=== PATIENT | female | born 1985 | race Caucasian/White ===

== ENCOUNTER 2023-11-21 22:01 | Emergency (ER) | payer MEDICAID, SELFPAY ==
[2023-11-21 22:13] VITALS: BP 125/89; PULSE 75; TEMP 36.7; O2SAT 97; BMI 32.9
--- NOTE | 2023-11-21 22:26 | ED_ITS ---
HPI HPI - General Adult General Chief complaint: Abdominal Pain Stated complaint: LRQ Pain, Hip Pain Time Seen by Provider: 11/21/23 22:07 History of Present Illness HPI narrative: This 38-year-old female who is status postcholecystectomy with Dr. Espinal presents for evaluation of ongoing right lower quadrant abdominal pain. She has a specific area in her right lower quadrant that is causing her pain with specific movements. She states she was seen in follow-up after her gallbladder surgery by the Dr. Espinal and appeared to be doing well. Approximately 3 weeks after her gallbladder surgery she spiked a high fever. She was worked up extensively and even had a spinal tap done. No specific cause for her fever was elucidated. She states that she was referred to a permastone installer at [facility] because she had an elevated CRP and sed rate. During a scan for a workup for fibromyalgia and lupus it was found that she has a surgical clip in her right lower quadrant. She is concerned that the surgical clip is what is causing her pain. She has had a complete hysterectomy and prior to that had a tubal ligation. She is not having any urinary symptoms. She denies any ongoing fever. She has no nausea or vomiting. She did have ovarian cyst prior to her complete hysterectomy. Related Data Home Medications ?Medication ?Instructions ?Recorded ?Confirmed hydroxyzine HCl 25 mg tablet 25 mg PO Q6H PRN itching 11/21/23 11/21/23 Allergies Allergy/AdvReac Type Severity Reaction Status Date / Time acetaminophen [From Percocet] Allergy Mild Hives Verified 11/21/23 22:26 nickel Allergy Mild Hives Verified 11/21/23 22:26 oxycodone [From Percocet] Allergy Mild Hives Verified 11/21/23 22:26 Sulfa (Sulfonamide Allergy Mild Hives Verified 11/21/23 22:26 Antibiotics) silk tape Allergy Mild Hives Uncoded 11/21/23 22:26 Opioid HPI Opioid Management Most Recent Opioid Data: No Data to Display Review of Systems ROS Status of ROS 10 or more systems reviewed and unremark able except as noted in history and below Exam Narrative Exam Narrative: Vital signs and Nursing Notes reviewed: Patient is afebrile with a normal pulse, normal blood pressure, she is not hypoxic with pulse ox of 97% on room air General: Awake, alert, oriented, no acute distress, lying comfortably on the stretcher, she moves easily about the stretcher HEENT: Normocephalic atraumatic, mucous membranes are moist and pink, eyes are clear, normal conjunctiva, vision is grossly intact Neck: Supple, no meningeal signs, no anterior or posterior cervical lymphadenopathy Chest: Lungs are clear to auscultation with good air entry, there is no wheezing rhonchi or rales appreciated no accessory muscle use, patient is speaking in complete sentences-no chest wall tenderness to palpation CVS: Regular rate and rhythm S1-S2, no murmurs rubs or gallops, pulses are brisk and equal bilaterally ABD: Soft, nondistended, mild tenderness in the right lower quadrant, I do not appreciate any foreign bodies, there is no local erythema or bruising noted no rebound guarding or rigidity, bowel sounds are normal, no pulsatile masses appreciated, femoral pulses are brisk and equal bilaterally Extremities: Moving all extremities, no lower extremity tenderness or swelling noted, negative Homans' sign, pulses are brisk and equal bilaterally Skin: Normal in appearance without rash,pallor, petechiae or purpura Neuro: No focal deficits Constitutional Vital Signs, click to edit/add: Last Vital Signs Temp 98.0 F 11/21/23 22:13 Pulse 75 11/21/23 22:13 Resp 16 11/21/23 22:13 BP 125/89 11/21/23 22:13 Pulse Ox 97 11/21/23 22:13 O2 Del Method Room Air 11/21/23 22:13 Course Vital Signs Vital signs: Vital Signs Temperature 98.0 F 11/21/23 22:13 Pulse Rate 75 11/21/23 22:13 Respiratory Rate 16 11/21/23 22:13 Blood Pressure 125/89 11/21/23 22:13 Pulse Oximetry 97 11/21/23 22:13 Oxygen Delivery Method Room Air 11/21/23 22:13 Temperature 98.0 F 11/21/23 22:13 Pulse Rate 75 11/21/23 22:13 Respiratory Rate 16 11/21/23 22:13 Blood Pressure 125/89 11/21/23 22:13 Pulse Oximetry 97 11/21/23 22:13 Oxygen Delivery Method Room Air 11/21/23 22:13 Medical Decision Making MDM Narrative Medical decision making narrative: This patient presents with RLQ abd pain that has been ongoing for several weeks- months after having gallbladder surgery. She was told by another provider that that a CAT scan showed a surgical clip in her right lower quadrant. She is conc erned that this is what is causing her pain. She has had blood work urinalysis and CT scans done in the recent past. I offered her an x-ray to see if I could see where the surgical clip was located. She has had a tubal ligation and also had a total hysterectomy 13 years ago in [facility]. She was concerned that the surgical clip may have been from the gallbladder surgery but I explained to her that it would be highly unlikely for a surgical clip from the right upper quadrant to migrate into the right lower quadrant as the pelvis is contained in a different compartment anatomically. She was offered a dose of ibuprofen as she is driving, blood work urinalysis and x-ray but declines this at this time stating that she will go home and call her tombstone carver who did her hysterectomy in the near future for a follow-up appointment. Her vital signs and physical exam are benign. Discharge Plan Discharge Stand Alone Forms: Portal Instructions Chief Complaint: Abdominal Pain Clinical Impression: Abdominal pain Patient Disposition: Home, Self-Care Time of Disposition Decision: 23:23 Condition: Good Prescriptions / Home Meds: No Action hydroxyzine HCl 25 mg tablet 25 mg PO Q6H PRN (Reason: itching) Print Language: Telugu Instructions: Abdominal Pain (ED) Referrals: VERONIKA NIELSEN [Primary Care Provider] - 1 week
== END 2023-11-21 23:29 | disposition home or self-care (01) ==
PROVIDERS: Emergency Provider Emergency Medicine; PCP Nurse Practitioner Family
DX: R10.9 Unspecified abdominal pain (principal); Z90.49 Acquired absence of other specified parts of digestive tract; Z90.710 Acquired absence of both cervix and uterus
CPT/HCPCS: 99282

== ENCOUNTER 2024-06-12 17:46 | Emergency (ER) | payer MEDICAID, SELFPAY ==
[2024-06-12 17:51] VITALS: BP 135/93; PULSE 90; TEMP 37.1; O2SAT 98; BMI 25.6
--- NOTE | 2024-06-12 18:18 | ED_ITS ---
HPI - GI Bleed General Chief complaint: GI Bleed Stated complaint: RECTAL BLEEDING Time Seen by Provider: 06/12/24 18:04 Source: patient Mode of arrival: walk-in Limitations: no limitations History of Present Illness HPI Narrative: Patient is 38-year-old female have a history of hysterectomy as well as external hemorrhoid coming to the ER with a rectal bleed that she noticed today twice, she mentioned that she noted the blood in the tissue paper and also in the toilet, she was worried because 2 weeks ago she had some heartburn that resolved right now and she was taking a lot of Pepto-Bismol and antiacid medication The patient at the moment denying any abdominal pain nausea vomiting or any other concerns she mentioned that she already have a history of hemorrhoid she denies any rectal pain as well Related Data Home Medications ?Medication ?Instructions ?Recorded ?Confirmed hydroxyzine HCl 25 mg tablet 25 mg PO Q6H PRN itching 11/21/23 06/12/24 acetazolamide 250 mg tablet mg 06/12/24 albuterol sulfate 90 mcg/actuation inhalation 06/12/24 aerosol inhaler cefdinir 300 mg capsule mg 06/12/24 cetirizine 10 mg tablet mg 06/12/24 conjugated estrogens 0.45 mg mg 06/12/24 tablet (Premarin) dextroamphetamine-amphetamine 10 06/12/24 mg tablet dextroamphetamine-amphetamine 20 06/12/24 mg tablet doxycycline monohydrate 100 mg mg 06/12/24 capsule hydroxyzine HCl 50 mg tablet mg 06/12/24 montelukast 10 mg tablet mg 06/12/24 Allergies Allergy/AdvReac Type Severity Reaction Status Date / Time acetaminophen (From Percocet) Allergy Mild Hives Verified 06/12/24 18:01 nickel Allergy Mild Hives Verified 06/12/24 18:01 oxycodone (From Percocet) Allergy Mild Hives Verified 06/12/24 18:01 Sulfa (Sulfonamide Allergy Mild Hives Verified 06/12/24 18:01 Antibiotics) levofloxacin Allergy Swelling Verified 06/12/24 18:01 of Lip/Tongue/Throat silk tape Allergy Mild Hives Uncoded 06/12/24 18:01 Review of Systems ROS Status of ROS 10 or more systems reviewed and unremark able except as noted in history and below PFSH PFSH Social History Little interest or pleasure in doing things: not at all Feeling down, depressed, or hopeless: not at all Exam Narrative Exam Narrative: Nurses notes and vital signs reviewed and patient is not hypoxic. General: Well-appearing and in no apparent distress. Skin: Warm, dry, no pallor noted. No rash. Head: Normocephalic, atraumatic. Neck: Supple, non-tender. Eye: Pupils are equal, round and EOMI. No scleral icterus. Ears, Nose, Mouth, and Throat: TM are clear, no nasal mucosal hypertrophy. Oral mucosa is moist, no posterior oropharynx erythema, uvula is mid-line Cardiovascular: Regular Rate and Rhythm without murmur, gallop or rub. Respiratory: No accessory muscle use or respiratory distress. Lungs are clear to auscultation, no wheezing, rales or rhonchi Chest Wall: no tenderness Back: No midline thoracic or lumbar vertebral tenderness. No CVA tenderness Musculoskeletal: normal ROM, no calf or popliteal tenderness, no lower extremity edema/swelling GI: Abdomen is soft, non-distended. Normal bowel sounds. No masses appreciated. No tenderness to palpation. No rebound, guarding, or rigidity noted. Neurological: A&O x4. No cranial nerve dysfunction observed. No truncal ataxia. Moves all extremities. Sensation intact. Psychiatric: Cooperative and interactive. Normal mood and affect. Rectal exam: The patient have a external hemorrhoid at 6:00 that is almost 3 mm nontender and not bleeding And there was no rectal bleeding on exam Constitutional Vital Signs, click to edit/add: Last Vital Signs Temp 98.8 F 06/12/24 17:51 Pulse 90 06/12/24 17:51 Resp 16 06/12/24 17:51 BP 135/93 H 06/12/24 17:51 Pulse Ox 98 06/12/24 17:51 Course Vital Signs Vital signs: Vital Signs Temperature 98.8 F 06/12/24 17:51 Pulse Rate 90 06/12/24 17:51 Respiratory Rate 16 06/12/24 17:51 Blood Pressure 135/93 H 06/12/24 17:51 Pulse Oximetry 98 06/12/24 17:51 Temperature 98.8 F 06/12/24 17:51 Pulse Rate 90 06/12/24 17:51 Respiratory Rate 16 06/12/24 17:51 Blood Pressure 135/93 H 06/12/24 17:51 Pulse Oximetry 98 06/12/24 17:51 Discharge Plan Discharge Chief Complaint: GI Bleed Clinical Impression: Rectal bleed, Hemorrhoids Patient Disposition: Home, Self-Care Time of Disposition Decision: 18:18 Condition: Good Prescriptions / Home Meds: No Action hydroxyzine HCl 25 mg tablet 25 mg PO Q6H PRN (Reason: itching) cetirizine 10 mg tablet dextroamphetamine-amphetamine 10 mg tablet acetazolamide 250 mg tablet hydroxyzine HCl 50 mg tablet doxycycline monohydrate 100 mg capsule dextroamphetamine-amphetamine 20 mg tablet montelukast 10 mg tablet albuterol sulfate 90 mcg/actuation HFA aerosol inhaler INHALATION cefdinir 300 mg capsule Premarin 0.45 mg tablet Print Language: Mauritian Instructions: Rectal Bleeding (ED) Referrals: VERONIKA NIELSEN [Primary Care Provider] - 1 week
[2024-06-12 18:36] LABS: Basophils Percent Auto 0.4 % (0.2-2.0); Eosinophils Absolute Auto 0.1 10^3/uL (0.0-0.7); Eosinophils Percent Auto 1.9 % (0.9-7.0); Hematocrit 36.2 % (36.0-48.0); Hemoglobin 12.9 g/dL (12.0-16.0); Immature Granulocytes Abs Auto 0.01 10^3/uL (0.00-0.03); Immature Granulocytes Pct Auto 0.1 % (0.0-0.5); Lymphocytes Absolute Auto 3.2 10^3/uL (1.2-3.8); Mean Corpuscular HGB Conc 35.6 g/dL (29.9-35.2); Mean Corpuscular Hemoglobin 31.7 pg (26.7-34.0); Mean Corpuscular Volume 88.9 fL (81.0-99.0); Mean Platelet Volume 9.4 fL (9.5-13.5); Monocytes Absolute Auto 0.4 10^3/uL (0.3-0.8); Monocytes Percent Auto 5.9 % (1.7-12.0); Neutrophils Absolute Auto 3.5 10^3/uL (1.4-6.5); Neutrophils Percent Auto 47.7 % (43.0-75.0); Platelet Count 335 10^3/uL (150-450); Red Blood Count 4.07 10^6/uL (4.20-5.40); Red Cell Distribution Width 11.8 % (11.0-15.0); White Blood Count 7.3 10^3/uL (4.0-11.0)
--- OUTSIDE RECORDS SUMMARY | 2024-06-12 18:36 | XMS_ITS | CCD ---
Author Organization [facility] Care Team Providers [facility] [employer] Attendant Name Role Phone Vibha Alonzo Unavailable Unavailable SOFIA BETANCUR Unavailable Unavailable SOFIA BETANCUR Unavailable Unavailable Kelly John E Unavailable Unavailable KISHOR ALONZO Unavailable Unavailable KISHOR ALONZO Unavailable Unavailable Hilario Pena V Unavailable Unavailable Kelly John E Unavailable Unavailable Glenn Jackson Unavailable Unavaila Glenn Mitchell Unavailable Unavaila maty Mendoza John E Unavailable Unavailable [employer] Unavailable Unavailable Kelly, John E Unavailable Unavailable Kelly, John E Unavailable Unavailable LEV BARRAGAN Unavailable Unavailable LUIS A ALMARAZ Unavailable Unavailable Sruthi Farrell Unavailable Odalis Carrero Unavailable Vadim Sandra Unavailable Moises Simmons Unavailable CHILO Farrell Primary Care Provider CHILO Farrell Attending Provider [phone] MD Emeka Gastelum Attending Provider DO Angela Peace Attending Provider DO Ken Castorena Emergency Provider [phone] CHILO Farrell Primary Care Provider DO Angela Peace Attending Provider [phone] DO Ken Castorena Emergency Provider CHILO Farrell Attending Provider MD Vadim Sandra Other Provider CHILO Farrell Primary Care Provider CHILO Farrell Attending Provider [phone] RODRIGO SRUTHI Primary Care Unavailable DIAB ., TORI Admitting Unavailable DIAB ., TORI Attending Unavailable DIAB ., TORI Consulting Unavailable KARASIK, VAN Admitting Unavailable KARASIK, VAN Attending Unavailable KAPTAVARES SRUTHI Primary Care Unavailable KARASIK, VAN Consulting Unavailable TATUM, DR MOHSEN Tapia Consulting Unavailable KARASIK, VAN Admitting Unavailable KARASIK, VAN Attending Unavailable NADEREDR JUAN Tapia Primary Care Unavailable KARASIK, VAN Consulting Unavailable MD Torrey Louis Emergency Provider [phone] MD Sunyn Ignacio Referring Provider Unavailable Primary Care Provider Unavailnatalie Ignacio II, Dr. Sunny Rogers Attending Unavailable [facility] Attending Provider [phone] Marlo Salazar Unavailable [facility] Primary Care Provider TARA Hicks Emergency Provider [phone] DO Ken Castorena Emergency Provider PROVIDER, UNKNOWN Admitting Unavailable PROVIDER, UNKNOWN Attending Unavailable DERREK HOLGUIN Attending Unavailable PROVIDER, UNKNOWN Admitting Unavailable [facility] Primary Care Provider TARA Hicks Emergency Provider [phone] DO Ken Castorena Emergency Provider DO Miguel Ángel Montano Attending Provider Bud [facility] Primary Care Provider DO Dilshad Burdick Emergency Provider [phone] [place], [employer]IGITAL PRODUCTION MANAGER-ABHINAV Garnett E Emergency Provider Unavailable Primary Care Provider Unavailnatalie Farrell [facility] Primary Care Provider TARA Hicks Emergency Provider MIGUEL ÁNGEL MONTANO Attending Unavailable JUAN ESTRADA Referring Unavailable MIGUEL ÁNGEL MONTANO Attending Unavailable MIGUEL ÁNGEL MONTANO Attending Unavailable JUAN ESTRADA Referring Unavailable MIGUEL ÁNGEL MONTANO Attending Unavailable MIGUEL ÁNGEL MONTANO Attending Unavailable CHILO Farrell [facility] Primary Care Provider MD Colleen Mckeon Emergency Provider [phone] HCILO Farrell [facility] Primary Care Provider [place], [facility] Mariola E Emergency Provider NO FAMILY, PHYSICIAN Primary Care Provider Unava ilable [place], Mariola E Admitting Unavailable [place], Mariola E Attending Unavailable NO FAMILY, PHYSICIAN Primary Care Unavailable [facility] Primary Care Unavailable Colleen Mckeon Admitting Unavailable Colleen Mckeon Attending Unavailable Majoe, Mary Guzmán Attending Unavailable [facility] Care Unavailable Mary Hicks N Admitting Unavailable TuKen gallegos Admitting Unavailable TupaVijayaKen M Attending Unavailable [facility] Care Unavailable Dilshad Burdick M Attending Unavailable [facility] Care Unavailable Dilshad Burdick M Admitting Unavailable [place], Mariola E Admitting Unavailable [place], Mariola E Attending Unavailable [facility] Unavailable Saffle, Mary N Attending Unavailable [facility] Care Unavailable Safthomase, Mary N Admitting Unavailable [facility] Care Unavailable Miguel Ángel Montano Admitting Unavailable Miguel Ángel Montano Attending [facility] Miguel Ángel Montano Admitting Unavailable Miguel Ángel Montano Attending Unavailable [place] [facility], Mariola E Emergency Provider NO FAMILY, PHYSICIAN Primary Care Provider Unava ilable Unavailable Primary Care Provider UnavailJUAN MANUEL Davis Attending Unavailable MARIA EUGENIA, ZOE Referring Unavailable BHAKTI CORONEL Attending Unavailable MICHAEL HAMILTON Referring Unavailable RIYA KIRK Attending Unavailable HAMILTON RODRIGUEZ Referring Unavailable MARIA EUGENIA, ZOE Attending Unavailable MARIA EUGENIA, ZOE Referring Unavailable HAMILTON RODRIGUEZ Attending Unavailable DEVONTE THRASHER Attending Unavailable MARIA EUGENIA, ZOE Referring Unavailable MARIA EUGENIA, ZOE Referring Unavailable ZOE SRINIVASAN Attending Unavailable BHAKTI CORONEL Referring Unavailable BHAKTI CORONEL Attending Unavailable BHAKTI CORONEL Referring Unavailable Allergies Allergy Classification Reported Allergen(s) Allergy Type Date of Onset Reaction(s) Facility Latex (2 sources) Latex Substance Allergy 10-22-19 [facility] nickel (2 sources) nickel Drug Allergy 10-22-19 17 Rash [facility] Opioid Agonists (2 sources) oxyCODONE Drug Allergy 12-07-19 Rash [facility] silk allergenic extract (2 sources) silk allergenic extract Drug Allergy 10-22-19 Other: See Comments [facility] Sulfonamides (antibiotic) (2 sources) sulfADIAZINE Drug Allergy 11-20-19 Rash [facility] (1 source) YES - ALLERGIES EXIST; Translations: [YES - ALLERGIES EXIST] Propensity to adverse reactions (disorder) [facility] Repository (20 sources) Acetaminophen / oxyCODONE Drug Allergy 05-02-20 12 Unknown, Rash [facility] Other (11 sources) Sulfamethoxazole / Trimethoprim Drug Allergy 02-15-20 24 Unknown, Swelling [facility] Other (18 sources) sulfaSALAzine Drug Allergy Unknown [email or web address] Other (20 sources) seamus Propensity to adverse reactions Unknown [facility] Other (20 sources) silk tape and latex Propensity to adverse reactions Unknown [email or web address] Other (20 sources) Latex; Translations: [latex] Allergy to substance 10-22-19 [facility] (20 sources) nickel; Translations: [Nickel] Drug Allergy 10-22-19 17 Rash, [facility] (20 sources) oxyCODONE; Translations: [OXYCODONE] Drug Allergy 12-07-19 [facility] (20 sources) Silk adhesive tape Allergy to substance 07-02-19 [facility] (20 sources) Sulfonamides (Antibiotic) Allergy to substance 12-07-19 [facility] (6 sources) Sulfonamide Drug allergy Unknown [facility] Other (20 sources) Substance with sulfonamide structure and antibacterial mechanism of action (substance) Drug allergy 08-30-19 Unknown [facility] Other (3 sources) Acetaminophen / oxyCODONE; Translations: [PERCOCET] Drug Allergy 10-22-19 17 [facility] Repository (2 sources) Silk; Translations: [SILK] Drug allergy (disorder) 10-22-19 17 [facility] Repository (1 source) Sulfonamides (Antibiotic) Drug allergy (disorder) 10-22-19 17 [facility] Repository (13 sources) silk allergenic extract Drug Allergy 10-22-19 Other: See Comments [facility] (10 sources) Adhesive Tape Drug allergy rash [facility] Other (1 source) Sulfonamides (Antibiotic); Translations: [SULFA ANTIBIOTICS] Propensity to adverse reactions to drug (disorder) 08-30-19 [facility] Repository (8 sources) Acetaminophen; Translations: [ACETAMINOPHEN] Drug Allergy 09-19-19 Hives, Itching [facility] (2 sources) Adhesive Tape Allergy to substance 09-19-19 [facility] (12 sources) sulfADIAZINE; Translations: [SULFADIAZINE] Drug Allergy 11-20-19 [facility] (8 sources) Adhesive agent; Translations: [ADHESIVE] Drug Allergy 05-02-20 12 [facility] (8 sources) Adhesive Tape; Translations: [ADHESIVE TAPE (ROSINS)] Allergy to substance 07-02-19 Hives, Itching [facility] (1 source) levoFLOXacin Drug Allergy 05-27-20 24 [facility] Work Phone: (1 source) Acetaminophen / oxyCODONE; Translations: [OXYCODONE-ACETAMIN OPHEN] Drug Allergy 05-02-20 12 [facility] Repository (1 source) Sulfamethoxazole / Trimethoprim; Translations: [SULFAMETHOXAZOLE-T RIMETHOPRIM] Drug Allergy 02-15-20 24 [facility] Repository Medications Current Medications Medication Drug Class(es) Dates Sig (Normalized) Sig (Original) 0.5 ML semaglutide 0.5 MG/ML Auto-Injector [Wegovy] (2 sources) Start: 11-03-2021 inject 0.5 mL by subcutaneous injection every week Wegovy 0.25 MG/0.5ML 0.5 ml Subcutaneous Weekly for 30 days October, Active acetaZOLAMIDE 250 mg oral tablet (20 sources) Carbonic Anhydrase Inhibitor Start: 05-27-2024 acetaZOLAMIDE (DIAMOX) 250 mg tablet Indications: IIH (idiopathic intracranial hypertension) 500 mg AM; 250 mg PM 90 tablet 5 05/27/2024 Active Start: 11-30-2023 End: 05-27-2024 take 1 tablet by mouth twice daily acetaZOLAMIDE (DIAMOX) 250 mg tablet Indications: IIH (idiopathic intracranial hypertension) Take 1 tablet by mouth two times a day. 180 tablet 3 11/30/2023 05/27/2024 Discontinued Start: 04-05-2022 End: 09-10-2023 take 1 tablet by mouth once daily Acetazolamide 250 mg Tablet Discontinued 250 MG PO Daily April 04, 2022 11:00pm September 10, 2023 7:47am take 1 tablet by tiffany th twice daily acetaZOLAMIDE 250 MG 1 tab Orally twice daily Active [id number] 200 actuat albuterol 0.09 mg/actuat metered dose inhaler (20 sources) beta2-Adrenergic Agonist Start: 11-20-2023 End: 01-14-2024 take 2 puff(s) by mouth every four hours as needed Albuterol Sulfate (Ventolin Hfa) 90 mcg/actuation HFA aerosol inhaler Active 0 .ROUTE .COMPLEX 54 January 14, 2024 12:57pm INHALE 2 PUFFS BY MOUTH EVERY 4 HOURS NEEDED Start: 11-19-2023 End: 11-20-2023 take 2 puff(s) by inhalation every four hours as needed for cough Albuterol Sulfate (Ventolin Hfa) 90 mcg/actuation HFA aerosol inhaler Discontinued INHALATION November 18, 2023 11:00pm November 20, 2023 6:38am [employer] puffs as needed Inhalation every 4 hrs PRN shortness of breath, wheezing, or cough; Note: Source Status: Taking; Refills: 1; Provider: Bud Kuhn Start: 06-05-2022 take 2 puff(s) by in halation every four hours as needed for cough Ventolin HFA 108 (90 Base) MCG/ACT 2 puffs as needed Inhalation every 4 hrs PRN shortness of breath, wheezing, or cough for 90 days Jun, Active Start: 05-15-2021 End: 04-05-2022 take 2.5 mg by inhalation every six hours as needed Albuterol Sulfate 2.5 mg /3 mL (0.083 %) solution for nebulization Discontinued 2.5 MG INHALATION Q6H as needed for bronchospasm May 15, 2021 12:00am April 05, 2022 9:52pm Start: 07-02-2019 End: 04-05-2022 take 1 mL by inhalation every six hours as needed Albuterol Sulfate 2.5 mg /3 mL (0.083 %) solution for nebulization Discontinued 3 ML INHALATION Q6H as needed for Shortness Of Breath July 02, 2019 12:00am April 05, 2022 9:52pm Start: 07-02-2019 End: 07-02-2019 Albuterol Sulfate 90 mcg/act uation HFA aerosol inhaler Discontinued July 02, 2019 12:00am July 02, 2019 10:10am Start: 01-11-2019 End: 04-05-2022 take 1 puff(s) by inhalation every four to six hours as needed Albuterol Sulfate 90 mcg/actuation Hfa Aerosol Inhaler Discontinued 2 PUFF INHALATION EVERY 4-6 HOURS as needed for Bronchospasm January 10, 2019 11:00pm April 05, 2022 9:52pm Start: 09-16-2018 take 1-2 puff(s) by inhalation every four to six hours as needed for cough Ventolin HFA 108 (90 Base) MCG/ACT 1 - 2 puffs as needed Inhalation every 4 - 6 hrs prn cough or wheezing for 10 days Aug, Not-Taking Start: 11-26-2017 End: 02-08-2018 Albuterol Sulfate 90 mcg/act uation HFA aerosol inhaler Discontinued 2 INH INHALATION every 6 to 8 hours as needed for shortness of breath or wheezing November 25, 2017 11:00pm February 08, 2018 9:05pm administer with spacer take 2 puff(s) by in halation every six hours as needed Proventil HFA 108 (90 Base) MCG/ACT 2 puffs as needed Inhalation every 6 hrs Active Amoxicillin / Clavulanate (3 sources) Penicillin-class Antibacterial Start: 04-06-2022 take 1 tablet by mouth every twelve hours Augmentin 875-125 MG 1 tablet Orally every 12 hrs for 10 days Apr, Active azithromycin 250 mg oral tablet (20 sources) Macrolide Antimicrobial Start: 07-05-2023 take 2 tablets by mouth once daily, then take 1 tablet by mouth once daily, then take 2 tablets by mouth once daily Azithromycin 250 MG 2 tablets on day 1, then 1 tablet on day 2 through 5 Orally Once a day for 5 Jul, Active Start: 05-15-2021 End: 04-05-2022 Azithromycin 250 mg tablet Discontinued 250 MG PO Daily May 15, 2021 12:00am April 05, 2022 9:52pm Take two tabs (500mg) on day 1 then take one tab daily for 4 days Start: 07-02-2019 End: 05-15-2021 take 2-5 tablets by mouth once daily Azithromycin (Zithromax Z-Sebastian) 250 mg tablet Discontinued 0 PO .COMPLEX July 02, 2019 12:00am May 15, 2021 11:37am take 500 mg today (day 1), then 250 mg for 4 days (days 2-5) benoxinate hydrochloride 4 mg/ml / fluorescein sodium 3 mg/ml ophthalmic solution (1 source) Diagnostic Dye Start: 02-15-2024 End: 02-15-2024 fluorescein-benoxinate 0.3-0.4 % 1 Drop (FLURESS) benzonatate 200 mg oral capsule (20 sources) Non-narcotic Antitussive Start: 07-05-2023 take 1 capsule by mouth every eight hours Benzonatate 200 MG 1 capsule Orally Three times a day for 10 Jul, Active Start: 05-15-2021 End: 04-05-2022 take 1 capsule by mouth three times daily as needed for cough Benzonatate 200 mg capsule Discontinued 200 MG PO Three times daily as needed for Cough May 15, 2021 12:00am April 05, 2022 9:52pm Start: 11-26-2017 End: 02-08-2018 take 2 capsules by mouth every six hours as needed for cough Benzonatate (Christen Law) 100 mg capsule Discontinued 200 MG PO Q6H as needed for cough November 25, 2017 11:00pm February 08, 2018 9:05pm cetirizine hydrochloride 10 mg oral tablet (20 sources) Histamine-1 Receptor Antagonist Start: 04-05-2022 End: 01-07-2024 take 1 tablet by mouth once daily in the morning Cetirizine 10 mg tablet Active 10 MG PO Every morning 90 90 January 07, 2024 9:02am Cetirizine 10 mg cap Active Cetirizine HCl A ctive cyclobenzaprine hydrochloride 10 mg oral tablet (8 sources) Muscle Relaxant Start: 03-31-2024 take 1 tablet by mouth three times daily as needed for muscle spasms Cyclobenzaprine 10 mg tablet Active 10 MG PO Three times daily as needed for muscle spasm March 30, 2024 11:00pm Start: 10-16-2023 End: 11-25-2023 take 1 tablet by mouth three times daily as needed for muscle spasms Cyclobenzaprine 10 mg tablet Discontinued 10 MG PO Three times daily as needed for muscle spasm October 15, 2023 11:00pm November 25, 2023 2:49pm 12 hr dextromethorphan hydrobromide 30 mg / guaiFENesin 600 mg extended release oral tablet (2 sources) Uncompetitive U-wlcfav-Q-aspartate Receptor Antagonist, Sigma-1 Agonist Start: 01-10-2022 take 1 tablet by mouth every twelve hours Mucinex DM 30-600 MG 1 tablet as needed Orally every 12 hrs for 14 days Dec, Active estrogens, conjugated (correction) 0.45 mg oral tablet (20 sources) Estrogen Start: 08-03-2022 PREMARIN 0.45 mg tablet 08/03/2022 Active Start: 04-05-2022 End: 09-10-2023 take 1 tablet by mouth once daily Conjugated Estrogens (Premarin) 0.625 mg tablet Discontinued 0.625 MG PO Daily April 04, 2022 11:00pm September 10, 2023 7:47am Premarin Active ibuprofen 600 mg oral tablet (20 sources) Nonsteroidal Anti-inflammatory Drug Start: 02-13-2024 take 1 tablet by mouth every six hours as needed for pain Ibuprofen 600 mg tablet Active 600 MG PO Q6H as needed for pain 18 11February 12, 2024 11:00pm Start: 08-17-2022 End: 10-16-2023 take 1 tablet by mouth three times daily Ibuprofen 800 mg tablet Discontinued 800 MG PO Three times daily October 15, 2023 11:00pm October 16, 2023 12:48pm ketorolac tromethamine 10 mg oral tablet (8 sources) Nonsteroidal Anti-inflammatory Drug, Cyclooxygenase Inhibitor Start: 03-31-2024 take 1 tablet by mouth every six hours as needed for pain Ketorolac 10 mg tablet Active 10 MG PO Q6H as needed for pain March 30, 2024 11:00pm Start: 10-16-2023 End: 11-25-2023 take 1 tablet by mouth every six hours as needed for pain Ketorolac 10 mg tablet Discontinued 10 MG PO Q6H as needed for pain October 15, 2023 11:00pm November 25, 2023 2:48pm melatonin/thean/lemon/hanane/l av (SLEEP CALM ORAL) (5 sources) End: 11-30-2023 melatonin/thean/lemon/hanane/l av (SLEEP CALM ORAL) Take by mouth. THC oral gummies. 0 11/30/2023 Discontinued melatonin/thean/ lemon/hanane/lav (SLEEP CALM ORAL) Take by mouth. THC oral gummies. 0 Active montelukast 10 mg oral tablet (20 sources) Leukotriene Receptor Antagonist Start: 11-05-2023 End: 04-29-2024 take 1 tablet by mouth once daily Montelukast 10 mg tablet Active 0 .ROUTE .COMPLEX 90 April 29, 2024 8:51am TAKE 1 TABLET BY MOUTH DAILY Start: 05-15-2021 montelukast (S INGULAIR) 10 mg tablet Montelukast Active 10 MG PO Daily May 15, 2021 12:00am 05/15/2021 Active Start: 05-15-2021 End: 11-05-2023 take 1 tablet by mouth at bedtime Montelukast 10 mg tablet Discontinued 10 MG PO Bedtime May 15, 2021 12:00am November 05, 2023 10:02am Comment on above: Montelukast Active 1 0 MG PO Daily May 15, 2021 12:00am Multivitamin Adult - (20 sources) Multivitamin Neto lt - Orally Active Multivitamin preparation (19 sources) Start: 08-23-2018 take 1 tablet by mouth once daily Multivitamin Active 1 TAB PO Daily August 23, 2018 12:00am Start: 08-23-2018 take 1 tablet by tiffany th once daily Multivitamin Active 1 TAB PO Daily August 23, 2018 1:00am Multivitamin Tablet (1 source) Start: 08-23-2018 take 1 tablet by mouth once daily Multivitamin Tablet Active 1 TAB PO Daily August 23, 2018 12:00am mv,calcium,min/iron/foli c/vitK (MULTI FOR HER ORAL) (15 sources) mv,calcium,min/i natacha/fol ic/vitK (MULTI FOR HER ORAL) Active mv,calcium,min/i natacha/folic/vitK (MULTI FOR HER ORAL) Nasonex 50 MCG/ACT (3 sources) Start: 07-05-2023 take 2 spray(s) nasal route once daily Nasonex 50 MCG/ACT 2 sprays in each nostril Nasally Once a day for 30 day(s) Jul, Active Ozempic (2 MG/DOSE) 8 MG/3ML (3 sources) Start: 01-04-2022 inject 2 mg by subcutaneous injection every week Ozempic (2 MG/DOSE) 8 MG/3ML 2 mg Subcutaneous weekly for 30 days Dec, Active perflutren lipid microspheres 1.3 mL in NaCl (PF) 0.9% 10 mL injection (DEFINITY) (8 sources) Start: 09-08-2022 End: 12-08-2023 perflutren lipid microspheres 1.3 mL in NaCl (PF) 0.9% 10 mL injection (DEFINITY) phenylephrine hydrochloride 25 mg/ml ophthalmic solution (1 source) alpha-1 Adrenergic Agonist Start: 02-15-2024 End: 02-15-2024 PHENYLephrine 2.5 % 1 Drop (AK-DILATE, JIAN-SYNEPHRINE) pregabalin 50 mg oral capsule (6 sources) Start: 05-10-2024 take 1 mg by mouth once daily Pregabalin 50 mg capsule Active MG PO Daily May 10, 2024 12:00am Start: 04-29-2024 End: 05-29-2024 take 1 capsule by mouth twice daily pregabalin (LYRICA) 50 mg capsule Indications: Polyarthralgia Take 1 capsule by mouth two times a day for 30 days. 60 capsule 04/29/2024 05/27/2024 Discontinued (Course of therapy completed) Start: 04-16-2024 End: 05-16-2024 take 1 capsule by mouth twice daily pregabalin (LYRICA) 25 mg capsule Indications: Polyarthralgia Take 1 capsule by mouth two times a day for 30 days. 60 capsule 04/16/2024 04/28/2024 Discontinued ProAir HFA 108 (90 Base) MCG/ACT (2 sources) Start: 05-30-2022 take 2 puff(s) by inhalation every four hours as needed for cough ProAir HFA 108 (90 Base) MCG/ACT 2 puffs as needed Inhalation every 4 hrs prn cough/wheezing/shortness of breath for 30 days May, Active proparacaine hydrochloride 5 mg/ml ophthalmic solution (1 source) Local Anesthetic Start: 02-15-2024 End: 02-15-2024 proparacaine 0.5 % 1 Drop (ALCAINE) Semaglutide Base (1 source) Start: 03-21-2024 inject 1 mL by subcutaneous injection every week Semaglutide Base Active 0.25 ML SUBCUT every week March 21, 2024 12:00am [facility] Pre-filled Syringes using Semaglutide Base. Dispense 1 mL = (Four 0.25 mL pre-filled syringes) Semaglutide Base 0.3 mg/0.25 mL (1 source) Start: 03-21-2024 inject 1 mL by subcutaneous injection every week Semaglutide Base 0.3 mg/0.25 mL Active 0.25 ML SUBCUT every week March 20, 2024 11:00pm [facility] Pre-filled Syringes using Semaglutide Base. Dispense 1 mL = (Four 0.25 mL pre-filled syringes) 125 ml sodium chloride 9 mg/ml prefilled syringe (8 sources) Start: 09-08-2022 End: 12-08-2023 sodium chloride 0.9 % (flush) 10 mL (BD POSIFLUSH) thc sleep gummy (5 sources) Start: 11-25-2023 thc sleep gummy Active 0 .ROUTE .COMPLEX November 24, 2023 11:00pm 1 gummy QHS; Start: 11-25-2023 thc sleep kelly y Active 0 .ROUTE .COMPLEX November 25, 2023 12:00am 1 gummy QHS; Start: 11-25-2023 thc sleep kelly y Active November 25, 2023 12:00am tropicamide 10 mg/ml ophthalmic solution (1 source) Anticholinergic Start: 02-15-2024 End: 02-15-2024 tropicamide 1 % 1 Drop (MYDRIACYL) zinc acetate 50 mg oral capsule (6 sources) Start: 02-22-2024 Zinc Acetate, Oral, 50 mg (zinc) cap Take 50 capsules by mouth once daily. 02/22/2024 Active zinc gluconate 50 mg oral tablet (3 sources) Start: 03-21-2024 take 1 tablet by mouth once daily Zinc Gluconate 50 mg tablet Active 50 MG PO Daily March 20, 2024 11:00pm Completed/Discontinued Medications Medication Drug Class(es) Dates Sig (Normalized) Sig (Original) 3 ML semaglutide 2.68 MG/ML Pen Injector [Ozempic] (9 sources) Start: 01-04-2022 inject 2 mg by subcutaneous injection every week Ozempic (2 MG/DOSE) 8 MG/3ML 2 mg Subcutaneous weekly for 30 days Dec, Not-Taking Start: 01-04-2022 inject 2 mg by subcu taneous injection every week Ozempic (2 MG/DOSE) 8 MG/3ML 2 mg Subcutaneous weekly for 30 days Dec, Active acetaminophen 325 mg / HYDROcodone bitartrate 5 mg oral tablet (9 sources) Opioid Agonist Start: 09-19-2023 End: 10-16-2023 take 2 tablets by mouth every six hours as needed for pain Hydrocodone-Acetaminophen 5-325 mg tablet Discontinued 2 TAB PO Q6H as needed for pain 40 7 September 19, 2023 October 16, 2023 11:05am acyclovir 400 mg oral tablet (6 sources) Herpesvirus Nucleoside Analog DNA Polymerase Inhibitor, Herpes Simplex Virus Nucleoside Analog DNA Polymerase Inhibitor, Herpes Zoster Virus Nucleoside Analog DNA Polymerase Inhibitor Start: 10-16-2023 End: 11-25-2023 take 1 tablet by mouth three times daily Acyclovir 400 mg tablet Discontinued 400 MG PO Three times daily October 15, 2023 11:00pm November 25, 2023 2:48pm brompheniramine maleate 0.4 mg/ml / dextromethorphan hydrobromide 2 mg/ml / pseudoephedrine hydrochloride 6 mg/ml oral solution (20 sources) alpha-Adrenergic Agonist, Uncompetitive I-bhtzrn-G-aspar murray Receptor Antagonist, Sigma-1 Agonist Start: 07-02-2019 End: 05-15-2021 take 1 mL by mouth four times daily as needed for cough Bajzonbyadkfvjs-Eewedngqp-K m 2-30-10 mg/5 mL syrup Discontinued 10 ML PO Four times daily as needed for Cough July 02, 2019 12:00am May 15, 2021 11:38am 12 hr buPROPion hydrochloride 150 mg extended release oral tablet (20 sources) Aminoketone Start: 05-15-2021 End: 04-05-2022 take 1 tablet by mouth twice daily Bupropion Hcl 150 mg tablet sustained-release 12 hr Discontinued 150 MG PO Twice daily May 15, 2021 12:00am April 05, 2022 9:52pm cephalexin 500 mg oral tablet (20 sources) Cephalosporin Antibacterial Start: 08-29-2022 take 1 tablet by mouth every eight hours Cephalexin 500 MG 1 tablet Orally every 8 hrs for 7 days Aug, Not-Taking Start: 05-13-2018 End: 08-23-2018 take 1 capsule by mouth every twelve hours Cephalexin (Keflex) 500 mg capsule Discontinued 500 MG PO Q12H May 13, 2018 12:00am August 23, 2018 1:05pm DELETED Baclofen 2%, Cyclobenzaprine HCl 2%, Diclofenac Na 3%, Gabapentin 6%, Lidocaine HCl 2% (4 sources) Start: 01-21-2018 DELETED Baclofen 2%, Cyclobenzaprine HCl 2%, Diclofenac Na 3%, Gabapentin 6%, Lidocaine HCl 2% as directed Topical rub 1-2 grams for 2-3 min every 6-8 hours as needed for 30 day(s) Dec, Not-Taking dexamethasone 6 mg oral tablet (20 sources) Corticosteroid Start: 05-15-2021 End: 04-05-2022 take 1 tablet by mouth once daily Dexamethasone 6 mg tablet Discontinued 6 MG PO Daily May 15, 2021 12:00am April 05, 2022 9:52pm dextromethorphan hydrobromide 1.5 mg/ml / pyrilamine maleate 1.5 mg/ml oral solution (4 sources) Uncompetitive J-wwhjhg-D-aspartate Receptor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 [facility] Comment on above: Performed By: #### B MP, LACTIC, LIPASE, HEPATIC, CUBLD, PTT, CBC, PT #### [address] Automated eosinophil %Ordere d By: Mary Hicks on 11-25-2023 Eosinophils/100 WBC (Bld) 3.0 % Normal . [facility] Comment on above: Performed By: #### B MP, LACTIC, LIPASE, HEPATIC, CUBLD, PTT, CBC, PT #### [address] Automated eosinophil countOr dered By: Mary Hicks on 11-25-2023 Eosinophils (Bld) [#/Vol] 0.2 10*3/uL Normal 0.0-0.45 [facility] Comment on above: Performed By: #### B MP, LACTIC, LIPASE, HEPATIC, CUBLD, PTT, CBC, PT #### [address] Automated monocyte %Ordered By: Mary Hicks on 11-25-2023 Monocytes/100 WBC (Bld) 5.3 % Normal . [facility] Comment on above: Performed By: #### B MP, LACTIC, LIPASE, HEPATIC, CUBLD, PTT, CBC, PT #### [facility] [address] Automated neutrophil %Ordere d By: Mary Hicks on 11-25-2023 Neutrophils/100 WBC (Bld) 42.3 % Normal . [facility] Comment on above: Performed By: #### B MP, LACTIC, LIPASE, HEPATIC, CUBLD, PTT, CBC, PT #### [facility] [address] Bilirubin Test strip Ql (U)O rdered By: Mary Hicks on 11-25-2023 Bilirubin Ql (U) Negative Negative [facility] Bilirubin.total [Mass/volume ] in Serum or PlasmaOrdered By: Mary Hicks on 11-25-2023 Bilirubin [Mass/Vol] 0.4 mg/dL Normal 0.3-1.0 [facility] Comment on above: Performed By: #### B MP, LACTIC, LIPASE, HEPATIC, CUBLD, PTT, CBC, PT #### [facility] [address] [place] [address] CT abdomen pelvis w conon CT abdomen pelvis w con [facility] [place] [address] CT Scan Report Signed Patient: Miriam Edwards MR#: [id number] : 1985 Acct:[id number] Age/Sex: 38 / F ADM Date: 11/25/23 Loc: ER Room: Type: [facility] ER Attending Dr: Copies to: Mary Hicks APRN Ordering Provider: Mary Hicks APRN Date of Service: 11/25/23 CT/CT abdomen pelvis w con: righ tlower abd pain CT ABDOMEN AND PELVIS WITH CONTRAST COMPARISON: 10/14/2023 CLINICAL DATA: Right lower abdominal pain for the past 2 months. Spiral images were obtained through the abdomen and pelvis following 90 mL Isovue-300. This CT exam was performed using one or more following dose reduction techniques: Automated exposure control, adjustment of the mA and/or kV according to patient size, or use of iterative reconstruction technique. Limited cuts through the lung bases show no contributory findings. The gallbladder is surgically absent. The liver, spleen, pancreas, adrenal glands and kidneys show no acute findings. The abdominal aorta is normal caliber. There are no enlarged lymph nodes or ascites. There is no dilated small bowel. There is a small amount of right-sided colonic stool. The left colon is decompressed. There is levoscoliotic curvature and minor degenerative change, greatest at the right lower facets. Images through the pelvis show no dilated small bowel. There is no appendiceal inflammation. There is a small amount of distal colonic stool. No diverticular disease is visualized. The uterus is surgically absent. The urinary bladder is within normal limits. There is no ascites. CT/CT abdomen pelvis w con IMPRESSION: NO BOWEL OR URINARY TRACT OBSTRUCTION. NO ACUTE FINDINGS. Impression dictated by: Stella Briscoe M.D.11/25/2023 3:45 PM Dictation Location: [place] [address] Transcribed By: [facility] 11/25/23 1545 Dictated By: Stella Briscoe MD 11/25/23 1542 Signed By: 11/25/23 1545 Normal [facility] Calcium [Mass/volume] in Ser um or PlasmaOrdered By: Mary Hicks on 11-25-2023 Calcium [Mass/Vol] 9.3 mg/dL Normal 8.6-10.3 [facility] Comment on above: Performed By: #### B MP, LACTIC, LIPASE, HEPATIC, CUBLD, PTT, CBC, PT #### [facility] [address] [place] [address] [place] Carbon dioxide, total [Moles /volume] in Serum or PlasmaOrdered By: Mary Hicks on 11-25-2023 CO2 [Moles/Vol] 23.1 mmol/L Normal 21.0-31.0 [facility] Comment on above: Performed By: #### B MP, LACTIC, LIPASE, HEPATIC, CUBLD, PTT, CBC, PT #### [facility] [address] [place] [id number] [place] Chloride [Moles/volume] in S amelia or PlasmaOrdered By: Mary Hicks on 11-25-2023 Chloride [Moles/Vol] 109 mmol/L High 98-107 [facility] Comment on above: Performed By: #### B MP, LACTIC, LIPASE, HEPATIC, CUBLD, PTT, CBC, PT #### [address] Color of Urine by AutoOrdere d By: Mary Hicks on 11-25-2023 Color (U) Yellow Normal Yellow [facility] Comment on above: Order Comment: Name Collection Type:: Clean-Voided Midstream Performed By: #### B MP, LACTIC, LIPASE, HEPATIC, CUBLD, PTT, CBC, PT #### [address] Complete Blood Count Auto Di ffon 11-25-2023 Mean Corpuscular HGB Conc 35.1 g/dL High 32.0-35.0 [facility] Comment on above: Performed By: #### B MP, LACTIC, LIPASE, HEPATIC, CUBLD, PTT, CBC, PT #### [address] Monocytes/100 WBC (Bld) 19.81 % Normal 0.00-20.00 [facility] Comment on above: Performed By: #### B MP, LACTIC, LIPASE, HEPATIC, CUBLD, PTT, CBC, PT #### [address] NRBC% 0.2 /100{WBC} Normal 0-0.5 [facility] Comment on above: Performed By: #### B MP, LACTIC, LIPASE, HEPATIC, CUBLD, PTT, CBC, PT #### [address] Comprehensive Metabolic Pane steve 11-25-2023 Albumin [Mass/Vol] 4.2 g/dL Normal 3.5-5.7 [facility] Comment on above: Performed By: #### B MP, LACTIC, LIPASE, HEPATIC, CUBLD, PTT, CBC, PT #### [facility] [address] Creatinine Clr Calc Pharmacy 83.18 Normal [facility] Comment on above: Performed By: #### B MP, LACTIC, LIPASE, HEPATIC, CUBLD, PTT, CBC, PT #### [address] GFR/1.73 sq M.predicted MDRD (S/P/Bld) [Vol rate/Area] mL/min/{1.73_m2} Normal [facility] Comment on above: Performed By: #### B MP, LACTIC, LIPASE, HEPATIC, CUBLD, PTT, CBC, PT #### [address] Creatinine [Mass/volume] in Serum or PlasmaOrdered By: Mary Hicks on 11-25-2023 Creatinine [Mass/Vol] 0.93 mg/dL Normal 0.60-1.20 [facility] Comment on above: Performed By: #### B MP, LACTIC, LIPASE, HEPATIC, CUBLD, PTT, CBC, PT #### [address] Erythrocyte distribution wid th [Ratio] by Automated countOrdered By: Mary Hicks on 11-25-2023 Erythrocyte distribution width (RBC) [Ratio] 13.1 % Normal 11.9-15.3 [facility] Comment on above: Performed By: #### B MP, LACTIC, LIPASE, HEPATIC, CUBLD, PTT, CBC, PT #### [address] Erythrocytes [#/volume] in B lood by Automated countOrdered By: Mary Hicks on 11-25-2023 RBC (Bld) [#/Vol] 4.17 10*6/uL Normal 3.60-5.00 [facility] Comment on above: Performed By: #### B MP, LACTIC, LIPASE, HEPATIC, CUBLD, PTT, CBC, PT #### [address] Glucose [Mass/volume] in Ser um or PlasmaOrdered By: Mary Hicks on 11-25-2023 Glucose [Mass/Vol] 89 mg/dL Normal 70-100 [facility] Comment on above: ADA recommended refe rence rangeRandom Glucose Reference Range is dependent on time and content of last meal. Glucose of more than 200 mg/dL in a nonstressed, ambulatory subject supports the diagnosis of Diabetes Mellitus. Result Comment: [place] Glucose Reference Range is dependent on time and content of last meal. Glucose of more than 200 mg/dL in a nonstressed, ambulatory subject supports the diagnosis of Diabetes Mellitus. ADA recommended reference range Performed By: #### B MP, LACTIC, LIPASE, HEPATIC, CUBLD, PTT, CBC, PT #### [facility] [address] Hematocrit [Volume Fraction] of Blood by Automated countOrdered By: Mary Hicks on 11-25-2023 Hematocrit (Bld) [Volume fraction] 37.8 % Normal 34.0-46.4 [facility] Comment on above: Performed By: #### B MP, LACTIC, LIPASE, HEPATIC, CUBLD, PTT, CBC, PT #### [facility] [address] [place] [address] [place] Hemoglobin [Mass/volume] in BloodOrdered By: Mary Hicks on 11-25-2023 Hemoglobin (Bld) [Mass/Vol] 13.3 g/dL Normal 11.8-15.4 [facility] Comment on above: Performed By: #### B MP, LACTIC, LIPASE, HEPATIC, CUBLD, PTT, CBC, PT #### [facility] [address] Ketones Auto test strip (U) [Mass/Vol]Ordered By: Mary Hicks on 11-25-2023 Ketones (U) [Mass/Vol] Negative Negative [facility] Leukocytes [#/volume] correc artem for nucleated erythrocytes in Blood by Automated counOrdered By: Mary Hicks on 11-25-2023 WBC corrected for nucl RBC Auto (Bld) [#/Vol] 7.7 10*3/uL 3.8-11.6 [facility] Leukocytes [#/volume] in Blo od by Automated countOrdered By: Mary Hicks on 11-25-2023 WBC (Bld) [#/Vol] 7.7 10*3/uL Normal 3.8-11.6 [facility] Comment on above: Performed By: #### B MP, LACTIC, LIPASE, HEPATIC, CUBLD, PTT, CBC, PT #### [address] Lipase [Enzymatic activity/v olume] in Serum or PlasmaOrdered By: Mary Hicks on 11-25-2023 Lipase [Catalytic activity/Vol] 49.0 U/L Normal 11.0-82.0 [facility] Comment on above: Result Comment: PERF ORMED BY: [place] [id number] PATHOLOGIST SOFTWARE DESIGNER GILBERT MARSH M.D. Performed By: #### B MP, LACTIC, LIPASE, HEPATIC, CUBLD, PTT, CBC, PT #### [address] Lymphocytes [#/volume] in Bl ood by Automated countOrdered By: Mary Hicks on 11-25-2023 Lymphocytes (Bld) [#/Vol] 3.9 10*3/uL Normal 1.00-4.8 [facility] Comment on above: Performed By: #### B MP, LACTIC, LIPASE, HEPATIC, CUBLD, PTT, CBC, PT #### [address] Lymphocytes/100 leukocytes i n Blood by Automated countOrdered By: Mary Hicks on 11-25-2023 Lymphocytes/100 WBC (Bld) 48.5 % Normal . [facility] Comment on above: Performed By: #### B MP, LACTIC, LIPASE, HEPATIC, CUBLD, PTT, CBC, PT #### [place] [address] [place] MCH [Entitic mass] by Automa artem countOrdered By: Mary Hicks on 11-25-2023 MCH (RBC) [Entitic mass] 31.8 pg Normal 24.7-34.3 [facility] Comment on above: Performed By: #### B MP, LACTIC, LIPASE, HEPATIC, CUBLD, PTT, CBC, PT #### [facility] [address] MCHC Auto (RBC) [Mass/Vol]Or dered By: Mary Hicks on 11-25-2023 MCHC (RBC) [Mass/Vol] 35.1 g/dL High 32.0-35.0 [facility] MCV [Entitic volume] by Auto mated countOrdered By: Mary Hicks on 11-25-2023 MCV (RBC) [Entitic vol] 90.6 fL Normal 80-100 [facility] Comment on above: Performed By: #### B MP, LACTIC, LIPASE, HEPATIC, CUBLD, PTT, CBC, PT #### [facility] [address] [place] [address] Monocyte distribution width [Entitic volume] in Blood by AutomatedOrdered By: Mary Hicks on 11-25-2023 Monocyte distribution width Auto (Bld) [Entitic vol] 19.81 % 0.00-20.00 [facility] Neutrophils [#/volume] in Bl ood by Automated countOrdered By: Mary Hicks on 11-25-2023 Neutrophils (Bld) [#/Vol] 3.4 10*3/uL Normal 1.8-7.7 [facility] Comment on above: Performed By: #### B MP, LACTIC, LIPASE, HEPATIC, CUBLD, PTT, CBC, PT #### [facility] [address] [place] [address] Nitrite Test strip Ql (U)Ord ered By: Mary Hicks on 11-25-2023 Nitrite Ql (U) Negative Negative [facility] No Panel InformationOrdered By: Mary Hicks on 11-25-2023 Estimated GFR (CKD-EPI) > 60.0 mL/Min [facility] Creatinine Clearance (Chem 83.18 [facility] Nucleated erythrocytes [Pres ence] in Blood by Automated countOrdered By: Mary Hicks on 11-25-2023 Nucleated RBC Auto Ql (Bld) 0.2 /100{WBC} 0-0.5 [facility] Platelet mean volume [Entiti c volume] in Blood by Automated countOrdered By: Mary Hicks on 11-25-2023 Platelet mean volume (Bld) [Entitic vol] 8.6 fL Normal 6.3-10.7 [facility] Comment on above: Performed By: #### B MP, LACTIC, LIPASE, HEPATIC, CUBLD, PTT, CBC, PT #### [facility] [address] Platelets [#/volume] in Bloo d by Automated countOrdered By: Mary Hicks on 11-25-2023 Platelets (Bld) [#/Vol] 288 10*3/uL Normal 150-450 [facility] Comment on above: Performed By: #### B MP, LACTIC, LIPASE, HEPATIC, CUBLD, PTT, CBC, PT #### [address] Potassium [Moles/volume] in Serum or PlasmaOrdered By: Mary Hicks on 11-25-2023 Potassium [Moles/Vol] 3.8 mmol/L Normal 3.5-5.1 [facility] Comment on above: Performed By: #### B MP, LACTIC, LIPASE, HEPATIC, CUBLD, PTT, CBC, PT #### [address] Protein Auto test strip (U) [Mass/Vol]Ordered By: Mary Hicks on 11-25-2023 Protein (U) [Mass/Vol] Negative Negative [facility] Protein [Mass/volume] in Ser um or PlasmaOrdered By: Mary Hicks on 11-25-2023 Protein [Mass/Vol] 6.8 g/dL Normal 6.4-8.9 [facility] Comment on above: Performed By: #### B MP, LACTIC, LIPASE, HEPATIC, CUBLD, PTT, CBC, PT #### [facility] [address] Serum globulin measurement b y calculation (mass/volume)Ordered By: Mary Hicks on 11-25-2023 Globulin (S) [Mass/Vol] 2.6 g/dL Normal [facility] Comment on above: Performed By: #### B MP, LACTIC, LIPASE, HEPATIC, CUBLD, PTT, CBC, PT #### [facility] [address] [place] [address] Serum or plasma albumin/glob ulin mass ratioOrdered By: Mary Hicks on 11-25-2023 Albumin/Globulin [Mass ratio] 1.6 {ratio} [facility] Comment on above: Performed By: #### B MP, LACTIC, LIPASE, HEPATIC, CUBLD, PTT, CBC, PT #### [address] Serum or plasma anion gap de terminationOrdered By: Mary Hicks on 11-25-2023 Anion gap [Moles/Vol] 10.7 mmol/L Normal 6.0-15.0 [facility] Comment on above: Performed By: #### B MP, LACTIC, LIPASE, HEPATIC, CUBLD, PTT, CBC, PT #### [address] Sodium [Moles/volume] in Ser um or PlasmaOrdered By: Mary Hicks on 11-25-2023 Sodium [Moles/Vol] 139 mmol/L Normal 136-145 [facility] Comment on above: Performed By: #### B MP, LACTIC, LIPASE, HEPATIC, CUBLD, PTT, CBC, PT #### [facility] [address] [place] [address] Specific gravity Auto test s trip (U) [Rel density]Ordered By: Mary Hicks on 11-25-2023 Specific gravity (U) [Rel density] 1.010 1.001-1.030 [facility] Urea nitrogen [Mass/volume] in Serum or PlasmaOrdered By: Mary Hicks on 11-25-2023 Urea nitrogen [Mass/Vol] 10 mg/dL Normal 7-25 [facility] Comment on above: Performed By: #### B MP, LACTIC, LIPASE, HEPATIC, CUBLD, PTT, CBC, PT #### [address] Urinalysison 11-25-2023 Appearance (U) Clear Normal Clear [facility] Comment on above: Order Comment: Name Collection Type:: Clean-Voided Midstream Performed By: #### B MP, LACTIC, LIPASE, HEPATIC, CUBLD, PTT, CBC, PT #### [facility] [address] Bilirubin,Urine Negative Normal Negative [facility] Comment on above: Order Comment: Name Collection Type:: Clean-Voided Midstream Performed By: #### B MP, LACTIC, LIPASE, HEPATIC, CUBLD, PTT, CBC, PT #### [facility] [address] [place] [address] [place] Glucose Ql (U) Normal Normal Normal [facility] Comment on above: Order Comment: Name Collection Type:: Clean-Voided Midstream Performed By: #### B MP, LACTIC, LIPASE, HEPATIC, CUBLD, PTT, CBC, PT #### [facility] [address] Ketones Ql (U) Negative Normal Negative [facility] Comment on above: Order Comment: Name Collection Type:: Clean-Voided Midstream Performed By: #### B MP, LACTIC, LIPASE, HEPATIC, CUBLD, PTT, CBC, PT #### [facility] [address] [place] [id number] [place] Leukocyte esterase Test strip Ql (U) Negative Normal Negative [facility] Comment on above: Order Comment: Name Collection Type:: Clean-Voided Midstream Performed By: #### B MP, LACTIC, LIPASE, HEPATIC, CUBLD, PTT, CBC, PT #### [facility] [address] [place] [id number] [place] Nitrite,Urine Negative Normal Negative [facility] Comment on above: Order Comment: Name Collection Type:: Clean-Voided Midstream Performed By: #### B MP, LACTIC, LIPASE, HEPATIC, CUBLD, PTT, CBC, PT #### [facility] [address] [place] [id number] [place] Occult Blood,Urine Negative Normal Negative [facility] Comment on above: Order Comment: Name Collection Type:: Clean-Voided Midstream Result Comment: PERF ORMED BY: [place] [id number] PATHOLOGIST SOFTWARE DESIGNER GILBERT MARSH M.D. Performed By: #### B MP, LACTIC, LIPASE, HEPATIC, CUBLD, PTT, CBC, PT #### [address] Protein,Urine Negative Normal Negative [facility] Comment on above: Order Comment: Name Collection Type:: Clean-Voided Midstream Performed By: #### B MP, LACTIC, LIPASE, HEPATIC, CUBLD, PTT, CBC, PT #### [address] Specificy [place],Urine 1.010 Normal 1.001-1.030 [facility] Comment on above: Order Comment: Name Collection Type:: Clean-Voided Midstream Performed By: #### B MP, LACTIC, LIPASE, HEPATIC, CUBLD, PTT, CBC, PT #### [address] Urobilinogen,Urine Normal Normal Normal [facility] Comment on above: Order Comment: Name Collection Type:: Clean-Voided Midstream Performed By: #### B MP, LACTIC, LIPASE, HEPATIC, CUBLD, PTT, CBC, PT #### [address] Urine clarity by refractomet ry automatedOrdered By: Mary Hicks on 11-25-2023 Clarity Refractometry automated (U) Clear Clear [facility] Urine glucose measurement by automated test strip (mass/volume)Ordered By: Mary Hicks on 11-25-2023 Glucose Auto test strip (U) [Mass/Vol] Normal mg/dL Normal [facility] Urine hemoglobin detection b y automated test stripOrdered By: Mary Hicks on 11-25-2023 Hemoglobin Auto test strip Ql (U) Negative Negative [facility] Urine leukocyte esterase det ection by automated test stripOrdered By: Mary Hicks on 11-25-2023 Leukocyte esterase Auto test strip Ql (U) Negative Negative [facility] Urine pH measurement by auto mated test stripOrdered By: Mary Hicks on 11-25-2023 pH (U) 7.0 [pH] Normal 5.0-9.0 [facility] Comment on above: Order Comment: Name Collection Type:: Clean-Voided Midstream Performed By: #### B MP, LACTIC, LIPASE, HEPATIC, CUBLD, PTT, CBC, PT #### [address] Urobilinogen Auto test strip (U) [Mass/Vol]Ordered By: Mary Hicks on 11-25-2023 Urobilinogen (U) [Mass/Vol] Normal mg/dL Normal [facility] XR hip RT min 2V(w/wo pelvis )*on 11-25-2023 XR hip RT min 2V(w/wo pelvis)* [facility] [address] [place] [address] [place] [address] XRay Report Signed Patient: Miriam Edwards MR#: [id number] : 1985 Acct:[id number] Age/Sex: 38 / F ADM Date: 11/25/23 Loc: ER Room: Type: [facility] ER Attending Dr: Copies to: Mary Hicks APRN Ordering Provider: Mary Hicks APRN Date of Service: 11/25/23 XR/XR hip RT min 2V(w/wo pelvis)*: Abdominal Pain RIGHT HIP WITH AP PELVIS - 3 views COMPARISON: 08/05/[address] 11/25/2023 CLINICAL DATA: Low pain radiating to the right hip for the past 6 weeks. AP view of the pelvis as well as AP and frog-lateral views of the right hip were obtained. No fracture or dislocation is identified. The hip joint spaces are maintained. There is no significant arthritic disease. There is levoscoliotic curvature and degenerative change at the lower imaged lumbar spine. No soft tissue abnormalities are present. Contrast is present within the urinary bladder from CT performed today. XR/XR hip RT min 2V(w/wo pelvis)* IMPRESSION: NO ACUTE BONY FINDINGS. Impression dictated by: Stella Briscoe M.D.11/25/2023 5:12 PM Dictation Location: [place] [address] Transcribed By: [facility] 11/25/231711 Dictated By: Stella Briscoe MD 11/25/231706 Signed By: 11/25/231711 Normal [facility] MARCIAL BY IFA SCREENon 11-20-19 Nuclear Ab pattern (S) [Interp] Nuclear fine speckled Normal [facility] Comment on above: Order Comment: Speci men Type: BLOOD SPECIMENOrdering Facility: [facility] Address: [address] [place] [address] Performed By: #### A NAIFS ####[facility] [id number] [place] [address] [place] Nuclear Ab Ql (S) Positive Abnormal Negative [facility] Comment on above: Order Comment: Speci syed Type: BLOOD SPECIMENOrdering Facility: [facility] Address: [address] [place] [address] Result Comment: Anti -nuclear antibody test is used as an aid in diagnosis of systemic autoimmune diseases. Where positive and clinically warranted, follow-up using disease-specific testing is recommended. Low positive titers are not uncommon with advanced age, certain chronic infections, and malignancies among others. Test methodology: Indirect fluorescence immunoassay (IFA) using HEp-2 cells. 1:80 Performed By: #### A NAIFS ####[facility] [id number] [place] [address] [place] BETA 2 GLYCOPROTEIN, IGGon 0 11-20-2023 Beta 2 glycoprotein 1 IgG IA Qn <9 Normal <20 [facility] Comment on above: Order Comment: Speci syed Type: BLOOD SPECIMENOrdering Facility: [facility] Address: [address] [place] [address] Result Comment: <20 SGU Negative 20-80 SGU Low Positive >80 SGU High Positive These results were obtained with the Guroo QUANTA Lite B2 GPI IgG GEETA. B2 GPI IgG values obtained with different manufacturers' assay methods may not be used interchangeably. The magnitude of the reported IgG levels cannot be correlated to an endpoint titer. Performed By: #### B ETA2M, 5076-5, BETA2G, 55201-2, RUPALI ####[facility] [id number] [place] [address] [place] BETA 2 GLYCOPROTEIN, IGMon 0 11-20-2023 Beta 2 glycoprotein 1 IgM IA Qn <9 Normal <20 [facility] Comment on above: Order Comment: Speci men Type: BLOOD SPECIMENOrdering Facility: [facility] Address: [address] [place] [address] Result Comment: <20 SMU Negative 20-80 SMU Low Positive >80 SMU High positive These results were obtained with the VocalyticsA Lite B2 GPI IgM GEETA. B2 GPI IgM values obtained with different manufacturers' assay methods may not be used interchangeably. The magnitude of the reported IgM levels cannot be correlated to an endpoint titer. Performed By: #### B ETA2M, 5076-5, BETA2G, 97812-1, RUPALI ####[facility] [id number] [place] [address] [place] C-REACTIVE PROTEINon 024 CRP [Mass/Vol] mg/dL NINF - 0.9 mg/dL [facility] C3 COMPLEMENTon 11-20-2023 Complement C3 [Mass/Vol] 137 mg/dL 86 - 166 mg/dL [facility] C3 SerPl-mCncon 11-20-2023 Complement C3 [Mass/Vol] 137 mg/dL Normal 86-166 [facility] Comment on above: Order Comment: Speci men Type: BLOOD SPECIMENOrdering Facility: [facility] Address: [address] [place] [address] Performed By: #### 1 988-5, 2885-2, 4485-9 ####[facility] [id number] [place] [address] [place] C4 COMPLEMENTon 11-20-2023 Complement C4 [Mass/Vol] 23 mg/dL 13 - 46 mg/dL [facility] C4 SerPl-mCncon 11-20-2023 Complement C4 [Mass/Vol] 23 mg/dL Normal 13-46 [facility] Comment on above: Order Comment: Speci men Type: BLOOD SPECIMENOrdering Facility: [facility] Address: [address] [place] [address] Performed By: #### 4 498-2, 67307-6, 77787-6, 2157-6 ####[facility] [id number] [address] CARDIOLIPIN IGG ABSon 2023 Cardiolipin IgG IA Qn (S) <9.0 Normal <15.0 [facility] Comment on above: Order Comment: Specbel lynch Type: BLOOD SPECIMENOrdering Facility: [facility] Address: [address] [place] [address] Result Comment: <15 GPL Negative 15-20 GPL Indeterminate >20 GPL Positive The following results were obtained with the Inova QUANTA Lite JOYCE IgG III GEETA. Cardiolipin IgG values obtained with the different manufacturers' assay methods may not be used interchangeably. The magnitude of the reported IgG levels cannot be correlated to an endpoint titer. Performed By: #### B ETA2M, 5076-5, BETA2G, 08475-6, CARDIEmiliana ####[facility] [id number] [address] [place] CARDIOLIPIN IGM ABSon 2023 Cardiolipin IgM IA Qn (S) <9.0 Normal <12.5 [facility] Comment on above: Order Comment: Speci syed Type: BLOOD SPECIMENOrdering Facility: [facility] Address: [address] [place] [address] Result Comment: <12. 5 MPL Negative 12.5-20 MPL Indeterminate >20 MPL Positive The following results were obtained with the Inova QUANTA Lite JOYCE IgM III GEETA. Cardiolipin IgM values obtained with the different manufacturers' assay methods may not be used interchangeably. The magnitude of the reported IgM levels cannot be correlated to an endpoint titer. ??? Performed By: #### C ARGUSTAVO ####[facility] [id number] [place] [address] [place] CBC W Auto Differential pane l (Bld)on 11-20-2023 Basophils (Bld) [#/Vol] 0.03 10*3/uL [facility] Basophils/100 WBC (Bld) 0.4 % [facility] Differential cell count method Nom (Bld) Auto [facility] Eosinophils (Bld) [#/Vol] 0.18 10*3/uL [facility] Eosinophils/100 WBC (Bld) 2.4 % [facility] Erythrocyte distribution width (RBC) [Ratio] 12.5 % 11.5 - 15.0 % [facility] Hematocrit (Bld) [Volume fraction] 38.4 % 36.0 - 46.0 % [facility] Hemoglobin (Bld) [Mass/Vol] 13.4 g/dL 11.5 - 15.5 g/dL [facility] Immature granulocytes (Bld) [#/Vol] [facility] Immature granulocytes/100 WBC (Bld) 0.1 % [facility] Lymphocytes (Bld) [#/Vol] 3.08 10*3/uL [facility] Lymphocytes/100 WBC (Bld) 41.5 % [facility] MCH (RBC) [Entitic mass] 31.2 pg 26.0 - 34.0 pg [facility] MCHC (RBC) [Mass/Vol] 34.9 g/dL 30.5 - 36.0 g/dL [facility] MCV (RBC) [Entitic vol] 89.5 fL 80.0 - 100.0 fL [facility] Monocytes (Bld) [#/Vol] 0.39 10*3/uL [facility] Monocytes/100 WBC (Bld) 5.2 % [facility] Neutrophils (Bld) [#/Vol] 3.74 10*3/uL [facility] Neutrophils/100 WBC (Bld) 50.4 % [facility] Nucleated RBC (Bld) [#/Vol] [facility] Nucleated RBC/100 WBC (Bld) [Ratio] 0.0 % /100 WBC [facility] Platelet mean volume (Bld) [Entitic vol] 9.9 fL 9.0 - 12.7 fL [facility] Platelets (Bld) [#/Vol] 316 10*3/uL [facility] RBC (Bld) [#/Vol] 4.29 10*6/uL 3.90 - 5.2 0 m/uL [facility] WBC (Bld) [#/Vol] 7.43 10*3/uL [facility] Basophils (Bld) [#/Vol] 0.03 10*3/uL Normal <0.11 [facility] Comment on above: Order Comment: Speci men Type: BLOOD SPECIMENOrdering Facility: [facility] Address: [address] [place] [address] Performed By: #### 5 7021-8, 453-7 ####[facility] [id number] [place] [address] [place] Basophils/100 WBC (Bld) 0.4 % Normal [facility] Comment on above: Order Comment: Speci men Type: BLOOD SPECIMENOrdering Facility: [facility] Address: [address] [place] [address] Performed By: #### 5 7021-8, 4537-7 ####[facility] [id number] [place] [address] [place] Differential cell count method Nom (Bld) Auto Normal [facility] Comment on above: Order Comment: Speci men Type: BLOOD SPECIMENOrdering Facility: [facility] Address: [address] [place] [address] Performed By: #### 5 7021-8, 4536-7 ####[facility] [id number] [place] [address] [place] Eosinophils (Bld) [#/Vol] 0.18 10*3/uL Normal <0.46 [facility] Comment on above: Order Comment: Speci men Type: BLOOD SPECIMENOrdering Facility: [facility] Address: [address] [place] [address] Performed By: #### 5 7021-8, 4537-7 ####[facility] [id number] [address] [address] [place] Eosinophils/100 WBC (Bld) 2.4 % Normal [facility] Comment on above: Order Comment: Speci men Type: BLOOD SPECIMENOrdering Facility: [facility] Address: [address] [place] [address] Performed By: #### 5 7021-8, 4537-7 ####[facility] [id number] [place] [address] [place] Erythrocyte distribution width (RBC) [Ratio] 12.5 % Normal 11.5-15.0 [facility] Comment on above: Order Comment: Speci men Type: BLOOD SPECIMENOrdering Facility: [facility] Address: [address] [place] [address] Performed By: #### 5 7021-8, 4537-7 ####[facility] [id number] [place] [address] [place] Hematocrit (Bld) [Volume fraction] 38.4 % Normal 36.0-46.0 [facility] Comment on above: Order Comment: Speci men Type: BLOOD SPECIMENOrdering Facility: [facility] Address: [address] [place] [address] Performed By: #### 5 7021-8, 4537-7 ####[facility] [id number] [place] [address] [place] Hemoglobin (Bld) [Mass/Vol] 13.4 g/dL Normal 11.5-15.5 [facility] Comment on above: Order Comment: Speci men Type: BLOOD SPECIMENOrdering Facility: [facility] Address: [address] [place] [address] Performed By: #### 5 7021-8, 4537-7 ####[facility] [id number] [place] [address] [place] Immature granulocytes (Bld) [#/Vol] 10*3/uL Normal <0.10 [facility] Comment on above: Order Comment: Speci men Type: BLOOD SPECIMENOrdering Facility: [facility] Address: [address] [place] [address] Performed By: #### 5 7021-8, 4536-7 ####[facility] [id number] [place] [address] [place] Immature granulocytes/100 WBC (Bld) 0.1 % Normal [facility] Comment on above: Order Comment: Speci men Type: BLOOD SPECIMENOrdering Facility: [facility] Address: [address] [place] [address] Performed By: #### 5 7021-8, 4536-7 ####[facility] [id number] [place] [address] [place] Lymphocytes (Bld) [#/Vol] 3.08 10*3/uL Normal 1.00-4.00 [facility] Comment on above: Order Comment: Speci men Type: BLOOD SPECIMENOrdering Facility: [facility] Address: [address] [place] [address] Performed By: #### 5 7021-8, 4536-7 ####[facility] [id number] [place] [address] [place] Lymphocytes/100 WBC (Bld) 41.5 % Normal [facility] Comment on above: Order Comment: Speci men Type: BLOOD SPECIMENOrdering Facility: [facility] Address: [address] [place] [address] Performed By: #### 5 7021-8, 4536-7 ####[facility] [id number] [place] [address] [place] MCH (RBC) [Entitic mass] 31.2 pg Normal 26.0-34.0 [facility] Comment on above: Order Comment: Speci men Type: BLOOD SPECIMENOrdering Facility: [facility] Address: [address] [place] [address] Performed By: #### 5 7021-8, 4537-7 ####[facility] [id number] [place] [address] [place] MCHC (RBC) [Mass/Vol] 34.9 g/dL Normal 30.5-36.0 [facility] Comment on above: Order Comment: Speci men Type: BLOOD SPECIMENOrdering Facility: [facility] Address: [address] [place] [address] Performed By: #### 5 7021-8, 4537-7 ####[facility] [id number] [place] [address] [place] MCV (RBC) [Entitic vol] 89.5 fL Normal 80.0-100.0 [facility] Comment on above: Order Comment: Speci men Type: BLOOD SPECIMENOrdering Facility: [facility] Address: [address] [place] [address] Performed By: #### 5 7021-8, 4537-7 ####[facility] [id number] [place] [address] [place] Monocytes (Bld) [#/Vol] 0.39 10*3/uL Normal <0.87 [facility] Comment on above: Order Comment: Speci men Type: BLOOD SPECIMENOrdering Facility: [facility] Address: [address] [place] [address] Performed By: #### 5 7021-8, 4537-7 ####[facility] [id number] [place] [address] [place] Monocytes/100 WBC (Bld) 5.2 % Normal [facility] Comment on above: Order Comment: Speci men Type: BLOOD SPECIMENOrdering Facility: [facility] Address: [address] [place] [address] Performed By: #### 5 7021-8, 7-7 ####[facility] [id number] [place] [address] [place] Neutrophils (Bld) [#/Vol] 3.74 10*3/uL Normal 1.45-7.50 [facility] Comment on above: Order Comment: Speci men Type: BLOOD SPECIMENOrdering Facility: [facility] Address: [address] [place] [address] Performed By: #### 5 7021-8, 4536-7 ####[facility] [id number] [place] [address] [place] Neutrophils/100 WBC (Bld) 50.4 % Normal [facility] Comment on above: Order Comment: Speci men Type: BLOOD SPECIMENOrdering Facility: [facility] Address: [address] [place] [address] Performed By: #### 5 7021-8, 4536-7 ####[facility] [id number] [place] [address] [place] Nucleated RBC (Bld) [#/Vol] 10*3/uL Normal <0.01 [facility] Comment on above: Order Comment: Speci men Type: BLOOD SPECIMENOrdering Facility: [facility] Address: [address] [place] [address] Performed By: #### 5 7021-8, 4536-7 ####[facility] [id number] [place] [address] [place] Nucleated RBC/100 WBC (Bld) [Ratio] 0.0 /100 WBC Normal [facility] Comment on above: Order Comment: Speci men Type: BLOOD SPECIMENOrdering Facility: [facility] Address: [address] [place] [address] Performed By: #### 5 7021-8, 7-7 ####[facility] [id number] [place] [address] [place] Platelet mean volume (Bld) [Entitic vol] 9.9 fL Normal 9.0-12.7 [facility] Comment on above: Order Comment: Speci men Type: BLOOD SPECIMENOrdering Facility: [facility] Address: [address] [place] [address] Performed By: #### 5 7021-8, 4537-7 ####[facility] [id number] [place] [address] [place] Platelets (Bld) [#/Vol] 316 10*3/uL Normal 150-400 [facility] Comment on above: Order Comment: Speci men Type: BLOOD SPECIMENOrdering Facility: [facility] Address: [address] [place] [address] Performed By: #### 5 7021-8, 4537-7 ####[facility] [id number] [place] [address] [place] RBC (Bld) [#/Vol] 4.29 10*6/uL Normal 3.90-5.20 [facility] Comment on above: Order Comment: Speci men Type: BLOOD SPECIMENOrdering Facility: [facility] Address: [address] [place] [address] Performed By: #### 5 7021-8, 4537-7 ####[facility] [id number] [place] [address] [place] WBC (Bld) [#/Vol] 7.43 10*3/uL Normal 3.70-11.00 [facility] Comment on above: Order Comment: Speci men Type: BLOOD SPECIMENOrdering Facility: [facility] Address: [address] [place] [address] Performed By: #### 5 7021-8, 4537-7 ####[facility] [id number] [place] [address] [place] CK SerPl-cCncon 11-20-2023 CK [Catalytic activity/Vol] 116 U/L Normal 42-196 [facility] Comment on above: Order Comment: Speci men Type: BLOOD SPECIMENOrdering Facility: [facility] Address: [address] [place] [address] Performed By: #### 4 498-2, 21435-9, 73395-5, 2157-6 ####[facility] [id number] [place] [address] [place] CNOVon 11-20-2023 CNOV Office Visit (JOSE ALBERTO ) ----- MIRIAM EDWARDS ([id number]) 1985 F Date Time Provider Department 11/20/23 11:00 AM ZOE SRINIVASAN During your visit today, we recorded the following information about you: Pulse Blood pressure Weight 82/minute 121/77 80.9 kg Zoe Srinivasan MD 11/20/2023 9:52 PM Signed [facility] Date of Service: 11/20/2023 Patient: Miriam Edwards Medical Record: [id number] Primary Care Physician: No primary care provider on file. Referring Provider: SELF Last Rheumatology visit: None at [facility] Chief complaint: New Patient (Joint swelling, couple years. 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 Throat swelling and blisters in her mouth. Body weakness. Pt said since jun she was sick 4 times. Had covid, strep, some stomach bug. Prednisone is the only thing that ever works for her. Pt was at ER for neck stifffness. Pt has hand swelling sometimes. Had hard time grabbing things. Pt had blood work done, CRP and Sed rate was high. Pt's mom has RA and fibromyalgia. Grandma had autoimmune. Liver was enlarged. Patient does not know) Self Consultation requested for an opinion regarding joint pain, swelling, fever. 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 Throat swelling and blisters in her mouth. Body weakness. Pt said since jun she was sick 4 times. Had covid, strep, some stomach bug. Prednisone is the only thing that ever works for her. Pt was at ER for neck stifffness. Pt has hand swelling sometimes. Had hard time grabbing things. Pt had blood work done, CRP and Sed rate was high. Pt's mom has RA and fibromyalgia. Grandma had autoimmune. Liver was enlarged. Patient does not know). Miriam is RF negative - 9 (11/20/2023). HISTORY OF PRESENT ILLNESS Patient reports multiple joint pain including bilateral hips, knees, hands, neck, low back for many years, did PT, told to have degenerative arthritis and chronic pain. Physical therapy does not help with the pain She also reports that her skin is tender to touch, even massage hurts Pain is worse in am and worse with activities She reports mild swelling in her whole hands which is constant with intermittent worsening of swelling along with whole body swelling and whole body pain on and off, almost once every 6 months. 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 She reports that optic neuritis was ruled out, denies any history of uveitis or iritis She had MRI, LP, ruled out MS, Diamox has been recommended for intracranial hypertension She reports being sick 4 times since jun 2023- had coivd, strep, stomach flu Mid October 2023-she had whole body pain associated with fever, had Blisters in the mouth, she went to ER, had infectious workup done including blood culture which was negative, she was discharged home Later she also started having neck stiffness, she went back to ER, had lumbar puncture and meningitis was ruled out. She was given prednisone for 5 days that helped with her whole body swelling but not with the pain. 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 Previous workups reviewed in patient's phone 10/2023 Sed rate 30 CRP 7.6 CSF cell count 2, protein 44 CT C spine- mild degenerative changes CXR- unremarkable XR bilateral hands 12/2022- unremarkable CT facial bone 08/2023- 1. No acute facial fracture. 2. Mild paranasal sinus disease with small left mastoid effusion. Patient-Entered Data PAIN EVALUATION 11/18/20232046 Pain Level: 6 Pain Location: Other: See Comment Description: Aching;Spasm;Stiffness;Ti ngling Duration Amount of Time: 7 Duration Units: Days Frequency: Continuous Intervention/Comfort measure: Reposition;Positioning Comments: I normally have chronic pain it hurts to be rubbed or massaged. When i have flate ups of whatever is hoing on with me my whole body hurts PROMIS Assessments 11/18/2023 PROMIS Assessments Physical Health Percentile 10 Mental Health Percentile 34 Pain Score 3 Pain Interference Percentile 21 Fatigue Percenti (more content not included)... Normal [facility] CREATINE KINASE/CKon 024 CK [Catalytic activity/Vol] 116 U/L 42 - 196 U/L [facility] CRP SerPl-mCncon 11-20-2023 CRP [Mass/Vol] mg/L Normal <0.9 [facility] Comment on above: Order Comment: Speci men Type: BLOOD SPECIMENOrdering Facility: [facility] Address: [address] [place] [address] Performed By: #### 1 988-5, 3685-2, 45659 ####[facility] [id number] [place] [address] [place] Cardiolipin IgA Ser IA-aCnco n 11-20-2023 Cardiolipin IgA IA Qn (S) <9.0 Normal <12.0 [facility] Comment on above: Order Comment: Eveline lynch Type: BLOOD SPECIMENOrdering Facility: [facility] Address: [address] [place] [address] Result Comment: <12 APL Negative 12-20 APL Indeterminate >20 APL Positive The following results were obtained with the G[employer] QUANTA Lite JOYCE IgA III GEETA. Cardiolipin IgA values obtained with the different manufacturers' assay methods may not be used interchangeably. The magnitude of the reported IgA levels cannot be correlated to an endpoint titer. Performed By: #### B ETA2M, 5076-5, BETA2G, 07065-0, CARDIG ####[facility] [id number] [place] [address] [place] Centromere Ab IF Ql (S)on Centromere Ab Qn (S) <0.2 Normal <1.0 [facility] Comment on above: Order Comment: Eveline lynch Type: BLOOD SPECIMENOrdering Facility: [facility] Address: [address] [place] [address] Result Comment: Anti -centromere antibody is used as in aid in diagnosis of systemic sclerosis. Clinical correlation is required. Test Methodology: Multiplex flow immunoassay. Performed By: #### 2 9374-6, 71652-0, 58585-5, 32121-4, 48534-5, 77128-0, 84383-3, 60997-7 ####[facility] [id number] [place] [id number] [place] CENTROMERE AB QUAL Negative Normal Negative [facility] Comment on above: Order Comment: Eveline lynch Type: BLOOD SPECIMENOrdering Facility: [facility] Address: [address] [place] [address] Performed By: #### 2 9374-6, 46601-1, 21857-6, 04031-7, 71510-0, 08198-9, 55978-0, 68144-6 ####[facility] [id number] [place] [id number] [address] [place] Chromatin Ab Qnon 11-20-2023 CHROMATIN AB QUAL Negative Normal Negative [facility] Comment on above: Order Comment: Speci men Type: BLOOD SPECIMENOrdering Facility: [facility] Address: [address] [place] [address] Performed By: #### 2 9374-6, 42202-6, 09690-5, 84561-7, 63853-7, 39552-0, 12101-4, 74568-1 ####[facility] [id number] [address] [place] [facility] Chromatin Ab SerPl-aCncon Chromatin Ab Qn <0.2 Normal <1.0 [facility] Comment on above: Order Comment: Speci men Type: BLOOD SPECIMENOrdering Facility: [facility] Address: [address] [place] [address] Result Comment: Test Methodology: Multiplex flow immunoassay. Performed By: #### 2 9374-6, 17807-1, 84718-0, 97285-5, 36093-3, 71378-8, 21149-2, 25825-9 ####[facility] [id number] [address] [place] Comprehensive metabolic 2000 panelon 11-20-2023 Albumin [Mass/Vol] 4.4 g/dL 3.9 - 4.9 g/dL [facility] ALP [Catalytic activity/Vol] 65 U/L 34 - 123 U/L [facility] ALT [Catalytic activity/Vol] 22 U/L 7 - 38 U/L [facility] Anion gap [Moles/Vol] 12 mmol/L 9 - 18 mmol/L [facility] AST [Catalytic activity/Vol] 31 U/L 13 - 35 U/L [facility] Bilirubin [Mass/Vol] 0.4 mg/dL 0.2 - 1 .3 mg/dL [facility] Calcium [Mass/Vol] 9.6 mg/dL 8.5 - 10. 2 mg/dL [facility] Chloride [Moles/Vol] 104 mmol/L 97 - 10 5 mmol/L [facility] CO2 [Moles/Vol] 24 mmol/L 22 - 30 mmol/L [facility] Creatinine [Mass/Vol] 0.91 mg/dL 0.58 - 0.96 mg/dL [facility] GFR/1.73 sq M.predicted among non-blacks MDRD (S/P/Bld) [Vol rate/Area] 83 mL/min/{1.73_m2} - PINF [facility] Comment on above: Estimated Glomerular Filtration Rate (eGFR) is calculated using the 2020 CKD-EPI creatinine equation. This equation utilizes serum creatinine, sex, and age as parameters. The creatinine assay has traceable calibration to isotope dilution-mass spectrometry. Refer to KDIGO guidelines for clinical interpretation. In patients with unstable renal function, e.g. those with acute kidney injury, the eGFR may not accurately reflect actual GFR. Glucose [Mass/Vol] 94 mg/dL 74 - 99 mg/dL [facility] Comment on above: The [place] Diabete s Association (ADA) provides guidance for cutoff values for fasting glucose and random glucose. The ADA defines fasting as no caloric intake for at least 8 hours. Fasting plasma glucose results between 100 to 125 mg/dL indicate increased risk for diabetes (prediabetes). Fasting plasma glucose results greater than or equal to 126 mg/dL meet the criteria for diagnosis of diabetes. In the absence of unequivocal hyperglycemia, results should be confirmed by repeat testing. In a patient with classic symptoms of hyperglycemia or hyperglycemic crisis, random plasma glucose results greater than or equal to 200 mg/dL meet the criteria for diagnosis of diabetes. Reference: Standards of Medical Care in Diabetes 2016, [place] Diabetes Association. Diabetes Care. 2016.39(Suppl 1). Potassium [Moles/Vol] 4.0 mmol/L 3.7 - 5.1 mmol/L [facility] Protein [Mass/Vol] 6.5 g/dL 6.3 - 8.0 g/dL [facility] Sodium [Moles/Vol] 140 mmol/L 136 - 144 mmol/L [facility] Urea nitrogen [Mass/Vol] 12 mg/dL 7 - 21 mg/dL [facility] Albumin [Mass/Vol] 4.4 g/dL Normal 3.9-4.9 [facility] Comment on above: Order Comment: Speci men Type: BLOOD SPECIMENOrdering Facility: [facility] Address: [address] [place] [address] Performed By: #### 4 498-2, 01506-2, 65730-4, 2156-6 ####[facility] [id number] [place] [address] [place] ALP [Catalytic activity/Vol] 65 U/L Normal 34-123 [facility] Comment on above: Order Comment: Speci men Type: BLOOD SPECIMENOrdering Facility: [facility] Address: [address] [place] [address] Performed By: #### 4 498-2, 32713-1, 54057-8, 2156-6 ####[facility] [id number] [place] [address] [place] ALT [Catalytic activity/Vol] 22 U/L Normal 7-38 [facility] Comment on above: Order Comment: Speci men Type: BLOOD SPECIMENOrdering Facility: [facility] Address: [address] [place] [address] Performed By: #### 4 498-2, 67926-9, 29141-9, 6 ####[facility] [id number] [place] [address] [place] Anion gap [Moles/Vol] 12 mmol/L Normal 9-18 [facility] Comment on above: Order Comment: Speci men Type: BLOOD SPECIMENOrdering Facility: [facility] Address: [address] [place] [address] Performed By: #### 4 498-2, 14649-7, 99297-6, 2156-6 ####[facility] [id number] [place] [address] [place] AST [Catalytic activity/Vol] 31 U/L Normal 13-35 [facility] Comment on above: Order Comment: Speci men Type: BLOOD SPECIMENOrdering Facility: [facility] Address: [address] [place] [address] Performed By: #### 4 498-2, 19879-9, 19089-4, 2157-6 ####[facility] [id number] [place] [id number] [place] Bilirubin [Mass/Vol] 0.4 mg/dL Normal 0.2-1.3 [facility] Comment on above: Order Comment: Speci men Type: BLOOD SPECIMENOrdering Facility: [facility] Address: [address] [place] [address] Performed By: #### 4 498-2, 98463-8, 60204-6, 2156-6 ####[facility] [id number] [place] [address] [place] Calcium [Mass/Vol] 9.6 mg/dL Normal 8.5-10.2 [facility] Comment on above: Order Comment: Speci men Type: BLOOD SPECIMENOrdering Facility: [facility] Address: [address] [place] [address] Performed By: #### 4 498-2, 37042-3, 46947-0, 2156-6 ####[facility] [id number] [place] [address] [place] Chloride [Moles/Vol] 104 mmol/L Normal 97-105 [facility] Comment on above: Order Comment: Speci men Type: BLOOD SPECIMENOrdering Facility: [facility] Address: [address] [place] [address] Performed By: #### 4 498-2, 34530-2, 28284-8, 7-6 ####[facility] [id number] [place] [address] [place] CO2 [Moles/Vol] 24 mmol/L Normal 22-30 [facility] Comment on above: Order Comment: Speci men Type: BLOOD SPECIMENOrdering Facility: [facility] Address: [address] [place] [address] Performed By: #### 4 498-2, 72608-5, 69183-3, 2157-6 ####[facility] [id number] [place] [id number] [place] Creatinine [Mass/Vol] 0.91 mg/dL Normal 0.58-0.96 [facility] Comment on above: Order Comment: Speci men Type: BLOOD SPECIMENOrdering Facility: [facility] Address: [address] [place] [address] Performed By: #### 4 498-2, 49902-3, 44890-4, 2156-6 ####[facility] [id number] [address] [place] [facility] Creatinine and Glomerular filtration rate.predicted panel (S/P/Bld) 83 mL/min/1.73m??? Normal >=60 [facility] Comment on above: Order Comment: Aracelisi men Type: BLOOD SPECIMENOrdering Facility: [facility] Address: [address] [place] [address] Result Comment: Yeni mated Glomerular Filtration Rate (eGFR) is calculated using the 2020 CKD-EPI creatinine equation. This equation utilizes serum creatinine, sex, and age as parameters. The creatinine assay has traceable calibration to isotope dilution-mass spectrometry. Refer to KDIGO guidelines for clinical interpretation. In patients with unstable renal function, e.g. those with acute kidney injury, the eGFR may not accurately reflect actual GFR. Performed By: #### 4 498-2, 66464-6, 63861-1, 2156-6 ####[facility] [id number] [place] [id number] [place] Glucose [Mass/Vol] 94 mg/dL Normal 74-99 [facility] Comment on above: Order Comment: Aracelisi men Type: BLOOD SPECIMENOrdering Facility: [facility] Address: [address] [place] [address] Result Comment: The [place] Diabetes Association (ADA) provides guidance for cutoff values for fasting glucose and random glucose. The ADA defines fasting as no caloric intake for at least 8 hours. Fasting plasma glucose results between 100 to 125 mg/dL indicate increased risk for diabetes (prediabetes). Fasting plasma glucose results greater than or equal to 126 mg/dL meet the criteria for diagnosis of diabetes. In the absence of unequivocal hyperglycemia, results should be confirmed by repeat testing. In a patient with classic symptoms of hyperglycemia or hyperglycemic crisis, random plasma glucose results greater than or equal to 200 mg/dL meet the criteria for diagnosis of diabetes. Reference: Standards of Medical Care in Diabetes 2016, [place] Diabetes Association. Diabetes Care. 2016.39(Suppl 1). Performed By: #### 4 498-2, 15674-3, 77145-1, 2157-6 ####[facility] [id number] [place] [address] [place] Potassium [Moles/Vol] 4.0 mmol/L Normal 3.7-5.1 [facility] Comment on above: Order Comment: Speci men Type: BLOOD SPECIMENOrdering Facility: [facility] Address: [address] [place] [address] Performed By: #### 4 498-2, 60663-5, 55881-1, 6 ####[facility] [id number] [place] [address] [place] Sodium [Moles/Vol] 140 mmol/L Normal 136-144 [facility] Comment on above: Order Comment: Aracelisi men Type: BLOOD SPECIMENOrdering Facility: [facility] Address: [address] [place] [address] Performed By: #### 4 498-2, 83873-2, 76806-7, 2157-6 ####[facility] [id number] [place] [address] [place] Urea nitrogen [Mass/Vol] 12 mg/dL Normal 7-21 [facility] Comment on above: Order Comment: Speci men Type: BLOOD SPECIMENOrdering Facility: [facility] Address: [address] [place] [address] Performed By: #### 4 498-2, 24636-4, 34021-7, 2157-6 ####[facility] [id number] [place] [address] [place] Cyclic citrullinated peptide IgG Qnon 11-20-2023 CCP ANTIBODY IGG QUALITATIVE Negative Normal Negative [facility] Comment on above: Order Comment: Speci men Type: BLOOD SPECIMENOrdering Facility: [facility] Address: [address] [place] [address] Performed By: #### B ETA2M, 5076-5, BETA2G, 79522-1, CARDIG ####[facility] [id number] [place] [address] [place] DNA double strand Ab IA Qn ( S)on 11-20-2023 DNA ANTIBODY 29 IU/mL Normal <=200 [facility] Comment on above: Order Comment: Speci men Type: BLOOD SPECIMENOrdering Facility: [facility] Address: [address] [place] [address] Result Comment: Nega tive: <200 IU/mL Equivocal: 201-300 IU/mL Moderate Positive: 301-800 IU/mL Strong Positive: >801 IU/mL Performed By: #### 3 2677-7 ####[facility] [id number] [place] [address] [place] DNA ANTIBODY QUALITATIVE INTERPRETATION Negative Normal Negative [facility] Comment on above: Order Comment: Speci men Type: BLOOD SPECIMENOrdering Facility: [facility] Address: [address] [place] [address] Performed By: #### 3 2677-7 ####[facility] [id number] [place] [address] [place] FARA Jo1 Ab Ser-aCncon 2023 Cammie-1 extractable nuclear Ab Qn (S) <0.2 Normal <1.0 [facility] Comment on above: Order Comment: Speci men Type: BLOOD SPECIMENOrdering Facility: [facility] Address: [address] [place] [address] Performed By: #### 2 9374-6, 41942-1, 07244-7, 22059-0, 74598-3, 36676-6, 44380-3, 10285-1 ####[facility] [id number] [place] [address] [place] FARA MOWER OPERATOR Ab Ser-aCncon 2023 Ribonucleoprotein extractable nuclear Ab Qn (S) <0.2 Normal <1.0 [facility] Comment on above: Order Comment: Speci men Type: BLOOD SPECIMENOrdering Facility: [facility] Address: [address] [place] [address] Performed By: #### 2 9374-6, 96533-4, 08110-1, 97890-3, 41565-1, 71899-7, 19758-0, 53199-1 ####[facility] [id number] [place] [address] [place] FARA SM IgG Ser-aCncon 2023 Louis extractable nuclear IgG Qn (S) <0.2 Normal <1.0 [facility] Comment on above: Order Comment: Speci men Type: BLOOD SPECIMENOrdering Facility: [facility] Address: [address] [place] [address] Performed By: #### 2 9374-6, 45689-4, 76196-9, 18101-4, 42368-5, 19086-6, 82661-9, 29139-2 ####[facility] [id number] [place] [address] [place] FARA SS-A Ab Ser-aCncon 11-19 Sjogrens syndrome-A extractable nuclear Ab Qn (S) <0.2 Normal <1.0 [facility] Comment on above: Order Comment: Speci men Type: BLOOD SPECIMENOrdering Facility: [facility] Address: [address] [place] [address] Result Comment: Test Methodology: Multiplex flow immunoassay. Performed By: #### 2 9374-6, 27768-0, 90638-8, 53060-6, 81394-6, 55917-1, 09637-4, 28910-0 ####[facility] [id number] [place] [address] [place] FARA SS-B Ab Ser-aCncon 11-19 Sjogrens syndrome-B extractable nuclear Ab Qn (S) <0.2 Normal <1.0 [facility] Comment on above: Order Comment: Speci men Type: BLOOD SPECIMENOrdering Facility: [facility] Address: [address] [place] [address] Result Comment: Anti -SSB (anti-La) antibody is used as an aid in diagnosis of a variety of systemic autoimmune diseases, especially for Sjogren's syndrome and systemic lupus erythematosus. Clinical correlation is required. Test Methodology: Multiplex flow immunoassay. Performed By: #### 2 9374-6, 33558-3, 97181-3, 79081-1, 47999-6, 96070-9, 56777-8, 53578-8 ####[facility] [id number] [place] [address] [place] ESR Westergren method (Bld) [Velocity]on 11-20-2023 ESR (Bld) [Velocity] 9 mm/h [facility] Interpretation and review of laboratory results Normal [facility] ESR (Bld) [Velocity] 9 mm/h Normal 0-20 [facility] Comment on above: Order Comment: Speci men Type: BLOOD SPECIMENOrdering Facility: [facility] Address: [address] [place] [address] Performed By: #### 5 7021-8, 4537-7 ####[facility] [id number] [place] [address] [place] Cammie-1 extractable nuclear Ab Qn (S)on 11-20-2023 CAMMIE 1 ANTIBODY QUAL Negative Normal Negative [facility] Comment on above: Order Comment: Eveline lynch Type: BLOOD SPECIMENOrdering Facility: [facility] Address: [address] [place] [address] Result Comment: Anti -CAMMIE-1 antibody is used as an aid in diagnosis of polymyositis and dermatomyositis especially with pulmonary involvement. A negative result cannot rule out polymyositis or dermatomyositis. Clinical correlation is required. Test Methodology: Multiplex flow immunoassay. Performed By: #### 2 9374-6, 05076-6, 57482-0, 03028-2, 27764-5, 49492-7, 71162-7, 16149-8 ####[facility] [id number] [place] [address] [place] LUPUS PANELon 11-20-2023 aPTT Coag (Bld) [Time] 36.1 s Normal 30.2-43.0 [facility] Comment on above: Order Comment: Eveline lynch Type: BLOOD SPECIMENOrdering Facility: [facility] Address: [address] [place] [address] Performed By: #### L UPPL ####[facility] [id number] [place] [address] [place] aPTT Coag (Bld) [Time] 34.2 s Normal 31.5-38.3 [facility] Comment on above: Order Comment: Aracelisi men Type: BLOOD SPECIMENOrdering Facility: [facility] Address: [address] [place] [address] Performed By: #### L UPPL ####[facility] [id number] [place] [address] [place] aPTT Coag (Bld) [Time] 28.7 s Normal 24.0-35.1 [facility] Comment on above: Order Comment: Aracelisi syed Type: BLOOD SPECIMENOrdering Facility: [facility] Address: [address] [place] [address] Performed By: #### L UPPL ####[facility] [id number] [place] [address] [place] aPTT W excess hexagonal phase phospholipid Coag (PPP) [Time] 52.0 seconds High 34.0-51.8 [facility] Comment on above: Order Comment: Speci men Type: BLOOD SPECIMENOrdering Facility: [facility] Address: [address] [place] [address] Performed By: #### L UPPL ####[facility] [id number] [place] [address] [place] Coagulation factor X activated act Coag Qn (PPP) <0.10 Normal <0.10 [facility] Comment on above: Order Comment: Speci men Type: BLOOD SPECIMENOrdering Facility: [facility] Address: [address] [place] [address] Result Comment: This test was developed and its performance characteristics determined by [facility]'s [facility] [place] ([facility]). It has not been cleared or approved by the FDA. [facility] is regulated under CLIA as qualified to perform high-complexity testing. This test is used for clinical purposes. It should not be regarded as investigational or for research. Performed By: #### L UPPL ####[facility] [id number] [place] [address] [place] Delta dRVVT Coag (PPP) [Time diff] 5.8 delta seconds Normal <7.1 [facility] Comment on above: Order Comment: Speci men Type: BLOOD SPECIMENOrdering Facility: [facility] Address: [address] [place] [address] Performed By: #### L UPPL ####[facility] [id number] [place] [address] [place] dRVVT Coag (PPP) [Time] 35.9 s Normal 32.0-45.7 [facility] Comment on above: Order Comment: Speci men Type: BLOOD SPECIMENOrdering Facility: [facility] Address: [address] [place] [address] Performed By: #### L UPPL ####[facility] [id number] [place] [address] [place] dRVVT factor substitution immediately after 1:2 addition of normal plasma Coag (PPP) [Time] 37.2 seconds Normal 32.0-45.7 [facility] Comment on above: Order Comment: Speci men Type: BLOOD SPECIMENOrdering Facility: [facility] Address: [address] [place] [address] Performed By: #### L UPPL ####[facility] [id number] [place] [address] [place] dRVVT W excess hexagonal phase phospholipid actual/normal Coag (PPP) [Relative time] 46.2 seconds Normal 34.2-47.9 [facility] Comment on above: Order Comment: Speci men Type: BLOOD SPECIMENOrdering Facility: [facility] Address: [address] [place] [address] Performed By: #### L UPPL ####[facility] [id number] [place] [address] [place] dRVVT/dRVVT.excess phospholipid Coag (PPP) [Ratio] 1.10 Normal <1.32 [facility] Comment on above: Order Comment: Speci men Type: BLOOD SPECIMENOrdering Facility: [facility] Address: [address] [place] [address] Performed By: #### L UPPL ####[facility] [id number] [place] [address] [place] PLATELET NEUT 0.0 Seconds Normal <1.9 [facility] Comment on above: Order Comment: Speci men Type: BLOOD SPECIMENOrdering Facility: [facility] Address: [address] [place], [place] [address] Performed By: #### L UPPL ####[facility] [id number] [place] [id number] [place] Thrombin time Coag (PPP) [Time] 17.8 seconds Normal <18.6 [facility] Comment on above: Order Comment: Speci men Type: BLOOD SPECIMENOrdering Facility: [facility] Address: [address] [place] [address] Performed By: #### L UPPL ####[facility] [id number] [place] [id number] [place] No Panel Informationon 11-19 Interpretation and review of laboratory results Normal [facility] Interpretation and review of laboratory results Normal [facility] PROTEIN / CREATININE RATIOon 11-20-2023 Protein/Creatinine (U) [Mass ratio] 0.18 mg/mg High NINF - 0.15 mg/mg [facility] Comment on above: Adult Proteinuria Ca tegories: <0.15 mg/mg is considered normal to mildly increased 0.15 - 0.50 mg/mg is considered moderately increased >0.50 mg/mg is considered severely increased KDIGO. (2013). KDIGO 2012 Clinical Practice Guideline for the Evaluation and Management of Chronic Kidney Disease. Official Journal of the International Society of Nephrology, 3(1), 1-150. PROTEIN ELECTROPHORESIS SERU M (P)on 11-20-2023 Albumin [Mass/Vol] 4.09 g/dL Normal 3.43-5.41 [facility] Comment on above: Order Comment: Speci men Type: BLOOD SPECIMENOrdering Facility: [facility] Address: [address] [place] [id number] Performed By: #### L [id number] ####[facility] [id number] [place] [id number] [place] Alpha 1 globulin Elph [Mass/Vol] 0.27 g/dL Normal 0.18-0.43 [facility] Comment on above: Order Comment: Speci men Type: BLOOD SPECIMENOrdering Facility: [facility] Address: [address] [place] [address] Performed By: #### L [id number] ####[facility] [id number] [place] [address] [place] Alpha 2 globulin Elph [Mass/Vol] 0.63 g/dL Normal 0.42-0.98 [facility] Comment on above: Order Comment: Speci men Type: BLOOD SPECIMENOrdering Facility: [facility] Address: [address] [place] [address] Performed By: #### L [id number] ####[facility] [id number] [place] [address] [place] Beta globulin Elph [Mass/Vol] 0.75 g/dL Normal 0.61-1.17 [facility] Comment on above: Order Comment: Speci men Type: BLOOD SPECIMENOrdering Facility: [facility] Address: [address] [place] [address] Performed By: #### L [id number] ####[facility] [id number] [place] [address] [place] Gamma globulin Elph [Mass/Vol] 0.76 g/dL Normal 0.53-1.51 [facility] Comment on above: Order Comment: Speci men Type: BLOOD SPECIMENOrdering Facility: [facility] Address: [address] [place] [address] Performed By: #### L [id number] ####[facility] [id number] [place] [address] [place] M-PROTEIN LOCATION Normal [facility] Comment on above: Order Comment: Speci men Type: BLOOD SPECIMENOrdering Facility: [facility] Address: [address] [place] [address] Result Comment: Not Applicable. Performed By: #### L [id number] ####[facility] [id number] [address] [place] [facility] Protein Fractions [Interp] No definitive M protein is identified on protein electrophoresis. Normal No definitive M protein is identified on protein electrophor esis. [facility] Comment on above: Order Comment: Speci men Type: BLOOD SPECIMENOrdering Facility: [facility] Address: [address] [place] [address] Performed By: #### L [id number] ####[facility] [id number] [address] Protein.monoclonal Elph [Mass/Vol] 0.00 g/dL Normal <=0.00 [facility] Comment on above: Order Comment: Aracelisi syed Type: BLOOD SPECIMENOrdering Facility: [facility] Address: [address] [place] [address] Performed By: #### L [id number] ####[facility] [id number] [address] OF [facility] SPE STAFF REVIEW Reviewed by Luisa Dyer M.D. Normal [facility] Comment on above: Order Comment: Speci men Type: BLOOD SPECIMENOrdering Facility: [facility] Address: [address] [place] [address] Performed By: #### L [id number] ####[facility] [id number] [address] [place] PT panel Coag (PPP)on 2023 INR Coag (PPP) [Relative time] 1.0 {INR} Normal 0.9-1.3 [facility] Comment on above: Order Comment: Speci men Type: BLOOD SPECIMENOrdering Facility: [facility] Address: [address] [place] [address] Result Comment: Sophie min K Antagonist (VKA) Therapeutic Range: INR 2 to 3 (Target INR of 2.5) Note: For patients treated with VKA drugs, such as warfarin, the [place] [employer] 2012 Guideline recommends a therapeutic INR range of 2 to 3 (target INR of 2.5). This recommendation includes high-risk patients with antiphospholipid syndrome with previous arterial or venous thromboembolism, current-generation mechanical or bioprosthetic aortic heart valve replacement. Note: Patients with mechanical aortic valve replacement and additional risk factors for thromboembolic events (atrial fibrillation, previous thromboembolism, LV dysfunction, hypercoagulable conditions) or an older generation mechanical AVR (i.e., ball in-Cage) or any mechanical MVR should have a INR therapeutic range of 2.5 to 3.5 (target INR of 3). Tommie GH, et al. Chest 2012, 141:7S-47S Yanet RA, et al. [facility] 2017, 70: 252-289 Performed By: #### 3 4528-0, 97333-5 ####[facility] [id number] [place] [address] [place] PT Coag (PPP) [Time] 11.1 s Normal 9.7-13.0 [facility] Comment on above: Order Comment: Speci men Type: BLOOD SPECIMENOrdering Facility: [facility] Address: [address] [place] [address] Performed By: #### 3 4528-0, 90187-8 ####[facility] [id number] [place] [address] [place] [place] Prot SerPl-mCncon 11-20-2023 Protein [Mass/Vol] 6.5 g/dL Normal 6.3-8.0 [facility] Comment on above: Order Comment: Speci men Type: BLOOD SPECIMENOrdering Facility: [facility] Address: [address] [place] [address] Performed By: #### 1 988-5, 2885-2, 4485-9 ####[facility] [id number] [place] [address] [place] Performed By: #### 4 498-2, 91547-7, 90545-8, 2157-6 ####[facility] [id number] [place] [address] [place] Prot/Creat Uron 11-20-2023 Protein/Creatinine (U) [Mass ratio] 0.18 mg/mg High <0.15 [facility] Comment on above: Order Comment: Speci men Type: URINE SPECIMENOrdering Facility: [facility] Address: [address] [place] [address] Result Comment: Adul t Proteinuria Categories: <0.15 mg/mg is considered normal to mildly increased 0.15 - 0.50 mg/mg is considered moderately increased >0.50 mg/mg is considered severely increased KDIGO. (2013). KDIGO 2012 Clinical Practice Guideline for the Evaluation and Management of Chronic Kidney Disease. Official Journal of the International Society of Nephrology, 3(1), 1-150. Performed By: #### 2 890-2 ####[facility] [id number] [place] [address] [place] Protein/Creatinine (U) [Mass ratio]on 11-20-2023 Creatinine (U) [Mass/Vol] 38.3 mg/dL 20.0 - 300.0 mg/dL [facility] Interpretation and review of laboratory results Abnormal [facility] Protein (U) [Mass/Vol] 7 mg/dL 0 - 20 mg/dL [facility] Creatinine (U) [Mass/Vol] 38.3 mg/dL Normal 20.0-300.0 [facility] Comment on above: Order Comment: Speci men Type: URINE SPECIMENOrdering Facility: [facility] Address: [address] [place] [address] Performed By: #### 2 890-2 ####[facility] [id number] [place] [address] [place] Protein (U) [Mass/Vol] 7 mg/dL Normal 0-20 [facility] Comment on above: Order Comment: Speci men Type: URINE SPECIMENOrdering Facility: [facility] Address: [address] [place] [address] Performed By: #### 2 890-2 ####[facility] [id number] [place] [id number] [place] RHEUMATOID FACTORon 11-20-19 24 Rheumatoid factor Qn NINF [facility] Rheumatoid fact SerPl-aCncon 11-20-2023 Rheumatoid factor Qn [IU]/mL Normal <16 [facility] Comment on above: Order Comment: Speci men Type: BLOOD SPECIMENOrdering Facility: [facility] Address: [address] [place] [address] Performed By: #### 4 498-2, 98806-9, 43972-8, 2157-6 ####[facility] [id number] [place] [address] [place] Ribonucleoprotein extractabl e nuclear Ab Qn (S)on 11-20-2023 ANTI-MOWER OPERATOR QUAL Negative Normal Negative [facility] Comment on above: Order Comment: Speci men Type: BLOOD SPECIMENOrdering Facility: [facility] Address: [address] [place] [address] Performed By: #### 2 9374-6, 93608-4, 91560-8, 31840-1, 75598-7, 31793-3, 76087-0, 72815-4 ####[facility] [id number] [place] [address] [place] RIBOSOMAL MOWER OPERATOR QUAL Negative Normal Negative [facility] Comment on above: Order Comment: Speci men Type: BLOOD SPECIMENOrdering Facility: [facility] Address: [address] [place] [address] Result Comment: Anti -Ribosomal RNA (Ribosomal P) antibody is used as an aid in diagnosis of systemic autoimmune diseases especially systemic lupus erythematosus and mixed connective tissue disease. Cross-reactivity with Anti-louis antibody is not uncommon. Clinical correlation is required. Test Methodology: Multiplex flow immunoassay. Performed By: #### 2 9374-6, 89425-5, 17188-8, 43002-0, 08082-5, 08413-0, 43449-0, 88009-9 ####[facility] [id number] [place] [id number] [place] SCL-70 extractable nuclear I gG IA Qn (S)on 11-20-2023 SCLERODERMA AB QUAL Negative Normal Negative [facility] Comment on above: Order Comment: Speci men Type: BLOOD SPECIMENOrdering Facility: [facility] Address: [address] [place] [address] Performed By: #### 2 9374-6, 50127-8, 92323-4, 24685-9, 85093-2, 62751-0, 34027-8, 05707-4 ####[facility] [id number] [place] [address] [place] SCLERODERMA IGG AB <0.2 Normal <1.0 [facility] Comment on above: Order Comment: Speci men Type: BLOOD SPECIMENOrdering Facility: [facility] Address: [address] [place] [address] Result Comment: Scl- 70/Scleroderma antibody test is used as an aid in diagnosis of systemic sclerosis especially the diffuse cutaneous form. A negative result cannot rule out systemic sclerosis. The final interpretation should consider clinical picture and other test results such as anti-centromere antibody. Test Methodology: Multiplex flow immunoassay. Performed By: #### 2 9374-6, 28228-4, 95069-3, 10322-1, 83256-9, 96073-1, 63631-6, 26595-0 ####[facility] [id number] [place] [id number] [place] Sjogrens syndrome-A extracta ble nuclear Ab Qn (S)on 11-20-2023 SSA ANTIBODY QUAL Negative Normal Negative [facility] Comment on above: Order Comment: Speci men Type: BLOOD SPECIMENOrdering Facility: [facility] Address: [address] [place] [address] Performed By: #### 2 9374-6, 51516-3, 43820-5, 42898-7, 63500-9, 02199-7, 44177-0, 43041-9 ####[facility] [id number] [place] [address] [place] Sjogrens syndrome-B extracta ble nuclear Ab Qn (S)on 11-20-2023 SSB ANTIBODY QUAL Negative Normal Negative [facility] Comment on above: Order Comment: Speci men Type: BLOOD SPECIMENOrdering Facility: [facility] Address: [address] [place] [address] Performed By: #### 2 9374-6, 80867-1, 25481-0, 49625-1, 47975-4, 85013-9, 86832-5, 49944-9 ####[facility] [id number] [place] [address] [place] Louis extractable nuclear Ig G Qn (S)on 11-20-2023 SM ANTIBODY QUAL Negative Normal Negative [facility] Comment on above: Order Comment: Speci men Type: BLOOD SPECIMENOrdering Facility: [facility] Address: [address] [place] [address] Result Comment: Anti -Sm (Louis) antibody is used as an aid in diagnosis of systemic lupus erythematosus and its presence is associated with renal disease. A negative result cannot rule out systemic lupus erythematosus. Clinical correlation is required. Test Methodology: Multiplex flow immunoassay. Performed By: #### 2 9374-6, 25875-7, 76813-9, 32173-5, 33533-0, 64123-2, 86064-0, 97322-9 ####[facility] [id number] [place] [address] [place] Urinalysis complete panel (U )on 11-20-2023 Bacteria LM.HPF (Urine sed) [#/Area] Negative Negative /HPF [facility] Bilirubin Ql (U) Negative Negative [facility] Clarity (Unsp spec) Clear Clear [facility] Color (U) Yellow Yellow [facility] Epithelial cells LM.HPF (Urine sed) [#/Area] None Seen /HPF [facility] Glucose Test strip (U) [Mass/Vol] Negative Negative [facility] Hemoglobin Ql (U) Negative Negative [facility] Hyaline casts (Urine sed) [#/Area] 0 /[LPF] 0 /LPF [facility] Ketones Ql (U) Negative Negative [facility] Leukocyte esterase Test strip Ql (U) Negative Negative [facility] Nitrite Ql (U) Negative Negative [facility] pH (U) 6.0 [pH] NINF - 8.5 [facility] Protein (U) [Mass/Vol] Negative Negative [facility] RBC LM.HPF (Urine sed) [#/Area] 0-2 /HPF 0-2 /HPF [facility] Specific gravity (U) [Rel density] 1.007 1.005 - 1.030 [facility] Urobilinogen Ql (U) 0.2 EU/dL 0.2-1.0 EU/dL [facility] WBC LM.HPF (Urine sed) [#/Area] 0-5 /HPF 0-5 /HPF [facility] This test was reyna schuster and its performance characteristics determined by [facility]'s [facility]ology [facility] [place] ([facility]). It has not been cleared or approved by the FDA. -[facility] is regulated under CLIA as qualified to perform high-complexity testing. This test is used for clinical purposes. It should not be regarded as investigational or for research. [facility] Bacteria LM.HPF (Urine sed) [#/Area] Negative Normal Negative [facility] Comment on above: Order Comment: Speci men Type: URINE SPECIMENOrdering Facility: [facility] Address: [address] [place] [address] Performed By: #### 2 4356-8 ####[facility] [id number] [place] [address] [place] Bilirubin Ql (U) Negative Normal Negative [facility] Comment on above: Order Comment: Speci men Type: URINE SPECIMENOrdering Facility: [facility] Address: [address] [place] [address] Performed By: #### 2 4356-8 ####[facility] [id number] [place] [address] [place] Clarity (Unsp spec) Clear Normal Clear [facility] Comment on above: Order Comment: Speci men Type: URINE SPECIMENOrdering Facility: [facility] Address: [address] [place] [address] Performed By: #### 2 4356-8 ####[facility] [id number] [place] [address] [place] Color (U) Yellow Normal Yellow [facility] Comment on above: Order Comment: Speci men Type: URINE SPECIMENOrdering Facility: [facility] Address: [address] [place] [address] Performed By: #### 2 4356-8 ####[facility] [id number] [place] [address] [place] Epithelial cells LM.HPF (Urine sed) [#/Area] None Seen Normal [facility] Comment on above: Order Comment: Speci men Type: URINE SPECIMENOrdering Facility: [facility] Address: [address] [place] [address] Performed By: #### 2 4356-8 ####[facility] [id number] [place] [address] [place] Glucose Test strip (U) [Mass/Vol] Negative Normal Negative [facility] Comment on above: Order Comment: Speci men Type: URINE SPECIMENOrdering Facility: [facility] Address: [address] [place] [address] Performed By: #### 2 4356-8 ####[facility] [id number] [place] [address] [place] Hemoglobin Ql (U) Negative Normal Negative [facility] Comment on above: Order Comment: Speci men Type: URINE SPECIMENOrdering Facility: [facility] Address: [address] [place] [address] Performed By: #### 2 4356-8 ####[facility] [id number] [place] [address] [place] Hyaline casts (Urine sed) [#/Area] 0 /[LPF] Normal 0 /LPF [facility] Comment on above: Order Comment: Speci men Type: URINE SPECIMENOrdering Facility: [facility] Address: [address] [place] [address] Performed By: #### 2 4356-8 ####[facility] [id number] [place] [address] [place] Ketones Ql (U) Negative Normal Negative [facility] Comment on above: Order Comment: Speci men Type: URINE SPECIMENOrdering Facility: [facility] Address: [address] [place] [address] Performed By: #### 2 4356-8 ####[facility] [id number] [place] [address] [place] Leukocyte esterase Test strip Ql (U) Negative Normal Negative [facility] Comment on above: Order Comment: Speci men Type: URINE SPECIMENOrdering Facility: [facility] Address: [address] [place] [address] Performed By: #### 2 4356-8 ####[facility] [id number] [place] [address] [place] Nitrite Ql (U) Negative Normal Negative [facility] Comment on above: Order Comment: Speci men Type: URINE SPECIMENOrdering Facility: [facility] Address: [address] [place] [address] Performed By: #### 2 4356-8 ####[facility] [id number] [place] [address] [place] pH (U) 6.0 [pH] Normal <8.5 [facility] Comment on above: Order Comment: Speci men Type: URINE SPECIMENOrdering Facility: [facility] Address: [address] [place] [address] Performed By: #### 2 4356-8 ####[facility] [id number] [place] [address] [place] Protein (U) [Mass/Vol] Negative Normal Negative [facility] Comment on above: Order Comment: Speci men Type: URINE SPECIMENOrdering Facility: [facility] Address: [address] [place] [address] Performed By: #### 2 4356-8 ####[facility] [id number] [place] [address] [place] RBC LM.HPF (Urine sed) [#/Area] 0-2 /HPF Normal 0-2 /HPF [facility] Comment on above: Order Comment: Speci men Type: URINE SPECIMENOrdering Facility: [facility] Address: [address] [place] [address] Performed By: #### 2 4356-8 ####[facility] [id number] [place] [address] [place] Specific gravity (U) [Rel density] 1.007 Normal 1.005-1.030 [facility] Comment on above: Order Comment: Speci men Type: URINE SPECIMENOrdering Facility: [facility] Address: [address] [place] [address] Performed By: #### 2 4356-8 ####[facility] [id number] [place] [address] [place] Urobilinogen Ql (U) 0.2 EU/dL Normal 0.2-1.0 EU/dL [facility] Comment on above: Order Comment: Speci men Type: URINE SPECIMENOrdering Facility: [facility] Address: [address] [place] [address] Performed By: #### 2 4356-8 ####[facility] [id number] [place] [address] [place] WBC LM.HPF (Urine sed) [#/Area] 0-5 /HPF Normal 0-5 /HPF [facility] Comment on above: Order Comment: Speci men Type: URINE SPECIMENOrdering Facility: [facility] Address: [address] [place] [address] Performed By: #### 2 4356-8 ####[facility] [id number] [place] [address] [place] XR SI JTS 2V AP PELV/FERGUSO Non 11-20-2023 XR SI JTS 2V AP PELV/OROZCO * * *Final Report* * * DATE OF EXAM: Nov 20 2023 12:17PM LNX 5245 - XR SI JTS 2V AP PELV/OROZCO / PROCEDURE REASON: Polyarthralgia * * * * Physician Interpretation * * * * EXAM: XR SI JTS 2V AP PELV/OROZCO HISTORY: Polyarthralgia . pain / burning/ arthritis TECHNIQUE: XR SI JTS 2V AP PELV/OROZCO Number of different views (projections): 2 COMPARISON: None. RESULT: Bones: Normal bone density. No acute fracture. Joint spaces: Sacroiliac joint space widths maintained. No erosions. Lower lumbar degenerative disc disease at L5-S1 with facet arthrosis on the right. Soft tissues: No soft tissue abnormality. Surgical clip overlying the right ilium. IMPRESSION: 1. No acute osseous abnormality. 2. No erosions or evidence for inflammatory arthropathy. 3. L5-S1 spondylosis. Manager [employer]: OLIVER Transcribe Date/Time: Nov 20 2023 4:06P Dictated by : MIGUEL ÁNGEL MERCEDES MD This examination was interpreted and the report reviewed and electronically signed by: MIGUEL ÁNGEL MERCEDES MD on Nov 20 2023 4:08PM EST [id number] Normal [facility] XR Sacroiliac Joint Viewson 11-20-2023 IMPRESSION: 1. No acute osseous abnormality. 2. No erosions or evidence for inflammatory arthropathy. 3. L5-S1 spondylosis. Manager [employer]: PSCB Transcribe Date/Time: Nov 20 2023 4:06P Dictated by : MIGUEL ÁNGEL MERCEDES MD This examination was interpreted and the report reviewed and electronically signed by: MIGUEL ÁNGEL MERCEDES MD on Nov 20 2023 4:08PM [facility] DIVISION OF RADIOLOGY * * *Final Report* * * DATE OF EXAM: Nov 20 2023 12:17PM LNX 5245 - XR SI JTS 2V AP PELV/OROZCO / PROCEDURE REASON: Polyarthralgia * * * * Physician Interpretation * * * * EXAM: XR SI JTS 2V AP PELV/OROZCO HISTORY: Polyarthralgia . pain / burning/ arthritis TECHNIQUE: XR SI JTS 2V AP PELV/OROZCO Number of different views (projections): 2 COMPARISON: None. RESULT: Bones: Normal bone density. No acute fracture. Joint spaces: Sacroiliac joint space widths maintained. No erosions. Lower lumbar degenerative disc disease at L5-S1 with facet arthrosis on the right. Soft tissues: No soft tissue abnormality. Surgical clip overlying the right ilium. DIVISION OF RADIOLOGY Provider, [facility] - 11/20/2023 * * *Final Report* * * DATE OF EXAM: Nov 20 2023 12:17PM LNX 5245 - XR SI JTS 2V AP PELV/OROZCO / PROCEDURE REASON: Polyarthralgia * * * * Physician Interpretation * * * * EXAM: XR SI JTS 2V AP PELV/OROZCO HISTORY: Polyarthralgia . pain / burning/ arthritis TECHNIQUE: XR SI JTS 2V AP PELV/OROZCO Number of different views (projections): 2 COMPARISON: None. RESULT: Bones: Normal bone density. No acute fracture. Joint spaces: Sacroiliac joint space widths maintained. No erosions. Lower lumbar degenerative disc disease at L5-S1 with facet arthrosis on the right. Soft tissues: No soft tissue abnormality. Surgical clip overlying the right ilium. IMPRESSION IMPRESSION: 1. No acute osseous abnormality. 2. No erosions or evidence for inflammatory arthropathy. 3. L5-S1 spondylosis. Manager [employer]: P[employer] Transcribe Date/Time: Nov 20 2023 4:06P Dictated by : MIGUEL ÁNGEL MERCEDES MD This examination was interpreted and the report reviewed and electronically signed by: MIGUEL ÁNGEL MERCEDES MD on Nov 20 2023 4:08PM EST [facility] Radiology Study observation (narrative) [facility] XR Sacroiliac Joint ViewsOrd ered By: [facility] Provider on 11-20-2023 [facility] aPTT PPPon 11-20-2023 aPTT Coag (PPP) [Time] 28.2 s Normal 23.0-32.4 [facility] Comment on above: Order Comment: Speci men Type: BLOOD SPECIMENOrdering Facility: [facility] Address: [address] [place] [address] Performed By: #### 3 4528-0, 20892-4 ####[facility] [id number] [place] [address] [place] cCP IgG SerPl-aCncon 024 Cyclic citrullinated peptide IgG Qn <15 Normal <20 [facility] Comment on above: Order Comment: Speci men Type: BLOOD SPECIMENOrdering Facility: [facility] Address: [address] [place] [address] Performed By: #### B ETA2M, 5076-5, BETA2G, 22849-8, CARDIG ####[facility] [id number] [place] [address] [place] Activated partial thrombopla stin time (aPTT) in platelet poor plasma by coagulation aOrdered By: Dilshad Burdick on 10-16-2023 aPTT Coag (PPP) [Time] 30.7 s 25.1-36.5 [facility] Comment on above: A hematocrit value g reater than 55% may lead to inaccurate results in coagulation testing. Patients having hematocrit values >55% require a special collection tube for coagulation studies. Please contact the laboratory at [phone] for redraw instructions. Aerobic Cultureon 10-16-2023 Aerobic Culture Comment Tube 2 No Growth 2 Days Comment Tube 2 No Anaerobes Isolated 3 Days Comment Tube 2 Gram Stain Result No Bacteria Seen No White Blood Cells Seen PERFORMED BY: [facility] [address] [place] [address] PATHOLOGIST SOFTWARE DESIGNER GILBERT MARSH M.D. Normal [facility] Comment on above: Performed By: #### B MP, LACTIC, LIPASE, HEPATIC, CUBLD, PTT, CBC, PT #### [facility] [address] Alanine aminotransferase [En zymatic activity/volume] in Serum or PlasmaOrdered By: Mariola Bullimore on 10-16-2023 ALT [Catalytic activity/Vol] 37 U/L Normal 7-52 [facility] Comment on above: Performed By: #### B MP, LACTIC, LIPASE, HEPATIC, CUBLD, PTT, CBC, PT #### [facility] [address] [place] [address] [place] Albumin [Mass/volume] in Ser um or Plasma by Bromocresol green (BCG) dye binding methoOrdered By: Mariola Bullimore on 10-16-2023 Albumin BCG dye [Mass/Vol] 4.2 g/dL 3.5-5.7 [facility] Alkaline phosphatase [Enzyma tic activity/volume] in Serum or PlasmaOrdered By: Mariola Bullimore on 10-16-2023 ALP [Catalytic activity/Vol] 79 U/L Normal 34-104 [facility] Comment on above: Performed By: #### B MP, LACTIC, LIPASE, HEPATIC, CUBLD, PTT, CBC, PT #### [facility] [address] Aspartate aminotransferase [ Enzymatic activity/volume] in Serum or PlasmaOrdered By: Mariola Bullimore on 10-16-2023 AST [Catalytic activity/Vol] 32 U/L Normal 13-39 [facility] Comment on above: Performed By: #### B MP, LACTIC, LIPASE, HEPATIC, CUBLD, PTT, CBC, PT #### [facility] [address] [place] [address] [place] Automated basophil %Ordered By: Mariola Bullimore on 10-16-2023 Basophils/100 WBC (Bld) 0.5 % Normal . [facility] Comment on above: Performed By: #### B MP, LACTIC, LIPASE, HEPATIC, CUBLD, PTT, CBC, PT #### [address] Automated basophil countOrde red By: Mariola Bullimore on 10-16-2023 Basophils (Bld) [#/Vol] 0.0 10*3/uL Normal 0.0-0.2 [facility] Comment on above: Result Comment: PERF ORMED BY: [place] [address] PATHOLOGIST SOFTWARE DESIGNER GILBERT MARSH M.D. Performed By: #### B MP, LACTIC, LIPASE, HEPATIC, CUBLD, PTT, CBC, PT #### [address] Automated blood monocyte cou ntOrdered By: Mariola Bullimore on 10-16-2023 Monocytes (Bld) [#/Vol] 0.4 10*3/uL Normal 0.0-0.8 [facility] Comment on above: Performed By: #### B MP, LACTIC, LIPASE, HEPATIC, CUBLD, PTT, CBC, PT #### [address] Automated eosinophil %Ordere d By: Mariola Bullimore on 10-16-2023 Eosinophils/100 WBC (Bld) 7.0 % Normal . [facility] Comment on above: Performed By: #### B MP, LACTIC, LIPASE, HEPATIC, CUBLD, PTT, CBC, PT #### [address] Automated eosinophil countOr dered By: Mariola Bullimore on 10-16-2023 Eosinophils (Bld) [#/Vol] 0.5 10*3/uL High 0.0-0.45 [facility] Comment on above: Performed By: #### B MP, LACTIC, LIPASE, HEPATIC, CUBLD, PTT, CBC, PT #### [address] Automated monocyte %Ordered By: Mariola Bullimore on 10-16-2023 Monocytes/100 WBC (Bld) 6.0 % Normal . [facility] Comment on above: Performed By: #### B MP, LACTIC, LIPASE, HEPATIC, CUBLD, PTT, CBC, PT #### [facility] [address] Automated neutrophil %Ordere d By: aMriola Shortemy on 10-16-2023 Neutrophils/100 WBC (Bld) 44.1 % Normal . [facility] Comment on above: Performed By: #### B MP, LACTIC, LIPASE, HEPATIC, CUBLD, PTT, CBC, PT #### [facility] [address] Automated urine color determ inationOrdered By: Mariola Chito on 10-16-2023 Color (U) Yellow Normal Yellow [facility] Comment on above: Order Comment: Name Collection Type:: Voided Performed By: #### B MP, LACTIC, LIPASE, HEPATIC, CUBLD, PTT, CBC, PT #### [address] Bilirubin Test strip Ql (U)O rdered By: Mariola Dale on 10-16-2023 Bilirubin Ql (U) Negative Negative [facility] Bilirubin.total [Mass/volume ] in Serum or PlasmaOrdered By: Mariola Chito on 10-16-2023 Bilirubin [Mass/Vol] 0.4 mg/dL Normal 0.3-1.0 [facility] Comment on above: Performed By: #### B MP, LACTIC, LIPASE, HEPATIC, CUBLD, PTT, CBC, PT #### [address] C reactive protein [Mass/vol ume] in Serum or PlasmaOrdered By: Mariola Chito on 10-16-2023 CRP [Mass/Vol] 7.6 mg/dL 0.0-0.5 [facility] C-Reactive Proteinon 024 C-Reactive Protein 7.6 mg/dL High 0.0-0.5 [facility] Comment on above: Result Comment: PERF ORMED BY: [address] [place] [address] PATHOLOGIST SOFTWARE DESIGNER JIANLAN SUN M.D. Performed By: #### B MP, LACTIC, LIPASE, HEPATIC, CUBLD, PTT, CBC, PT #### [facility] [address] CSF PCR Panelon 10-16-2023 CSF PCR Panel Comment Tube 2 Cytomegalovirus Not detected Cryptococcus neoformans or gattii 9002 Not detected Escherichia coli K1 Not detected Enterovirus Not detected Haemophilus influenzae (reported as H flu) Not detected Human herpesvirus 6 Not detected Herpes simplex virus 1 Not detected Herpes simplex virus 2 DNA [Presence] in Cerebral spinal fluid by DE with non-probe detection Not detected Listeria monocytogenes (reported as listeriosis) Not detected Neisseria meningitidis - reported as meningococcal disease Not detected Human parechovirus Not detected Streptococcus pneumoniae - reported at IS Not detected Group B Strep (Streptococcus agalactiae) Not detected Varicella zoster virus Not detected PERFORMED BY: [place] [id number] PATHOLOGIST SOFTWARE DESIGNER GILBERT MARSH M.D. Normal [facility] Comment on above: Performed By: #### B MP, LACTIC, LIPASE, HEPATIC, CUBLD, PTT, CBC, PT #### [facility] [address] cervical spine wo conon 0 10-16-2023 CT cervical spine wo [facility] [place] [address] CT Scan Report Signed Patient: Miriam Edwards MR#: [id number] : 1985 Acct:[id number] Age/Sex: 38 / F ADM Date: 10/16/23 Loc: ER Room: Type: [facility] ER Attending Dr: Copies to: JASWINDER Rowe Ordering Provider: JASWINDER Rowe Date of Service: 10/16/23 CT/CT cervical spine wo con: storey neck pain ([id number]) CT/CT head/brain wo con: storey neck pain CT BRAIN WITHOUT CONTRAST: CLINICAL HISTORY: Headache with neck stiffness COMPARISON: MRI brain 03/03/2022 TECHNIQUE: Contiguous axial unenhanced images were obtained through the brain. This CT exam was performed using one or more following dose reduction techniques: Automated exposure control, adjustment of the mA and/or kV according to patient size, or use of iterative reconstruction technique. FINDINGS: There is no evidence of midline shift, intra or extra-axial fluid collection, hemorrhage or CT evidence of stroke. Posterior fossa appears unremarkable. Visualized intraorbital contents appear unremarkable. Ethmoid and partially visualized right maxillary sinus disease. The surrounding soft tissues are normal. CT/CT head/brain wo con IMPRESSION: NO ACUTE INTRACRANIAL ABNORMALITY. CT CERVICAL SPINE WITHOUT CONTRAST WITH 3D RECONSTRUCTIONS: CLINICAL HISTORY: Headache with neck stiffness COMPARISON: None. TECHNIQUE: Spiral axial unenhanced images were obtained through the cervical spine. Sagittal, coronal and 3D volume-rendered reconstructions were also reviewed. This CT exam was performed using one or more following dose reduction techniques: Automated exposure control, adjustment of the mA and/or kV according to patient size, or use of iterative reconstruction technique. FINDINGS: No fracture. Mild endplate degenerative changes without significant disc height loss. Facet joints demonstrate minimal degenerative change. No prevertebral soft tissue swelling. Visualized lung apices demonstrate no acute process. IMPRESSION: NO CERVICAL SPINE FRACTURE Impression dictated by: Derrek Lara Jr., Poonam10/16/2023 2:26 PM Dictation Location: [place] [address] Transcribed By: [facility] 10/16/23 1426 Dictated By: Derrek Lara Jr, DO 10/16/23 1423 Signed By: 10/16/23 1426 Normal [facility] Calcium [Mass/volume] in Ser um or PlasmaOrdered By: Mariola Dale on 10-16-2023 Calcium [Mass/Vol] 9.5 mg/dL Normal 8.6-10.3 [facility] Comment on above: Performed By: #### B MP, LACTIC, LIPASE, HEPATIC, CUBLD, PTT, CBC, PT #### [facility] [address] [place] [address] Carbon dioxide, total [Moles /volume] in Serum or PlasmaOrdered By: Mariola Dale on 10-16-2023 CO2 [Moles/Vol] 25.6 mmol/L Normal 21.0-31.0 [facility] Comment on above: Performed By: #### B MP, LACTIC, LIPASE, HEPATIC, CUBLD, PTT, CBC, PT #### [address] Cell Count Differential,CSFo n 10-16-2023 Appearance, CSF Clear Normal Clear [facility] Comment on above: Order Comment: Comme nt Tube 1 Performed By: #### B MP, LACTIC, LIPASE, HEPATIC, CUBLD, PTT, CBC, PT #### [address] Order Comment: Comme nt Tube 3 Color, CSF Colorless Normal Colorless [facility] Comment on above: Order Comment: Comme nt Tube 1 Performed By: #### B MP, LACTIC, LIPASE, HEPATIC, CUBLD, PTT, CBC, PT #### [address] Order Comment: Comme nt Tube 3 CSF Supernatant Color Colorless Normal Colorless [facility] Comment on above: Order Comment: Comme nt Tube 1 Performed By: #### B MP, LACTIC, LIPASE, HEPATIC, CUBLD, PTT, CBC, PT #### [address] Order Comment: Comme nt Tube 3 CSF Volume, Total 25.5 mL Normal [facility] Comment on above: Order Comment: Comme nt Tube 1 Performed By: #### B MP, LACTIC, LIPASE, HEPATIC, CUBLD, PTT, CBC, PT #### [address] Order Comment: Comme nt Tube 3 RBC, CSF 94 /uL Normal [facility] Comment on above: Order Comment: Comme nt Tube 1 Result Comment: The reference interval and other method performance specifications have not been established for this body fluid. The test result must be integrated into the clinical context for interpretation. Performed By: #### B MP, LACTIC, LIPASE, HEPATIC, CUBLD, PTT, CBC, PT #### [address] TNC, CSF 2 /uL Normal 0-5 [facility] Comment on above: Order Comment: Comme nt Tube 1 Performed By: #### B MP, LACTIC, LIPASE, HEPATIC, CUBLD, PTT, CBC, PT #### [facility] [address] Order Comment: Comme nt Tube 3 Tube Number Tested, CSF Tube Number: 1 Normal [facility] Comment on above: Order Comment: Comme nt Tube 1 Result Comment: PERF ORMED BY: [place] [id number] PATHOLOGIST SOFTWARE DESIGNER GILBERT MARSH M.D. Performed By: #### B MP, LACTIC, LIPASE, HEPATIC, CUBLD, PTT, CBC, PT #### [facility] [address] Cell Count Differential,CSF #2on 10-16-2023 Eosinophil, CSF 0 Normal [facility] Comment on above: Order Comment: Comme nt Tube 3 Result Comment: The reference interval and other method performance specifications have not been established for this body fluid. The test result must be integrated into the clinical context for interpretation. Performed By: #### B MP, LACTIC, LIPASE, HEPATIC, CUBLD, PTT, CBC, PT #### [facility] [address] Lymphocytes, CSF 19 Normal [facility] Comment on above: Order Comment: Comme nt Tube 3 Result Comment: The reference interval and other method performance specifications have not been established for this body fluid. The test result must be integrated into the clinical context for interpretation. Performed By: #### B MP, LACTIC, LIPASE, HEPATIC, CUBLD, PTT, CBC, PT #### [facility] [address] Monocytes, CSF 6 Normal [facility] Comment on above: Order Comment: Comme nt Tube 3 Result Comment: The reference interval and other method performance specifications have not been established for this body fluid. The test result must be integrated into the clinical context for interpretation. Performed By: #### B MP, LACTIC, LIPASE, HEPATIC, CUBLD, PTT, CBC, PT #### [facility] [address] [place] [id number] [facility] Neutrophils, CSF 0 Normal [facility] Comment on above: Order Comment: Comme nt Tube 3 Result Comment: The reference interval and other method performance specifications have not been established for this body fluid. The test result must be integrated into the clinical context for interpretation. Performed By: #### B MP, LACTIC, LIPASE, HEPATIC, CUBLD, PTT, CBC, PT #### [facility] [address] RBC, CSF 2 /uL Normal [facility] Comment on above: Order Comment: Comme nt Tube 3 Result Comment: The reference interval and other method performance specifications have not been established for this body fluid. The test result must be integrated into the clinical context for interpretation. Performed By: #### B MP, LACTIC, LIPASE, HEPATIC, CUBLD, PTT, CBC, PT #### [address] Tube Number Tested, CSF Tube Number: 3 Normal [facility] Comment on above: Order Comment: Comme nt Tube 3 Result Comment: PERF ORMED BY: [place] [id number] PATHOLOGIST SOFTWARE DESIGNER GILBERT MARSH M.D. Performed By: #### B MP, LACTIC, LIPASE, HEPATIC, CUBLD, PTT, CBC, PT #### [facility] [address] Cerebrospinal fluid appearan ce descriptionOrdered By: Dilshad Burdick on 10-16-2023 Appearance (CSF) Clear Clear [facility] Cerebrospinal fluid post-antonio trifugation appearance determinationOrdered By: Dilshad Burdick on 10-16-2023 Appearance (Spun CSF) Colorless Colorless [facility] Cerebrospinal fluid sample t ube volume measurementOrdered By: Dilshad Burdick on 10-16-2023 Specimen volume (CSF) 25.5 mL [facility] Chloride [Moles/volume] in S amelia or PlasmaOrdered By: Mariola Dale on 10-16-2023 Chloride [Moles/Vol] 107 mmol/L Normal 98-107 [facility] Comment on above: Performed By: #### B MP, LACTIC, LIPASE, HEPATIC, CUBLD, PTT, CBC, PT #### [facility] [address] Color CSFOrdered By: Dilshad altamirano on 10-16-2023 Color (CSF) Colorless Colorless [facility] Complete Blood Count Auto Di ffon 10-16-2023 Mean Corpuscular HGB Conc 34.0 g/dL Normal 32.0-35.0 [facility] Comment on above: Performed By: #### B MP, LACTIC, LIPASE, HEPATIC, CUBLD, PTT, CBC, PT #### [facility] [address] Monocytes/100 WBC (Bld) 22.85 % High 0.00-20.00 [facility] Comment on above: Result Comment: For adults in ED, MDW > 20.0 may be associated with a higher risk of sepsis during the first 12 hrs of hospital admission Performed By: #### B MP, LACTIC, LIPASE, HEPATIC, CUBLD, PTT, CBC, PT #### [facility] [address] NRBC% 0.1 /100{WBC} Normal 0-0.5 [facility] Comment on above: Performed By: #### B MP, LACTIC, LIPASE, HEPATIC, CUBLD, PTT, CBC, PT #### [facility] [address] Comprehensive Metabolic Pane steve 10-16-2023 Albumin [Mass/Vol] 4.2 g/dL Normal 3.5-5.7 [facility] Comment on above: Performed By: #### B MP, LACTIC, LIPASE, HEPATIC, CUBLD, PTT, CBC, PT #### [facility] [address] Creatinine Clr Calc Pharmacy 97.78 Normal [facility] Comment on above: Result Comment: PERF ORMED BY: [place] [id number] PATHOLOGIST SOFTWARE DESIGNER GILBERT MARSH M.D. Performed By: #### B MP, LACTIC, LIPASE, HEPATIC, CUBLD, PTT, CBC, PT #### [facility] [address] GFR/1.73 sq M.predicted MDRD (S/P/Bld) [Vol rate/Area] mL/min/{1.73_m2} Normal [facility] Comment on above: Performed By: #### B MP, LACTIC, LIPASE, HEPATIC, CUBLD, PTT, CBC, PT #### [address] Creatinine [Mass/volume] in Serum or PlasmaOrdered By: Mariola Bullimore on 10-16-2023 Creatinine [Mass/Vol] 0.78 mg/dL Normal 0.60-1.20 [facility] Comment on above: Performed By: #### B MP, LACTIC, LIPASE, HEPATIC, CUBLD, PTT, CBC, PT #### [facility] [address] [place] [address] Erythrocyte Sedimentation Ra mika 10-16-2023 ESR (Bld) [Velocity] 30 mm/h High 0-19 [facility] Comment on above: Result Comment: PERF ORMED BY: [place] [id number] PATHOLOGIST SOFTWARE DESIGNER GILBERT MARSH M.D. Performed By: #### B MP, LACTIC, LIPASE, HEPATIC, CUBLD, PTT, CBC, PT #### [address] Erythrocyte distribution wid th [Ratio] by Automated countOrdered By: Mariola Dale on 10-16-2023 Erythrocyte distribution width (RBC) [Ratio] 12.5 % Normal 11.9-15.3 [facility] Comment on above: Performed By: #### B MP, LACTIC, LIPASE, HEPATIC, CUBLD, PTT, CBC, PT #### [facility] [address] [place] [address] Erythrocyte sedimentation ra te by Photometric methodOrdered By: Mariola Chito on 10-16-2023 ESR Photometric method (Bld) [Velocity] 30 mm/hr 0-19 [facility] Erythrocytes [#/volume] in B lood by Automated countOrdered By: Mariola Bullimore on 10-16-2023 RBC (Bld) [#/Vol] 4.20 10*6/uL Normal 3.60-5.00 [facility] Comment on above: Performed By: #### B MP, LACTIC, LIPASE, HEPATIC, CUBLD, PTT, CBC, PT #### [facility] [address] [place] [id number] [facility] FL guided lumbar puncture LP on 10-16-2023 FL guided lumbar puncture LP [facility] [address] [place] [address] [place] [id number] Fluoroscopy Report Signed Patient: Miriam Edwards MR#: [id number] : 1985 Acct:[id number] Age/Sex: 38 / F ADM Date: 10/16/23 Loc: ER Room: Type: [facility] ER Attending Dr: Copies to: JASWINDER Rowe DO Ordering Provider: Dilshad Burdick DO Date of Service: 10/16/23 FL/FL guided lumbar puncture LP: FEVERS, STOREY FL guided lumbar puncture LP 10/16/2023 3:25 PM SIGNS AND SYMPTOMS: 3.06 [id number] FEVERS, STOREY INFORMED CONSENT: Reason for procedure was discussed with the patient. The procedure expectations risks benefits options and alternatives were discussed. All the questions were answered. The patient understood the results cannot be guaranteed. The procedure is indicated and risks were acceptable. Consent was obtained. PROCEDURE: A fluoroscopically guided lumbar puncture was performed at the L4-5 level on the left via a left sublaminar approach. The patient was prepped and draped in a sterile manner. 5 mL of lidocaine 1% without epinephrine were used for local anesthesia. A 20-gauge spinal needle was introduced into the subarachnoid space on the left atL4-5 via a left sublaminar approach. The opening pressure was measured with the patient in the left lateral decubitus position. The opening pressure measures 30 cm CSF. After removal of approximately 28 mL of clear fluid into 4 tubes, the closing pressure measures 11 cm CSF. The needle was removed and hemostasis was obtained using manual pressure. Cumulative Air Kerma in mGy: 3.06 mGy The patient tolerated the procedure well. No immediate complications were detected. FL/FL guided lumbar puncture LP IMPRESSION: Successful fluoroscopically guided lumbar puncture with opening pressure of 30 cm CSF a closing pressure of 11 cm CSF. Impression dictated by: Enoch Kwan M.D.10/16/2023 4:39 PM Dictation Location: [place] [address] Transcribed By: [facility] 10/16/23 163 Dictated By: Enoch Kwan II, MD 10/16/231636 Signed By: 10/16/23 1639 Normal [facility] Glucose [Mass/volume] in Cer ebral spinal fluidOrdered By: Dilshad Burdick on 10-16-2023 Glucose (CSF) [Mass/Vol] 45 mg/dL 40-70 [facility] Glucose [Mass/volume] in Ser um or PlasmaOrdered By: Mariola Dale on 10-16-2023 Glucose [Mass/Vol] 80 mg/dL Normal 70-100 [facility] Comment on above: ADA recommended refe rence rangeRandom Glucose Reference Range is dependent on time and content of last meal. Glucose of more than 200 mg/dL in a nonstressed, ambulatory subject supports the diagnosis of Diabetes Mellitus. Result Comment: [place] Glucose Reference Range is dependent on time and content of last meal. Glucose of more than 200 mg/dL in a nonstressed, ambulatory subject supports the diagnosis of Diabetes Mellitus. ADA recommended reference range Performed By: #### B MP, LACTIC, LIPASE, HEPATIC, CUBLD, PTT, CBC, PT #### [facility] [address] [place] [id number] [place] Glucose, CSF #2on 10-16-2023 Glucose, CSF #2 45 mg/dL Normal 40-70 [facility] Comment on above: Order Comment: Comme nt Tube 3 Performed By: #### B MP, LACTIC, LIPASE, HEPATIC, CUBLD, PTT, CBC, PT #### [facility] [address] [place] [address] [place] Glucose, Spinal Fluidon 09-30 Glucose, Spinal Fluid 48 mg/dL Normal 40-70 [facility] Comment on above: Order Comment: Comme nt Tube 1 Performed By: #### B MP, LACTIC, LIPASE, HEPATIC, CUBLD, PTT, CBC, PT #### [facility] [address] [place] [address] [place] Gram Stainon 10-16-2023 Microscopic observation Gram stain Nom (Unsp spec) Comment Tube 2 Gram Stain Result No Bacteria Seen No White Blood Cells Seen PERFORMED BY: [place] [id number] PATHOLOGIST SOFTWARE DESIGNER GILBERT MARSH M.D. Normal [facility] Comment on above: Performed By: #### B MP, LACTIC, LIPASE, HEPATIC, CUBLD, PTT, CBC, PT #### [address] Gram stain for investigation of transfusion reactionOrdered By: Dilshad Burdick on 10-16-2023 Microscopic observation Gram stain Nom (Unsp spec) [facility] Microscopic observation Gram stain Nom (Unsp spec) No Anaerobes Isolated 3 Days [facility] Hematocrit [Volume Fraction] of Blood by Automated countOrdered By: Mariola Dale on 10-16-2023 Hematocrit (Bld) [Volume fraction] 37.6 % Normal 34.0-46.4 [facility] Comment on above: Performed By: #### B MP, LACTIC, LIPASE, HEPATIC, CUBLD, PTT, CBC, PT #### [address] Hemoglobin [Mass/volume] in BloodOrdered By: Mariola Dale on 10-16-2023 Hemoglobin (Bld) [Mass/Vol] 12.8 g/dL Normal 11.8-15.4 [facility] Comment on above: Performed By: #### B MP, LACTIC, LIPASE, HEPATIC, CUBLD, PTT, CBC, PT #### [address] INR in Platelet poor plasma by Coagulation assayOrdered By: Dilsahd Burdick on 10-16-2023 INR Coag (PPP) [Relative time] 1.0 {INR} Normal [facility] Comment on above: INR Therapeutic Rang e A) Pre- and Peroperative OAT started two weeks before surgery. NOT HIP SURGERY: 1.5 - 2.5 HIP SURGERY: 2 - 3B) Primary and secondary prevention of venous THROMBOSIS: 2 - 3C) Active venous thrombosis, pulmonary embolismand prevention of recurrent venous thrombosis: 2 - 3D) Prevention of arterial thromboembolismincluding patients with mechanical heart valves: 3 - 4.5 Result Comment: INR Therapeutic Range A) Pre- and Peroperative OAT started two weeks before surgery. NOT HIP SURGERY: 1.5 - 2.5 HIP SURGERY: 2 - 3 B) Primary and secondary prevention of venous THROMBOSIS: 2 - 3 C) Active venous thrombosis, pulmonary embolism and prevention of recurrent venous thrombosis: 2 - 3 D) Prevention of arterial thromboembolism including patients with mechanical heart valves: 3 - 4.5 Performed By: #### B MP, LACTIC, LIPASE, HEPATIC, CUBLD, PTT, CBC, PT #### [facility] [address] Ketones Auto test strip (U) [Mass/Vol]Ordered By: Mariola Dale on 10-16-2023 Ketones (U) [Mass/Vol] Trace Negative [facility] Steve 10-16-2023 L Specimen: [id number] Received: 10/17/23 Status: ROMINA [place] Num: [id number] Spec Type: Cytology Subm Dr: Dilshad Burdick DO Tissues: A CSF (CSF) Procedures: Cyto Prepstain, DIFF QWIK, PAPSTN Age/ Patient Sex Location Account Attending Physician RamiroMiriam rojas N 38/F ER [id number] JASWINDER Rowe SPEC NUM: [id number] RECD: 10/17/23 STATUS: ROMINA [place] NUM: [id number] ZEKE: 10/16/[address]: Dilshad Burdick DO ENTERED: 10/17/[address] [facility] [address]: Enoch Kwan II, MD SPEC TYPE: Cytology DEPT: CNG ENTERED BY: [id number] RECV BY: [id number] ORDERED: Cyto Prepstain, DIFF QWIK, PAPSTN ORDERED: Cyto Prepstain, DIFF QWIK, PAPSTN Pathological Diagnosis Cerebrospinal fluid: Negative for malignant cells. Gross Description Received fresh labeled with the patient's name, date of and CSF #3 per requisition is 5 ml colorless clear unfixed fluid. 2,1 stained diff and 1 stained pap cytospin slides are prepared. (ME/nh) CPT Codes 85538 Specimen: [id number] Received: 10/17/23 Status: ROMINA [place] Num: [id number] Spec Type: Cytology Subm Dr: Dilshad Burdick DO Tissues: A CSF (CSF) Procedures: Cyto Prepstain, DIFF QWIK, PAPSTN Patient: Miriam Edwards [id number] (Continued) Signed (signature on file) Agustín [place] MD 10/18/23 1311 Normal [facility] Lactate [Moles/volume] in Se rum or PlasmaOrdered By: Mariola Bullimore on 10-16-2023 Lactate [Moles/Vol] 0.8 mmol/L Normal 0.5-2.2 [facility] Comment on above: Result Comment: PERF ORMED BY: [place] [id number] PATHOLOGIST SOFTWARE DESIGNER GILBERT MARSH M.D. Performed By: #### B MP, LACTIC, LIPASE, HEPATIC, CUBLD, PTT, CBC, PT #### [facility] [address] Leukocytes [#/volume] correc artem for nucleated erythrocytes in Blood by Automated counOrdered By: Mariola Hanimore on 10-16-2023 WBC corrected for nucl RBC Auto (Bld) [#/Vol] 6.5 10*3/uL 3.8-11.6 [facility] Leukocytes [#/volume] in Blo od by Automated countOrdered By: Mariola Short[place] on 10-16-2023 WBC (Bld) [#/Vol] 6.5 10*3/uL Normal 3.8-11.6 [facility] Comment on above: Performed By: #### B MP, LACTIC, LIPASE, HEPATIC, CUBLD, PTT, CBC, PT #### [facility] [address] [place] [address] Lymphocytes [#/volume] in Bl ood by Automated countOrdered By: Mariola Short[place] on 10-16-2023 Lymphocytes (Bld) [#/Vol] 2.8 10*3/uL Normal 1.00-4.8 [facility] Comment on above: Performed By: #### B MP, LACTIC, LIPASE, HEPATIC, CUBLD, PTT, CBC, PT #### [facility] [address] [place] [address] [place] Lymphocytes/100 leukocytes i n Blood by Automated countOrdered By: Mariola Bullimore on 10-16-2023 Lymphocytes/100 WBC (Bld) 42.4 % Normal . [facility] Comment on above: Performed By: #### B MP, LACTIC, LIPASE, HEPATIC, CUBLD, PTT, CBC, PT #### [facility] [address] MCH [Entitic mass] by Automa artem countOrdered By: Mariola Dale on 10-16-2023 MCH (RBC) [Entitic mass] 30.5 pg Normal 24.7-34.3 [facility] Comment on above: Performed By: #### B MP, LACTIC, LIPASE, HEPATIC, CUBLD, PTT, CBC, PT #### [facility] [address] MCHC Auto (RBC) [Mass/Vol]Or dered By: Mariola Dale on 10-16-2023 MCHC (RBC) [Mass/Vol] 34.0 g/dL 32.0-35.0 [facility] MCV [Entitic volume] by Auto mated countOrdered By: Mariola Dale on 10-16-2023 MCV (RBC) [Entitic vol] 89.7 fL Normal 80-100 [facility] Comment on above: Performed By: #### B MP, LACTIC, LIPASE, HEPATIC, CUBLD, PTT, CBC, PT #### [facility] [address] Manual cerebrospinal fluid e rythrocytes count (number/volume)Ordered By: Dilshad Burdick on 10-16-2023 RBC Manual cnt (CSF) [#/Vol] 2 /uL [facility] Comment on above: The reference interv al and other method performance specifications have not been established for this body fluid. The test result must be integrated into the clinical context for interpretation. Meningitis+Encephalitis path ogens DNA and RNA panel - Cerebral spinal fluid by DE wiOrdered By: Dilshad Burdick on 10-16-2023 Meningitis+Encephalit is pathogens DNA and RNA panel DE+non-probe (CSF) [facility] Monocyte distribution width [Entitic volume] in Blood by AutomatedOrdered By: Mariola Dale on 10-16-2023 Monocyte distribution width Auto (Bld) [Entitic vol] 22.85 % 0.00-20.00 [facility] Comment on above: For adults in ED, MD W > 20.0 may be associated with a higher risk of sepsis during the first 12 hrs of hospital admission Neutrophils [#/volume] in Bl ood by Automated countOrdered By: Mariola Dale on 10-16-2023 Neutrophils (Bld) [#/Vol] 2.9 10*3/uL Normal 1.8-7.7 [facility] Comment on above: Performed By: #### B MP, LACTIC, LIPASE, HEPATIC, CUBLD, PTT, CBC, PT #### [facility] [address] Nitrite Test strip Ql (U)Ord ered By: Mariola Dale on 10-16-2023 Nitrite Ql (U) Negative Negative [facility] No Panel InformationOrdered By: Dilshad Burdick on 10-16-2023 CSF Eosinophils 0 [facility] Comment on above: The reference interv al and other method performance specifications have not been established for this body fluid. The test result must be integrated into the clinical context for interpretation. CSF Lymphocytes 19 [facility] Comment on above: The reference interv al and other method performance specifications have not been established for this body fluid. The test result must be integrated into the clinical context for interpretation. CSF Monocytes 6 [facility] Comment on above: The reference interv al and other method performance specifications have not been established for this body fluid. The test result must be integrated into the clinical context for interpretation. CSF Neutrophils 0 [facility] Comment on above: The reference interv al and other method performance specifications have not been established for this body fluid. The test result must be integrated into the clinical context for interpretation. CSF Tube Number Tube number: 1 [facility] No Panel InformationOrdered By: Mariola Dale on 10-16-2023 Estimated GFR (CKD-EPI) > 60.0 mL/Min [facility] Creatinine Clearance (Chem 97.78 [facility] Nucleated cells [#/volume] i n Cerebral spinal fluid by Manual countOrdered By: Dilshad Burdick on 10-16-2023 Nucleated cells Manual cnt (CSF) [#/Vol] 0.002 10*3/uL 0-5 [facility] Nucleated erythrocytes [Pres ence] in Blood by Automated countOrdered By: Mariola Dale on 10-16-2023 Nucleated RBC Auto Ql (Bld) 0.1 /100{WBC} 0-0.5 [facility] Partial Thromboplastin Timeo n 10-16-2023 aPTT Coag (Bld) [Time] 30.7 s Normal 25.1-36.5 [facility] Comment on above: Result Comment: A he matocrit value greater than 55% may lead to inaccurate results in coagulation testing. Patients having hematocrit values >55% require a special collection tube for coagulation studies. Please contact the laboratory at [phone] for redraw instructions. PERFORMED BY: [place] [id number] PATHOLOGIST SOFTWARE DESIGNER GILBERT MARSH M.D. Performed By: #### B MP, LACTIC, LIPASE, HEPATIC, CUBLD, PTT, CBC, PT #### [address] Platelet mean volume [Entiti c volume] in Blood by Automated countOrdered By: Mariola Dale on 10-16-2023 Platelet mean volume (Bld) [Entitic vol] 7.9 fL Normal 6.3-10.7 [facility] Comment on above: Performed By: #### B MP, LACTIC, LIPASE, HEPATIC, CUBLD, PTT, CBC, PT #### [address] Platelets [#/volume] in Bloo d by Automated countOrdered By: Mariola Dale on 10-16-2023 Platelets (Bld) [#/Vol] 303 10*3/uL Normal 150-450 [facility] Comment on above: Performed By: #### B MP, LACTIC, LIPASE, HEPATIC, CUBLD, PTT, CBC, PT #### [address] Potassium [Moles/volume] in Serum or PlasmaOrdered By: Mariola Dale on 10-16-2023 Potassium [Moles/Vol] 3.7 mmol/L Normal 3.5-5.1 [facility] Comment on above: Performed By: #### B MP, LACTIC, LIPASE, HEPATIC, CUBLD, PTT, CBC, PT #### [address] Protein Auto test strip (U) [Mass/Vol]Ordered By: Mariola Dale on 10-16-2023 Protein (U) [Mass/Vol] Negative Negative [facility] Protein [Mass/volume] in Cer ebral spinal fluidOrdered By: Dilshad Burdick on 10-16-2023 Protein (CSF) [Mass/Vol] 44 mg/dL 15-45 [facility] Protein [Mass/volume] in Ser um or PlasmaOrdered By: Mariola Dale on 10-16-2023 Protein [Mass/Vol] 7.1 g/dL Normal 6.4-8.9 [facility] Comment on above: Performed By: #### B MP, LACTIC, LIPASE, HEPATIC, CUBLD, PTT, CBC, PT #### [address] Prothrombin time (PT)Ordered By: Dilshad Burdick on 10-16-2023 PT Coag (PPP) [Time] 11.9 s Normal 9.0-12.9 [facility] Comment on above: A hematocrit value g reater than 55% may lead to inaccurate results in coagulation testing. Patients having hematocrit values >55% require a special collection tube for coagulation studies. Please contact the laboratory at [phone] for redraw instructions. Result Comment: A he matocrit value greater than 55% may lead to inaccurate results in coagulation testing. Patients having hematocrit values >55% require a special collection tube for coagulation studies. Please contact the laboratory at [phone] for redraw instructions. Performed By: #### B MP, LACTIC, LIPASE, HEPATIC, CUBLD, PTT, CBC, PT #### [facility] [address] Serum globulin measurement b y calculation (mass/volume)Ordered By: Mariola Dale on 10-16-2023 Globulin (S) [Mass/Vol] 2.9 g/dL Normal [facility] Comment on above: Performed By: #### B MP, LACTIC, LIPASE, HEPATIC, CUBLD, PTT, CBC, PT #### [facility] [address] [place] [address] [place] Serum or plasma albumin/glob ulin mass ratioOrdered By: Mariola Bullimore on 10-16-2023 Albumin/Globulin [Mass ratio] 1.4 {ratio} Normal [facility] Comment on above: Performed By: #### B MP, LACTIC, LIPASE, HEPATIC, CUBLD, PTT, CBC, PT #### [facility] [address] Serum or plasma anion gap de terminationOrdered By: Mariola Bullimore on 10-16-2023 Anion gap [Moles/Vol] 10.1 mmol/L Normal 6.0-15.0 [facility] Comment on above: Performed By: #### B MP, LACTIC, LIPASE, HEPATIC, CUBLD, PTT, CBC, PT #### [address] Sodium [Moles/volume] in Ser um or PlasmaOrdered By: Mariola Bullimore on 10-16-2023 Sodium [Moles/Vol] 139 mmol/L Normal 136-145 [facility] Comment on above: Performed By: #### B MP, LACTIC, LIPASE, HEPATIC, CUBLD, PTT, CBC, PT #### [facility] [address] Specific gravity Auto test s trip (U) [Rel density]Ordered By: Mariola Shortcarlamesfin on 10-16-2023 Specific gravity (U) [Rel density] 1.006 1.001-1.030 [facility] Total Protein, CSF #2on 09-30 Total Protein, CSF #2 44 mg/dL Normal 15-45 [facility] Comment on above: Order Comment: Comme nt Tube 3 Result Comment: PERF ORMED BY: [place] [id number] PATHOLOGIST SOFTWARE DESIGNER GILBERT MARSH M.D. Performed By: #### B MP, LACTIC, LIPASE, HEPATIC, CUBLD, PTT, CBC, PT #### [facility] [address] [place] [address] [place] Total Protein, Spinal Fluido n 10-16-2023 Total Protein, Spinal Fluid 47 mg/dL High 15-45 [facility] Comment on above: Order Comment: Comme nt Tube 1 Result Comment: PERF ORMED BY: [place] [id number] PATHOLOGIST SOFTWARE DESIGNER GILBERT MARSH M.D. Performed By: #### B MP, LACTIC, LIPASE, HEPATIC, CUBLD, PTT, CBC, PT #### [address] Urea nitrogen [Mass/volume] in Serum or PlasmaOrdered By: Mariola Dale on 10-16-2023 Urea nitrogen [Mass/Vol] 7 mg/dL Normal 7- [facility] Comment on above: Performed By: #### B MP, LACTIC, LIPASE, HEPATIC, CUBLD, PTT, CBC, PT #### [address] Urinalysison 10-16-2023 Appearance (U) Clear Normal Clear [facility] Comment on above: Order Comment: Name Collection Type:: Voided Performed By: #### B MP, LACTIC, LIPASE, HEPATIC, CUBLD, PTT, CBC, PT #### [place] [address] [place] Bilirubin,Urine Negative Normal Negative [facility] Comment on above: Order Comment: Name Collection Type:: Voided Performed By: #### B MP, LACTIC, LIPASE, HEPATIC, CUBLD, PTT, CBC, PT #### [address] Glucose Ql (U) Normal Normal Normal [facility] Comment on above: Order Comment: Name Collection Type:: Voided Performed By: #### B MP, LACTIC, LIPASE, HEPATIC, CUBLD, PTT, CBC, PT #### [address] Ketones Ql (U) Trace High Negative [facility] Comment on above: Order Comment: Name Collection Type:: Voided Performed By: #### B MP, LACTIC, LIPASE, HEPATIC, CUBLD, PTT, CBC, PT #### [address] [address] [place] Leukocyte esterase Test strip Ql (U) Negative Normal Negative [facility] Comment on above: Order Comment: Name Collection Type:: Voided Performed By: #### B MP, LACTIC, LIPASE, HEPATIC, CUBLD, PTT, CBC, PT #### [address] Nitrite,Urine Negative Normal Negative [facility] Comment on above: Order Comment: Name Collection Type:: Voided Performed By: #### B MP, LACTIC, LIPASE, HEPATIC, CUBLD, PTT, CBC, PT #### [address] Occult Blood,Urine Negative Normal Negative [facility] Comment on above: Order Comment: Name Collection Type:: Voided Result Comment: PERF ORMED BY: [place] [id number] PATHOLOGIST SOFTWARE DESIGNER GILBERT MARSH M.D. Performed By: #### B MP, LACTIC, LIPASE, HEPATIC, CUBLD, PTT, CBC, PT #### [address] Protein,Urine Negative Normal Negative [facility] Comment on above: Order Comment: Name Collection Type:: Voided Performed By: #### B MP, LACTIC, LIPASE, HEPATIC, CUBLD, PTT, CBC, PT #### [address] Specificy [place],Urine 1.006 Normal 1.001-1.030 [facility] Comment on above: Order Comment: Name Collection Type:: Voided Performed By: #### B MP, LACTIC, LIPASE, HEPATIC, CUBLD, PTT, CBC, PT #### [address] Urobilinogen,Urine Normal Normal Normal [facility] Comment on above: Order Comment: Name Collection Type:: Voided Performed By: #### B MP, LACTIC, LIPASE, HEPATIC, CUBLD, PTT, CBC, PT #### [address] Urine clarity by refractomet ry automatedOrdered By: Mariola Dale on 10-16-2023 Clarity Refractometry automated (U) Clear Clear [facility] Urine glucose measurement by automated test strip (mass/volume)Ordered By: Mariola Dale on 10-16-2023 Glucose Auto test strip (U) [Mass/Vol] Normal mg/dL Normal [facility] Urine hemoglobin detection b y automated test stripOrdered By: Mariola Dale on 10-16-2023 Hemoglobin Auto test strip Ql (U) Negative Negative [facility] Urine leukocyte esterase det ection by automated test stripOrdered By: Mariola Dale on 10-16-2023 Leukocyte esterase Auto test strip Ql (U) Negative Negative [facility] Urine pH measurement by auto mated test stripOrdered By: Mariola Dale on 10-16-2023 pH (U) 6.5 [pH] Normal 5.0-9.0 [facility] Comment on above: Order Comment: Name Collection Type:: Voided Performed By: #### B MP, LACTIC, LIPASE, HEPATIC, CUBLD, PTT, CBC, PT #### [address] Urobilinogen Auto test strip (U) [Mass/Vol]Ordered By: Mariola Dale on 10-16-2023 Urobilinogen (U) [Mass/Vol] Normal mg/dL Normal [facility] Activated partial thrombopla stin time (aPTT) in platelet poor plasma by coagulation aOrdered By: Dilshad Burdick on 10-14-2023 aPTT Coag (PPP) [Time] 28.4 s 25.1-36.5 [facility] Comment on above: A hematocrit value g reater than 55% may lead to inaccurate results in coagulation testing. Patients having hematocrit values >55% require a special collection tube for coagulation studies. Please contact the laboratory at [phone] for redraw instructions. Alanine aminotransferase [En zymatic activity/volume] in Serum or PlasmaOrdered By: Dilshad Burdick on 10-14-2023 ALT [Catalytic activity/Vol] 26 U/L Normal 7-52 [facility] Comment on above: Performed By: #### B MP, LACTIC, LIPASE, HEPATIC, CUBLD, PTT, CBC, PT #### [address] Albumin [Mass/volume] in Ser um or Plasma by Bromocresol green (BCG) dye binding methoOrdered By: Dilshad Burdick on 10-14-2023 Albumin BCG dye [Mass/Vol] 4.2 g/dL 3.5-5.7 [facility] Alkaline phosphatase [Enzyma tic activity/volume] in Serum or PlasmaOrdered By: Dilshad Burdick on 10-14-2023 ALP [Catalytic activity/Vol] 72 U/L Normal 34-104 [facility] Comment on above: Performed By: #### B MP, LACTIC, LIPASE, HEPATIC, CUBLD, PTT, CBC, PT #### [address] Aspartate aminotransferase [ Enzymatic activity/volume] in Serum or PlasmaOrdered By: Dilshad Burdick on 10-14-2023 AST [Catalytic activity/Vol] 32 U/L Normal 13-39 [facility] Comment on above: Performed By: #### B MP, LACTIC, LIPASE, HEPATIC, CUBLD, PTT, CBC, PT #### [address] Automated basophil %Ordered By: Dilshad Burdick on 10-14-2023 Basophils/100 WBC (Bld) 0.4 % Normal . [facility] Comment on above: Performed By: #### B MP, LACTIC, LIPASE, HEPATIC, CUBLD, PTT, CBC, PT #### [address] Automated basophil countOrde red By: Dilshad Burdick on 10-14-2023 Basophils (Bld) [#/Vol] 0.0 10*3/uL Normal 0.0-0.2 [facility] Comment on above: Result Comment: PERF ORMED BY: [place] [id number] PATHOLOGIST SOFTWARE DESIGNER GILBERT MARSH M.D. Performed By: #### B MP, LACTIC, LIPASE, HEPATIC, CUBLD, PTT, CBC, PT #### [facility] [address] Automated blood monocyte cou ntOrdered By: Dilshad Burdick on 10-14-2023 Monocytes (Bld) [#/Vol] 0.5 10*3/uL Normal 0.0-0.8 [facility] Comment on above: Performed By: #### B MP, LACTIC, LIPASE, HEPATIC, CUBLD, PTT, CBC, PT #### [address] Automated eosinophil %Ordere d By: Dilshad Burdick on 10-14-2023 Eosinophils/100 WBC (Bld) 0.7 % Normal . [facility] Comment on above: Performed By: #### B MP, LACTIC, LIPASE, HEPATIC, CUBLD, PTT, CBC, PT #### [address] Automated eosinophil countOr dered By: Dilshad Burdick on 10-14-2023 Eosinophils (Bld) [#/Vol] 0.1 10*3/uL Normal 0.0-0.45 [facility] Comment on above: Performed By: #### B MP, LACTIC, LIPASE, HEPATIC, CUBLD, PTT, CBC, PT #### [address] Automated erythrocytes count in urine sediment (number/area)Ordered By: Dilshad Burdick on 10-14-2023 RBC Auto (Urine sed) [#/Area] 1-2 [HPF] 0-4 [facility] Automated leukocytes count i n urine sediment (number/area)Ordered By: Dilshad Burdick on 10-14-2023 WBC Auto (Urine sed) [#/Area] 0-1 [HPF] 0-4 [facility] Automated monocyte %Ordered By: Dilshad Burdick on 10-14-2023 Monocytes/100 WBC (Bld) 5.8 % Normal . [facility] Comment on above: Performed By: #### B MP, LACTIC, LIPASE, HEPATIC, CUBLD, PTT, CBC, PT #### [address] Automated neutrophil %Ordere d By: Dilshad Burdick on 10-14-2023 Neutrophils/100 WBC (Bld) 69.8 % Normal . [facility] Comment on above: Performed By: #### B MP, LACTIC, LIPASE, HEPATIC, CUBLD, PTT, CBC, PT #### [facility] [address] Automated urine color determ inationOrdered By: Dilshad Burdick on 10-14-2023 Color (U) Yellow Normal Yellow [facility] Comment on above: Order Comment: Name Collection Type:: Clean-Voided Midstream Performed By: #### A DDONUAPLUS, UHCG #### [address] Bacterial blood cultureOrder ed By: Dilshad Burdick on 10-14-2023 Bacteria identified Cx Nom (Bld) NO GROWTH 5 DAYS [facility] Bacteria identified Cx Nom (Bld) NO GROWTH 5 DAYS [facility] Basic Metabolic Panelon 09-30 Creatinine Clr Calc Pharmacy 71.19 Normal [facility] Comment on above: Performed By: #### B MP, LACTIC, LIPASE, HEPATIC, CUBLD, PTT, CBC, PT #### [address] GFR/1.73 sq M.predicted MDRD (S/P/Bld) [Vol rate/Area] mL/min/{1.73_m2} Normal [facility] Comment on above: Performed By: #### B MP, LACTIC, LIPASE, HEPATIC, CUBLD, PTT, CBC, PT #### [address] Bilirubin Test strip Ql (U)O rdered By: Dilshad Burdick on 10-14-2023 Bilirubin Ql (U) Negative Negative [facility] Bilirubin.direct [Mass/volum e] in Serum or PlasmaOrdered By: Dilshad Burdick on 10-14-2023 Bilirubin.direct [Mass/Vol] 0.10 mg/dL 0.03-0.18 [facility] Bilirubin.total [Mass/volume ] in Serum or PlasmaOrdered By: Dilshad Burdick on 10-14-2023 Bilirubin [Mass/Vol] 0.4 mg/dL Normal 0.3-1.0 [facility] Comment on above: Performed By: #### B MP, LACTIC, LIPASE, HEPATIC, CUBLD, PTT, CBC, PT #### [address] BioFire Not Detectedon 10-13 BioFire Not Detected Not detected Normal Not Detecte T [facility] Comment on above: Result Comment: This is a duplicate RP2.1 COVID (PCR) result to be used for statistical tracking purpose only. PERFORMED BY: [place] [id number] PATHOLOGIST SOFTWARE DESIGNER GILBERT MARSH M.D. Performed By: #### B MP, LACTIC, LIPASE, HEPATIC, CUBLD, PTT, CBC, PT #### [address] Blood Cultureon 10-14-2023 Bacteria identified Cx Nom (Bld) NO GROWTH 5 DAYS PERFORMED BY: [place] [id number] PATHOLOGIST SOFTWARE DESIGNER GILBERT MARSH M.D. Normal [facility] Comment on above: Performed By: #### B MP, LACTIC, LIPASE, HEPATIC, CUBLD, PTT, CBC, PT #### [address] Bacteria identified Cx Nom (Bld) NO GROWTH 5 DAYS PERFORMED BY: [place] [id number] PATHOLOGIST SOFTWARE DESIGNER GILBERT MARSH M.D. Normal [facility] Comment on above: Performed By: #### B MP, LACTIC, LIPASE, HEPATIC, CUBLD, PTT, CBC, PT #### [address] COVID-19 Detected/Not Detect edOrdered By: Dilshad Heavenly on 10-14-2023 SARS-CoV-2 (COVID-19) RNA DE+non-probe Ql (Nph) Not detected Not Detecte [facility] Comment on above: This is a duplicate RP2.1 COVID (PCR) result to be used for statistical tracking purpose only. CT abdomen pelvis w conon CT abdomen pelvis w con [facility] Main [place] [address] [place], [place] [id number] CT Scan Report Signed Patient: Miriam Edwards MR#: [id number] : 1985 Acct:[id number] Age/Sex: 38 / F ADM Date: 10/14/23 Loc: ER Room: Type: [facility] ER Attending Dr: Copies to: Dilshad Burdick DO Ordering Provider: Dilshad Burdick DO Date of Service: 10/14/23 CT/CT abdomen pelvis w con: Abdominal Pain CT abdomen pelvis w con 10/14/2023 9:04 AM SIGNS AND SYMPTOMS: Right-sided abdominal pain, fever, recent cholecystectomy TECHNIQUE: Multidetector ct axial images of the abdomen and pelvis were obtained with IV contrast. Multiplanar reformats were performed and reviewed to further define anatomy and possible pathology. CT was performed with one or more of the following dose reduction techniques: Automated exposure control, adjustment of the mA and/or kV according to patient size, or use of iterative reconstruction technique. COMPARISON: 07/31/2023 FINDINGS: Lower Chest: Within normal limits. ABDOMEN: Liver: Within normal limits. Bile Ducts: Normal caliber. Gallbladder: Previously removed. There is a small amount of edema within the gallbladder fossa which presumably relates to recent cholecystectomy. Pancreas: Within normal limits. Spleen: Within normal limits. Adrenals: Within normal limits. Kidneys: Within normal limits. Pelvis: Reproductive Organs: No pelvic masses. There is a normal appendix in the right lower quadrant. Ureters: Within normal limits. Bladder: Within normal limits. Bowel: Normal caliber. Mesenteric Lymph Nodes: No enlarged mesenteric lymph nodes. Peritoneum: No ascites or free air, no fluid collection. Vessels: within normal limits Retroperitoneum: Within normal limits. Abdominal Wall: Within normal limits. Bones: Within normal limits. CT/CT abdomen pelvis w con IMPRESSION: No acute intra-abdominal pathology. Previously removed. There is a small amount of edema within the gallbladder fossa which presumably relates to recent cholecystectomy. Impression dictated by: Enoch Kwan M.D.10/14/2023 11:33 AM Dictation Location: [place] [address] Transcribed By: SEBASTIÁN 10/14/23 1133 Dictated By: Enoch Kwan II, MD 10/14/23 1124 Signed By: 10/14/23 1133 Normal [facility] Calcium [Mass/volume] in Ser um or PlasmaOrdered By: Dilshad Burdick on 10-14-2023 Calcium [Mass/Vol] 9.2 mg/dL Normal 8.6-10.3 [facility] Comment on above: Performed By: #### B MP, LACTIC, LIPASE, HEPATIC, CUBLD, PTT, CBC, PT #### [facility] [address] Carbon dioxide, total [Moles /volume] in Serum or PlasmaOrdered By: Dilshad Burdick on 10-14-2023 CO2 [Moles/Vol] 21.3 mmol/L Normal 21.0-31.0 [facility] Comment on above: Performed By: #### B MP, LACTIC, LIPASE, HEPATIC, CUBLD, PTT, CBC, PT #### [facility] [address] Chloride [Moles/volume] in S amelia or PlasmaOrdered By: Dilshad Burdick on 10-14-2023 Chloride [Moles/Vol] 108 mmol/L High 98-107 [facility] Comment on above: Performed By: #### B MP, LACTIC, LIPASE, HEPATIC, CUBLD, PTT, CBC, PT #### [facility] [address] Complete Blood Count Auto Di ffon 10-14-2023 Mean Corpuscular HGB Conc 34.7 g/dL Normal 32.0-35.0 [facility] Comment on above: Performed By: #### B MP, LACTIC, LIPASE, HEPATIC, CUBLD, PTT, CBC, PT #### [facility] [address] Monocytes/100 WBC (Bld) 31.19 % High 0.00-20.00 [facility] Comment on above: Result Comment: For adults in ED, MDW > 20.0 may be associated with a higher risk of sepsis during the first 12 hrs of hospital admission Performed By: #### B MP, LACTIC, LIPASE, HEPATIC, CUBLD, PTT, CBC, PT #### [facility] [address] NRBC% 0.2 /100{WBC} Normal 0-0.5 [facility] Comment on above: Performed By: #### B MP, LACTIC, LIPASE, HEPATIC, CUBLD, PTT, CBC, PT #### [address] Creatinine [Mass/volume] in Serum or PlasmaOrdered By: Dilshad Burdick on 10-14-2023 Creatinine [Mass/Vol] 1.11 mg/dL Normal 0.60-1.20 [facility] Comment on above: Performed By: #### B MP, LACTIC, LIPASE, HEPATIC, CUBLD, PTT, CBC, PT #### [place] [address] [place] Dipstick and Microscopicon 0 10-14-2023 Appearance (U) Clear Normal Clear [facility] Comment on above: Order Comment: Name Collection Type:: Clean-Voided Midstream Performed By: #### A DDONUAPLUSNIESHACG #### [place] [address] [place] Bacteria,Urine None Seen Normal None Seen [facility] Comment on above: Order Comment: Name Collection Type:: Clean-Voided Midstream Performed By: #### A DDONUAPLUS UHCG #### [place] [address] [place] Bilirubin,Urine Negative Normal Negative [facility] Comment on above: Order Comment: Name Collection Type:: Clean-Voided Midstream Performed By: #### A DDONUAPLUS UHCG #### [place] [address] [place] Glucose Ql (U) Normal Normal Normal [facility] Comment on above: Order Comment: Name Collection Type:: Clean-Voided Midstream Performed By: #### A DDONUAPLUS UHCG #### [address] Hyaline Casts,Urine 0-8 Normal 0-8 [facility] Comment on above: Order Comment: Name Collection Type:: Clean-Voided Midstream Performed By: #### A DDONUAPLUS, UHCG #### [address] Ketones Ql (U) Negative Normal Negative [facility] Comment on above: Order Comment: Name Collection Type:: Clean-Voided Midstream Performed By: #### A DDONUAPLUS, UHCG #### [address] Leukocyte esterase Test strip Ql (U) Negative Normal Negative [facility] Comment on above: Order Comment: Name Collection Type:: Clean-Voided Midstream Performed By: #### A DDONUAPLUS, UHCG #### [address] Nitrite,Urine Negative Normal Negative [facility] Comment on above: Order Comment: Name Collection Type:: Clean-Voided Midstream Performed By: #### A DDONUAPLUS, UHCG #### [address] Occult Blood,Urine Negative Normal Negative [facility] Comment on above: Order Comment: Name Collection Type:: Clean-Voided Midstream Performed By: #### A DDONUAPLUS, UHCG #### [address] RBC,Urine 1-2 Normal 0-4 [facility] Comment on above: Order Comment: Name Collection Type:: Clean-Voided Midstream Performed By: #### A DDONUAPLUS, UHCG #### [address] Specificy [place],Urine 1.021 Normal 1.001-1.030 [facility] [facility] Comment on above: Order Comment: Name Collection Type:: Clean-Voided Midstream Performed By: #### A DDONUAPLUS, UHCG #### [facility] [address] Squamous Epithelial Cell,Urine 0-1 Normal 0-2 [facility] Comment on above: Order Comment: Name Collection Type:: Clean-Voided Midstream Performed By: #### A DDONUAPLUS, UHCG #### [address] Urobilinogen,Urine Normal Normal Normal [facility] Comment on above: Order Comment: Name Collection Type:: Clean-Voided Midstream Performed By: #### A [facility], [facility] #### [address] WBC LM.HPF (Urine sed) [#/Area] 0 /[HPF] Normal 0-4 [facility] Comment on above: Order Comment: Name Collection Type:: Clean-Voided Midstream Performed By: #### A DD[place]AP[place]US [facility] [place] #### [address] Erythrocyte distribution wid th [Ratio] by Automated countOrdered By: Dilshad Burdick on 10-14-2023 Erythrocyte distribution width (RBC) [Ratio] 12.5 % Normal 11.9-15.3 [facility] Comment on above: Performed By: #### B MP, LACTIC, LIPASE, HEPATIC, CUBLD, PTT, CBC, PT #### [address] Erythrocytes [#/volume] in B lood by Automated countOrdered By: Dilshad Burdick on 10-14-2023 RBC (Bld) [#/Vol] 3.97 10*6/uL Normal 3.60-5.00 [facility] Comment on above: Performed By: #### B MP, LACTIC, LIPASE, HEPATIC, CUBLD, PTT, CBC, PT #### [address] Glucose [Mass/volume] in Ser um or PlasmaOrdered By: Dilshad Burdick on 10-14-2023 Glucose [Mass/Vol] 102 mg/dL High 70-100 [facility] Comment on above: ADA recommended refe rence rangeRandom Glucose Reference Range is dependent on time and content of last meal. Glucose of more than 200 mg/dL in a nonstressed, ambulatory subject supports the diagnosis of Diabetes Mellitus. Result Comment: [place] Glucose Reference Range is dependent on time and content of last meal. Glucose of more than 200 mg/dL in a nonstressed, ambulatory subject supports the diagnosis of Diabetes Mellitus. ADA recommended reference range Performed By: #### B MP, LACTIC, LIPASE, HEPATIC, CUBLD, PTT, CBC, PT #### [facility] [address] HCG ( test) IA.rapi d Ql (U)Ordered By: Dilshad Burdick on 10-14-2023 HCG ( test) Ql (U) Negative [facility] HCG,Urineon 10-14-2023 Beta HCG ( test) Ql (U) Negative Normal [facility] Comment on above: Order Comment: Name Collection Type:: Clean-Voided Midstream Result Comment: PERF ORMED BY: [place] [id number] PATHOLOGIST SOFTWARE DESIGNER GILBERT MARSH M.D. Performed By: #### B MP, LACTIC, LIPASE, HEPATIC, CUBLD, PTT, CBC, PT #### [address] Hematocrit [Volume Fraction] of Blood by Automated countOrdered By: Dilshad Burdick on 10-14-2023 Hematocrit (Bld) [Volume fraction] 35.7 % Normal 34.0-46.4 [facility] Comment on above: Performed By: #### B MP, LACTIC, LIPASE, HEPATIC, CUBLD, PTT, CBC, PT #### [address] Hemoglobin [Mass/volume] in BloodOrdered By: Dilshad Burdick on 10-14-2023 Hemoglobin (Bld) [Mass/Vol] 12.4 g/dL Normal 11.8-15.4 [facility] Comment on above: Performed By: #### B MP, LACTIC, LIPASE, HEPATIC, CUBLD, PTT, CBC, PT #### [facility] [address] Hepatic Panelon 10-14-2023 Albumin [Mass/Vol] 4.2 g/dL Normal 3.5-5.7 [facility] Comment on above: Performed By: #### B MP, LACTIC, LIPASE, HEPATIC, CUBLD, PTT, CBC, PT #### [facility] [address] Bilirubin,Indirect 0.3 mg/dL Normal [facility] Comment on above: Performed By: #### B MP, LACTIC, LIPASE, HEPATIC, CUBLD, PTT, CBC, PT #### [address] Bilirubin.indirect [Mass/Vol] 0.10 mg/dL Normal 0.03-0.18 [facility] Comment on above: Performed By: #### B MP, LACTIC, LIPASE, HEPATIC, CUBLD, PTT, CBC, PT #### [address] INR in Platelet poor plasma by Coagulation assayOrdered By: Dilshad Burdick on 10-14-2023 INR Coag (PPP) [Relative time] 1.1 {INR} Normal [facility] Comment on above: INR Therapeutic Rang e A) Pre- and Peroperative OAT started two weeks before surgery. NOT HIP SURGERY: 1.5 - 2.5 HIP SURGERY: 2 - 3B) Primary and secondary prevention of venous THROMBOSIS: 2 - 3C) Active venous thrombosis, pulmonary embolismand prevention of recurrent venous thrombosis: 2 - 3D) Prevention of arterial thromboembolismincluding patients with mechanical heart valves: 3 - 4.5 Result Comment: INR Therapeutic Range A) Pre- and Peroperative OAT started two weeks before surgery. NOT HIP SURGERY: 1.5 - 2.5 HIP SURGERY: 2 - 3 B) Primary and secondary prevention of venous THROMBOSIS: 2 - 3 C) Active venous thrombosis, pulmonary embolism and prevention of recurrent venous thrombosis: 2 - 3 D) Prevention of arterial thromboembolism including patients with mechanical heart valves: 3 - 4.5 Performed By: #### B MP, LACTIC, LIPASE, HEPATIC, CUBLD, PTT, CBC, PT #### [facility] [address] Ketones Auto test strip (U) [Mass/Vol]Ordered By: Dilshad Burdick on 10-14-2023 Ketones (U) [Mass/Vol] Negative Negative [facility] Laboratory - UrinalysisOrder ed By: Dilshad Burdick on 10-14-2023 Hyaline casts LM Ql (Urine sed) 0-8 [LPF] 0-8 [facility] Lactate [Moles/volume] in Se rum or PlasmaOrdered By: Dilshad Burdick on 10-14-2023 Lactate [Moles/Vol] 1.0 mmol/L Normal 0.5-2.2 [facility] Comment on above: Result Comment: PERF ORMED BY: [place] [id number] PATHOLOGIST SOFTWARE DESIGNER GILBERT MARSH M.D. Performed By: #### B MP, LACTIC, LIPASE, HEPATIC, CUBLD, PTT, CBC, PT #### [address] Leukocytes [#/volume] correc artem for nucleated erythrocytes in Blood by Automated counOrdered By: Dilshad Burdick on 10-14-2023 WBC corrected for nucl RBC Auto (Bld) [#/Vol] 8.1 10*3/uL 3.8-11.6 [facility] Leukocytes [#/volume] in Blo od by Automated countOrdered By: Dilshad Burdick on 10-14-2023 WBC (Bld) [#/Vol] 8.1 10*3/uL Normal 3.8-11.6 [facility] Comment on above: Performed By: #### B MP, LACTIC, LIPASE, HEPATIC, CUBLD, PTT, CBC, PT #### [address] Lipase [Enzymatic activity/v olume] in Serum or PlasmaOrdered By: Dilshad Burdick on 10-14-2023 Lipase [Catalytic activity/Vol] 30.0 U/L Normal 11.0-82.0 [facility] Comment on above: Result Comment: PERF ORMED BY: [place] [address] PATHOLOGIST SOFTWARE DESIGNER GILBERT MARSH M.D. Performed By: #### B MP, LACTIC, LIPASE, HEPATIC, CUBLD, PTT, CBC, PT #### [address] Lymphocytes [#/volume] in Bl ood by Automated countOrdered By: Dilshad Burdick on 10-14-2023 Lymphocytes (Bld) [#/Vol] 1.9 10*3/uL Normal 1.00-4.8 [facility] Comment on above: Performed By: #### B MP, LACTIC, LIPASE, HEPATIC, CUBLD, PTT, CBC, PT #### [address] Lymphocytes/100 leukocytes i n Blood by Automated countOrdered By: Dilshad Burdick on 10-14-2023 Lymphocytes/100 WBC (Bld) 23.3 % Normal . [facility] Comment on above: Performed By: #### B MP, LACTIC, LIPASE, HEPATIC, CUBLD, PTT, CBC, PT #### [address] MCH [Entitic mass] by Automa artem countOrdered By: Dilshad Burdick on 10-14-2023 MCH (RBC) [Entitic mass] 31.2 pg Normal 24.7-34.3 [facility] Comment on above: Performed By: #### B MP, LACTIC, LIPASE, HEPATIC, CUBLD, PTT, CBC, PT #### [address] MCHC Auto (RBC) [Mass/Vol]Or dered By: Dilshad Burdick on 10-14-2023 MCHC (RBC) [Mass/Vol] 34.7 g/dL 32.0-35.0 [facility] MCV [Entitic volume] by Auto mated countOrdered By: Dilshad Burdick on 10-14-2023 MCV (RBC) [Entitic vol] 89.9 fL Normal 80-100 [facility] Comment on above: Performed By: #### B MP, LACTIC, LIPASE, HEPATIC, CUBLD, PTT, CBC, PT #### [facility] [address] [place] [address] [facility] Monocyte distribution width [Entitic volume] in Blood by AutomatedOrdered By: Dilshad Burdick on 10-14-2023 Monocyte distribution width Auto (Bld) [Entitic vol] 31.19 % 0.00-20.00 [facility] Comment on above: For adults in ED, MD W > 20.0 may be associated with a higher risk of sepsis during the first 12 hrs of hospital admission Neutrophils [#/volume] in Bl ood by Automated countOrdered By: Dilshad Burdick on 10-14-2023 Neutrophils (Bld) [#/Vol] 5.6 10*3/uL Normal 1.8-7.7 [facility] Comment on above: Performed By: #### B MP, LACTIC, LIPASE, HEPATIC, CUBLD, PTT, CBC, PT #### [facility] [address] [place] [address] [facility] Nitrite Test strip Ql (U)Ord ered By: Dilshad Burdick on 10-14-2023 Nitrite Ql (U) Negative Negative [facility] No Panel InformationOrdered By: Dilshad Burdick on 10-14-2023 Estimated GFR (CKD-EPI) > 60.0 mL/Min [facility] Creatinine Clearance (Chem 71.19 [facility] Nucleated erythrocytes [Pres ence] in Blood by Automated countOrdered By: Dilshad Burdick on 10-14-2023 Nucleated RBC Auto Ql (Bld) 0.2 /100{WBC} 0-0.5 [facility] Partial Thromboplastin Timeo n 10-14-2023 aPTT Coag (Bld) [Time] 28.4 s Normal 25.1-36.5 [facility] Comment on above: Result Comment: A he matocrit value greater than 55% may lead to inaccurate results in coagulation testing. Patients having hematocrit values >55% require a special collection tube for coagulation studies. Please contact the laboratory at [phone] for redraw instructions. PERFORMED BY: [address] [place] [address] PATHOLOGIST SOFTWARE DESIGNER GILBERT MARSH M.D. Performed By: #### B MP, LACTIC, LIPASE, HEPATIC, CUBLD, PTT, CBC, PT #### [facility] [address] [place] [address] [place] Platelet mean volume [Entiti c volume] in Blood by Automated countOrdered By: Dilshad Burdick on 10-14-2023 Platelet mean volume (Bld) [Entitic vol] 10.0 fL Normal 6.3-10.7 [facility] Comment on above: Performed By: #### B MP, LACTIC, LIPASE, HEPATIC, CUBLD, PTT, CBC, PT #### [facility] [address] [place] [address] [place] Platelets [#/volume] in Bloo d by Automated countOrdered By: Dilshad Burdick on 10-14-2023 Platelets (Bld) [#/Vol] 59 10*3/uL Low 150-450 [facility] Comment on above: Performed By: #### B MP, LACTIC, LIPASE, HEPATIC, CUBLD, PTT, CBC, PT #### [facility] [address] Potassium [Moles/volume] in Serum or PlasmaOrdered By: Dilshad Burdick on 10-14-2023 Potassium [Moles/Vol] 4.1 mmol/L Normal 3.5-5.1 [facility] Comment on above: Performed By: #### B MP, LACTIC, LIPASE, HEPATIC, CUBLD, PTT, CBC, PT #### [place] [address] [place] Protein [Mass/volume] in Ser um or PlasmaOrdered By: Dilshad Burdick on 10-14-2023 Protein [Mass/Vol] 6.9 g/dL Normal 6.4-8.9 [facility] Comment on above: Performed By: #### B MP, LACTIC, LIPASE, HEPATIC, CUBLD, PTT, CBC, PT #### [address] Prothrombin time (PT)Ordered By: Dilshad Burdick on 10-14-2023 PT Coag (PPP) [Time] 12.3 s Normal 9.0-12.9 [facility] Comment on above: A hematocrit value g reater than 55% may lead to inaccurate results in coagulation testing. Patients having hematocrit values >55% require a special collection tube for coagulation studies. Please contact the laboratory at [phone] for redraw instructions. Result Comment: A he matocrit value greater than 55% may lead to inaccurate results in coagulation testing. Patients having hematocrit values >55% require a special collection tube for coagulation studies. Please contact the laboratory at [phone] for redraw instructions. Performed By: #### B MP, LACTIC, LIPASE, HEPATIC, CUBLD, PTT, CBC, PT #### [facility] [address] [place] [address] Quick Strepon 10-14-2023 Quick Strep Streptococcus pyogen es Ag [Presence] in Throat by Rapid immunoassay Negative for Group A Strep Antigen Note 1 NOTE 2 Results are those of a screening test. NOTE 3 If clinically indicated please order a culture. NOTE 4 NOTE 5 Reference range = Negative PERFORMED BY: [place] [id number] PATHOLOGIST SOFTWARE DESIGNER GILBERT MARSH M.D. Normal [facility] Comment on above: Performed By: #### B MP, LACTIC, LIPASE, HEPATIC, CUBLD, PTT, CBC, PT #### [facility] [address] [place] [address] Respiratory (Upper) Panel, P CRon 10-14-2023 Respiratory (Upper) Panel, PCR Adenovirus Not detected Bordetella parapertussis Not detected Chlamydia pneumoniae Not detected Coronavirus 229E Not detected Coronavirus HKU1 Not detected Coronavirus NL63 Not detected Coronavirus OC43 Not detected Influenza A Not detected Influenza B Not detected Human Metapneumovirus Not detected Mycoplasma pneumoniae Not detected Parainfluenza Virus 1 Not detected Parainfluenza Virus 2 Not detected Parainfluenza Virus 3 Not detected Parainfluenza Virus 4 Not detected Bordetella pertussis-ptxP Not detected Human Rhino/Enterovirus Not detected Resp. Syncytial Virus Not detected COVID-19 Detected/Not Detected Not detected Blank Space ---- FLUA TEST INCLUDES Influenza A tests for the following clinically FLUA TEST INCLUDES significant subtypes: FLUA TEST INCLUDES - Influenza A FLUA TEST INCLUDES - Influenza A H1 FLUA TEST INCLUDES - Influenza A H1 2009 FLUA TEST INCLUDES - Influenza A H3 Blank Space ---- PERFORMED BY: [place] [id number] PATHOLOGIST SOFTWARE DESIGNER GILBERT MARSH M.D. Normal [facility] Comment on above: Performed By: #### B MP, LACTIC, LIPASE, HEPATIC, CUBLD, PTT, CBC, PT #### [facility] [address] [place] [address] Respiratory pathogens DNA an d RNA panel - Nasopharynx by DE with non-probe detectionOrdered By: Dilshad Burdick on 10-14-2023 Respiratory pathogens DNA and RNA panel DE+non-probe (Nph) [facility] Serum globulin measurement b y calculation (mass/volume)Ordered By: Dilshad Burdick on 10-14-2023 Globulin (S) [Mass/Vol] 2.7 g/dL [facility] Comment on above: Performed By: #### B MP, LACTIC, LIPASE, HEPATIC, CUBLD, PTT, CBC, PT #### [facility] [address] [place] [address] Serum or plasma albumin/glob ulin mass ratioOrdered By: Dilshad Burdick on 10-14-2023 Albumin/Globulin [Mass ratio] 1.6 {ratio} [facility] Comment on above: Performed By: #### B MP, LACTIC, LIPASE, HEPATIC, CUBLD, PTT, CBC, PT #### [facility] [address] Serum or plasma anion gap de terminationOrdered By: Dilshad Burdick on 10-14-2023 Anion gap [Moles/Vol] 12.8 mmol/L Normal 6.0-15.0 [facility] Comment on above: Performed By: #### B MP, LACTIC, LIPASE, HEPATIC, CUBLD, PTT, CBC, PT #### [facility] [address] Serum or plasma non-glucuron idated bilirubin measurement (mass/volume)Ordered By: Dilshad Burdick on 10-14-2023 Bilirubin.indirect [Mass/Vol] 0.3 mg/dL [facility] Sodium [Moles/volume] in Ser um or PlasmaOrdered By: Dilshad Burdick on 10-14-2023 Sodium [Moles/Vol] 138 mmol/L Normal 136-145 [facility] Comment on above: Performed By: #### B MP, LACTIC, LIPASE, HEPATIC, CUBLD, PTT, CBC, PT #### [facility] [address] Specific gravity Auto test s trip (U) [Rel density]Ordered By: Dilshad Burdick on 10-14-2023 Specific gravity (U) [Rel density] 1.021 1.001-1.030 [facility] Squamous epithelial cells de tection in urine sediment by light microscopyOrdered By: Dilshad Burdick on 10-14-2023 Epithelial cells.squamous LM Ql (Urine sed) 0-1 [HPF] 0-2 [facility] Streptococcus pyogenes antig en detectionOrdered By: Dilshad Burdick on 10-14-2023 S. pyogenes Ag Ql (Unsp spec) [facility] Urea nitrogen [Mass/volume] in Serum or PlasmaOrdered By: Dilshad Burdick on 10-14-2023 Urea nitrogen [Mass/Vol] 12 mg/dL Normal 7-25 [facility] Comment on above: Performed By: #### B MP, LACTIC, LIPASE, HEPATIC, CUBLD, PTT, CBC, PT #### [facility] [address] Urine bacteria detection by automated methodOrdered By: Dilshad Burdick on 10-14-2023 Bacteria Auto Ql (U) None seen None Seen [facility] Urine clarity by refractomet ry automatedOrdered By: Dilshad Burdick on 10-14-2023 Clarity Refractometry automated (U) Clear Clear [facility] Urine glucose measurement by automated test strip (mass/volume)Ordered By: Dilshad Burdick on 10-14-2023 Glucose Auto test strip (U) [Mass/Vol] Normal mg/dL Normal [facility] Urine hemoglobin detection b y automated test stripOrdered By: Dilshad Burdick on 10-14-2023 Hemoglobin Auto test strip Ql (U) Negative Negative [facility] Urine leukocyte esterase det ection by automated test stripOrdered By: Dilshad Burdick on 10-14-2023 Leukocyte esterase Auto test strip Ql (U) Negative Negative [facility] Urine pH measurement by auto mated test stripOrdered By: Dilshad Burdick on 10-14-2023 pH (U) 7.5 [pH] Normal 5.0-9.0 [facility] Comment on above: Order Comment: Name Collection Type:: Clean-Voided Midstream Performed By: #### A DDWILDERUAKALYN HUANGG #### [address] Urine protein measurement by automated test strip (mass/volume)Ordered By: Dilshad Burdick on 10-14-2023 Protein (U) [Mass/Vol] 100 mg/dL High Negative [facility] Comment on above: Order Comment: Name Collection Type:: Clean-Voided Midstream Performed By: #### A DDONUAPLUS CG #### [place] [address] [place] Urobilinogen Auto test strip (U) [Mass/Vol]Ordered By: Dilshad Burdick on 10-14-2023 Urobilinogen (U) [Mass/Vol] Normal mg/dL Normal [facility] XR chest 1V portableon 10-13 XR chest 1V portable [facility] Main [place] [address] [place] [address] XRay Report Signed Patient: Miriam Edwards MR#: [id number] : 1985 Acct:[id number] Age/Sex: 38 / F ADM Date: 10/14/23 Loc: ER Room: Type: [facility] ER Attending Dr: Copies to: Dilshad Burdick DO Ordering Provider: Dilshad Burdick DO Date of Service: 10/14/23 XR/XR chest 1V portable: Abdominal Pain XR chest 1V portable 10/14/2023 9:04 AM SIGNS AND SYMPTOMS: Fever, right abdominal pain, status post cholecystectomy PROTOCOL: Frontal radiograph of the chest COMPARISON: 06/27/2023 FINDINGS: The trachea is midline. The heart and mediastinal structures are within normal limits. The lung parenchyma is clear. The bony thorax is intact. XR/XR chest 1V portable IMPRESSION: No acute cardiopulmonary pathology. Impression dictated by: Eonch Kwan M.D.10/14/2023 9:53 AM Dictation Location: [place] [address] Transcribed By: [facility] 10/14/2353 Dictated By: Enoch Kwan II, MD 10/14/2353 Signed By: 10/14/23952 Normal [facility] Alkaline phosphatase [Enzyma tic activity/volume] in Serum or PlasmaOrdered By: Miguel Ángel Montano on 09-19-2023 ALP [Catalytic activity/Vol] 53 U/L Normal 34-104 [facility] Comment on above: Performed By: #### B MP, LACTIC, LIPASE, HEPATIC, CUBLD, PTT, CBC, PT #### [address] Amphetamine Screen Ql (U)Ord ered By: Miguel Ángel Montano on 09-19-2023 Amphetamines Ql (U) Negative Negative [facility] Amylase [Enzymatic activity/ volume] in Serum or PlasmaOrdered By: Miguel Ángel Montano on 09-19-2023 Amylase [Catalytic activity/Vol] 43 U/L Normal 29-103 [facility] Comment on above: Performed By: #### B MP, LACTIC, LIPASE, HEPATIC, CUBLD, PTT, CBC, PT #### [facility] [address] Barbiturates [Presence] in U rine by Screen methodOrdered By: Miguel Ángel Montano on 09-19-2023 Barbiturates Screen Ql (U) Negative Negative [facility] Benzodiazepines Screen Ql (U )Ordered By: Miguel Ángel Montano on 09-19-2023 Benzodiazepines Ql (U) Negative Negative [facility] Benzoylecgonine [Presence] i n Urine by Screen methodOrdered By: Miguel Ángel Montano on 09-19-2023 Benzoylecgonine Screen Ql (U) Negative Negative [facility] Bilirubin, Total and Directo n 09-19-2023 Bilirubin,Indirect 0.5 mg/dL Normal [facility] Comment on above: Performed By: #### B MP, LACTIC, LIPASE, HEPATIC, CUBLD, PTT, CBC, PT #### [facility] [address] Bilirubin.indirect [Mass/Vol] 0.10 mg/dL Normal 0.03-0.18 [facility] Comment on above: Performed By: #### B MP, LACTIC, LIPASE, HEPATIC, CUBLD, PTT, CBC, PT #### [facility] [address] Bilirubin.direct [Mass/volum e] in Serum or PlasmaOrdered By: Miguel Ángel Montano on 09-19-2023 Bilirubin.direct [Mass/Vol] 0.10 mg/dL 0.03-0.18 [facility] Bilirubin.total [Mass/volume ] in Serum or PlasmaOrdered By: Miguel Ángel Montano on 09-19-2023 Bilirubin [Mass/Vol] 0.6 mg/dL Normal 0.3-1.0 [facility] Comment on above: Performed By: #### B MP, LACTIC, LIPASE, HEPATIC, CUBLD, PTT, CBC, PT #### [facility] [address] Cannabinoids [Presence] in U rine by Screen methodOrdered By: Miguel Ángel Montano on 09-19-2023 Cannabinoids Screen Ql (U) Positive Negative [facility] Comment on above: These are unconfirme d results and should not be used for legal purposes. Drug Cut-Off Concentration: AMPH 1000 ng/mL CHERRY 200 ng/mL CHARLA 200 ng/mL COCM 300 ng/mL OP 300 ng/mL PCP 25 ng/mL THC 20 ng/mL Drug Screen,Urineon 09-19-19 24 Amphetamine Screen,Urine Negative Normal Negative [facility] Comment on above: Performed By: #### B MP, LACTIC, LIPASE, HEPATIC, CUBLD, PTT, CBC, PT #### [facility] [address] Barbiturate Screen,Urine Negative Normal Negative [facility] Comment on above: Performed By: #### B MP, LACTIC, LIPASE, HEPATIC, CUBLD, PTT, CBC, PT #### [facility] [address] [place] [address] [place] Benzodiazepines Screen,Urine Negative Normal Negative [facility] Comment on above: Performed By: #### B MP, LACTIC, LIPASE, HEPATIC, CUBLD, PTT, CBC, PT #### [facility] [address] Cannabinoid Screen,Urine Positive High Negative [facility] Comment on above: Result Comment: Thes e are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 amelia or PlasmaOrdered By: Ken Castorena on 07-31-2023 Chloride [Moles/Vol] 108 mmol/L High 98-107 [facility] Comment on above: Performed By: #### B MP, LACTIC, LIPASE, HEPATIC, CUBLD, PTT, CBC, PT #### [facility] [address] [place] [address] Complete Blood Count Auto Di ffon 07-31-2023 Mean Corpuscular HGB Conc 35.8 g/dL High 32.0-35.0 [facility] Comment on above: Performed By: #### B MP, LACTIC, LIPASE, HEPATIC, CUBLD, PTT, CBC, PT #### [address] Monocytes/100 WBC (Bld) 18.22 % Normal 0.00-20.00 [facility] Comment on above: Performed By: #### B MP, LACTIC, LIPASE, HEPATIC, CUBLD, PTT, CBC, PT #### [address] NRBC% 0.1 /100{WBC} Normal 0-0.5 [facility] Comment on above: Performed By: #### B MP, LACTIC, LIPASE, HEPATIC, CUBLD, PTT, CBC, PT #### [address] Creatinine [Mass/volume] in Serum or PlasmaOrdered By: Ken Castorena on 07-31-2023 Creatinine [Mass/Vol] 0.90 mg/dL Normal 0.60-1.20 [facility] Comment on above: Performed By: #### B MP, LACTIC, LIPASE, HEPATIC, CUBLD, PTT, CBC, PT #### [address] Erythrocyte distribution wid th [Ratio] by Automated countOrdered By: Ken Castorena on 07-31-2023 Erythrocyte distribution width (RBC) [Ratio] 12.5 % Normal 11.9-15.3 [facility] Comment on above: Performed By: #### B MP, LACTIC, LIPASE, HEPATIC, CUBLD, PTT, CBC, PT #### [address] Erythrocytes [#/volume] in B lood by Automated countOrdered By: Ken Castorena on 07-31-2023 RBC (Bld) [#/Vol] 4.24 10*6/uL Normal 3.60-5.00 [facility] Comment on above: Performed By: #### B MP, LACTIC, LIPASE, HEPATIC, CUBLD, PTT, CBC, PT #### [facility] [address] Glucose [Mass/volume] in Ser um or PlasmaOrdered By: Ken Castorena on 07-31-2023 Glucose [Mass/Vol] 105 mg/dL High 70-100 [facility] Comment on above: ADA recommended refe rence rangeRandom Glucose Reference Range is dependent on time and content of last meal. Glucose of more than 200 mg/dL in a nonstressed, ambulatory subject supports the diagnosis of Diabetes Mellitus. Result Comment: [place] Glucose Reference Range is dependent on time and content of last meal. Glucose of more than 200 mg/dL in a nonstressed, ambulatory subject supports the diagnosis of Diabetes Mellitus. ADA recommended reference range Performed By: #### B MP, LACTIC, LIPASE, HEPATIC, CUBLD, PTT, CBC, PT #### [facility] [address] HCG ( test) IA.rapi d Ql (U)Ordered By: Ken Castorena on 07-31-2023 HCG ( test) Ql (U) Negative [facility] HCG,Urineon 07-31-2023 Beta HCG ( test) Ql (U) Negative Normal [facility] Comment on above: Order Comment: Name Collection Type:: Clean-Voided Midstream Result Comment: PERF ORMED BY: [address] [place] [address] PATHOLOGIST SOFTWARE DESIGNER GILBERT MARSH M.D. Performed By: #### B MP, LACTIC, LIPASE, HEPATIC, CUBLD, PTT, CBC, PT #### [facility] [address] Hematocrit [Volume Fraction] of Blood by Automated countOrdered By: Ken Castorena on 07-31-2023 Hematocrit (Bld) [Volume fraction] 37.4 % Normal 34.0-46.4 [facility] Comment on above: Performed By: #### B MP, LACTIC, LIPASE, HEPATIC, CUBLD, PTT, CBC, PT #### [facility] [address] Hemoglobin [Mass/volume] in BloodOrdered By: Ken Castorena on 07-31-2023 Hemoglobin (Bld) [Mass/Vol] 13.4 g/dL Normal 11.8-15.4 [facility] Comment on above: Performed By: #### B MP, LACTIC, LIPASE, HEPATIC, CUBLD, PTT, CBC, PT #### [facility] [address] Hepatic Panelon 07-31-2023 Albumin [Mass/Vol] 4.3 g/dL Normal 3.5-5.7 [facility] Comment on above: Performed By: #### B MP, LACTIC, LIPASE, HEPATIC, CUBLD, PTT, CBC, PT #### [facility] [address] Bilirubin,Indirect 0.2 mg/dL Normal [facility] Comment on above: Performed By: #### B MP, LACTIC, LIPASE, HEPATIC, CUBLD, PTT, CBC, PT #### [facility] [address] Bilirubin.indirect [Mass/Vol] 0.10 mg/dL Normal 0.03-0.18 [facility] Comment on above: Performed By: #### B MP, LACTIC, LIPASE, HEPATIC, CUBLD, PTT, CBC, PT #### [facility] [address] Ketones Auto test strip (U) [Mass/Vol]Ordered By: Ken Castorena on 07-31-2023 Ketones (U) [Mass/Vol] Negative Negative [facility] Leukocytes [#/volume] correc artem for nucleated erythrocytes in Blood by Automated counOrdered By: Ken Castorena on 07-31-2023 WBC corrected for nucl RBC Auto (Bld) [#/Vol] 7.3 10*3/uL 3.8-11.6 [facility] Leukocytes [#/volume] in Blo od by Automated countOrdered By: Ken Castorena on 07-31-2023 WBC (Bld) [#/Vol] 7.3 10*3/uL Normal 3.8-11.6 [facility] Comment on above: Performed By: #### B MP, LACTIC, LIPASE, HEPATIC, CUBLD, PTT, CBC, PT #### [address] Lipase [Enzymatic activity/v olume] in Serum or PlasmaOrdered By: Ken Castorena on 07-31-2023 Lipase [Catalytic activity/Vol] 60.0 U/L Normal 11.0-82.0 [facility] Comment on above: Result Comment: PERF ORMED BY: [place] [id number] PATHOLOGIST SOFTWARE DESIGNER GILBERT MARSH M.D. Performed By: #### B MP, LACTIC, LIPASE, HEPATIC, CUBLD, PTT, CBC, PT #### [address] Lymphocytes [#/volume] in Bl ood by Automated countOrdered By: Ken Castorena on 07-31-2023 Lymphocytes (Bld) [#/Vol] 4.3 10*3/uL Normal 1.00-4.8 [facility] Comment on above: Performed By: #### B MP, LACTIC, LIPASE, HEPATIC, CUBLD, PTT, CBC, PT #### [address] Lymphocytes/100 leukocytes i n Blood by Automated countOrdered By: Ken Castorena on 07-31-2023 Lymphocytes/100 WBC (Bld) 58.0 % Normal . [facility] Comment on above: Performed By: #### B MP, LACTIC, LIPASE, HEPATIC, CUBLD, PTT, CBC, PT #### [facility] [address] [place] [address] [place] MCH [Entitic mass] by Automa artem countOrdered By: Ken Castorena on 07-31-2023 MCH (RBC) [Entitic mass] 31.6 pg Normal 24.7-34.3 [facility] Comment on above: Performed By: #### B MP, LACTIC, LIPASE, HEPATIC, CUBLD, PTT, CBC, PT #### [address] [place] [address] [place] MCHC Auto (RBC) [Mass/Vol]Or dered By: Ken Castorena on 07-31-2023 MCHC (RBC) [Mass/Vol] 35.8 g/dL 32.0-35.0 [facility] MCV [Entitic volume] by Auto mated countOrdered By: Ken Castorena on 07-31-2023 MCV (RBC) [Entitic vol] 88.2 fL Normal 80-100 [facility] Comment on above: Performed By: #### B MP, LACTIC, LIPASE, HEPATIC, CUBLD, PTT, CBC, PT #### [facility] [address] [place] [address] Monocyte distribution width [Entitic volume] in Blood by AutomatedOrdered By: Ken Castorena on 07-31-2023 Monocyte distribution width Auto (Bld) [Entitic vol] 18.22 % 0.00-20.00 [facility] Neutrophils [#/volume] in Bl ood by Automated countOrdered By: Ken Castorena on 07-31-2023 Neutrophils (Bld) [#/Vol] 2.3 10*3/uL Normal 1.8-7.7 [facility] Comment on above: Performed By: #### B MP, LACTIC, LIPASE, HEPATIC, CUBLD, PTT, CBC, PT #### [facility] [address] [place] [address] Nitrite Test strip Ql (U)Ord ered By: Ken Castorena on 07-31-2023 Nitrite Ql (U) Negative Negative [facility] No Panel InformationOrdered By: Ken Castorena on 07-31-2023 Estimated GFR (CKD-EPI) > 60.0 mL/Min [facility] Creatinine Clearance (Chem 87.63 [facility] Nucleated erythrocytes [Pres ence] in Blood by Automated countOrdered By: Ken Castorena on 07-31-2023 Nucleated RBC Auto Ql (Bld) 0.1 /100{WBC} 0-0.5 [facility] Platelet mean volume [Entiti c volume] in Blood by Automated countOrdered By: Ken Castorena on 07-31-2023 Platelet mean volume (Bld) [Entitic vol] 7.3 fL Normal 6.3-10.7 [facility] Comment on above: Performed By: #### B MP, LACTIC, LIPASE, HEPATIC, CUBLD, PTT, CBC, PT #### [facility] [address] Platelets [#/volume] in Bloo d by Automated countOrdered By: Ken Castorena on 07-31-2023 Platelets (Bld) [#/Vol] 333 10*3/uL Normal 150-450 [facility] Comment on above: Performed By: #### B MP, LACTIC, LIPASE, HEPATIC, CUBLD, PTT, CBC, PT #### [facility] [address] Potassium [Moles/volume] in Serum or PlasmaOrdered By: Ken Castorena on 07-31-2023 Potassium [Moles/Vol] 3.8 mmol/L Normal 3.5-5.1 [facility] Comment on above: Performed By: #### B MP, LACTIC, LIPASE, HEPATIC, CUBLD, PTT, CBC, PT #### [facility] [address] Protein Auto test strip (U) [Mass/Vol]Ordered By: Ken Castorena on 07-31-2023 Protein (U) [Mass/Vol] Negative Negative [facility] Protein [Mass/volume] in Ser um or PlasmaOrdered By: Ken Castorena on 07-31-2023 Protein [Mass/Vol] 6.4 g/dL Normal 6.4-8.9 [facility] Comment on above: Performed By: #### B MP, LACTIC, LIPASE, HEPATIC, CUBLD, PTT, CBC, PT #### [facility] [address] Serum globulin measurement b y calculation (mass/volume)Ordered By: Ken Castorena on 07-31-2023 Globulin (S) [Mass/Vol] 2.1 g/dL Normal [facility] Comment on above: Performed By: #### B MP, LACTIC, LIPASE, HEPATIC, CUBLD, PTT, CBC, PT #### [facility] [address] Serum or plasma albumin/glob ulin mass ratioOrdered By: Ken Castorena on 07-31-2023 Albumin/Globulin [Mass ratio] 2.0 {ratio} Normal [facility] Comment on above: Performed By: #### B MP, LACTIC, LIPASE, HEPATIC, CUBLD, PTT, CBC, PT #### [facility] [address] [place] [address] Serum or plasma anion gap de terminationOrdered By: Ken Castorena on 07-31-2023 Anion gap [Moles/Vol] 8.5 mmol/L Normal 6.0-15.0 [facility] Comment on above: Performed By: #### B MP, LACTIC, LIPASE, HEPATIC, CUBLD, PTT, CBC, PT #### [address] Serum or plasma non-glucuron idated bilirubin measurement (mass/volume)Ordered By: Ken Castorena on 07-31-2023 Bilirubin.indirect [Mass/Vol] 0.2 mg/dL [facility] Sodium [Moles/volume] in Ser um or PlasmaOrdered By: Ken Castorena on 07-31-2023 Sodium [Moles/Vol] 138 mmol/L Normal 136-145 [facility] Comment on above: Performed By: #### B MP, LACTIC, LIPASE, HEPATIC, CUBLD, PTT, CBC, PT #### [facility] [address] [place] [address] Specific gravity Auto test s trip (U) [Rel density]Ordered By: Ken Castorena on 07-31-2023 Specific gravity (U) [Rel density] 1.014 1.001-1.030 [facility] Urea nitrogen [Mass/volume] in Serum or PlasmaOrdered By: Ken Castorena on 07-31-2023 Urea nitrogen [Mass/Vol] 12 mg/dL Normal 7-25 [facility] Comment on above: Performed By: #### B MP, LACTIC, LIPASE, HEPATIC, CUBLD, PTT, CBC, PT #### [address] Urinalysison 07-31-2023 Appearance (U) Clear Normal Clear [facility] Comment on above: Order Comment: Name Collection Type:: Clean-Voided Midstream Performed By: #### B MP, LACTIC, LIPASE, HEPATIC, CUBLD, PTT, CBC, PT #### [facility] [address] [place] [address] [place] Bilirubin,Urine Negative Normal Negative [facility] Comment on above: Order Comment: Name Collection Type:: Clean-Voided Midstream Performed By: #### B MP, LACTIC, LIPASE, HEPATIC, CUBLD, PTT, CBC, PT #### [facility] [address] [place] [id number] [place] Glucose Ql (U) Normal Normal Normal [facility] Comment on above: Order Comment: Name Collection Type:: Clean-Voided Midstream Performed By: #### B MP, LACTIC, LIPASE, HEPATIC, CUBLD, PTT, CBC, PT #### [facility] [address] [place] [id number] [place] Ketones Ql (U) Negative Normal Negative [facility] Comment on above: Order Comment: Name Collection Type:: Clean-Voided Midstream Performed By: #### B MP, LACTIC, LIPASE, HEPATIC, CUBLD, PTT, CBC, PT #### [facility] [address] [place] [address] [place] Leukocyte esterase Test strip Ql (U) Negative Normal Negative [facility] Comment on above: Order Comment: Name Collection Type:: Clean-Voided Midstream Performed By: #### B MP, LACTIC, LIPASE, HEPATIC, CUBLD, PTT, CBC, PT #### [facility] [address] [place] [address] [place] Nitrite,Urine Negative Normal Negative [facility] Comment on above: Order Comment: Name Collection Type:: Clean-Voided Midstream Performed By: #### B MP, LACTIC, LIPASE, HEPATIC, CUBLD, PTT, CBC, PT #### [facility] [address] [place] [address] [place] Occult Blood,Urine Negative Normal Negative [facility] Comment on above: Order Comment: Name Collection Type:: Clean-Voided Midstream Performed By: #### B MP, LACTIC, LIPASE, HEPATIC, CUBLD, PTT, CBC, PT #### [facility] [address] Protein,Urine Negative Normal Negative [facility] Comment on above: Order Comment: Name Collection Type:: Clean-Voided Midstream Performed By: #### B MP, LACTIC, LIPASE, HEPATIC, CUBLD, PTT, CBC, PT #### [facility] [address] Specificy [place],Urine 1.014 Normal 1.001-1.030 [facility] Comment on above: Order Comment: Name Collection Type:: Clean-Voided Midstream Performed By: #### B MP, LACTIC, LIPASE, HEPATIC, CUBLD, PTT, CBC, PT #### [facility] [address] Urobilinogen,Urine Normal Normal Normal [facility] Comment on above: Order Comment: Name Collection Type:: Clean-Voided Midstream Performed By: #### B MP, LACTIC, LIPASE, HEPATIC, CUBLD, PTT, CBC, PT #### [facility] [address] Urine clarity by refractomet ry automatedOrdered By: Ken Castorena on 07-31-2023 Clarity Refractometry automated (U) Clear Clear [facility] Urine glucose measurement by automated test strip (mass/volume)Ordered By: Ken Castorena on 07-31-2023 Glucose Auto test strip (U) [Mass/Vol] Normal mg/dL Normal [facility] Urine hemoglobin detection b y automated test stripOrdered By: Ken Castorena on 07-31-2023 Hemoglobin Auto test strip Ql (U) Negative Negative [facility] Urine leukocyte esterase det ection by automated test stripOrdered By: Ken Castorena on 07-31-2023 Leukocyte esterase Auto test strip Ql (U) Negative Negative [facility] Urine pH measurement by auto mated test stripOrdered By: Ken Castorena on 07-31-2023 pH (U) 8.0 [pH] Normal 5.0-9.0 [facility] Comment on above: Order Comment: Name Collection Type:: Clean-Voided Midstream Performed By: #### B MP, LACTIC, LIPASE, HEPATIC, CUBLD, PTT, CBC, PT #### [facility] [address] [place] [id number] [facility] Urobilinogen Auto test strip (U) [Mass/Vol]Ordered By: Ken Castorena on 07-31-2023 Urobilinogen (U) [Mass/Vol] Normal mg/dL Normal [facility] COVID CepheidOrdered By: Renay Burdick on 06-27-2023 SARS-CoV-2 (COVID-19) Ab IA Ql Negative Negative [facility] Comment on above: This is a duplicate Cepheid Xpert Xpress CoV-2/Flu/RSV Plus RNA by RT-PCR result to be used for statistical tracking purpose only. SARS-CoV-2 (COVID-19) RNA DE+probe Ql (Unsp spec) [facility] SARS-CoV-2 (COVID-19) RNA DE+probe Ql (Unsp spec) [facility] COVID-19 / Flu A/B / RSV PCR on 06-27-2023 SARS-CoV-2 (COVID-19) RNA DE+probe Ql (Unsp spec) COVID-19 Cepheid Result Negative for SARS-CoV-2 RNA by RT-PCR Flu A Cepheid Result Positive for Flu A RNA by RT-PCR Flu B Cepheid Result Negative for Flu B RNA by RT-PCR RSV Cepheid Result Negative for RSV RNA by RT-PCR COVID19 Blank Space ---- Reference: Negative COVID19 Blank Space ---- Cepheid Disclaimer The Cepheid Xpert Xpress CoV-2/Flu/RSV Plus has Cepheid Disclaimer not been FDA cleared or approved; this test has Cepheid Disclaimer been authorized by FDA under an EUA for use by Cepheid Disclaimer authorized laboratories; this test has been Cepheid Disclaimer authorized only for the simultaneous qualitative Cepheid Disclaimer detection and differentiation of nucleic acids from Cepheid Disclaimer SARS-CoV-2, influenza A, influenza B, and Cepheid Disclaimer respiratory syncytial virus (RSV), and not for any Cepheid Disclaimer other viruses or pathogens; and this test is only Cepheid Disclaimer authorized for the duration of the declaration that Cepheid Disclaimer circumstances exist justifying the authorization of Cepheid Disclaimer emergency use of in vitro diagnostic tests for Cepheid Disclaimer detection and/or diagnosis of COVID-19 under Cepheid Disclaimer Section 564(b)(1) of the Act, 21 U.S.C. 360bbb- Cepheid Disclaimer 3(b)(1), unless the authorization is terminated or Cepheid Disclaimer revoked sooner. PERFORMED BY: [place] [id number] PATHOLOGIST SOFTWARE DESIGNER GILBERT MARSH M.D. Normal [facility] Comment on above: Performed By: #### B MP, LACTIC, LIPASE, HEPATIC, CUBLD, PTT, CBC, PT #### [facility] [address] [place] [address] Cepheid COVID PCR Negativeon 06-27-2023 SARS-CoV-2 (COVID-19) RNA DE+probe Ql (Unsp spec) Negative Normal Negative [facility] Comment on above: Result Comment: This is a duplicate Cepheid Xpert Xpress CoV-2/Flu/RSV Plus RNA by RT-PCR result to be used for statistical tracking purpose only. PERFORMED BY: [place] [id number] PATHOLOGIST SOFTWARE DESIGNER GILBERT MARSH M.D. Performed By: #### B MP, LACTIC, LIPASE, HEPATIC, CUBLD, PTT, CBC, PT #### [place] [id number] [facility] XR chest 1Von 06-27-2023 XR chest 1V [facility] [place] [address] XRay Report Signed Patient: Miriam Kunz MR#: [id number] 37 : 1985 Acct:[id number] Age/Sex: 37 / F ADM Date: 06/27/23 Loc: ER Room: Type: [facility] ER Attending Dr: Copies to: TARA Martinez DO Ordering Provider: Dilshad Burdick DO Date of Service: 06/27/23 XR/XR chest 1V: SOB Plain film chest Single view HISTORY: Cough and fever COMPARISON: 08/17/2022 FINDINGS: SUPPORT DEVICES: None POSTSURGICAL CHANGES: None HEART: Within normal limits PULMONARY HARRISON: Within normal limits MEDIASTINUM: Unremarkable LUNGS AND PLEURA: No acute lung process, pleural effusion or pneumothorax identified. BONY STRUCTURES: Intact ADDITIONAL FINDINGS None XR/XR chest 1V IMPRESSION: No acute process. Impression dictated by: Escobar Del Angel M.D.06/27/2023 9:19 PM Dictation Location: [place] [address] Transcribed By: [facility] 06/27/232118 Dictated By: Escobar Del Angel DO 06/27/232118 Signed By: 06/27/232118 Normal [facility] Alanine aminotransferase [En zymatic activity/volume] in Serum or PlasmaOrdered By: Sruthi Farrell on 01-16-2023 ALT [Catalytic activity/Vol] 21 U/L 7-52 [facility] Albumin [Mass/volume] in Ser um or Plasma by Bromocresol green (BCG) dye binding methoOrdered By: Sruthi Farrell on 01-16-2023 Albumin BCG dye [Mass/Vol] 4.1 g/dL 3.5-5.7 [facility] Alkaline phosphatase [Enzyma tic activity/volume] in Serum or PlasmaOrdered By: Sruthi Farrell on 01-16-2023 ALP [Catalytic activity/Vol] 57 U/L 34-104 [facility] Aspartate aminotransferase [ Enzymatic activity/volume] in Serum or PlasmaOrdered By: Sruthi Farrell on 01-16-2023 AST [Catalytic activity/Vol] 22 U/L 13-39 [facility] Basophils Auto (Bld) [#/Vol] Ordered By: Sruthi Farrell on 01-16-2023 Basophils (Bld) [#/Vol] 0.0 10*3/uL 0.0-0.2 [facility] Basophils/100 WBC Auto (Bld) Ordered By: Sruthi Farrell on 01-16-2023 Basophils/100 WBC (Bld) 0.4 % . [facility] Bilirubin.total [Mass/volume ] in Serum or PlasmaOrdered By: Sruthi Farrell on 01-16-2023 Bilirubin [Mass/Vol] 0.4 mg/dL 0.3-1.0 [facility] C reactive protein [Mass/vol ume] in Serum or Plasma by High sensitivity methodOrdered By: Sruthi Farrell on 01-16-2023 CRP High sensitivity method [Mass/Vol] 3.1 mg/L 0.0-0.9 [facility] Comment on above: Cardiovascular Risk Classification (AHA/CDC)hsCRP < 1.0 mg/l low relative risk for CVDhsCRP 1.0-3.0 mg/l average relative risk for CVDhsCRP > 3.0 mg/l high relative risk for CVDhsCRP > 7.5 mg/l active inflammation*Two results two weeks apart and averaged provide a morestable estimate of hsCRP level.*hsCRP levels > 7.5 mg/l may suggest infection that canlimit the use of this marker for estimation of CVD risk. Calcium [Mass/volume] in Ser um or PlasmaOrdered By: Sruthi Farrell on 01-16-2023 Calcium [Mass/Vol] 8.8 mg/dL 8.6-10.3 [facility] Carbon dioxide, total [Moles /volume] in Serum or PlasmaOrdered By: Sruthi Farrell on 01-16-2023 CO2 [Moles/Vol] 18.9 mmol/L 21.0-31.0 [facility] Chloride [Moles/volume] in S amelia or PlasmaOrdered By: Sruthi Farrell on 01-16-2023 Chloride [Moles/Vol] 111 mmol/L 98-107 [facility] Creatinine [Mass/volume] in Serum or PlasmaOrdered By: Sruthi Farrell on 01-16-2023 Creatinine [Mass/Vol] 0.98 mg/dL 0.60-1.20 [facility] Eosinophils Auto (Bld) [#/Vo l]Ordered By: Sruthi Farrell on 01-16-2023 Eosinophils (Bld) [#/Vol] 0.1 10*3/uL 0.0-0.45 [facility] Eosinophils/100 WBC Auto (Bl d)Ordered By: Sruthi Farrell on 01-16-2023 Eosinophils/100 WBC (Bld) 3.2 % . [facility] Erythrocyte distribution wid th Auto (RBC) [Ratio]Ordered By: Sruthi Farrell on 01-16-2023 Erythrocyte distribution width (RBC) [Ratio] 12.5 % 11.9-15.3 [facility] Erythrocyte sedimentation ra te by Photometric methodOrdered By: Sruthi Farrell on 01-16-2023 ESR Photometric method (Bld) [Velocity] 1 mm/hr 0-19 [facility] Globulin Calc (S) [Mass/Vol] Ordered By: Sruthi Farrell on 01-16-2023 Globulin (S) [Mass/Vol] 2.0 g/dL [facility] Glucose [Mass/volume] in Ser um or PlasmaOrdered By: Sruthi Farrell on 01-16-2023 Glucose [Mass/Vol] 116 mg/dL 70-100 [facility] Comment on above: ADA recommended refe rence rangeRandom Glucose Reference Range is dependent on time and content of last meal. Glucose of more than 200 mg/dL in a nonstressed, ambulatory subject supports the diagnosis of Diabetes Mellitus. Hematocrit Auto (Bld) [Volum e fraction]Ordered By: Sruthi Farrell on 01-16-2023 Hematocrit (Bld) [Volume fraction] 38.1 % 34.0-46.4 [facility] Hemoglobin [Mass/volume] in BloodOrdered By: Sruthi Farrell on 01-16-2023 Hemoglobin (Bld) [Mass/Vol] 13.2 g/dL 11.8-15.4 [facility] Leukocytes [#/volume] correc artem for nucleated erythrocytes in Blood by Automated counOrdered By: Sruthi Farrell on 01-16-2023 WBC corrected for nucl RBC Auto (Bld) [#/Vol] 4.4 10*3/uL 3.8-11.6 [facility] Lymphocytes Auto (Bld) [#/Vo l]Ordered By: Sruthi Farrell on 01-16-2023 Lymphocytes (Bld) [#/Vol] 2.4 10*3/uL 1.00-4.8 [facility] Lymphocytes/100 WBC Auto (Bl d)Ordered By: Sruthi Farrell on 01-16-2023 Lymphocytes/100 WBC (Bld) 53.9 % . [facility] MCH Auto (RBC) [Entitic mass ]Ordered By: Sruthi Farrell on 01-16-2023 MCH (RBC) [Entitic mass] 31.3 pg 24.7-34.3 [facility] MCHC Auto (RBC) [Mass/Vol]Or dered By: Sruthi Farrell on 01-16-2023 MCHC (RBC) [Mass/Vol] 34.8 g/dL 32.0-35.0 [facility] MCV Auto (RBC) [Entitic vol] Ordered By: Sruthi Farrell on 01-16-2023 MCV (RBC) [Entitic vol] 90.0 fL 80-100 [facility] Monocytes Auto (Bld) [#/Vol] Ordered By: Sruthi Farrell on 01-16-2023 Monocytes (Bld) [#/Vol] 0.3 10*3/uL 0.0-0.8 [facility] Monocytes/100 WBC Auto (Bld) Ordered By: Sruthi Farrell on 01-16-2023 Monocytes/100 WBC (Bld) 6.7 % . [facility] Neutrophils Auto (Bld) [#/Vo l]Ordered By: Sruthi Farrell on 01-16-2023 Neutrophils (Bld) [#/Vol] 1.6 10*3/uL 1.8-7.7 [facility] Neutrophils/100 WBC Auto (Bl d)Ordered By: Sruthi Farrell on 01-16-2023 Neutrophils/100 WBC (Bld) 35.8 % . [facility] No Panel InformationOrdered By: Sruthi Farrell on 01-16-2023 Estimated GFR (CKD-EPI) > 60.0 mL/Min [facility] Creatinine Clearance (Chem N/A [facility] Nucleated erythrocytes [Pres ence] in Blood by Automated countOrdered By: Sruthi Farrell on 01-16-2023 Nucleated RBC Auto Ql (Bld) 0.1 /100{WBC} 0-0.5 [facility] Platelet mean volume Auto (B ld) [Entitic vol]Ordered By: Sruthi Farrell on 01-16-2023 Platelet mean volume (Bld) [Entitic vol] 8.3 fL 6.3-10.7 [facility] Platelets Auto (Bld) [#/Vol] Ordered By: Sruthi Farrell on 01-16-2023 Platelets (Bld) [#/Vol] 242 10*3/uL 150-450 [facility] Potassium [Moles/volume] in Serum or PlasmaOrdered By: Sruthi Farrell on 01-16-2023 Potassium [Moles/Vol] 3.7 mmol/L 3.5-5.1 [facility] Protein [Mass/volume] in Ser um or PlasmaOrdered By: Sruthi Farrell on 01-16-2023 Protein [Mass/Vol] 6.1 g/dL 6.4-8.9 [facility] RBC Auto (Bld) [#/Vol]Ordere d By: Sruthi Farrell on 01-16-2023 RBC (Bld) [#/Vol] 4.23 10*6/uL 3.60-5.00 [facility] Serum or plasma albumin/glob ulin mass ratioOrdered By: Sruthi Farrell on 01-16-2023 Albumin/Globulin [Mass ratio] 2.1 {ratio} [facility] Serum or plasma anion gap de terminationOrdered By: Sruthi Farrell on 01-16-2023 Anion gap [Moles/Vol] 11.8 mmol/L 6.0-15.0 [facility] Serum or plasma free cefurox mariaa measurement (mass/volume)Ordered By: Sruthi Farrell on 01-16-2023 Cefuroxime free [Mass/Vol] Negative Negative [facility] Comment on above: Performed at: [id number] [place], [place] [id number] Director: Herminio Kelly PhD, Phone: [phone] Serum or plasma rheumatoid f actor measurement (units/volume)Ordered By: Sruthi Farrell on 01-16-2023 Rheumatoid factor Qn [IU]/mL <14.0 [facility] Comment on above: Performed at: [id number] [place], [place] [id number] Director: Herminio Kelly PhD, Phone: [phone] Sodium [Moles/volume] in Ser um or PlasmaOrdered By: Sruthi Farrell on 01-16-2023 Sodium [Moles/Vol] 138 mmol/L 136-145 [facility] Urea nitrogen [Mass/volume] in Serum or PlasmaOrdered By: Sruthi Farrell on 01-16-2023 Urea nitrogen [Mass/Vol] 15 mg/dL 7-25 [facility] WBC Auto (Bld) [#/Vol]Ordere d By: Sruthi Farrell on 01-16-2023 WBC (Bld) [#/Vol] 4.4 10*3/uL 3.8-11.6 [facility] Urinalysis - AUTOMATEDon Appearance (U) clear [employer] Other Bilirubin Ql (U) Negative [employer] Other Color (U) yellow [employer] Other Glucose Ql (U) Negative [employer] Other Hemoglobin Ql (U) trace [facility] [employer] Other Ketones Ql (U) Negative [employer] Other Leukocyte esterase Test strip Ql (U) Negative [employer] Other Nitrite Ql (U) Negative [employer] Other pH (U) 5.5 [pH] [employer] Other Protein Ql (U) Negative [facility] [employer] Other Specific gravity (U) [Rel density] 1.030 [employer] Other Urobilinogen (U) [Mass/Vol] 0.2 mg/dL [facility] Other Urinalysis - AUTOMATED [employer] Other STR cardiac stress/regularon 09-08-2022 STR cardiac stress/regular [facility] [employer] Other STR cardiac stress/regular [facility] [employer] Other STR cardiac stress/regular [address] [facility] [employer] Other STR cardiac stress/[place] [address] [employer] Other STR cardiac stress/regular Cardiac Stress Test [employer] Other STR cardiac stress/regular [employer] Other STR cardiac stress/regular Patient: Miriam Kunz MR#: [id number] [employer] Other STR cardiac stress/regular 37 [employer] Other STR cardiac stress/regular : 1985 Acct:[id number] [employer] Other STR cardiac stress/regular Age/Sex: 36 / F ADM Date: 09/07/22 [employer] Other STR cardiac stress/regular Loc: Room: Type: [facility] [employer] Other STR cardiac stress/regular Attending Dr: Sruthi Farrell DNP [employer] Other STR cardiac stress/regular Copies to: [employer] Other STR cardiac stress/regular Ordering Provider: Sruthi Farrell DNP [employer] Other STR cardiac stress/regular Date of Service: 09/07/22 [employer] Other STR cardiac stress/regular STR/STR cardiac stress/regular: Nonspecific ST-T wave [employer] Other STR cardiac stress/regular electrocardiographic changes [employer] Other STR cardiac stress/regular ORDERING: Sruthi Farrell DNP [employer] Other STR cardiac stress/regular SUPERVISING: Farzad Ignacio MD [employer] Other STR cardiac stress/regular CLINICAL INFORMATION: Chest pain. [employer] Other STR cardiac stress/regular The patient underwent routine treadmill testing according to Bud protocol and accomplished total [employer] Other STR cardiac stress/regular exercise duration of 9 minutes and 51 seconds. The resting heart rate was 77 beats per minute and [employer] Other STR cardiac stress/regular peak heart rate 155 beats per minute, which is 84% of predicted heart rate for age. Workload was [employer] Other STR cardiac stress/regular 11.5 METS. Resting blood pressure was 136/88 and peak blood pressure 168/76. Study was terminated [employer] Other STR cardiac stress/regular for fatigue. The patient arrived with baseline complaints of retrosternal left arm and armpit pain. [employer] Other STR cardiac stress/regular It was unchanged with exercise. It was present on arrival and at departure. There were no changes [employer] Other STR cardiac stress/regular in symptoms and no findings to suggest myocardial ischemia. [employer] Other STR cardiac stress/regular SUMMARY: [employer] Other STR cardiac stress/regular 1. Resting EKG demonstrates normal sinus rhythm, normal EKG. [employer] Other STR cardiac stress/regular 2. No new anginal symptomatology with exertion. [employer] Other STR cardiac stress/regular 3. No ischemic ST-T wave changes were noted. [employer] Other STR cardiac stress/regular 4. There were no arrhythmias. [employer] Other STR cardiac stress/regular 5. The patient had a satisfactory work capacity and heart rate response. [employer] Other STR cardiac stress/regular 6. This is a normal graded exercise test. The patient demonstrates no convincing anginal [employer] Other STR cardiac stress/regular symptomology, no ischemic ST-T wave changes, and no arrhythmias with exercise. [employer] Other STR cardiac stress/regular Transcribed By: SHERIF 09/08/22 1607 [employer] Other STR cardiac stress/regular Dictated By: Sunny Ignacio MD 09/08/22 1454 [employer] Other STR cardiac stress/regular Signed By: [employer] Other Automated erythrocytes count in urine sediment (number/area)Ordered By: Sruthi Farrell on 08-28-2022 RBC Auto (Urine sed) [#/Area] 10-19 [HPF] 0-4 [facility] Automated leukocytes count i n urine sediment (number/area)Ordered By: Sruthi Farrell on 08-28-2022 WBC Auto (Urine sed) [#/Area] 20-49 [HPF] 0-4 [facility] Bilirubin Test strip Ql (U)O rdered By: Sruthi Farrell on 08-28-2022 Bilirubin Ql (U) Negative Negative [facility] Color Auto (U)Ordered By: Sven Farrell on 08-28-2022 Color (U) Yellow Yellow [facility] Dipstick & Microscopicon Dipstick & Microscopic [employer] Other Ketones Auto test strip (U) [Mass/Vol]Ordered By: Sruthi Farrell on 08-28-2022 Ketones (U) [Mass/Vol] Negative Negative [facility] - UrinalysisOrder ed By: Sruthi Farrell on 08-28-2022 Hyaline casts LM Ql (Urine sed) 0-8 [LPF] 0-8 [facility] Nitrite Test strip Ql (U)Ord ered By: Sruthi Farrell on 08-28-2022 Nitrite Ql (U) Negative Negative [facility] Protein Auto test strip (U) [Mass/Vol]Ordered By: Sruthi Farrell on 08-28-2022 Protein (U) [Mass/Vol] Negative Negative [facility] Specific gravity Auto test s trip (U) [Rel density]Ordered By: Sruthi Farrell on 08-28-2022 Specific gravity (U) [Rel density] 1.011 1.001-1.030 [facility] Squamous epithelial cells de tection in urine sediment by light microscopyOrdered By: Sruthi Farrell on 08-28-2022 Epithelial cells.squamous LM Ql (Urine sed) 0-1 [HPF] 0-2 [facility] Urine Cultureon 08-28-2022 Urine Culture >100,000 [employer] Other Urine Culture <16 Susceptible [employer] Other Urine Culture <8/4 Susceptible [employer] Other Urine Culture <4 Susceptible [employer] Other Urine Culture <2 Susceptible [employer] Other Urine Culture <1 Susceptible [employer] Other Urine Culture <0.25 Susceptible [employer] Other Urine Culture <0.5 Susceptible [employer] Other Urine Culture <32 Susceptible [employer] Other Urine Culture <0.5/9.5 Susceptible [employer] Other Urine bacteria detection by automated methodOrdered By: Sruthi Farrell on 08-28-2022 Bacteria Auto Ql (U) 4+ None Seen [facility] Urine clarity by refractomet ry automatedOrdered By: Sruthi Farrell on 08-28-2022 Clarity Refractometry automated (U) Clear Clear [facility] Urine culture routineOrdered By: Sruthi Farrell on 08-28-2022 Bacteria identified Cx Nom (U) Klebsiella pneumoniae [facility] Urine glucose measurement by automated test strip (mass/volume)Ordered By: Sruthi Farrell on 08-28-2022 Glucose Auto test strip (U) [Mass/Vol] Normal mg/dL Normal [facility] Urine hemoglobin detection b y automated test stripOrdered By: Sruthi Farrell on 08-28-2022 Hemoglobin Auto test strip Ql (U) 2+ Negative [facility] Urine leukocyte esterase det ection by automated test stripOrdered By: Sruthi Farrell on 08-28-2022 Leukocyte esterase Auto test strip Ql (U) 3+ Negative [facility] Urobilinogen Auto test strip (U) [Mass/Vol]Ordered By: Sruthi Farrell on 08-28-2022 Urobilinogen (U) [Mass/Vol] Normal mg/dL Normal [facility] pH Auto test strip (U)Ordere d By: Sruthi Farrell on 08-28-2022 pH (U) 5.5 [pH] 5.0-9.0 [facility] Albumin [Mass/volume] in Bod y fluidOrdered By: Torrey Louis on 08-17-2022 Albumin (Body fld) [Mass/Vol] 4.2 g/dL 3.2-5.5 [facility] Alkaline phosphatase [Enzyma tic activity/volume] in Serum or PlasmaOrdered By: Torrey Louis on 08-17-2022 ALP [Catalytic activity/Vol] 60 U/L 32-92 [facility] Aspartate aminotransferase [ Enzymatic activity/volume] in Serum or PlasmaOrdered By: Torrey Louis on 08-17-2022 AST [Catalytic activity/Vol] 37 U/L 10-42 [facility] Basophils Auto (Bld) [#/Vol] Ordered By: Torrey Louis on 08-17-2022 Basophils (Bld) [#/Vol] 0.1 10*3/uL 0.0-0.2 [facility] Basophils/100 WBC Auto (Bld) Ordered By: Torrey Louis on 08-17-2022 Basophils/100 WBC (Bld) 0.9 % . [facility] Bilirubin.total [Mass/volume ] in Serum or PlasmaOrdered By: Torrey Louis on 08-17-2022 Bilirubin [Mass/Vol] 0.9 mg/dL 0.3-1.2 [facility] Calcium [Mass/volume] in Ser um or PlasmaOrdered By: Torrey Louis on 08-17-2022 Calcium [Mass/Vol] 9.6 mg/dL 8.2-10.2 [facility] Carbon dioxide, total [Moles /volume] in Serum or PlasmaOrdered By: Torrey Louis on 08-17-2022 CO2 [Moles/Vol] 25.2 mmol/L 22.0-30.0 [facility] Chloride [Moles/volume] in S amelia or PlasmaOrdered By: Torrey Louis on 08-17-2022 Chloride [Moles/Vol] 103 mmol/L 95-114 [facility] Creatine kinase [Enzymatic a ctivity/volume] in Serum or PlasmaOrdered By: Torrey Louis on 08-17-2022 CK [Catalytic activity/Vol] 134 U/L 22-269 [facility] Creatine kinase.MB [Mass/vol ume] in Serum or PlasmaOrdered By: Torrey Louis on 08-17-2022 CK.MB [Mass/Vol] 1.4 ng/mL 0.6-6.3 [facility] Creatinine and Glomerular fi ltration rate.predicted panel (S/P/Bld)Ordered By: Torrey Louis on 08-17-2022 Creatinine [Mass/Vol] 0.84 mg/dL 0.44-1.03 [facility] Eosinophils Auto (Bld) [#/Vo l]Ordered By: Torrey Louis on 08-17-2022 Eosinophils (Bld) [#/Vol] 0.2 10*3/uL 0.0-0.45 [facility] Eosinophils/100 WBC Auto (Bl d)Ordered By: Torrey Louis on 08-17-2022 Eosinophils/100 WBC (Bld) 2.5 % . [facility] Erythrocyte distribution wid th Auto (RBC) [Ratio]Ordered By: Torrey Louis on 08-17-2022 Erythrocyte distribution width (RBC) [Ratio] 12.6 % 11.9-15.3 [facility] Estimated glomerular filtrat ion rate (GFR) non- AmericanOrdered By: Torrey Louis on 08-17-2022 GFR/1.73 sq M.predicted among non-blacks MDRD (S/P/Bld) [Vol rate/Area] > 60 mL/Min [facility] Globulin Calc (S) [Mass/Vol] Ordered By: Torrey Louis on 08-17-2022 Globulin (S) [Mass/Vol] 2.6 g/dL [facility] Glucose [Mass/volume] in Ser um or PlasmaOrdered By: Torrey Louis on 08-17-2022 Glucose [Mass/Vol] 105 mg/dL 70-100 [facility] Comment on above: ADA recommended refe rence rangeRandom Glucose Reference Range is dependent on time and content of last meal. Glucose of more than 200 mg/dL in a nonstressed, ambulatory subject supports the diagnosis of Diabetes Mellitus. Hematocrit Auto (Bld) [Volum e fraction]Ordered By: Torrey Louis on 08-17-2022 Hematocrit (Bld) [Volume fraction] 40.4 % 34.0-46.4 [facility] Hemoglobin [Mass/volume] in BloodOrdered By: Torrey Louis on 08-17-2022 Hemoglobin (Bld) [Mass/Vol] 13.9 g/dL 11.8-15.4 [facility] Leukocytes [#/volume] correc artem for nucleated erythrocytes in Blood by Automated counOrdered By: Torrey Louis on 08-17-2022 WBC corrected for nucl RBC Auto (Bld) [#/Vol] 5.9 10*3/uL 3.8-11.6 [facility] Lymphocytes Auto (Bld) [#/Vo l]Ordered By: Torrey Louis on 08-17-2022 Lymphocytes (Bld) [#/Vol] 3.1 10*3/uL 1.00-4.8 [facility] Lymphocytes/100 WBC Auto (Bl d)Ordered By: Torrey Louis on 08-17-2022 Lymphocytes/100 WBC (Bld) 51.7 % . [facility] MCH Auto (RBC) [Entitic mass ]Ordered By: Torrey Louis on 08-17-2022 MCH (RBC) [Entitic mass] 30.9 pg 24.7-34.3 [facility] MCHC Auto (RBC) [Mass/Vol]Or dered By: Torrey Louis on 08-17-2022 MCHC (RBC) [Mass/Vol] 34.3 g/dL 32.0-35.0 [facility] MCV Auto (RBC) [Entitic vol] Ordered By: Torrey Louis on 08-17-2022 MCV (RBC) [Entitic vol] 90.0 fL 80-100 [facility] Monocyte distribution width [Entitic volume] in Blood by AutomatedOrdered By: Torrey Louis on 08-17-2022 Monocyte distribution width Auto (Bld) [Entitic vol] 16.62 % 0.00-20.00 [facility] Monocytes Auto (Bld) [#/Vol] Ordered By: Torrey Louis on 08-17-2022 Monocytes (Bld) [#/Vol] 0.4 10*3/uL 0.0-0.8 [facility] Monocytes/100 WBC Auto (Bld) Ordered By: Torrey Louis on 08-17-2022 Monocytes/100 WBC (Bld) 6.9 % . [facility] Neutrophils Auto (Bld) [#/Vo l]Ordered By: Torrey Louis on 08-17-2022 Neutrophils (Bld) [#/Vol] 2.3 10*3/uL 1.8-7.7 [facility] Neutrophils/100 WBC Auto (Bl d)Ordered By: Torrey Louis on 08-17-2022 Neutrophils/100 WBC (Bld) 38.0 % . [facility] No Panel InformationOrdered By: Torrey Louis on 08-17-2022 Estimated GFR () > 60 mL/Min [facility] Comment on above: GFR estimated refere nce range: According to KDOQI guidelines, <60 ml/min/1.73m2 is sufficient to diagnose a patient with chronic kidney disease. Pharmacy Creatinine Clearance (Chem 88.58 [facility] Nucleated erythrocytes [Pres ence] in Blood by Automated countOrdered By: Torrey Louis on 08-17-2022 Nucleated RBC Auto Ql (Bld) 0.2 /100{WBC} 0-0.5 [facility] Platelet mean volume Auto (B ld) [Entitic vol]Ordered By: Torrey Louis on 08-17-2022 Platelet mean volume (Bld) [Entitic vol] 7.7 fL 6.3-10.7 [facility] Platelets Auto (Bld) [#/Vol] Ordered By: Torrey Louis on 08-17-2022 Platelets (Bld) [#/Vol] 296 10*3/uL 150-450 [facility] Potassium [Moles/volume] in Serum or PlasmaOrdered By: Torrey Louis on 08-17-2022 Potassium [Moles/Vol] 3.6 mmol/L 3.5-5.1 [facility] Protein [Mass/volume] in Ser um or PlasmaOrdered By: Torrey Louis on 08-17-2022 Protein [Mass/Vol] 6.8 g/dL 6.1-7.9 [facility] RBC Auto (Bld) [#/Vol]Ordere d By: Torrey Louis on 08-17-2022 RBC (Bld) [#/Vol] 4.49 10*6/uL 3.60-5.00 [facility] Serum or plasma alanine persaud otransferase measurement without P-5'-P (enzymatic activiOrdered By: Torrey Louis on 08-17-2022 ALT No additional P-5'-P [Catalytic activity/Vol] 48 U/L 10-60 [facility] Serum or plasma albumin/glob ulin mass ratioOrdered By: Torrey Louis on 08-17-2022 Albumin/Globulin [Mass ratio] 1.6 {ratio} [facility] Serum or plasma anion gap de terminationOrdered By: Torrey Louis on 08-17-2022 Anion gap [Moles/Vol] 12.4 mmol/L 6.0-15.0 [facility] Serum or plasma creatine kin ase MB (CKMB)/total creatine kinase (CK) ratio by calculaOrdered By: Torrey Louis on 08-17-2022 CK.MB Calc [Catalytic fraction] 1.0 % 0.00-2.50 [facility] Sodium [Moles/volume] in Ser um or PlasmaOrdered By: Torrey Louis on 08-17-2022 Sodium [Moles/Vol] 137 mmol/L 136-146 [facility] TROPONIN, HIGH SENSITIVITYon 08-17-2022 HSTROP 4.9 pg/mL Normal 4.0-51.3 [facility] Comment on above: Result Comment: CUT- OFF POINTS HAVE BEEN ESTABLISHED BASED ON THE FOURTH UNIVERSAL DEFINITIONS OF MYOCARDIAL INFARCTION. THE UPPER REFERENCE LIMIT (URL) OF TROPONIN, DEFINED THE 99TH PERCENTILE OF cTnI DISTRIBUTION IN A REFERENCE POPULATION, HAS BEEN CONFIRMED THE DECISION THRESHOLD FOR MT DIAGNOSIS. Performed By: #### H STROPN #### [facility] [address] [place] [address] Dr. Ashley Barber Troponin I.cardiac [Mass/vol ume] in Serum or Plasma by High sensitivity methodOrdered By: Torrey Louis on 08-17-2022 Troponin I.cardiac High sensitivity method [Mass/Vol] < 3 pg/mL 0-15 [facility] Urea nitrogen [Mass/volume] in Serum or PlasmaOrdered By: Torrey Louis on 08-17-2022 Urea nitrogen [Mass/Vol] 9 mg/dL 9-23 [facility] WBC Auto (Bld) [#/Vol]Ordere d By: Torrey Louis on 08-17-2022 WBC (Bld) [#/Vol] 5.9 10*3/uL 3.8-11.6 [facility] MM diagnostic mammo BI w/CAD on 08-09-2022 MM diagnostic mammo BI w/CAD [facility] [employer] Other MM diagnostic mammo BI w/CAD [facility] [employer] Other MM diagnostic mammo BI w/CAD [address] [place] [address] [employer] Other MM diagnostic mammo BI w/CAD [address] [employer] Other MM diagnostic mammo BI w/CAD Ultrasound Report [employer] Other MM diagnostic mammo BI w/CAD Signed [employer] Other MM diagnostic mammo BI w/CAD Patient: Miriam Kunz MR#: [id number] [employer] Other MM diagnostic mammo BI w/CAD 37 [employer] Other MM diagnostic mammo BI w/CAD : 1985 Acct:[id number] [employer] Other MM diagnostic mammo BI w/CAD Age/Sex: 36 / F ADM Date: 08/09/22 [employer] Other MM diagnostic mammo BI w/CAD Loc: [place] Room: Type: [facility] [employer] Other MM diagnostic mammo BI w/CAD Attending Dr: Sruthi Farrell DNP [employer] Other MM diagnostic mammo BI w/CAD Ordering Provider: Sruthi Farrell DNP [employer] Other MM diagnostic mammo BI w/CAD Date of Service: 08/09/22 [facility] Other MM diagnostic mammo BI w/CAD US/US breast LT limited: Breast pain, left [employer] Other MM diagnostic mammo BI w/CAD ([id number]) MM/MM diagnostic mammo BI w/CAD: Breast pain, left [employer] Other MM diagnostic mammo BI w/CAD Copies to: Sruthi Farrell DNP [employer] Other MM diagnostic mammo BI w/CAD Bilateral Diagnostic Full Field digital mammogram with 3-D imaging. [employer] Other MM diagnostic mammo BI w/CAD Full field digital CC and MLO imaging performed. CAD utilized. [employer] Other MM diagnostic mammo BI w/CAD COMPARISON: None [employer] Other MM diagnostic mammo BI w/CAD HISTORY:Left breast pain superiorly. [employer] Other MM diagnostic mammo BI w/CAD FINDINGS: Scattered fibroglandular densities of the breast parenchyma identified. No developing [employer] Other MM diagnostic mammo BI w/CAD architectural distortion, developing focal breast asymmetry or developing malignant calcifications [employer] Other MM diagnostic mammo BI w/CAD identified. Benign calcification identified. [employer] Other MM diagnostic mammo BI w/CAD Targeted left breast ultrasound performed. The mildly complex anechoic cyst with thin septation and [employer] Other MM diagnostic mammo BI w/CAD measures 7 x 2 x 4 mm. This is at the 1:00 position 2 cm from the nipple. [employer] Other MM diagnostic mammo BI w/CAD US/US breast LT limited [employer] Other MM diagnostic mammo BI w/CAD IMPRESSION:No mammographic evidence of malignancy. Mildly complex cystic nodule left breast. [employer] Other MM diagnostic mammo BI w/CAD Targeted left breast ultrasound in 6 months recommended. [employer] Other MM diagnostic mammo BI w/CAD RESULT CODE: 3 [employer] Other MM diagnostic mammo BI w/CAD Probably Benign Finding Short Term Follow-Up [employer] Other MM diagnostic mammo BI w/CAD DENSITY CODE: 2 (approximately 25-50% glandular) [employer] Other MM diagnostic mammo BI w/CAD FOLLOW UP: 6M [employer] Other MM diagnostic mammo BI w/CAD THE FALSE-NEGATIVE RATE OF MAMMOGRAPHY IS APPROXIMATELY 10%. [employer] Other MM diagnostic mammo BI w/CAD IMAGING OF A PALPABLE ABNORMALITY MUST BE BASED ON CLINICAL GROUNDS. [employer] Other MM diagnostic mammo BI w/CAD PATIENT WAS ENTERED INTO A REMINDER SYSTEM WITH A TARGET DUE DATE FOR THE NEXT MAMMOGRAM. [employer] Other MM diagnostic mammo BI w/CAD Impression dictated by: Escobar Del Angel M.D.08/09/2022 8:47 AM [employer] Other MM diagnostic mammo BI w/CAD Dictation Location: [facility] [employer] Other MM diagnostic mammo BI w/CAD Tech: Sofia Marinelli; Juan Manuel Isaacs [employer] Other MM diagnostic mammo BI w/CAD Transcribed By: PWS 08/09/22 [facility] [employer] Other MM diagnostic mammo BI w/CAD Dictated By: Escobar Del Angel DO 08/09/22 [facility] [employer] Other MM diagnostic mammo BI w/CAD Signed By: [employer] Other MM diagnostic mammo BI w/CAD 08/09/22 48 [employer] Other COVID + FLU Quick Testingon 06-19-2022 SARS-CoV-2 (COVID-19) RNA DE+probe Ql (Unsp spec) Negative [employer] Other COVID + FLU Quick Testing Negative [employer] Other Quick Strepon 06-19-2022 S. pyogenes Org specific cx Ql (Throat) Negative [employer] Other Quick Strep [employer] Other Basophils Auto (Bld) [#/Vol] Ordered By: Sruthi Farrell on 06-14-2022 Basophils (Bld) [#/Vol] 0.0 10*3/uL 0.0-0.2 [facility] Basophils/100 WBC Auto (Bld) Ordered By: Sruthi Farrell on 06-14-2022 Basophils/100 WBC (Bld) 0.3 % . [facility] Body fluid albumin measureme nt (mass/volume)Ordered By: Vadim Sandra on 06-14-2022 Albumin (Body fld) [Mass/Vol] 4.3 g/dL 3.2-5.5 [facility] Cholesterol [Mass/volume] in Serum or PlasmaOrdered By: Vadim Sandra on 06-14-2022 Cholesterol [Mass/Vol] 190 mg/dL 140-200 [facility] Comment on above: Chol less than 200 m g/dl low riskChol 201-239 mg/dl borderline riskChol 240 mg/dl and greater high risk Cholesterol in LDL Calc [Mas s/Vol]Ordered By: Vadim Sandra on 06-14-2022 Cholesterol in LDL [Mass/Vol] 122 mg/dL 0-100 [facility] Comment on above: LDL ATP III CLASSIFI CATIONLDL less than 100 mg/dL OptimalLDL 100-129 mg/dL Near or above optimalLDL 130-159 mg/dL Borderline highLDL 160-189 mg/dL HighLDL greater than 189 mg/dL Very high Cholesterol in VLDL Calc [Ma ss/Vol]Ordered By: Vadim Sandra on 06-14-2022 Cholesterol in VLDL [Mass/Vol] 18 mg/dL [facility] Creatinine and Glomerular fi ltration rate.predicted panel (S/P/Bld)Ordered By: Vadim Sandra on 06-14-2022 Creatinine [Mass/Vol] 0.89 mg/dL 0.44-1.03 [facility] Eosinophils Auto (Bld) [#/Vo l]Ordered By: Sruthi Farrell on 06-14-2022 Eosinophils (Bld) [#/Vol] 0.1 10*3/uL 0.0-0.45 [facility] Eosinophils/100 WBC Auto (Bl d)Ordered By: Sruthi Farrell on 06-14-2022 Eosinophils/100 WBC (Bld) 1.8 % . [facility] Erythrocyte distribution wid th Auto (RBC) [Ratio]Ordered By: Sruthi Farrell on 06-14-2022 Erythrocyte distribution width (RBC) [Ratio] 11.6 % 11.9-15.3 [facility] Estimated glomerular filtrat ion rate (GFR) non- AmericanOrdered By: Vadim Sandra on 06-14-2022 GFR/1.73 sq M.predicted among non-blacks MDRD (S/P/Bld) [Vol rate/Area] > 60 mL/Min [facility] Globulin Calc (S) [Mass/Vol] Ordered By: Vadim Sandra on 06-14-2022 Globulin (S) [Mass/Vol] 2.0 g/dL [facility] Hematocrit Auto (Bld) [Volum e fraction]Ordered By: Sruthi Farrell on 06-14-2022 Hematocrit (Bld) [Volume fraction] 40.6 % 34.0-46.4 [facility] Hemoglobin [Mass/volume] in BloodOrdered By: Sruthi Farrell on 06-14-2022 Hemoglobin (Bld) [Mass/Vol] 13.8 g/dL 11.8-15.4 [facility] Leukocytes [#/volume] correc artem for nucleated erythrocytes in Blood by Automated counOrdered By: Sruthi Farrell on 06-14-2022 WBC corrected for nucl RBC Auto (Bld) [#/Vol] 5.1 10*3/uL 3.8-11.6 [facility] Lymphocytes Auto (Bld) [#/Vo l]Ordered By: Sruthi Farrell on 06-14-2022 Lymphocytes (Bld) [#/Vol] 2.6 10*3/uL 1.00-4.8 [facility] Lymphocytes/100 WBC Auto (Bl d)Ordered By: Sruthi Farrell on 06-14-2022 Lymphocytes/100 WBC (Bld) 50.5 % . [facility] MCH Auto (RBC) [Entitic mass ]Ordered By: Sruthi Farrell on 06-14-2022 MCH (RBC) [Entitic mass] 30.9 pg 24.7-34.3 [facility] MCHC Auto (RBC) [Mass/Vol]Or dered By: Sruthi Farrell on 06-14-2022 MCHC (RBC) [Mass/Vol] 34.1 g/dL 32.0-35.0 [facility] MCV Auto (RBC) [Entitic vol] Ordered By: Sruthi Farrell on 06-14-2022 MCV (RBC) [Entitic vol] 90.7 fL 80-100 [facility] Monocytes Auto (Bld) [#/Vol] Ordered By: Sruthi Farrell on 06-14-2022 Monocytes (Bld) [#/Vol] 0.3 10*3/uL 0.0-0.8 [facility] Monocytes/100 WBC Auto (Bld) Ordered By: Sruthi Farrell on 06-14-2022 Monocytes/100 WBC (Bld) 6.0 % . [facility] Neutrophils Auto (Bld) [#/Vo l]Ordered By: Sruthi Farrell on 06-14-2022 Neutrophils (Bld) [#/Vol] 2.1 10*3/uL 1.8-7.7 [facility] Neutrophils/100 WBC Auto (Bl d)Ordered By: Sruthi Farrell on 06-14-2022 Neutrophils/100 WBC (Bld) 41.4 % . [facility] No Panel InformationOrdered By: Vadim Sandra on 06-14-2022 Estimated GFR () > 60 mL/Min [facility] Comment on above: GFR estimated refere nce range: According to KDOQI guidelines, <60 ml/min/1.73m2 is sufficient to diagnose a patient with chronic kidney disease. Pharmacy Creatinine Clearance (Chem N/A [facility] Nucleated erythrocytes [Pres ence] in Blood by Automated countOrdered By: Sruthi Farrell on 06-14-2022 Nucleated RBC Auto Ql (Bld) 0.2 /100{WBC} 0-0.5 [facility] Platelet mean volume Auto (B ld) [Entitic vol]Ordered By: Sruthi Farrell on 06-14-2022 Platelet mean volume (Bld) [Entitic vol] 8.6 fL 6.3-10.7 [facility] Platelets Auto (Bld) [#/Vol] Ordered By: Sruthi Farrell on 06-14-2022 Platelets (Bld) [#/Vol] 268 10*3/uL 150-450 [facility] Protein [Mass/volume] in Ser um or PlasmaOrdered By: Vadim Sandra on 06-14-2022 Protein [Mass/Vol] 6.3 g/dL 6.1-7.9 [facility] RBC Auto (Bld) [#/Vol]Ordere d By: Sruthi Farrell on 06-14-2022 RBC (Bld) [#/Vol] 4.48 10*6/uL 3.60-5.00 [facility] Serum or plasma alanine persaud otransferase measurement without P-5'-P (enzymatic activiOrdered By: Vadim Sandra on 06-14-2022 ALT No additional P-5'-P [Catalytic activity/Vol] 27 U/L 10-60 [facility] Serum or plasma albumin/glob ulin mass ratioOrdered By: Vadim Sandra on 06-14-2022 Albumin/Globulin [Mass ratio] 2.2 {ratio} [facility] Serum or plasma alkaline earnest sphatase measurement (enzymatic activity/volume)Ordered By: Vadim Sandra on 06-14-2022 ALP [Catalytic activity/Vol] 44 U/L 32-92 [facility] Serum or plasma anion gap de terminationOrdered By: Vadim Sandra on 06-14-2022 Anion gap [Moles/Vol] 10.4 mmol/L 6.0-15.0 [facility] Serum or plasma aspartate am inotransferase measurement (enzymatic activity/volume)Ordered By: Vadim Sandra on 06-14-2022 AST [Catalytic activity/Vol] 28 U/L 10-42 [facility] Serum or plasma calcium nicko urement (mass/volume)Ordered By: Vadim Sandra on 06-14-2022 Calcium [Mass/Vol] 9.1 mg/dL 8.2-10.2 [facility] Serum or plasma chloride edelmira surement (moles/volume)Ordered By: Vadim Sandra on 06-14-2022 Chloride [Moles/Vol] 107 mmol/L 95-114 [facility] Serum or plasma glucose nicko urement (mass/volume)Ordered By: Vadim Sandra on 06-14-2022 Glucose [Mass/Vol] 80 mg/dL 70-100 [facility] Comment on above: ADA recommended refe rence rangeRandom Glucose Reference Range is dependent on time and content of last meal. Glucose of more than 200 mg/dL in a nonstressed, ambulatory subject supports the diagnosis of Diabetes Mellitus. Serum or plasma high density lipoprotein (HDL) cholesterol measurementOrdered By: Vadim Sandra on 06-14-2022 Cholesterol in HDL [Mass/Vol] 50 mg/dL 35-85 [facility] Comment on above: HDL CHOL ATP-III CLA SSIFICATION Cardiovascular RiskHDL > or equal to 60 mg/dL LOWHDL < 40 mg/dL HIGH Serum or plasma potassium me asurement (moles/volume)Ordered By: Vadim Sandra on 06-14-2022 Potassium [Moles/Vol] 4.0 mmol/L 3.5-5.1 [facility] Serum or plasma sodium measu rement (moles/volume)Ordered By: Vadim Sandra on 06-14-2022 Sodium [Moles/Vol] 135 mmol/L 136-146 [facility] Serum or plasma total biliru bin measurement (mass/volume)Ordered By: Vadim Sandra on 06-14-2022 Bilirubin [Mass/Vol] 0.8 mg/dL 0.3-1.2 [facility] Serum or plasma total carbon dioxide measurement (moles/volume)Ordered By: Vadim Sandra on 06-14-2022 CO2 [Moles/Vol] 21.6 mmol/L 22.0-30.0 [facility] Serum or plasma total choles terol/high density lipoprotein (HDL) cholesterol mass ratOrdered By: Vadim Sandra on 06-14-2022 Cholesterol.total/Cho lesterol in HDL [Mass ratio] 3.8 {ratio} <5.0 [facility] Serum or plasma urea nitroge n measurement (mass/volume)Ordered By: Vadim Sandra on 06-14-2022 Urea nitrogen [Mass/Vol] 8 mg/dL 9-23 [facility] TSH DL <= 0.005 mIU/L QnOrde red By: Sruthi Bud on 06-14-2022 TSH Qn 1.08 m[IU]/L 0.45-5.33 [facility] Triglyceride [Mass/volume] i n Serum or PlasmaOrdered By: Vadim Sandra on 06-14-2022 Triglyceride [Mass/Vol] 91 mg/dL 35-149 [facility] Comment on above: TRIG ATP III CLASSIF ICATIONTRIG less than 150 mg/dL NormalTRIG 150-199 mg/dL Borderline highTRIG 200-500 mg/dL High TRIG greater than 500 mg/dL Very highStandard traceable to the Center for Disease Conrtrol and Prevention (CDC) test method. WBC Auto (Bld) [#/Vol]Ordere d By: Sruthi Farrell on 06-14-2022 WBC (Bld) [#/Vol] 5.1 10*3/uL 3.8-11.6 [facility] XR lumbar spine min 4V*on XR lumbar spine min 4V* [facility] Other XR lumbar spine min 4V* [facility] Other XR lumbar spine min 4V* [address] [place] [address] [employer] Other XR lumbar spine min 4V* [place] [address] [employer] Other XR lumbar spine min 4V* XRay Report [facility] Other XR lumbar spine min 4V* Signed [facility] Other XR lumbar spine min 4V* Patient: Miriam Kunz MR#: [id number] [facility] Other XR lumbar spine min 4V* 37 [facility] Other XR lumbar spine min 4V* : 1985 Acct:[id number] [facility] Other XR lumbar spine min 4V* Age/Sex: 36 / F ADM Date: 06/14/22 [facility] Other XR lumbar spine min 4V* Loc: [facility] Room: Type: [facility] CLI [facility] Other XR lumbar spine min 4V* Attending Dr: Sruthi Farrell [facility] Other XR lumbar spine min 4V* Copies to: Sruthi Farrell [facility] Other XR lumbar spine min 4V* Ordering Provider: Sruthi Farrell DNP [facility] Other XR lumbar spine min 4V* Date of Service: 06/14/22 [facility] Other XR lumbar spine min 4V* XR/XR lumbar spine min 4V*: Lumbar degenerative disc disease [facility] Other XR lumbar spine min 4V* LUMBAR SPINE - 6 views: [employer] Other XR lumbar spine min 4V* CLINICAL HISTORY: Low back pain for several days. No specific injury. [facility] Other XR lumbar spine min 4V* COMPARISON: 01/21/2018 [facility] Other XR lumbar spine min 4V* Recumbent AP, lateral, both oblique and AP and lateral coned-down views of the lumbosacral junction [facility] Other XR lumbar spine min 4V* were obtained. Levoscoliotic curvature is again noted. There is no evidence of fracture. Alignment [facility] Other XR lumbar spine min 4V* is maintained on the lateral view. The disc spaces are normal in height. There is minimal endplate [facility] Other XR lumbar spine min 4V* spurring. There is facet disease, greater distally. No pars defect is identified. The sacroiliac [facility] Other XR lumbar spine min 4V* joints are maintained. There are no paraspinal soft tissue abnormalities. [facility] Other XR lumbar spine min 4V* XR/XR lumbar spine min 4V* [facility] Other XR lumbar spine min 4V* IMPRESSION: [facility] Other XR lumbar spine min 4V* SCOLIOSIS AND MILD DEGENERATIVE CHANGES [facility] Other XR lumbar spine min 4V* Impression dictated by: Stella Briscoe M.D.06/14/2022 11:42 AM [facility] Other XR lumbar spine min 4V* Dictation Location: [place] [address] [facility] Other XR lumbar spine min 4V* Transcribed By: PWS 06/14/22 [facility] Other XR lumbar spine min 4V* Dictated By: Stella Briscoe MD 06/14/22 [facility] Other XR lumbar spine min 4V* Signed By: [facility] Other XR lumbar spine min 4V* 06/14/22 [facility] Other Quick Strepon 04-06-2022 S. pyogenes Org specific cx Ql (Throat) Positive [facility] Other Quick Strep [facility] Other XR DEXA BONE DENSITYon 03-27 XR DEXA BONE DENSITY EXAMINATION: XR DEX A BONE DENSITY, 03/27/2022 8:39 AM EDT HISTORY: Symptomatic postprocedural ovarian failure COMPARISON: None. TECHNIQUE: Dual-energy X-ray absorptiometry (DEXA) bone density study performed for the axial skeleton. FINDINGS: SPINE ANALYSIS: Average bone mineral density is 1.143 g/cm2. T-score (standard deviation relative to young adult mean): -0.5 . HIP ANALYSIS: Lowest bone mineral density is within the femoral trochanter, 0.834 g/cm2. T-score (standard deviation relative to young adult mean): -0.1 . IMPRESSION: [employer] Classification: Normal - Low Fracture Risk Electronically authenticated by: MOHSEN WINN Date: 2022-03-27 09:15 Normal [facility] Bacteria identified Anaer cx Nom (Unsp spec)Ordered By: Angela Peace on 03-19-2022 Anaerobic microbial culture No Anaerobes Isolated 3 Days [facility] ABO and Rh group post transf usion reaction Nom (Bld)Ordered By: Angela Peace on 03-17-2022 Microscopic observation Gram stain Nom (Unsp spec) [facility] Angiotensin converting enzym e [Enzymatic activity/volume] in Cerebral spinal fluidOrdered By: Angela Peace on 03-16-2022 Angiotensin converting enzyme (CSF) [Catalytic activity/Vol] <1.5 U/L 0.0-2.5 [facility] Comment on above: Results of this test are labeled for research purposes onlyby the assay's can doffer. The performancecharacteristics of this assay have not been established bythe can doffer. The result should not be used fortreatment or for diagnostic purposes without confirmationof the diagnosis by another medically establisheddiagnostic product or procedure. The performancecharacteristics were determined by [employer].Performed at: [address] [id number] Director: Giovanny Sierra MD, Phone: [phone] Borrelia burgdorferi DNA [Pr esence] in Unspecified specimen by Probe and target ampliOrdered By: Angela Peace on 03-16-2022 B. burgdorferi DNA DE+probe Ql (Unsp spec) Negative Negative [facility] Comment on above: No B. burgdorferi DN A Detected.This test was developed and its performance characteristicsdetermined by [employer]. It has not been cleared or approvedby the Food and Drug Administration. The FDA hasdetermined that such clearance or approval is notnecessary.Performed at: [address] [id number] Director: Giovanny Sierra MD, Phone: [phone] Cerebrospinal fluid post-antonio trifugation appearance determinationOrdered By: Angela Peace on 03-16-2022 Appearance (Spun CSF) Colorless Colorless [facility] Cerebrospinal fluid sample t ube volume measurementOrdered By: Angela Peace on 03-16-2022 Specimen volume (CSF) 21.5 mL [facility] Color CSFOrdered By: Angela Peace on 03-16-2022 Color (CSF) Colorless Colorless [facility] Manual cerebrospinal fluid e rythrocytes count (number/volume)Ordered By: Angela Peace on 03-16-2022 RBC Manual cnt (CSF) [#/Vol] 1 /uL [facility] Comment on above: The reference interv al and other method performance specifications have not been established for this body fluid. The test result must be integrated into the clinical context for interpretation. No Panel InformationOrdered By: Angela Peace on 03-16-2022 CSF Appearance Clear Clear [facility] CSF Eosinophils 0 [facility] Comment on above: The reference interv al and other method performance specifications have not been established for this body fluid. The test result must be integrated into the clinical context for interpretation. CSF Glucose 53 mg/dL 40-70 [facility] CSF Lymphocytes 8 [facility] Comment on above: The reference interv al and other method performance specifications have not been established for this body fluid. The test result must be integrated into the clinical context for interpretation. CSF Monocytes 2 [facility] Comment on above: The reference interv al and other method performance specifications have not been established for this body fluid. The test result must be integrated into the clinical context for interpretation. CSF Neutrophils 0 [facility] Comment on above: The reference interv al and other method performance specifications have not been established for this body fluid. The test result must be integrated into the clinical context for interpretation. CSF Total Cells Counted 10 [facility] CSF Total Protein 34 mg/dL 15-45 [facility] CSF Tube Number Tube number: 3 [facility] Nucleated cells [#/volume] i n Cerebral spinal fluid by Manual countOrdered By: Angela Peace on 03-16-2022 Nucleated cells Manual cnt (CSF) [#/Vol] 0.001 10*3/uL 0-5 [facility] PAP ACOG PANEL 2: 30 to 65on 06-22-2022 HPV Aptima Positive Abnormal Negative [facility] Comment on above: Result Comment: This nucleic acid amplification test detects fourteen high-risk HPV types (16,18,31,33,35,39,45,51,52,56,58,59,66,68) without differentiation. Performed at: =G Performed By: #### [id number] #### [facility] [address] [address] [address] Ashlye Barber HPV Genotype 16 Negative Normal Negative [facility] Comment on above: Result Comment: Perf ormed at: =G Performed By: #### [id number] #### [facility] [address] [address] [address] Ashley Barber HPV Genotype 18,45 Negative Normal Negative [facility] Comment on above: Result Comment: Perf ormed at: =G Performed By: #### [id number] #### [facility] [address] [place] [address] Dr. Ashley Barber . . Normal [facility] Comment on above: Result Comment: Perf ormed at: WB Performed By: #### [id number] #### [facility] [address] [address] [address] Ashley Barber Age Gdln ACOG Testing 30-65 Normal [facility] Comment on above: Performed By: #### [id number] #### [facility] [address] [address] [address] Ashley Barber DIAGNOSIS: Comment Normal [facility] Comment on above: Result Comment: NEGA TIVE FOR INTRAEPITHELIAL LESION OR MALIGNANCY. Performed at: WB Performed By: #### 4 [id number] #### [facility] [address] [address] [address] Ashley Barber Methodology: Comment Normal [facility] Comment on above: Result Comment: This liquid based ThinPrep(R) pap test was screened with the use of an image guided system. Performed at: WB Performed By: #### [id number] #### [facility] [address] [place] [address] Dr. Ashley Barber Note: Comment Normal [facility] Comment on above: Result Comment: The Pap smear is a screening test designed to aid in the detection of premalignant and malignant conditions of the uterine cervix. It is not a diagnostic procedure and should not be used as the sole means of detecting cervical cancer. Both false-positive and false-negative reports do occur. . Performed at: WB Performed By: #### [id number] #### [facility] [address] [place] [address] Dr. Ashley Barber Performed by: Comment Normal [facility] Comment on above: Result Comment: Amanda Page, Parks Recreation Director (ASCP) Performed at: WB Performed By: #### 4 [id number] #### [facility] [address] [address] [address] Ashley Barber Specimen adequacy: Comment Normal [facility] Comment on above: Result Comment: Sati sfactory for evaluation. No endocervical component is identified. Performed at: WB Performed By: #### 4 [id number] #### [facility] [address] [place] [address] Dr. Ashley Barber A1C HEMOGLOBINon 10-13-2021 HbA1c (Bld) [Mass fraction] 5.0 % [facility] Other Complete Blood Count Auto Di ffon 10-13-2021 Basophils (Bld) [#/Vol] 0.492309249 10*3/uL Normal 0.0-0.2 10*3/uL [facility] Other Basophils/100 WBC (Bld) 1.300 % . % [facility] Other Eosinophils (Bld) [#/Vol] 0.344707985 10*3/uL Normal 0.0-0.45 10*3/uL [facility] Other Eosinophils/100 WBC (Bld) 3.900 % . % [facility] Other Erythrocyte distribution width (RBC) [Ratio] 12.200 % Normal 11.9-15.3 % [facility] Other Hematocrit (Bld) [Volume fraction] 39.800 % Normal 34.0-46.4 % [facility] Other Hemoglobin (Bld) [Mass/Vol] 14.414269 g/dL Normal 11.8-15.4 g/dL [facility] Other Lymphocytes (Bld) [#/Vol] 2.041950091 10*3/uL Normal 1.00-4.8 10*3/uL [facility] Other Lymphocytes/100 WBC (Bld) 48.700 % . % [facility] Other MCH (RBC) [Entitic mass] 31.1000 pg Normal 24.7-34.3 pg [facility] Other MCV (RBC) [Entitic vol] 88.0000 fL Normal 80-100 fL [facility] Other Monocytes (Bld) [#/Vol] 0.055118079 10*3/uL Normal 0.0-0.8 10*3/uL [facility] Other Monocytes/100 WBC (Bld) 6.600 % . % [facility] Other Neutrophils (Bld) [#/Vol] 1.410091768 10*3/uL Normal 1.8-7.7 10*3/uL [facility] Other Neutrophils/100 WBC (Bld) 39.500 % . % [facility] Other Platelet mean volume (Bld) [Entitic vol] 7.9000 fL Normal 6.3-10.7 fL [facility] Other Platelets (Bld) [#/Vol] 292 10*3/uL Normal 150-450 10*3/uL [facility] Other RBC (Bld) [#/Vol] 4.1794238487 10*6/uL Normal 3. 60-5.00 10*6/uL [facility] Other WBC (Bld) [#/Vol] 4.811525885 10*3/uL Normal 3.8 -11.6 10*3/uL [facility] Other Complete Blood Count Auto Diff 4.9 10*3/uL Normal 4.5-11.0 10*3/uL [facility] Other Complete Blood Count Auto Diff 35.3 g/dL High 32.0-35.0 g/dL [facility] Other Complete Blood Count Auto Diff 0.1 % Normal 0-0.5 % [facility] Other Comprehensive Metabolic Pane steve 10-13-2021 Albumin [Mass/Vol] 4.290210 g/dL Normal 3.2-5.5 g/dL [facility] Other Albumin/Globulin [Mass ratio] 1.8 {ratio} [facility] Other ALP [Catalytic activity/Vol] 70 U/L Normal 32-92 U/L [facility] Other ALT [Catalytic activity/Vol] 49 U/L Normal 10-60 U/L [facility] Other AST [Catalytic activity/Vol] 39 U/L Normal 10-42 U/L [facility] Other Bilirubin [Mass/Vol] 1.4943171 mg/dL Normal 0.3- 1.2 mg/dL [facility] Other Calcium [Mass/Vol] 9.4564883 mg/dL Normal 8.2-10 .2 mg/dL [facility] Other Chloride [Moles/Vol] 104 mmol/L Normal 95-114 mmol/L [facility] Other CO2 [Moles/Vol] 23.24579664 mmol/L Normal 22.0-3 0.0 mmol/L [facility] Other Creatinine [Mass/Vol] 1.36038943 mg/dL Normal 0. 44-1.03 mg/dL [facility] Other Glucose [Mass/Vol] 101 mg/dL High 70-100 mg/dL [facility] Other Potassium [Moles/Vol] 4.16067251 mmol/L Normal 3 .5-5.1 mmol/L [facility] Other Protein [Mass/Vol] 6.268499 g/dL Normal 6.1-7.9 g/dL [facility] Other Sodium [Moles/Vol] 137 mmol/L Normal 136-146 mmol/L [facility] Other Urea nitrogen [Mass/Vol] 11 mg/dL Normal 9-23 mg/dL [facility] Other Comprehensive Metabolic Panel > 60 [facility] Other Comprehensive Metabolic Panel 2.3 g/dL [facility] Other HbA1c (Bld) [Mass fraction]o n 10-13-2021 A1C HEMOGLOBIN [facility] Other Lipid Panelon 10-13-2021 Cholesterol [Mass/Vol] 217 mg/dL High 140-200 mg/dL [facility] Other Cholesterol in HDL [Mass/Vol] 40 mg/dL Normal 35-85 mg/dL [facility] Other Cholesterol in LDL Elph Qn 147 mg/dL High 0-100 mg/dL [facility] Other Cholesterol.total/Cho lesterol in HDL [Mass ratio] 5.4 {ratio} <5.0 [facility] Other Lipid Panel 149 mg/dL Normal 35-149 mg/dL [facility] Other Lipid Panel 29 mg/dL [facility] Other Thyroid Stimulating Hormoneo n 10-13-2021 TSH Qn 1.07205382387 m[IU]/L Normal 0.45-5 .33 u[iU]/mL [facility] Other ECHO 2D W COLORFLOW DOPPLERo n 06-29-2017 ECHO 2D W COLORFLOW DOPPLER Normal [facility] Urgent Care and Emergency De partmenton 05-31-2017 Urgent Care and Emergency Department Normal [facility] Urgent Care and Emergency Department Normal [facility]gent Care and Emergency Department Normal [facility] Emergency Department Normal [facility] WRIST LT 3 OR MORE VIEWSon 1 07-31-2016 WRIST LT 3 OR MORE VIEWS PROCEDURE:WRIST LT 3 OR MORE VIEWS - [id number] CLINICAL:INJURY Special Instructions: = N TECHNIQUE:THREE OR MORE VIEWS OF THE LEFT WRIST COMPARISON:There are no recent comparison exams available at the time of dictation. FINDINGS:The examination fails to demonstrate evidence of an acute fracture. There is no widening of the scapholunate space. IMPRESSION:No radiographic evidence of an acute fracture. RECOMMENDATION:If the patient has snuffbox tenderness or persistent pain, a follow-up radiographic evaluation in 10-14 days, MRI, or three phase bone scan would be recommended to exclude an occult fracture. __Electronically signed by: Wes Jorge M.D., MBADate/time: 05-31-2017, 01:11 PM Final Report Normal [facility] LT BREAST US - BCon 05-28-20 BREAST US - BC PATIENT HISTORY:Vianca ent is postmenopausal.Family history of breast cancer at age 35 in maternal aunt. PHYSICAL FINDINGS:Patient complains of lumps bilateral breasts, and left breast larger than right. BREAST LEFT ULTRASOUND: 05/28/17 - Tkwcupme views.Technologist: Stacy Jimenez sonography of the breast was performed. No solid or cystic mass was identified.Palpable abnormalities of the breast or axilla that are sonographically occult should be managed clinically. BREAST RIGHT ULTRASOUND: 05/28/17 - Adxmmcoc views.Technologist: Stacy Jimenez sonography of the breast was performed. No solid or cystic mass was identified.Palpable abnormalities of the breast or axilla that are sonographically occult should be managed clinically. ACR BI-RADS? ASSESSMENTS: NEGATIVE BI-RADS 1 (OVERALL)Left breast BUSL: Left breast is negative bi-rads 1.Right breast BUSR: Right breast is negative bi-rads 1. RECOMMENDATION:Routine screening mammogram at age 40.Electronically signed and approved by: Marvin Meraz D.O.May 28, 2017 9:57 Final Report Normal [facility] RT BREAST US - BCon 05-28-20 RT BREAST US - BC PATIENT HISTORY:Vianca ent is postmenopausal.Family history of breast cancer at age 35 in maternal aunt. PHYSICAL FINDINGS:Patient complains of lumps bilateral breasts, and left breast larger than right. BREAST LEFT ULTRASOUND: 05/28/17 - Pwwlpkkf views.Technologist: Stacy Jimenez sonography of the breast was performed. No solid or cystic mass was identified.Palpable abnormalities of the breast or axilla that are sonographically occult should be managed clinically. BREAST RIGHT ULTRASOUND: 05/28/17 - Gehegkaw views.Technologist: Stacy Jimenez sonography of the breast was performed. No solid or cystic mass was identified.Palpable abnormalities of the breast or axilla that are sonographically occult should be managed clinically. ACR BI-RADS? ASSESSMENTS: NEGATIVE BI-RADS 1 (OVERALL)Left breast BUSL: Left breast is negative bi-rads 1.Right breast BUSR: Right breast is negative bi-rads 1. RECOMMENDATION:Routine screening mammogram at age 40.Electronically signed and approved by: Marvin Meraz D.O.May 28, 2017 9:57 Final Report Normal [facility] and Emergency De partmenton 04-27-2017 Urgent Care and Emergency Department Normal [facility] Urgent Care and Emergency Department Normal [facility] Glucose FS UCCon 04-23-2017 Glucose mass conc 105 mg/dL Normal 70-110 [facility] Comment on above: Result Comment: Test ing performed at [place] [id number] Performed By: #### G LUFS ####[facility] Laboratory ServicesDr. Herminio Bañuelos MD[address] [place] [id number] Urgent Care and Emergency De partmenton 04-23-2017 Urgent Care and Emergency Department Normal [facility] Urgent Care and Emergency Department Normal [facility] Urgent Care and Emergency Department Normal [facility] Urgent Care and Emergency Department Normal [facility] Urgent Care and Emergency Department Normal [facility] Urgent Care and Emergency De partmenton 04-05-2017 Urgent Care and Emergency Department Normal [facility] Urgent Care and Emergency Department Normal [facility] ED Noteon 03-17-2017 HIM IP Note OR [employer] Data Warehouse Developer Normal [facility] HIM IP Note OR [employer] Data Warehouse Developer Normal [facility] ED Provider Noteon 7 HIM IP Note OR [employer] Data Warehouse Developer Normal [facility] Vital Signs Date Time Vital Sign Value Performing Clinician Facility 05-10-2024 09:15-0500 Body height 157.48 cm Mariola Hanimore [employer]ITAL [employer]ODUCTION MANAGER[employer]BC Work Phone: [facility] 05-10-2024 09:15-0500 Body mass index (BMI) [Ratio] 29.2 kg/m2 Mariola Bullimore D[employer]ITAL PRODUCTION MANAGER[employer]BC Work Phone: [facility] 05-10-2024 09:15-0500 Body temperature 98.2 [degF] Mariola Bullimore DIGITAL PRODUCTION MANAGER[employer] Work Phone: [facility] 05-10-2024 09:15-0500 Body weight 72.57 kg Mariola Bullimore D[employer]ITAL PRODUCTION MANAGER[employer] Work Phone: [facility] 05-10-2024 09:15-0500 Diastolic blood pressure 82 mm[Hg] Mariola Bullimore DIGITAL PRODUCTION MANAGER[employer]BC Work Phone: [facility] 05-10-2024 09:15-0500 Heart rate 81 /min Mariola Bullimore D[employer]ITAL PRODUCTION MANAGER[employer] Work Phone: [facility] 05-10-2024 09:15-0500 SaO2% (BldA) [Mass fraction] 96 % Mariola Bullimore [employer]ITAL PRODUCTION MANAGER[employer] Work Phone: [facility] 05-10-2024 09:15-0500 Systolic blood pressure 120 mm[Hg] Mariola Dale DIGITAL PRODUCTION MANAGER[employer]BC Work Phone: [facility] 04-16-2024 09:41-0400 Body mass index (BMI) [Ratio] 28.88 kg/m2 Juan Manuel Baer DO Work Phone: [facility] 04-16-2024 09:41-0400 Body weight 71.63 kg Juan Manuel Baer DO Work Phone: [facility] 04-16-2024 09:41-0400 Diastolic blood pressure 93 mm[Hg] Juan Manuel Baer DO Work Phone: [facility] 04-16-2024 09:41-0400 SaO2% (BldA) [Mass fraction] 100 % Juan Manuel Keyur DO Work Phone: [facility] 04-16-2024 09:41-0400 Systolic blood pressure 135 mm[Hg] Juan Manuel Keyur DO Work Phone: [facility] 03-31-2024 14:31-0400 Body height 157.48 cm DNP Sruthi Farrell Work Phone: [facility] 03-31-2024 14:31-0400 Body temperature 98.7 [degF] DNP Sruthi Kaple Work Phone: [facility] 03-31-2024 14:31-0400 Body weight 74.84 kg DNP Sruthi Kaple Work Phone: [facility] 03-31-2024 14:31-0400 Diastolic blood pressure 64 mm[Hg] DNP Sruthi Kaple Work Phone: [facility] 03-31-2024 14:31-0400 Heart rate 70 /min DNP Sruthi Kaple Work Phone: [facility] 03-31-2024 14:31-0400 Respiratory rate 18 /min DNP Sruthi Kaple Work Phone: [facility] 03-31-2024 14:31-0400 SaO2% (BldA) [Mass fraction] 100 % DNP Sruthi Kaple Work Phone: [facility] 03-31-2024 14:31-0400 Systolic blood pressure 119 mm[Hg] DNP Sruthi Kaple Work Phone: [facility] 03-21-2024 08:41-0400 Body height 158.75 cm DNP Sruthi Kaple Work Phone: [facility] 03-21-2024 08:41-0400 Body mass index (BMI) [Ratio] 29.7 kg/m2 DNP Sruthi Kaple Work Phone: [facility] 03-21-2024 08:41-0400 Body weight 74.98 kg DNP Sruthi Kaple Work Phone: [facility] 03-21-2024 08:41-0400 Diastolic blood pressure 82 mm[Hg] DNP Sruthi Kaple Work Phone: [facility] 03-21-2024 08:41-0400 Heart rate 79 /min DNP Sruthi Kaple Work Phone: [facility] 03-21-2024 08:41-0400 Respiratory rate 16 /min DNP Sruthi Kaple Work Phone: [facility] 03-21-2024 08:41-0400 SaO2% (BldA) [Mass fraction] 97 % DNP Sruthi Kaple Work Phone: [facility] 03-21-2024 08:41-0400 Systolic blood pressure 116 mm[Hg] DNP Sruthi Kaple Work Phone: [facility] 02-13-2024 10:30-0400 Diastolic blood pressure 70 mm[Hg] DNP Sruthi Kaple Work Phone: [facility] 02-13-2024 10:30-0400 Heart rate 54 /min DNP Sruthi Farrell Work Phone: [facility] 02-13-2024 10:30-0400 Respiratory rate 16 /min DNP Sruthi Farrell Work Phone: [facility] 02-13-2024 10:30-0400 SaO2% (BldA) [Mass fraction] 97 % DNP Sruthi Farrell Work Phone: [facility] 02-13-2024 10:30-0400 Systolic blood pressure 106 mm[Hg] DNP Sruthi Farrell Work Phone: [facility] 02-13-2024 08:06-0400 Body height 157.48 cm DNP Sruthi Farrell Work Phone: [facility] 02-13-2024 08:06-0400 Body temperature 98.2 [degF] DNP Sruthi Farrell Work Phone: [facility] 02-13-2024 08:06-0400 Body weight 77.5 kg DNP Sruthi Farrell Work Phone: [facility] 11-29-2023 14:21-0400 Body height 157.5 cm Luz Elena-Nitza Thrasher DO Work Phone: [facility] 11-29-2023 14:21-0400 Body mass index (BMI) [Ratio] 32.46 kg/m2 Luz Elena-Nitza Thrasher DO Work Phone: [facility] 11-29-2023 14:21-0400 Body weight 80.5 kg Luz Elena-Nitza Thrasher DO Work Phone: [facility] 11-29-2023 14:21-0400 Diastolic blood pressure 91 mm[Hg] Luz Elena-Nitza Thrasher DO Work Phone: [facility] 11-29-2023 14:21-0400 Heart rate 93 /min Luz Elena-Nitza Thrasher DO Work Phone: [facility] 11-29-2023 14:21-0400 SaO2% (BldA) [Mass fraction] 99 % Devonte Thrasher DO Work Phone: [facility] 11-29-2023 14:21-0400 Systolic blood pressure 127 mm[Hg] Luz Elena-Nitza Thrasher DO Work Phone: [facility] 11-25-2023 16:22-0400 Diastolic blood pressure 73 mm[Hg] DNP Sruthi Wallacele Work Phone: [facility] 11-25-2023 16:22-0400 Heart rate 64 /min DNP Sruthi Wallacele Work Phone: [facility] 11-25-2023 16:22-0400 Respiratory rate 20 /min DNP Sruthi Kaple Work Phone: [facility] 11-25-2023 16:22-0400 SaO2% (BldA) [Mass fraction] 98 % DNP Sruthi Wallacele Work Phone: [facility] 11-25-2023 16:22-0400 Systolic blood pressure 116 mm[Hg] DNP Sruthi Kaple Work Phone: [facility] 11-25-2023 14:29-0400 Body height 160.02 cm DNP Sruthi Wallacele Work Phone: [facility] 11-25-2023 14:29-0400 Body temperature 98.5 [degF] DNP Sruthi Wallacele Work Phone: [facility] 11-25-2023 14:29-0400 Body weight 82 kg DNP Sruthi Wallacele Work Phone: [facility] 11-20-2023 10:33-0400 Body mass index (BMI) [Ratio] 32.62 kg/m2 Zoe Srinivasan MD Work Phone: [facility] 11-20-2023 10:33-0400 Body weight 80.9 kg Zoe Srinivasan MD Work Phone: [facility] 11-20-2023 10:33-0400 Diastolic blood pressure 77 mm[Hg] Zoe Srinivasan MD Work Phone: [facility] 11-20-2023 10:33-0400 Heart rate 82 /min Zoe Srinivasan MD Work Phone: [facility] 11-20-2023 10:33-0400 Systolic blood pressure 121 mm[Hg] Zoe Srinivasan MD Work Phone: [facility] 10-16-2023 19:49-0400 Diastolic blood pressure 72 mm[Hg] DNP Sruthi Kaple Work Phone: [facility] 10-16-2023 19:49-0400 Heart rate 89 /min DNP Sruthi Kaple Work Phone: [facility] 10-16-2023 19:49-0400 Respiratory rate 16 /min DNP Sruthi Kaple Work Phone: [facility] 10-16-2023 19:49-0400 SaO2% (BldA) [Mass fraction] 99 % DNP Sruthi Kaple Work Phone: [facility] 10-16-2023 19:49-0400 Systolic blood pressure 138 mm[Hg] DNP Sruthi Kaple Work Phone: [facility] 10-16-2023 13:07-0400 Body height 158.75 cm DNP Sruthi Kaple Work Phone: [facility] 10-16-2023 13:07-0400 Body temperature 98.6 [degF] DNP Sruthi Kaple Work Phone: [facility] 10-16-2023 13:07-0400 Body weight 83.2 kg DNP Sruthi Kaple Work Phone: [facility] 10-16-2023 12:02-0400 Body height 163.83 cm DNP Sruthi Kaple Work Phone: [facility] 10-16-2023 12:02-0400 Body mass index (BMI) [Ratio] 30.6 kg/m2 DNP Sruthi Kaple Work Phone: [facility] 10-16-2023 12:02-0400 Body temperature 98.4 [degF] DNP Sruthi Kaple Work Phone: [facility] 10-16-2023 12:02-0400 Body weight 82.1 kg DNP Sruthi Kaple Work Phone: [facility] 10-16-2023 12:02-0400 Diastolic blood pressure 80 mm[Hg] DNP Sruthi Kaple Work Phone: [facility] 10-16-2023 12:02-0400 Systolic blood pressure 124 mm[Hg] DNP Sruthi Kaple Work Phone: [facility] 10-14-2023 13:12-0400 Diastolic blood pressure 55 mm[Hg] DNP Sruthi Kaple Work Phone: [facility] 10-14-2023 13:12-0400 Heart rate 78 /min DNP Sruthi Kaple Work Phone: [facility] 10-14-2023 13:12-0400 Respiratory rate 16 /min DNP Sruthi Kaple Work Phone: [facility] 10-14-2023 13:12-0400 SaO2% (BldA) [Mass fraction] 98 % DNP Sruthi Kaple Work Phone: [facility] 10-14-2023 13:12-0400 Systolic blood pressure 97 mm[Hg] DNP Sruthi Kaple Work Phone: [facility] 10-14-2023 11:29-0400 Body temperature 98.9 [degF] DNP Sruthi Kaple Work Phone: [facility] 10-14-2023 09:01-0400 Body height 163.83 cm DNP Sruthi Kaple Work Phone: [facility] 10-14-2023 09:01-0400 Body weight 82 kg DNP Sruthi Kaple Work Phone: [facility] 09-19-2023 14:42-0400 Diastolic blood pressure 68 mm[Hg] DNP Sruthi Kaple Work Phone: [phone] [place] [address] 09-19-2023 14:42-0400 Heart rate 77 /min DNP Sruthi Kaple Work Phone: [facility] 09-19-2023 14:42-0400 Respiratory rate 16 /min DNP Sruthi Kaple Work Phone: [facility] 09-19-2023 14:42-0400 SaO2% (BldA) [Mass fraction] 97 % DNP Sruthi Kaple Work Phone: [facility] 09-19-2023 14:42-0400 Systolic blood pressure 100 mm[Hg] DNP Sruthi Kaple Work Phone: [facility] 09-19-2023 13:46-0400 Inhaled oxygen flow rate 2 L/min DNP Sruthi Kaple Work Phone: [facility] 09-19-2023 13:06-0400 Body temperature 98.3 [degF] DNP Sruthi Kaple Work Phone: [facility] 09-19-2023 11:39-0400 Body height 158.75 cm DNP Sruthi Kaple Work Phone: [facility] 09-19-2023 11:39-0400 Body mass index (BMI) [Ratio] 33.3 kg/m2 DNP Sruthi Kaple Work Phone: [facility] 09-19-2023 11:39-0400 Body weight 83.91 kg DNP Sruthi Wallacetavares Work Phone: [facility] 08-30-2023 15:30-0500 Body temperature 98.2 [degF] Derrek Holguin MD Other Phone: [facility] 08-30-2023 15:30-0500 Diastolic blood pressure 106 mm[Hg] Derrek Holguin MD Other Phone: [facility] 08-30-2023 15:30-0500 Heart rate 95 /min Derrek Holguin MD Other Phone: [facility] 08-30-2023 15:30-0500 Respiratory rate 18 /min Derrek Holguin MD Other Phone: [facility] 08-30-2023 15:30-0500 SaO2% (BldA) [Mass fraction] 97 % Derrek Holguin MD Other Phone: [facility] 08-30-2023 15:30-0500 Systolic blood pressure 155 mm[Hg] Derrek Holguin MD Other Phone: [facility] 08-01-2023 00:42-0500 Diastolic blood pressure 53 mm[Hg] DNP Sruthi Bud Work Phone: [facility] 08-01-2023 00:42-0500 Heart rate 62 /min DNP Sruthi Bud Work Phone: [facility] 08-01-2023 00:42-0500 Respiratory rate 16 /min DNP Sruthi Bud Work Phone: [facility] 08-01-2023 00:42-0500 SaO2% (BldA) [Mass fraction] 95 % DNP Sruthi Bud Work Phone: [facility] 08-01-2023 00:42-0500 Systolic blood pressure 102 mm[Hg] DNP Sruthi Farrell Work Phone: [facility] 07-31-2023 22:39-0500 Body height 157.48 cm DNP Sruthi Farrell Work Phone: [facility] 07-31-2023 22:39-0500 Body temperature 97.8 [degF] DNP Sruthi Farrell Work Phone: [facility] 07-31-2023 22:39-0500 Body weight 87 kg DNP Sruthi Farrell Work Phone: [facility] 07-05-2023 12:50-0500 Body height 160.02 cm Marlo Salazar Other [facility] 07-05-2023 12:50-0500 Body mass index (BMI) [Ratio] 32.77 kg/m2 Marlo Salazar Other [facility] [employer] Other 07-05-2023 12:50-0500 Body temperature 98.1 [degF] Marlo Salazar Other [email or web address] Other 07-05-2023 12:50-0500 Body weight 83.92 kg Marlo Salazar Other [email or web address] Other 07-05-2023 12:50-0500 Body weight 83.91 kg DNP Sruthi Farrell Work Phone: [facility] 07-05-2023 12:50-0500 Diastolic blood pressure 69 mm[Hg] Marlo Salazar Other [facility] 07-05-2023 12:50-0500 Respiratory rate 18 /min Marlo Salazar Other [email or web address] Other 07-05-2023 12:50-0500 SaO2% (BldA) [Mass fraction] 99 % Marlo Salazar Other [facility] [employer] Other 07-05-2023 12:50-0500 Systolic blood pressure 102 mm[Hg] Marlo Salazar Other [facility] 06-27-2023 22:25-0500 Body temperature 99.6 [degF] DNP Sruthi Kaple Work Phone: [facility] 06-27-2023 20:42-0500 Body height 157.48 cm DNP Sruthi Kaple Work Phone: [facility] 06-27-2023 20:42-0500 Body weight 86.65 kg DNP Sruthi Kaple Work Phone: [facility] 06-27-2023 20:42-0500 Diastolic blood pressure 70 mm[Hg] DNP Sruthi Kaple Work Phone: [facility] 06-27-2023 20:42-0500 Heart rate 100 /min DNP Sruthi Kaple Work Phone: [facility] 06-27-2023 20:42-0500 Respiratory rate 20 /min DNP Sruthi Kaple Work Phone: [facility] 06-27-2023 20:42-0500 SaO2% (BldA) [Mass fraction] 95 % DNP Sruthi Kaple Work Phone: [facility] 06-27-2023 20:42-0500 Systolic blood pressure 157 mm[Hg] DNP Sruthi Kaple Work Phone: [facility] 09-27-2022 09:00-0400 Body height 160.02 cm Sruthi Farrell Other [email or web address] Other 09-27-2022 09:00-0400 Body mass index (BMI) [Ratio] 30.09 kg/m2 Sruthi Farrell Other [employer] Other 09-27-2022 09:00-0400 Body weight 77.07 kg Sruthi Wallacetavares Other [employer] Other 09-27-2022 09:00-0400 Diastolic blood pressure 72 mm[Hg] Sruthi Bud Other [employer] Other 09-27-2022 09:00-0400 Respiratory rate 18 /min Sruthi Bud Other [employer] Other 09-27-2022 09:00-0400 SaO2% (BldA) [Mass fraction] 91 % Sruthi Bud Other [employer] Other 09-27-2022 09:00-0400 Systolic blood pressure 102 mm[Hg] Sruthi Farrell Other [employer] Other 09-08-2022 11:15-0500 Body height 157.5 cm Theron Gastelum MD Work Phone: [facility] 09-08-2022 11:15-0500 Body weight 78.02 kg Theron Gastelum MD Work Phone: [facility] 09-08-2022 11:15-0500 Diastolic blood pressure 78 mm[Hg] Theron Gastelum MD Work Phone: [facility] 09-08-2022 11:15-0500 Heart rate 69 /min Theron Gastelum MD Work Phone: [facility] 09-08-2022 11:15-0500 Systolic blood pressure 110 mm[Hg] Theron Gastelum MD Work Phone: [facility] 09-07-2022 14:30-0500 Body height 160.02 cm Vadim Sandra Other [employer] Other 09-07-2022 14:30-0500 Body mass index (BMI) [Ratio] 30.84 kg/m2 Vadim Sandra Other [employer] Other 09-07-2022 14:30-0500 Body weight 78.97 kg Vadim Sandra Other [employer] Other 09-07-2022 14:30-0500 Diastolic blood pressure 67 mm[Hg] Vadim Sandra Other [employer] Other 09-07-2022 14:30-0500 Respiratory rate 18 /min Vadim Sandra Other [employer] Other 09-07-2022 14:30-0500 SaO2% (BldA) [Mass fraction] 95 % Vadim Sandra Other [employer] Other 09-07-2022 14:30-0500 Systolic blood pressure 102 mm[Hg] Vadim Sandra Other [employer] Other 08-17-2022 14:45-0500 Diastolic blood pressure 72 mm[Hg] DNP Sruthi Wallacele Work Phone: [facility] 08-17-2022 14:45-0500 Heart rate 67 /min DNP Sruthi Kaple Work Phone: [facility] 08-17-2022 14:45-0500 Respiratory rate 18 /min DNP Sruthi Kaple Work Phone: [facility] 08-17-2022 14:45-0500 SaO2% (BldA) [Mass fraction] 97 % DNP Sruthi Kaple Work Phone: [facility] 08-17-2022 14:45-0500 Systolic blood pressure 115 mm[Hg] DNP Sruthi Farrell Work Phone: [facility] 08-17-2022 12:06-0500 Body height 157.48 cm DNP Sruthi Farrell Work Phone: [facility] 08-17-2022 12:06-0500 Body weight 76.35 kg DNP Sruthi Farrell Work Phone: [facility] 08-17-2022 12:05-0500 Body temperature 98.1 [degF] DNP Sruthi Farrell Work Phone: [facility] 08-17-2022 12:00-0500 Body height 160.02 cm Sruthifletcher Wallacetavares Other [employer] Other 08-17-2022 12:00-0500 Body mass index (BMI) [Ratio] 28.62 kg/m2 Sruthi Kaptavares Other [employer] Other 08-17-2022 12:00-0500 Body weight 73.3 kg Sruthifletcher aWllacetavares Other [employer] Other 08-17-2022 12:00-0500 Diastolic blood pressure 60 mm[Hg] Sruthi Bud Other [facility] Other 08-17-2022 12:00-0500 Systolic blood pressure 110 mm[Hg] Sruthi Bud Other [facility] Other 07-31-2022 12:45-0500 Body height 160.02 cm Sruthi Bud Other [employer] Other 07-31-2022 12:45-0500 Body mass index (BMI) [Ratio] 27.93 kg/m2 Sruthi Wallcaele Other [facility] Other 07-31-2022 12:45-0500 Body weight 71.53 kg Sruthi Wallacetavares Other [employer] Other 07-31-2022 12:45-0500 Diastolic blood pressure 78 mm[Hg] Sruthi Bud Other [employer] Other 07-31-2022 12:45-0500 Respiratory rate 18 /min Sruthi Wallacetavares Other [employer] Other 07-31-2022 12:45-0500 SaO2% (BldA) [Mass fraction] 98 % Sruthi Wallacetavares Other [facility] Other 07-31-2022 12:45-0500 Systolic blood pressure 120 mm[Hg] Sruthi Wallacetavares Other [employer] Other 07-10-2022 15:15-0500 Body height 160.02 cm Vadim Sandra Other [employer] Other 07-10-2022 15:15-0500 Body mass index (BMI) [Ratio] 28.71 kg/m2 Vadim Sandra Other [facility] Other 07-10-2022 15:15-0500 Body weight 73.53 kg Vadim Sandra Other [employer] Other 07-10-2022 15:15-0500 Diastolic blood pressure 74 mm[Hg] Vadim Sandra Other [facility] Other 07-10-2022 15:15-0500 Respiratory rate 18 /min Vadim Boxdiff Other [facility] Other 07-10-2022 15:15-0500 SaO2% (BldA) [Mass fraction] 97 % Vadim Sandra Other [facility] Other 07-10-2022 15:15-0500 Systolic blood pressure 113 mm[Hg] Vadim Boxdiff Other [facility] Other 06-19-2022 16:00-0500 Body height 160.02 cm Sruthi Farrell Other [employer] Other 06-19-2022 16:00-0500 Body mass index (BMI) [Ratio] 26.67 kg/m2 Sruthi Farrell Other [facility] Other 06-19-2022 16:00-0500 Body temperature 96.7 [degF] Sruthi Farrell Other [facility] Other 06-19-2022 16:00-0500 Body weight 68.31 kg Sruthi Farrell Other [facility] Other 06-19-2022 16:00-0500 Diastolic blood pressure 68 mm[Hg] Sruthi Farrell Other [facility] Other 06-19-2022 16:00-0500 Respiratory rate 18 /min Sruthi Farrell Other [facility] Other 06-19-2022 16:00-0500 SaO2% (BldA) [Mass fraction] 97 % Sruthi Farrell Other [facility] Other 06-19-2022 16:00-0500 Systolic blood pressure 112 mm[Hg] Sruthi Farrell Other [facility] Other 06-14-2022 09:30-0500 Body height 160.02 cm Sruthi Farrell Other [facility] Other 06-14-2022 09:30-0500 Body mass index (BMI) [Ratio] 26.18 kg/m2 Sruthi Farrell Other [facility] Other 06-14-2022 09:30-0500 Body weight 67.04 kg Sruthi Farrell Other [facility] Other 06-14-2022 09:30-0500 Diastolic blood pressure 70 mm[Hg] Sruthi Farrell Other [facility] Other 06-14-2022 09:30-0500 Respiratory rate 18 /min Sruthi Farrell Other [facility] Other 06-14-2022 09:30-0500 SaO2% (BldA) [Mass fraction] 99 % Sruthi Farrell Other [facility] Other 06-14-2022 09:30-0500 Systolic blood pressure 120 mm[Hg] Sruthi Farrell Other [facility] Other 04-06-2022 12:15-0400 Body height 160.02 cm Sruthi Farrell Other [facility] Other 04-06-2022 12:15-0400 Body mass index (BMI) [Ratio] 29.63 kg/m2 Sruthi Wallacetavares Other [facility] Other 04-06-2022 12:15-0400 Body temperature 96.5 [degF] Sruthi Wallacele Other [facility] Other 04-06-2022 12:15-0400 Body weight 75.89 kg Sruthi Wallacele Other [facility] Other 04-06-2022 12:15-0400 Diastolic blood pressure 60 mm[Hg] Sruthi Wallacele Other [facility] Other 04-06-2022 12:15-0400 Respiratory rate 18 /min Sruthi Wallacetavares Other [facility] Other 04-06-2022 12:15-0400 SaO2% (BldA) [Mass fraction] 99 % Sruthi Wallacetavares Other [facility] Other 04-06-2022 12:15-0400 Systolic blood pressure 100 mm[Hg] Sruthi Wallacele Other [employer] Other 04-05-2022 22:55-0400 Body height 157.48 cm DNP Sruthi Kaple Work Phone: [facility] 04-05-2022 22:55-0400 Body temperature 97.5 [degF] DNP Sruthi Kaple Work Phone: [facility] 04-05-2022 22:55-0400 Body weight 75 kg DNP Sruthi Kaple Work Phone: [facility] 04-05-2022 22:55-0400 Diastolic blood pressure 84 mm[Hg] DNP Sruthi Kaple Work Phone: [facility] 04-05-2022 22:55-0400 Heart rate 70 /min DNP Sruthi Farrell Work Phone: [facility] 04-05-2022 22:55-0400 Respiratory rate 20 /min DNP Sruthi Farrell Work Phone: [facility] 04-05-2022 22:55-0400 SaO2% (BldA) [Mass fraction] 97 % DNP Sruthi Farrell Work Phone: [facility] 04-05-2022 22:55-0400 Systolic blood pressure 118 mm[Hg] DNP Sruthi Farrell Work Phone: [facility] 03-09-2022 08:45-0400 Body height 160.02 cm Sruthi Wallacetavares Other [employer] Other 03-09-2022 08:45-0400 Body mass index (BMI) [Ratio] 30.68 kg/m2 Sruthi Wallacetavares Other [facility] Other 03-09-2022 08:45-0400 Body temperature 97.3 [degF] Sruthi Wallacetavares Other [facility] Other 03-09-2022 08:45-0400 Body weight 78.56 kg Sruthi Wallacetavares Other [facility] Other 03-09-2022 08:45-0400 Diastolic blood pressure 70 mm[Hg] Sruthi Kaptavares Other [facility] Other 03-09-2022 08:45-0400 Respiratory rate 18 /min Sruthi Kaptavares Other [facility] Other 03-09-2022 08:45-0400 SaO2% (BldA) [Mass fraction] 98 % Sruthi Wallacetavares Other [facility] Other 03-09-2022 08:45-0400 Systolic blood pressure 120 mm[Hg] Sruthi Wallacetavares Other [facility] Other 02-22-2022 16:45-0400 Body height 160.02 cm Vadimsymone Boxdiff Other [facility] Other 02-22-2022 16:45-0400 Body mass index (BMI) [Ratio] 30.38 kg/m2 Vadim Sandra Other [facility] Other 02-22-2022 16:45-0400 Body weight 77.79 kg Vadim Sandra Other [facility] Other 02-22-2022 16:45-0400 Diastolic blood pressure 72 mm[Hg] Vadim Sandra Other [facility] Other 02-22-2022 16:45-0400 SaO2% (BldA) [Mass fraction] 97 % Vadim Sandra Other [facility] Other 02-22-2022 16:45-0400 Systolic blood pressure 119 mm[Hg] Vadim Sandra Other [facility] Other 01-10-2022 10:30-0400 Body height 160.02 cm Moises Simmons Other [facility] Other 01-10-2022 10:30-0400 Body mass index (BMI) [Ratio] 31.6 kg/m2 Moises Simmons Other [facility] Other 01-10-2022 10:30-0400 Body temperature 97.9 [degF] Moises Simmons Other [facility] Other 01-10-2022 10:30-0400 Body weight 80.92 kg Moises Simmons Other [facility] Other 01-10-2022 10:30-0400 Diastolic blood pressure 78 mm[Hg] Moises Simmons Other [facility] Other 01-10-2022 10:30-0400 Respiratory rate 18 /min Moises Simmons Other [facility] Other 01-10-2022 10:30-0400 SaO2% (BldA) [Mass fraction] 97 % Moises Simmons Other [facility] Other 01-10-2022 10:30-0400 Systolic blood pressure 110 mm[Hg] Moises Simmons Other [facility] Other 01-04-2022 16:45-0400 Body height 160.02 cm Vadim Sandra Other [facility] Other 01-04-2022 16:45-0400 Body mass index (BMI) [Ratio] 31.81 kg/m2 Vadim Sandra Other [email or web address] Other 01-04-2022 16:45-0400 Body weight 81.47 kg Vadim Sandra Other [email or web address] Other 01-04-2022 16:45-0400 Diastolic blood pressure 70 mm[Hg] Vadim Sandra Other [email or web address] Other 01-04-2022 16:45-0400 Respiratory rate 18 /min Vadim Sandra Other [email or web address] Other 01-04-2022 16:45-0400 SaO2% (BldA) [Mass fraction] 97 % Vadim Sandra Other [email or web address] Other 01-04-2022 16:45-0400 Systolic blood pressure 97 mm[Hg] Vadim Sandra Other [email or web address] Other 11-24-2021 09:15-0400 Body height 160.02 cm Odalis Carrero Other [email or web address] Other 11-03-2021 14:30-0400 Body height 160.02 cm Vadim Sandra Other [email or web address] Other 11-03-2021 14:30-0400 Body mass index (BMI) [Ratio] 34.34 kg/m2 Vadim Sandra Other [email or web address] Other 11-03-2021 14:30-0400 Body weight 87.95 kg Vadim Sandra Other [email or web address] Other 11-03-2021 14:30-0400 Diastolic blood pressure 67 mm[Hg] Vadim Sandra Other [email or web address] Other 11-03-2021 14:30-0400 Respiratory rate 18 /min Vadim Sandra Other [email or web address] Other 11-03-2021 14:30-0400 SaO2% (BldA) [Mass fraction] 95 % Vadimsymone Boxdiff Other [facility] Other 11-03-2021 14:30-0400 Systolic blood pressure 101 mm[Hg] Vadimsymone Boxdiff Other [facility] Other 10-12-2021 16:30-0400 Body height 160.02 cm Sruthi Farrell Other [facility] Other 10-12-2021 16:30-0400 Body mass index (BMI) [Ratio] 34.36 kg/m2 Sruthi Farrell Other [facility] Other 10-12-2021 16:30-0400 Body weight 88 kg Sruthi Farrell Other [facility] Other 10-12-2021 16:30-0400 Diastolic blood pressure 67 mm[Hg] Sruthi Farrell Other [facility] Other 10-12-2021 16:30-0400 Respiratory rate 18 /min Sruthi Farrell Other [facility] Other 10-12-2021 16:30-0400 SaO2% (BldA) [Mass fraction] 97 % Sruthi Farrell Other [email or web address] Other 10-12-2021 16:30-0400 Systolic blood pressure 102 mm[Hg] Sruthi Farrell Other [facility] Other Encounters Encounter Date Encounter Type Care Provider Facility Start: 05-27-2024 End: 05-27-2024 ambulatory Bhakti Coronel APRN.OPEN PIT QUARRY SUPERVISOR Work Phone: Neurology Comment on above: IIH (idiopathic intr acranial hypertension) Start: 05-27-2024 End: 05-27-2024 Telemedicine consultation with patient Bhakti Coronel DELIVERY ASSISTANT.OPEN PIT QUARRY SUPERVISOR Work Phone: Neurology Start: 05-10-2024 End: 05-10-2024 ambulatory Mariola Dale DIGITAL PRODUCTION MANAGER-BC Work Phone: [facility] Work Phone: Start: 05-10-2024 End: 05-10-2024 Patient encounter procedure Mariola Dale DIGITAL PRODUCTION MANAGER-BC Work Phone: [facility] Work Phone: Start: 05-07-2024 End: 05-07-2024 ambulatory Estelle E Estelle DO Work Phone: Pain Management Comment on above: Questionnaire Submis haseeb Start: 05-07-2024 End: 05-07-2024 E-mail encounter from caregiver Estelle E Estelle DO Work Phone: Pain Management Start: 04-27-2024 End: 04-29-2024 ambulatory Juan Manuel Baer DO Work Phone: Neurology Pain Comment on above: Medication Start: 04-16-2024 End: 04-16-2024 ambulatory BHAKTI CORONEL Facility:[facility] Start: 04-16-2024 End: 04-16-2024 Office outpatient new 30 minutes Juan Manuel Baer DO Work Phone: Neurology Pain Comment on above: Polyarthralgia (Prim angella Dx); Chronic pain syndrome; Chronic bilateral low back pain with right-sided sciatica Start: 03-31-2024 End: 03-31-2024 Emergency department patient visit DNP Sruthi Farrell Work Phone: [facility] Work Phone: Start: 03-21-2024 End: 03-21-2024 ambulatory DNP Sruthi Farrell Work Phone: [facility] Work Phone: Start: 03-21-2024 End: 03-21-2024 Patient encounter procedure DNP Sruthi Wallacetavares Work Phone: [facility] Work Phone: Start: 02-28-2024 End: 02-28-2024 Telephone encounter Smiley Munoz MD Work Phone: Ophthalmology Start: 02-22-2024 End: 02-22-2024 ambulatory Bhakti Coronel APRN.OPEN PIT QUARRY SUPERVISOR Work Phone: Neurology Comment on above: IIH (idiopathic intr acranial hypertension); Class 1 obesity due to excess calories with serious comorbidity and body mass index (BMI) of 32.0 to 32.9 in adult Start: 02-22-2024 End: 02-22-2024 Telemedicine consultation with patient Bhakti Coronel DELIVERY ASSISTANT.OPEN PIT QUARRY SUPERVISOR Work Phone: Neurology Start: 02-15-2024 End: 02-15-2024 ambulatory RIYA KIRK Facility:[facility] Start: 02-15-2024 End: 02-15-2024 Patient encounter procedure Riya Kirk OD Work Phone: Ophthalmology Comment on above: IIH (idiopathic intr acranial hypertension) (Primary Dx); Accommodation spasm, bilateral; Hyperopic astigmatism of both eyes Start: 02-14-2024 Non-patient / Non-visit DNP Sven Farrell Work Phone: [facility] Work Phone: Start: 02-13-2024 End: 02-13-2024 Emergency department patient visit DNP Sruthi Farrell Work Phone: [facility] Work Phone: Start: 01-07-2024 Non-patient / Non-visit DNP Sven Farrell Work Phone: [facility] Work Phone: Start: 12-03-2023 End: 12-03-2023 ambulatory Zoe Srinivasan MD Work Phone: Rheumatology Comment on above: Polyarthralgia (Prim angella Dx); Chronic pain syndrome Start: 12-03-2023 End: 12-03-2023 Telemedicine consultation with patient Zoe Srinivasan MD Work Phone: Rheumatology Start: 11-30-2023 End: 11-30-2023 ambulatory Hamilton Rodriguez MD Work Phone: Neurology [facility] Comment on above: IIH (idiopathic intr acranial hypertension) (Primary Dx); Class 1 obesity due to excess calories with serious comorbidity and body mass index (BMI) of 32.0 to 32.9 in adult Start: 11-30-2023 End: 11-30-2023 Telemedicine consultation with patient Hamilton Rodriguez MD Work Phone: Neurology [facility] Start: 11-29-2023 End: 11-29-2023 ambulatory LUZ ELENA-NITZA THRASHER Facility:[facility] Start: 11-29-2023 End: 11-29-2023 Patient encounter procedure Luz Elena-Nitza Thrasher DO Work Phone: General Surgery Comment on above: RLQ abdominal pain ( Primary Dx); Metal foreign body in abdomen Start: 11-27-2023 End: 11-27-2023 ambulatory MIGUEL ÁNGEL MONTANO Not Available Start: 11-27-2023 Non-patient / Non-visit DNP Sven Farrell Work Phone: [facility] Family Medicine [facility] Work Phone: Start: 11-25-2023 End: 11-25-2023 Emergency department patient visit CHILO Farrell Work Phone: [facility] Work Phone: Start: 11-20-2023 End: 11-20-2023 ambulatory Leora Jose RT(R) Radiology Comment on above: Radiology XR Start: 11-20-2023 Patient encounter procedure Leora Jose RT(R) Radiology Start: 11-20-2023 End: 11-20-2023 Subsequent hospital visit by physician Xr [facility] Radiology Comment on above: Polyarthralgia [M25. 50] Start: 11-20-2023 End: 11-20-2023 Office outpatient new 60 minutes Zoe Srinivasan MD Work Phone: Rheumatology Comment on above: Polyarthralgia (Prim angella Dx); Elevated C-reactive protein (CRP) Start: 11-19-2023 Non-patient / Non-visit DNP Sven Farrell Work Phone: [facility] Work Phone: Start: 10-18-2023 End: 10-18-2023 ambulatory MIGUEL ÁNGEL MONTANO Not Available Start: 10-16-2023 End: 10-16-2023 ambulatory Delia Langston RN NURSE RESEARCH AND DEVELOPMENT SCIENTIST Comment on above: Swollen Glands Start: 10-16-2023 Non-patient / Non-visit DNP Sven Farrell Work Phone: [facility] Work Phone: Start: 10-16-2023 End: 10-16-2023 Emergency department patient visit DNP Sruthi Wallacetavares Work Phone: [facility] Work Phone: Start: 10-16-2023 End: 10-16-2023 Patient encounter procedure CHILO Negro Bud Work Phone: [facility] Medicine [facility] Work Phone: Start: 10-14-2023 End: 10-14-2023 Emergency department patient visit DNP Sruthi Wallacetavares Work Phone: [facility] Work Phone: Start: 10-05-2023 End: 10-05-2023 ambulatory MIGUEL ÁNGEL MONTANO Not Available Start: 09-26-2023 End: 09-26-2023 ambulatory MIGUEL ÁNGEL MONTANO Not Available Start: 09-19-2023 End: 09-19-2023 Admission to same day surgery center CHILO BullardSruthi Bud Work Phone: [facility] [place] Start: 09-19-2023 End: 09-19-2023 ambulatory DNP Sruthi Bud Work Phone: [facility] Work Phone: Start: 09-10-2023 End: 09-10-2023 Departed Referred DNP Sruthi Bud Work Phone: [facility] Work Phone: Start: 09-10-2023 End: 09-10-2023 Patient encounter procedure DNP Sruthi Bud Work Phone: [facility] Work Phone: Start: 09-10-2023 End: 09-10-2023 ambulatory Sruthi Farrell Facility:[facility] Start: 08-30-2023 End: 08-30-2023 Emergency department patient visit Derrek Holguin MD Other Phone: [facility] Emergency Medicine Comment on above: Jaw symptoms/complai nts (Has L jaw fx, was referred here to get CT scan. C/o jaw locking, and tenderness. ) Start: 08-30-2023 End: 08-30-2023 Emergency department patient visit DERREK HOLGUIN Facility:[facility] Start: 08-23-2023 End: 08-23-2023 ambulatory MIGUEL ÁNGEL MONTANO Not Available Start: 08-01-2023 End: 08-01-2023 ambulatory Sruthi Farrell Other [email or web address] Other Start: 08-01-2023 Telephone encounter Sruthi Chan [facility] Start: 07-31-2023 End: 08-01-2023 Emergency department patient visit DNP Sruthi Bud Work Phone: [facility] Work Phone: Start: 07-05-2023 End: 07-05-2023 ambulatory Marlo Salazar Other [email or web address] Other Start: 07-05-2023 Office outpatient vi sit 15 minutes Marlo Salazar [facility] [address] Start: 07-05-2023 End: 07-05-2023 Patient encounter procedure DNP Sruthi Farrell Work Phone: [facility] Work Phone: Start: 07-03-2023 End: 07-03-2023 ambulatory Sruthi Farrell Other [email or web address] Other Start: 07-03-2023 Telephone encounter Sruthi Farrell F [facility] Start: 06-28-2023 End: 06-28-2023 ambulatory Sruthi Farrell Other [email or web address] Other Start: 06-28-2023 Telephone encounter Sruthi Farrell F [facility] Start: 06-27-2023 End: 06-27-2023 Emergency department patient visit DNP Sruthi Farrell Work Phone: [facility] Work Phone: Start: 06-11-2023 End: 06-11-2023 ambulatory Sruthi Farrell Other [email or web address] Other Start: 06-11-2023 Telephone encounter Sruthi Farrell [facility] Start: 06-11-2023 End: 06-11-2023 Patient encounter procedure DNP Sruthi Farrell Work Phone: [facility] Family Medicine [facility] Work Phone: Start: 03-27-2023 End: 03-27-2023 ambulatory Sruthi Farrell Other [email or web address] Other Start: 03-27-2023 Telephone encounter Sruthi Chan [facility] Start: 02-12-2023 End: 02-12-2023 Patient encounter procedure DNP Sruthi Farrell Work Phone: [facility] Start: 02-02-2023 End: 02-02-2023 ambulatory Sruthi Farrell Other [email or web address] Other Start: 02-02-2023 Telephone encounter Sruthi Chan [facility] Start: 01-18-2023 End: 01-18-2023 ambulatory Sruthi Farrell Other [email or web address] Other Start: 01-18-2023 Telephone encounter Sruthi Chan [facility] Start: 01-16-2023 Telephone encounter Sruthi Farrell Dustin [facility] Start: 01-16-2023 End: 01-16-2023 ambulatory DNP Sruthifletcher Wallacetavares Work Phone: [facility] Work Phone: Start: 01-16-2023 End: 01-16-2023 Patient encounter procedure DNP Sruthi Farrell Work Phone: [facility] Start: 10-31-2022 End: 10-31-2022 ambulatory Sruthi Farrell Other [email or web address] Other Start: 10-31-2022 Telephone encounter Sruthi Farrell Dustin [facility] Start: 09-27-2022 End: 09-27-2022 ambulatory Sruthi Farrell Other [email or web address] Other Start: 09-27-2022 Office outpatient vi sit 25 minutes Sruthi Farrell [facility] Start: 09-08-2022 End: 09-08-2022 ambulatory Sruthi Farrell Other [email or web address] Other Start: 09-08-2022 Telephone encounter Sruthi Chan [facility] Start: 09-08-2022 End: 09-08-2022 Patient encounter procedure Theron Gastelum MD Work Phone: Cardiology Comment on above: Atypical chest pain (Primary Dx) Start: 09-07-2022 Registered Recurring DNP Breana Farrell Work Phone: [facility]Weight [facility] Work Phone: Start: 09-07-2022 Follow-up encounter Vadim arzola [facility] Start: 09-07-2022 End: 09-07-2022 ambulatory DNP Sruthi Wallacetavares Work Phone: [facility] Work Phone: Start: 09-07-2022 End: 09-07-2022 Patient encounter procedure DNP Sruthi Farrell Work Phone: [facility]-Electrodiagnostics Work Phone: Start: 09-07-[address] Sunny Moreno II Facility:[id number] Start: 08-29-2022 End: 08-29-2022 ambulatory Sruthi Farrell Other [facility] Other Start: 08-29-2022 Telephone encounter Sruthi Kaptavares [facility] Start: 08-28-2022 End: 08-28-2022 Patient encounter procedure DNP Sruthi Farrell Work Phone: [facility]-Lab [facility] Start: 08-28-2022 End: 08-28-2022 ambulatory DNP Sruthi Farrell Work Phone: [facility] Work Phone: Start: 08-28-2022 Telephone encounter Sruthi Wallacetavares [facility] Start: 08-21-2022 End: 08-21-2022 ambulatory Sruthi Kaptavares Other [email or web address] Other Start: 08-21-2022 Telephone encounter Sruthi Wallacetavares Dustin [facility] Start: 08-18-2022 End: 08-18-2022 ambulatory Sruthi Kaptavares Other [email or web address] Other Start: 08-18-2022 Telephone encounter Sruthi Chan [facility] Start: 08-17-2022 End: 08-18-2022 ambulatory SRUTHI BUD Facility: Start: 08-17-2022 Office outpatient vi sit 40 minutes Sruthi Farrell [facility] Start: 08-17-2022 Telephone encounter Sruthi Wallacetavares Dustin [facility] Start: 08-17-2022 End: 08-17-2022 Emergency department patient visit DNP Sruthi Farrell Work Phone: [facility] Work Phone: Start: 08-09-2022 End: 08-09-2022 ambulatory DNP Sruthi Farrell Work Phone: [facility] Work Phone: Start: 08-09-2022 End: 08-09-2022 Patient encounter procedure DNP Sruthi Farrell Work Phone: [facility] Work Phone: Start: 08-04-2022 End: 08-04-2022 ambulatory Sruthi Kaptavares Other [email or web address] Other Start: 08-04-2022 Telephone encounter Sruthi Bud [facility]in [facility] Start: 07-31-2022 End: 07-31-2022 ambulatory Sruthi Bud Other [email or web address] Other Start: 07-31-2022 Office outpatient vi sit 25 minutes Sruthi Farrell [facility] Start: 07-25-2022 End: 07-25-2022 ambulatory Vadim Sandra Other [email or web address] Other Start: 07-25-2022 Telephone encounter Vadim arzola [facility] Start: 07-10-2022 Registered Recurring DNP Breana Farrell Work Phone: [facility] Work Phone: Start: 07-10-2022 End: 07-10-2022 ambulatory Vadim Sandra Other [email or web address] Other Start: 07-10-2022 Follow-up encounter Vadim arzola [facility] Start: 07-04-2022 End: 07-04-2022 ambulatory Vadim Sandra Other [email or web address] Other Start: 07-04-2022 Telephone encounter Vadim arzola [facility] Start: 06-19-2022 End: 06-19-2022 ambulatory Sruthi Farrell Other [email or web address] Other Start: 06-19-2022 Office outpatient vi sit 25 minutes Sruthi Farrell [facility] Start: 06-19-2022 Telephone encounter Sruthi Chan [facility] Start: 06-15-2022 End: 06-15-2022 ambulatory Sruthi Farrell Other [email or web address] Other Start: 06-15-2022 Telephone encounter Sruthi Chan [facility] Start: 06-14-2022 Office outpatient vi sit 25 minutes Sruthi Farrell [facility] Start: 06-14-2022 End: 06-14-2022 ambulatory DNP Sruthi Farrell Work Phone: [facility] Work Phone: Start: 06-14-2022 End: 06-14-2022 Patient encounter procedure DNP Sruthi Farrell Work Phone: [facility] Start: 06-05-2022 End: 06-05-2022 ambulatory Sruthi Kaptavares Other [email or web address] Other Start: 06-05-2022 Telephone encounter Sruthi Bud Dustin [facility] Start: 05-30-2022 End: 05-30-2022 ambulatory Sruthi Kaptavares Other [email or web address] Other Start: 05-30-2022 Telephone encounter Sruthi Chan [facility] Start: 05-10-2022 Registered Recurring DNP Breana Farrell Work Phone: [facility] Start: 05-03-2022 End: 05-03-2022 ambulatory Sruthi Bud Other [email or web address] Other Start: 05-03-2022 Telephone encounter Sruthi Bud Chan [facility] Start: 04-25-2022 End: 04-25-2022 ambulatory Vadim Sandra Other [email or web address] Other Start: 04-25-2022 Telephone encounter Vadim Chan [facility] Start: 04-06-2022 End: 04-06-2022 ambulatory Sruthi Bud Other [email or web address] Other Start: 04-06-2022 Office outpatient vi sit 25 minutes Sruthi Farrell [facility] Start: 04-05-2022 End: 04-06-2022 Emergency department patient visit DNP Sruthi Farrell Work Phone: [facility] Start: 04-03-2022 End: 04-03-2022 ambulatory DNP Sruthi Farrell Work Phone: [facility] Work Phone: Start: 04-03-2022 End: 04-03-2022 Patient encounter procedure CHILO Farrell Work Phone: [facility]MRI [facility] [place] Start: 03-27-2022 End: 03-28-2022 ambulatory VAN DAVIDSON Facility: Start: 03-16-2022 End: 03-16-2022 Patient encounter procedure DNP Sruthi Farrell Work Phone: [facility] [place] Start: 03-09-2022 End: 03-09-2022 ambulatory Sruthi Farrell Other [email or web address] Other Start: 03-09-2022 Office outpatient vi sit 25 minutes Sruthi Farrell [facility] Start: 03-08-2022 End: 03-08-2022 ambulatory Sruthi Farrell Other [email or web address] Other Start: 03-08-2022 Telephone encounter Sruthi Chan [facility] [address] Start: 03-03-2022 End: 03-03-2022 Patient encounter procedure CHILO Farrell Work Phone: [facility] [place] Start: 02-22-2022 Registered Recurring DNP Breana Farrell Work Phone: [facility] Start: 02-22-2022 (Televisit) Televisit Vadim Sandra [facility] Start: 02-22-2022 End: 02-22-2022 ambulatory Vadim Sandra Other [email or web address] Other Start: 01-12-2022 End: 01-12-2022 ambulatory Sruthi Farrell Other [email or web address] Other Start: 01-12-2022 Telephone encounter Sruthi Chan [facility] Start: 01-10-2022 End: 01-10-2022 ambulatory Moises Iris Other [email or web address] Other Start: 01-10-2022 Office outpatient vi sit 15 minutes Moises Simmons [facility] Start: 01-04-2022 End: 01-04-2022 ambulatory Vadim Sandra Other [email or web address] Other Start: 01-04-2022 Follow-up encounter Vadim arzola [facility] Start: 12-16-2021 End: 12-16-2021 ambulatory Vadim Sandra Other [email or web address] Other Start: 12-16-2021 Telephone encounter Vadim arzola [facility] Start: 12-14-2021 End: 12-14-2021 ambulatory VAN DAVIDSON Facility: Start: 11-24-2021 End: 11-24-2021 ambulatory Odalis Fitt Other [email or web address] Other Start: 11-24-2021 IBT FOR OBESITY GROU P 2-10 30M Odalis Fitt [facility] Start: 11-22-2021 End: 11-22-2021 ambulatory Vadim Sandra Other [email or web address] Other Start: 11-22-2021 Telephone encounter Vadim arzola [facility] Start: 11-16-2021 End: 11-16-2021 ambulatory Odalis Fitt Other [email or web address] Other Start: 11-16-2021 Telephone encounter Vadim arzola [facility] Start: 11-07-2021 End: 11-07-2021 ambulatory Vadim Sandra Other [email or web address] Other Start: 11-07-2021 Telephone encounter Vadim brown [facility] Start: 11-04-2021 End: 11-04-2021 ambulatory Vadim Sandra Other [email or web address] Other Start: 11-04-2021 Telephone encounter Vadim arzola [facility] Start: 11-03-2021 End: 11-03-2021 ambulatory Vadim Sandra Other [email or web address] Other Start: 11-03-2021 Nutrition therapy Vadimsymone Boxdiyulissa Crowe [facility] Start: 10-14-2021 End: 10-14-2021 ambulatory Odalis Carrero Other [email or web address] Other Start: 10-14-2021 Telephone encounter Odalis Crowe [facility] Start: 10-13-2021 End: 10-13-2021 ambulatory Sruthi Farrell Other [email or web address] Other Start: 10-13-2021 Office outpatient vi sit 10 minutes Sruthi Farrell [facility] [place] [facility] Start: 10-13-2021 Telephone encounter Sruthi Chan [facility] Start: 10-12-2021 End: 10-12-2021 ambulatory Sruthi Farrell Other [email or web address] Other Start: 10-12-2021 Encounter for genera l adult medical examination without abnormal findings Sruthi Farrell [facility] Start: 10-12-2021 Initial preventive medicine new pt age 18-39yrs Sruthi Farrell [facility] Start: 06-28-2017 End: 06-29-2017 Ambulatory John Mendoza Facility:[facility] Start: 05-31-2017 End: 05-31-2017 Emergency department patient visit [employer] Facility:[facility] Start: 05-28-2017 End: 05-29-2017 Ambulatory John Mendoza Facility:[facility] Start: 04-27-2017 End: 04-27-2017 Ambulatory John Mendoza Facility:[facility] Start: 04-23-2017 End: 04-23-2017 Ambulatory John Mendoza Facility:[facility] Start: 04-05-2017 End: 04-05-2017 Ambulatory Vibha Alonzo Facility:[facility] Start: 03-17-2017 End: 03-17-2017 Emergency department patient visit LEV Kuhn [facility] Procedures Date Procedure Procedure Detail Performing Clinician Start: 03-31-2024 Computed tomography of thoracic spine without contrast DNP Sruthi Farrell Work Phone: Start: 03-31-2024 CT cervical spine without contrast DNP Sruthi Rodrigole Work Phone: Start: 03-31-2024 CT of head without contrast DNP Sruthi Rodrigole Work Phone: Start: 03-31-2024 CT of lumbar spine without contrast DNP Sruthi Kaple Work Phone: Start: 02-15-2024 Computerized ophthalmic imaging optic nerve Riya Kirk OD Work Phone: Start: 02-13-2024 Duplex scan veins of upper limb DNP Sruthi Rodrigole Work Phone: Start: 02-13-2024 Plain X-ray of right forearm DNP Sruthi Kaple Work Phone: Start: 02-13-2024 Plain X-ray of right hand DNP Sruthi K aple Work Phone: Start: 11-25-2023 Plain X-ray of right hip DNP Sruthi Ka ple Work Phone: Start: 11-25-2023 Computed tomography of abdomen and pelvis with contrast DNP Sruthi Rodrigole Work Phone: Start: 11-20-2023 Radiologic examination sacroiliac jnts <3 views Zoe Srinivasan MD Work Phone: Start: 10-16-2023 CSF (PCR) CHILO Farrell Work Phone: Start: 10-16-2023 Investigation of transfusion reaction CHILO Farrell Work Phone: Start: 10-16-2023 CT cervical spine without contrast CHILO Farrell Work Phone: Start: 10-16-2023 CT of head without contrast CHILO Farrell Work Phone: Start: 10-14-2023 Blood culture for bacteria, including anaerobic screen DNP Sruthi Farrell Work Phone: Start: 10-14-2023 Respiratory Panel (PCR) CHILO chapin Work Phone: Start: 10-14-2023 Streptococcus pyogenes antigen assay [facility] Sruthi Farrell Work Phone: Start: 10-14-2023 Plain chest X-ray CHILO Farrell Work Phone: Start: 10-14-2023 Computed tomography of abdomen and pelvis with contrast CHILO Farrell Work Phone: Start: 09-19-2023 Laparoscopic cholecystectomy CHILO Farrell Work Phone: Start: 08-30-2023 Ct maxillofacial w/contrast material Derrek Holguin MD Other Phone: Start: 08-30-2023 Basic metabolic panel calcium total Jeannine A. Hunt DELIVERY ASSISTANT-OPEN PIT QUARRY SUPERVISOR Other Phone: Start: 07-31-2023 CT of abdomen and pelvis without contrast CHILO Farrell Work Phone: Start: 06-27-2023 SARS-CoV-2, Influenza & RSV (PCR) [facility] Sruthi Farrell Work Phone: Start: 02-12-2023 Ultrasonography of left breast DNP Sruthi Farrell Work Phone: Start: 01-16-2023 Plain X-ray of left hand DNP Sruthi Scott ple Work Phone: Start: 01-16-2023 Plain X-ray of right hand DNP Sruthi Pike aple Work Phone: Start: 09-08-2022 Ecg routine ecg w/least 12 lds i&r only [facility] Provider Start: 08-28-2022 Piperacillin/tazobactam Sruthi Farrell Other Start: 08-28-2022 Urine culture DNP Sruthi Farrell Work Phone: Start: 08-17-2022 Plain chest X-ray DNP Sruthi Farrell Work Phone: Start: 08-09-2022 Bilateral mammography DNP Sruthi Farrell Work Phone: Start: 08-09-2022 Ultrasonography of left breast CHILO Farrell Work Phone: Start: 06-14-2022 X-ray of lumbar spine, four or more views DNP Sruthi Farrell Work Phone: Start: 04-03-2022 MRI venography DNP Sruthi Farrell Work Phone: Start: 03-03-2022 MRI of head DNP Sruthi Farrell Work Phone: Start: 03-17-2017 VITAL SIGNS LEV HOY Start: 03-17-2017 TELEMETRY MONITORING LEV HOY Start: 03-17-2017 EKG 12-LEAD LEV HOY Aerobic microbial culture DN P Sruthi Farrell Work Phone: Anaerobic microbial culture DNP Sruthi Farrell Work Phone: H/O: hysterectomy H/O: hysterectomy CHILO Bermudez [place] Wallacetavares Work Phone: History of cholecystectomy Hx of cholecys tectomy CHILO Farrell Work Phone: Investigation of transfusion reaction DNP Sruthi Farrell Work Phone: Investigation of transfusion reaction CHILO Farrell Work Phone: Plan of Treatment Date Care Activity Detail Author Start: 09-19-2035 Shingles (RZV) Vaccine (1 of 2) Shingles (RZV) Vaccine (1 of 2) [facility] Start: 08-22-2024 End: 08-22-2024 Patient encounter procedure Ophthalmology Comment on above: 6 months 30-2, DFE and RNFL/GCA Start: 08-05-2024 End: 08-05-2024 Patient encounter procedure 08/05/2024 8:00 AM EST Office Visit [facility] Ophthalmology [address] [address] Smiley Munoz MD [address] [place], [place] [id number] IIH - Being referred by Dr. Rodriguez Ophthalmology Comment on above: IIH - Being referred by Dr. Rodriguez Start: 07-18-2024 End: 07-18-2024 Patient encounter procedure Neurology Pain Comment on above: Polyarthralgia [M25.50] Start: 06-13-2024 End: 06-13-2024 ambulatory 06/13/2024 11:00 AM EST [facility] [address] [facility] [place] [address] Gris Means, PhD [address] [place] [address] Polyarthralgia [M25.50] Pain Recovery Comment on above: Polyarthralgia [M25.50] Start: 06-07-2024 End: 06-07-2024 Patient encounter procedure 06/07/2024 10:30 AM EST Office Visit Pain Management [address] [place] [address] [place] [address] [address] Back Pain Pain Management Comment on above: Back Pain Start: 05-27-2024 End: 05-27-2024 ambulatory 05/27/2024 7:00 AM EST [facility] Neurology [address] [place] [address] Bhakti Coronel, DELIVERY ASSISTANT.OPEN PIT QUARRY SUPERVISOR [address] [place] [address] II Neurology Comment on above: II Start: 05-19-2024 End: 05-19-2024 Patient encounter procedure 05/19/2024 8:30 AM EST Office Visit Pain Management [address] [place] [address] [place] [address] [address] Back Pain Pain Management Comment on above: Back Pain Start: 04-16-2024 End: 04-16-2024 Patient encounter procedure 04/16/2024 10:00 AM EDT Office Visit Neurology Pain [address] [place] [address] [place] [address] [place] [address] Chronic pain syndrome [G89.4] Neurology Pain Comment on above: Chronic pain syndrome [G89.4] Start: 03-24-2024 End: 06-23-2024 Basic metabolic 2000 panel - Serum or Plasma BASIC METABOLIC PANEL Lab Routine [facility] (idiopathic intracranial hypertension) Expected: 03/24/2024, Expires: 06/23/2024 [facility] Work Phone: Comment on above: Expected: 03/24/2024, Expires: Start: 03-02-2024 Covid-19 Vaccine () Covid-19 Vaccine () [facility] Start: 03-02-2024 Influenza vaccination [facility] Start: 02-22-2024 End: 02-22-2024 ambulatory 02/22/2024 8:00 AM EDT [facility] Neurology [address] [place] [address] Bhakti Coronel, DELIVERY ASSISTANT.OPEN PIT QUARRY SUPERVISOR [address] [place] [address] II Neurology Comment on above: IIH Start: 02-13-2024 Duplex scan veins of upper limb US venous duplex UE RT [facility] Start: 02-13-2024 US Upper extremity vein - right [facility] Start: 12-28-2023 End: 12-28-2023 Patient encounter procedure 12/28/2023 9:00 AM EDT Office Visit [facility] Ophthalmology [address] [place] [address] Riya Kirk, OD [address] [place] [address] I think to check my optic nerves due to II Ophthalmology Comment on above: I think to check my optic nerves due to IIH Start: 12-03-2023 End: 12-03-2023 ambulatory 12/03/2023 2:30 PM EDT [facility] Rheumatology [address] [address] Zoe Srinivasan MD [address] [place] [address] Return in about 13 days (around 12/03/2023) for virtual. Rheumatology Comment on above: Return in about 13 days (around 12/03/2023 ) for virtual. Start: 12-03-2023 End: 03-03-2024 C reactive protein [Mass/volume] in Serum or Plasma C-REACTIVE PROTEIN Lab Routine Polyarthralgia Expected: 12/03/2023, Expires: 03/03/2024 [facility] Work Phone: Comment on above: Expected: 12/03/2023, Expires: Start: 12-03-2023 End: 03-03-2024 Erythrocyte sedimentation rate SEDIMENTATION RATE, WESTERGREN Lab Routine Polyarthralgia Expected: 12/03/2023, Expires: 03/03/2024 [facility] Comment on above: Expected: 12/03/2023, Expires: Start: 11-30-2023 End: 11-30-2023 ambulatory 11/30/2023 8:00 AM EDT [facility] Neurology Headache [facility] [address] [place] [address] [place] [address] [place] [address] Idiopathic intercranial hypertension, need to restart medication Neurology Headache [facility] Comment on above: Idiopathic intercranial hypertension, ne ed to restart medication Start: 11-25-2023 Plain X-ray of right hip XR hip RT min 2V(w/wo pelvis)* [facility] Start: 11-25-2023 XR Hip - right 2 Views [facility] Start: 11-20-2023 End: 02-19-2024 MARCIAL BY IFA SCREEN [facility] Comment on above: Expected: 11/20/2023, Expires: 4 Start: 11-20-2023 End: 02-19-2024 Cyclic citrullinated peptide IgG Ab [Units/volume] in Serum or Plasma [facility] Work Phone: Comment on above: Expected: 11/20/2023, Expires: 4 Start: 11-20-2023 End: 02-19-2024 DNA double strand Ab [Units/volume] in Serum by Immunoassay [facility] Comment on above: Expected: 11/20/2023, Expires: Start: 11-20-2023 End: 02-19-2024 Extractable nuclear Ab panel - Serum [facility] Comment on above: Expected: 11/20/2023, Expires: 4 Start: 11-20-2023 End: 02-19-[address] [facility] Comment on above: Expected: 11/20/2023, Expires: 4 Start: 11-20-2023 End: 02-19-2024 PROTEIN ELECTROPHORESIS SERUM W/INTERP [facility] Comment on above: Expected: 11/20/2023, Expires: 4 Start: 10-16-2023 Cerebrospinal fluid culture [facility] Start: 10-14-2023 Bacteria identified in Blood by Culture [facility] Start: 10-14-2023 Blood culture for bacteria, including anaerobic screen Blood Culture [facility] Start: 09-19-2023 End: 09-19-2023 [facility] Start: 07-31-2023 CT Abdomen and Pelvis WO contrast [facility] Start: 07-31-2023 CT of abdomen and pelvis without contrast CT abdomen pelvis wo con [facility] Start: 07-05-2023 Urine microalbumin profile DTaP,Tdap,Td Vaccine (2 - Td or Tdap) [facility] Start: 07-02-2023 Behavioral Health Screening Behavioral Health Screening [facility] Start: 03-02-2023 Covid-19 Vaccine ( season) Covid-19 Vaccine () [facility] Start: 03-02-2023 Influenza vaccination Influenza Vaccine (#1) [facility] [employer] [facility] Start: 09-08-2022 End: 11-08-2022 Lipid 1996 panel - Serum or Plasma LIPID PANEL BASIC Lab Routine Atypical chest pain Expected: 09/08/2022, Expires: 11/08/2022 [facility] Work Phone: Comment on above: Expected: 09/08/2022, Expires: 3 Start: 07-02-2022 DEPRESSION ASSESSMENT DEPRESSION ASSESSMENT [facility] Start: 03-16-2022 Borrelia burgdorferi DNA assay [facility] Work Phone: Start: 03-16-2022 Cerebrospinal fluid culture [facility] Work Phone: Start: 03-02-2022 Influenza vaccination INFLUENZA (#1) [facility] Start: 09-19-2015 HPV TESTING HPV TESTING [facility] Start: 09-19-2015 Screening for malignant neoplasm of cervix HPV Testing [facility] Start: 2012 HPV Vaccine (optional start 27-45 years) HPV Vaccine (optional start 27-45 years) [facility] Start: 2006 PAP TESTING PAP TESTING [facility] Start: 2006 Screening for malignant neoplasm of cervix [facility] Start: 2004 Hepatitis A (HAV) Vaccine (optional start 19+ years) Hepatitis A (HAV) Vaccine (optional start 19+ years) [facility] Start: 2004 Hepatitis B Vaccine (1 of 3 - 19+ 3-dose series) Hepatitis B Vaccine (1 of 3 - 19+ 3-dose series) [facility] Start: 2004 Urine microalbumin profile DTAP,TDAP,TD (1 - Tdap) [facility] Start: 09-19-2003 Anxiety Screening Anxiety Screening [facility] Start: 09-19-2003 Depression Screening Depression Screening [facility] Start: 09-19-2003 HEPATITIS C SCREENING HEPATITIS C SCREENING [facility] Start: 09-19-2003 Hepatitis C screening [facility] Start: 09-19-2003 HIV SCREENING HIV SCREENING [facility] Start: 09-19-2003 HIV screening HIV Screening [facility] Start: 09-19-2003 Tetanus + diphtheria + acellular pertussis vaccine (product) Tdap Booster [facility] Start: 2000 HIV screening HIV Test [facility] Start: 09-19-1991 Pneumococcal vaccination Pneumococcal Vaccine (1 of 2 - PCV) [facility] Start: 03-21-1986 COVID-19 VACCINE (#1) COVID-19 VACCINE (#1) [facility] Start: 1985 HEPATITIS B (1 of 3 - 3-dose series) HEPATITIS B (1 of 3 - 3-dose series) [facility] Start: 1985 Hepatitis B vaccination Hepatitis B (HBV) Vaccine (1 of 3 - 3-dose series) [facility] Start: 1985 Screening for malignant neoplasm of breast Mammography shared decision making (35 through 39 years) [facility] Angiotensin converti ng enzyme [Enzymatic activity/volume] in Cerebral spinal fluid [facility] Work Phone: Bacteria identified in Unspecified specimen by Aerobe culture [facility] Work Phone: Bacteria identified in Unspecified specimen by Aerobe culture [facility] Bacteria identified in Unspecified specimen by Anaerobe culture [facility] Work Phone: Bacteria identified in Unspecified specimen by Anaerobe culture [facility] Bacteria identified in Urine by Culture [facility] Borrelia burgdorferi DNA assay [facility] Work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 with ALL of the followin (more content not included)...[facility]08-16-[facility]24 NoteDate of Procedure 02/15/2024. Project Executive Information Internal Medicine Doctor: tcp. Quality Right Eye Good. Left Eye Good. NFL Interpretation Right Eye Normal. Left Eye Normal. Interval Change Right Eye Initial. Left Eye Initial.[id number] NoteHNO ID: [id number] Author: RIYA KIRK OD Service: ? Author Type: FINANCIAL COUNSELOR Type: Progress Notes Filed: 02/15/2024 14:30 Note Text: ASSESSMENT/PLAN: 1. IIH (idiopathic intracranial hypertension) - ICD9: 348.2, ICD10: G93.2 (primary diagnosis) - OCT OPTIC NERVE CIRRUS OU (BOTH EYES) 01/2022 had rapidly progressing vision loss. MRI/MRA negative and then had LP with high opening pressure confirming IIH. Recently restarted diamox per neurology - whooshing and vision improving. Elevated nerves OU with possible drusen. There appears to be very trace disc edema OU. RNFL baseline today. Excellent vision. RTC 6 months for optic disc OCT and 30-2, sooner if worsening symptoms. Continue diamox per neurology. 2. Accommodation spasm, bilateral - ICD9: 367.53, ICD10: H52.533 Known to patient. Cyclo refraction completed today. Final Rx with 0.25D less plus than CR. Keep PAL as it works well for patient. Adaptation time discussed. 3. Hyperopic astigmatism of both eyes - ICD9: 367.20, ICD10: H52.203 As above. +History of white dot syndrome - no signs of posterior uveitis on exam today. Riya Kirk, OD I have confirmed and edited as necessary the relevant ophthalmic history, ROS, and the exam findings as obtained by others. I have seen and examined this patient. I have discussed the case and the management of this patient's care with the resident or fellow as appropriate. I also have reviewed and agree with the assessment and plan as stated above and agree with all of its relevant components. Riya Kirk, OD February 15, 2024 2:26 [facility]08-16-2024 History of Present illness Narrative* Riya Kirk, OD - 02/15/2024 2:26 PM EDT ASSESSMENT/PLAN: 1. IIH (idiopathic intracranial hypertension) - ICD9: 348.2, ICD10: G93.2 (primary diagnosis) - OCT OPTIC NERVE CIRRUS OU (BOTH EYES) 01/2022 had rapidly progressing vision loss. MRI/MRA negative and then had LP with high opening pressure confirming IIH. Recently restarted diamox per neurology - whooshing and vision improving. Elevated nerves OU with possible drusen. There appears to be very trace disc edema OU. RNFL baseline today. Excellent vision. RTC 6 months for optic disc OCT and 30-2, sooner if worsening symptoms. Continue diamox per neurology. 2. Accommodation spasm, bilateral - ICD9: 367.53, ICD10: H52.533 Known to patient. Cyclo refraction completed today. Final Rx with 0.25D less plus than CR. Keep PAL as it works well for patient. Adaptation time discussed. 3. Hyperopic astigmatism of both eyes - ICD9: 367.20, ICD10: H52.203 As above. +History of white dot syndrome - no signs of posterior uveitis on exam today. Riya Kirk, FATIMAH I have confirmed and edited as necessary the relevant ophthalmic history, ROS, and the exam findings as obtained by others. I have seen and examined this patient. I have discussed the case and the management of this patient's care with the resident or fellow as appropriate. I also have reviewed andagree with the assessment and plan as stated above and agree with all of its relevant components. Riya Kirk OD February 15, 2024 2:26 PM documented in this encounterM[facility]letown [facility]08-14-[facility]24 Hospital Discharge instructions Additional Instructions Please return to emergency department for any new or worrisome symptoms including any swelling of arm, numbness, weakness, tingling, redness of arm, fevers or chills. Follow-up with your family physician within the next 1 to 2 days.[facility] Work Phone: [phone]) 819-428906-03-2024 History of Present illness Narrative* Zoe Srinivasan MD - 12/03/2023 2:30 PM EDT Images from the original note were not included. Rheumatology Outpatient Clinic Date of Service: 12/03/2023 Patient: Miriam Edwards Medical Record: [id number] Primary Care Physician: No primary care provider on file. Referring Provider: SELF Last Rheumatology visit: 11/20/2023 (with Zoe Srinivasan) Chief complaint: Joint Pain The patient's identity and physical location were verified at the time of this visit. Either the patient or their legal packaging sales representative has been informed of the risks and benefits of virtual visit andalternative treatment through a remote evaluation and consents to proceed with the evaluation remotely. 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 Miriam is both RF - 9 (11/20/2023) and CCP - 13.5 (11/20/2023) negative. Her most recent MARCIAL was positive (11/20/2023). HISTORY OF PRESENT ILLNESS Seen as new patient in 10/2023, per HPI- Patient reports multiple joint pain including bilateral hips, knees, hands, neck, low back for manyyears, did PT, told to have degenerative arthritis and chronic pain. Physical therapy does not help with the pain She also reports that her skin is tender to touch, even massage hurts Pain is worse in am and worse with activities She reports mild swelling in her whole hands which is constant with intermittent worsening of swelling along with whole body swelling and whole body pain on and off, almost once every 6 months. 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 She reports that optic neuritis was ruled out, denies any history of uveitis or iritis She had MRI, LP, ruled out MS, Diamox has been recommended for intracranial hypertension She reports being sick 4 times since jun 2023- had coivd, strep, stomach flu Mid October 2023-she had whole body pain associated with fever, had Blisters in the mouth, she went to ER, had infectious workup done including blood culture which was negative, she was discharged home Later she also started having neck stiffness, she went back to ER, had lumbar puncture and meningitis was ruled out. She was given prednisone for 5 days that helped with her whole body swelling but not with the pain. 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 During initial evaluation in 10/2023-no evidence of synovitis or joint effusion, due to polyarthralgia with elevated sed rate, further workup was sent. Neurology 10/2023-restarted Diamox for increased intracranial hypertension, recommended retinal specialist, neuro ophthalmology. 10/2023 Protein creatinine ratio 0.18, UA-no proteinuria/hematuria Protein electrophoresis-no M protein MARCIAL positive, 1: 80 Anti-FARA, dsDNA negative Lupus anticoagulant negative Anticardiolipin antibody, beta-2 glycoprotein negative Sed rate/CRP normal CK normal C3/C4 normal CBC/CMP unremarkable RF/CCP negative Radiograph SI joint 10/2023-1. No acute osseous abnormality. 2. No erosions or evidence for inflammatory arthropathy. 3. L5-S1 spondylosis. Previous workups reviewed in patient's phone 10/2023 Sed rate 30 CRP 7.6 CSF cell count 2, protein 44 CT C spine- mild degenerative changes CXR- unremarkable XR bilateral hands 12/2022- unremarkable CT facial bone 08/2023- 1. No acute facial fracture. 2. Mild paranasal sinus disease with small left mastoid effusion. INTERVAL HISTORY Today She had follow-up to discuss test results She denies any new symptoms. She reports that she was on cymbalta yrs ago for mood, did not help for mood so was stopped Patient-Entered Data PAIN EVALUATION No data found in the last 1 encounters. PROMIS Assessments 11/18/2023 PROMIS Assessments Physical Health Percentile 10 Mental Health Percentile 34 Pain Score 3 Pain Interference Percentile 21 Fatigue Percentile 18 Physical Function Percentile 16 RAPID 3 Paul Activities of Daily Living 11/18/2023 8:52 PM Dress self? Without ANY difficulty Get in and out of bed? Without ANY difficulty Walk outdoors? Without ANY difficulty Wash and dry body? Without ANY difficulty Get in and out of car? Without ANY difficulty RAPID 3 Disease Activity Weighed Score Levels: 0 - 1: Near Remission 1.3 - 2.0: Low Severity 2.3 - 4.0: Moderate Severity 4.3 - 10.0: High Severity 11/18/2023 RAPID-3 Weighed Score RAPID 3 Weighed Score 4.67 (High severity ) Review of Systems Review of Systems CONSTITUTION: Negative for: Fever and Recent weight change HEENT: Positive for: Mouth sores and Trouble swallowing Negative for: Nosebleeds and Dry mouth RESPIRATORY: Negative for: Cough, Shortness of breath and Pain with breathing GASTROINTESTINAL: Negative for: Melena, Diarrhea, Heartburn and Abdominal pain MUSCULOSKELETAL: Positive for: Arthralgias, Myalgias, Muscle weakness, Joint swelling and Morning Joint Stiffness NEUROLOGICAL: Positive for: Numbness and Memory loss Negative for: Headaches SKIN: Positive for: Hair loss Negative for: Rash, Skin changes and Nail changes EYES: Positive for: Visual disturbance Negative for: Eye pain, Eye redness and Eye dryness CARDIOVASCULAR: Positive for: Leg swelling Negative for: Chest pain GENITOURINARY: Negative for: Dysuria and Hematuria HEMATOLOGIC/LYMPHATIC: Positive for: Swollen glands Palpable cervical only during the flares Raynaud's: Denies Sicca: Dry eyes sometimes Past Medical History PAST MEDICAL HISTORY Diagnosis Date IIH (idiopathic intracranial hypertension) Past Surgical History PAST SURGICAL HISTORY Procedure Laterality Date LAPAROSCOPIC CHOLECYSTECTOMY 09/19/2023 LAPAROSCOPY-MARKOS 12/10/2012 LIGATE FALLOPIAN TUBE Bilateral 02/05/2012 REMOVAL OF OVARY/TUBE(S) Bilateral 12/10/2012 TOTAL ABDOM HYSTERECTOMY 12/10/2012 Allergy ALLERGIES Allergen Reactions Latex Rash Nickel Rash Oxycodone Rash Silk Other: See Comments Silk tape Sulfadiazine Rash Family History Aunt being worked up for SLE, grandmother had SLE, mother- RA/fibromyalgia, sister has RA The patient denies family history of Sarcoidosis, Scleroderma, IBD or Psoriasis. No family history on file. Social History Social History Tobacco Use Smoking status: Every Day Packs/day: .5 Types: Cigarettes Smokeless tobacco: Never Tobacco comments: 1 pack every 2 days Substance Use Topics Alcohol use: Not Currently Drug use: Not Currently Current Medications Current Outpatient Medications Medication Sig acetaZOLAMIDE (DIAMOX) 250 mg tablet Take 1 tablet by mouth two times a day. Cetirizine 10 mg cap mv,calcium,min/iron/folic/vitK (MULTI FOR HER ORAL) PREMARIN 0.45 mg tablet montelukast (SINGULAIR) 10 mg tablet Montelukast Active 10 MG PO Daily May 15, 2021 12:00am Current Facility-Administered Medications Medication Dose Route Frequency perflutren lipid microspheres 1.3 mL in NaCl (PF) 0.9% 10 mL injection (DEFINITY) INTRAVENOUS DIRECTED PRN sodium chloride 0.9 % (flush) 10 mL (BD POSIFLUSH) 10 mL INTRAVENOUS DIRECTED PRN Labs Latest Ref Rng & Units 11/20/2023 CBC WBC 3.70 - 11.00 k/uL 7.43 Hemoglobin 11.5 - 15.5 g/dL 13.4 Hematocrit 36.0 - 46.0 % 38.4 Platelet Count 150 - 400 k/uL 316 Abs Neut (ANC) 1.45 - 7.50 k/uL 3.74 Abs Lymph 1.00 - 4.00 k/uL 3.08 Latest Ref Rng & Units 11/20/2023 CMP Sodium 136 - 144 mmol/L 140 Potassium 3.7 - 5.1 mmol/L 4.0 Chloride 97 - 105 mmol/L 104 CO2 22 - 30 mmol/L 24 Glucose 74 - 99 mg/dL 94 BUN 7 - 21 mg/dL 12 Creatinine 0.58 - 0.96 mg/dL 0.91 Calcium 8.5 - 10.2 mg/dL 9.6 AST 13 - 35 U/L 31 ALT 7 - 38 U/L 22 Alkaline Phosphatase 34 - 123 U/L 65 Latest Ref Rng & Units 11/20/2023 ESR, WSR WSR 0 - 20 mm/hr 9 Latest Ref Rng & Units 11/20/2023 CRP CRP <0.9 mg/dL <0.3 Latest Ref Rng & Units 11/20/2023 C3, C4 C3 86 - 166 mg/dL 137 C4 13 - 46 mg/dL 23 Latest Ref Rng & Units 11/20/2023 CK CK 42 - 196 U/L 116 Latest Ref Rng & Units 11/20/2023 RF and CCP Rheumatoid Factor <16 IU/mL <10 CCP Antibody IgG Qualitative Negative Negative CCP Antibody, IgG <20 Units <15 Latest Ref Rng & Units 11/20/2023 Antibodies MARCIAL Negative Positive MARCIAL Titer 1:80 MARCIAL Pattern Nuclear fine speckled DNA Antibody <=200 IU/mL 29 Anti-Sm <1.0 AI <0.2 Sm Antibody Negative Negative Ribosomal MOWER OPERATOR Ab <1.0 AI <0.2 Ribosomal MOWER OPERATOR Qualitative Negative Negative Chromatin Ab <1.0 AI <0.2 Chromatin Ab Qual Negative Negative SSA Antibody Qual Negative Negative Anti-SSA <1.0 AI <0.2 Anti-SSB <1.0 AI <0.2 MOWER OPERATOR Antibody QUAL Negative Negative Scleroderma Ab Qual Negative Negative Scl-70 Abs, EIA <1.0 AI <0.2 Centromere Ab <1.0 AI <0.2 CENTROMERE AB QUAL Negative Negative CAMMIE-1 ANTIBODY, IGG <1.0 AI <0.2 CAMMIE 1 ANTIBODY QUAL Negative Negative Beta 2 Glycoprotein, IgM <20 SMU <9 Cardiolipin Ab, IgG <15.0 GPL <9.0 Cardiolipin Ab, IgM <12.5 MPL <9.0 Cardiolipin Ab, IgA <12.0 APL <9.0 PT Sec 9.7 - 13.0 sec 11.1 PT INR 0.9 - 1.3 1.0 APTT 23.0 - 32.4 sec 28.2 Platelet Neut <1.9 Seconds 0.0 DRVVT Screen 32.0 - 45.7 seconds 35.9 DRVVT Confirm Ratio <1.32 1.10 DRVVT 1:1 Mix 32.0 - 45.7 seconds 37.2 Hex Phase Screen 34.0 - 51.8 seconds 52.0 Hex Phase Confirm 34.2 - 47.9 seconds 46.2 Hex Phase Delta <7.1 delta seconds 5.8 APTT Screen 24.0 - 35.1 seconds 28.7 Thrombin Time <18.6 seconds 17.8 Anti Xa Inhib Assay <0.10 <0.10 Latest Ref Rng & Units 11/20/2023 Urinalysis Protein, Urine Negative Negative RBC, Urine 0-2 /HPF 0-2 /HPF Protein/Creat Ratio <0.15 mg/mg 0.18 Imaging Last XR Hand/Finger - Impression Only No resulted procedures found. Last MRI Hand - Impression Only No resulted procedures found. Last XR Chest - Impression Only No resulted procedures found. Last XR Cervical Spine - Impression Only No resulted procedures found. Health Maintenance Current Immunizations Never Reviewed No immunizations on file. Physical Exam Exam limited as this is a video visit General: no acute distress, Resp: No acute distress, normal respirations Neuro: alert, No facial asymmetry; normal cognition Skin: No facial rash Diagnoses: (M25.50) Polyarthralgia (primary encounter diagnosis) (G89.4) Chronic pain syndrome Impression and Plan 1. Polyarthralgia 2. Chronic pain syndrome 3. Positive MARCIAL Patient with multiple joint pains episodic whole-body pain with whole body swelling along with fatigue, brain fog No synovitis on exam however had multiple soft tissue and joint tenderness during last visit Noted mildly elevated sed rate and CRP in the setting of fever, repeat sed rate and CRP is normal She does report that her whole body swelling went down with prednisone for 5 days did not help muchwith the pain Noted unremarkable radiograph of bilateral hands in 12/2022, radiograph SI joint 10/2023-spondylosis,no sacroiliitis Has history of 3 early miscarriages and idiopathic intracranial hypertension, antiphospholipid antibodies are negative Although MARCIAL is mildly elevated, 1: 80, anti-FARA and dsDNA is negative, C3 and C4 is normal, no evidence of proteinuria/hematuria Fever with cervical lymphadenopathy, oral ulcers, polyarthralgia does raise concern for PFAPA, however these episodes with fever and oral ulcers has happened only once, also PFAPA would be unusual atthis age palindromic rheumatism is still a concern with intermittent joint pain and swelling, recommend repeating sed rate and CRP at the time of flare, if elevated will consider adding hydroxychloroquine Widespread joint and muscle pain with widespread tenderness and family history of chronic pain syndrome does raise concern for chronic pain syndrome, will send referral to chronic pain recovery clinic. 4. Healthcare maintenance/Malignancy screening Defer to PCP Orders this visit: [facility] on 12/03/23 C-REACTIVE PROTEIN SEDIMENTATION RATE, [place] CONSULT TO [facility] (CHRONIC PAIN) Return for Pending test results. I spent a total of 25 minutes on the date of the service This note was partially generated with the assistance of [employer] voice recognition software. An attempt was made to correct any dictation errors however there may be some incorrect words, spellings, and punctuation. Zoe Srinivasan MD, [facility] Rheumatology documented in this [facility] NoteHNO ID: [id number] Author: ZOE SRINIVASAN MD Service: ? Author Type: Physician Type: Progress Notes Filed: 12/03/2023 16:34 Note Text: Rheumatology Outpatient Clinic Date of Service: 12/03/2023 Patient: Miriam Edwards Medical Record: [id number] Primary Care Physician: No primary care provider on file. Referring Provider: SELF Last Rheumatology visit: 11/20/2023 (with Zoe Srinivasan) Chief complaint: Joint Pain The patient's identity and physical location were verified at the time of this visit. Either the patient or their legal packaging sales representative has been informed of the risks and benefits of virtual visit and alternative treatment through a remote evaluation and consents to proceed with the evaluation remotely. 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 Miriam is both RF - 9 (11/20/2023) and CCP - 13.5 (11/20/2023) negative. Her most recent MARCIAL was positive (11/20/2023). HISTORY OF PRESENT ILLNESS Seen as new patient in 10/2023, per HPI- Patient reports multiple joint pain including bilateral hips, knees, hands, neck, low back for many years, did PT, told to have degenerative arthritis and chronic pain. Physical therapy does not help with the pain She also reports that her skin is tender to touch, even massage hurts Pain is worse in am and worse with activities She reports mild swelling in her whole hands which is constant with intermittent worsening of swelling along with whole body swelling and whole body pain on and off, almost once every 6 months. 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 She reports that optic neuritis was ruled out, denies any history of uveitis or iritis She had MRI, LP, ruled out MS, Diamox has been recommended for intracranial hypertension She reports being sick 4 times since jun 2023- had coivd, strep, stomach flu Mid October 2023-she had whole body pain associated with fever, had Blisters in the mouth, she went to ER, had infectious workup done including blood culture which was negative, she was discharged home Later she also started having neck stiffness, she went back to ER, had lumbar puncture and meningitis was ruled out. She was given prednisone for 5 days that helped with her whole body swelling but not with the pain. 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 During initial evaluation in 10/2023-no evidence of synovitis or joint effusion, due to polyarthralgia with elevated sed rate, further workup was sent. Neurology 10/2023-restarted Diamox for increased intracranial hypertension, recommended retinal specialist, neuro ophthalmology. 10/2023 Protein creatinine ratio 0.18, UA-no proteinuria/hematuria Protein electrophoresis-no M protein MARCIAL positive, 1: 80 Anti-FARA, dsDNA negative Lupus anticoagulant negative Anticardiolipin antibody, beta-2 glycoprotein negative Sed rate/CRP normal CK normal C3/C4 normal CBC/CMP unremarkable RF/CCP negative Radiograph SI joint 10/2023-1. No acute osseous abnormality. 2. No erosions or evidence for inflammatory arthropathy. 3. L5-S1 spondylosis. Previous workups reviewed in patient's phone 10/2023 Sed rate 30 CRP 7.6 CSF cell count 2, protein 44 CT C spine- mild degenerative changes CXR- unremarkable XR bilateral hands 12/2022- unremarkable CT facial bone 08/2023- 1. No acute facial fracture. 2. Mild paranasal sinus disease with small left mastoid effusion. INTERVAL HISTORY Today She had follow-up to discuss test results She denies any new symptoms. She reports that she was on cymbalta yrs ago for mood, did not help for mood so was stopped Patient-Entered Data PAIN EVALUATION No data found in the last 1 encounters. PROMIS Assessments 11/18/2023 PROMIS Assessments Physical Health Percentile 10 Mental Health Percentile 34 Pain Score 3 Pain Interference Percentile 21 Fatigue Percentile 18 Physical Function Percentile 16 RAPID 3 Paul Activities of Daily Living 11/18/2023 8:52 PM Dress self? Without ANY difficulty Get in and out of bed? Without ANY difficulty Walk outdoors? Without ANY difficulty Wash and dry body? Without ANY difficulty Get in and out of car? Without ANY difficulty RAPID 3 Disease Activity (more content not included)...[facility]05-31-2024 NoteHNO ID: [id number] Author: HAMILTON RODRIGUEZ MD Service: ? Author Type: Physician Type: Progress Notes Filed: 11/30/2023 08:35 Note Text: HEADACHE MEDICINE NEW EVALUATION November 30, 2023 8:00 AM I have communicated my name and active licensure. The patient's identity and physical location were verified at the time of this visit. Either the patient or their legal packaging sales representative has been informed of the risks and benefits of -- and alternatives to -- treatment through a remote evaluation and consents to proceed with the evaluation remotely. Headache 1 Onset: - Pt was diagnosed in 2021 with IIH following right eye vision. MRI/MRV were done that showed signs of IIH. LP OP was ~30. Placed on Diamox, but not adherent--no neuro care in ~ 1 year. Dose of Diamox was 250 mg BID. ++ pulsatile tinnitus with laying down. Location: holcephalic Quality/Description: pressure Associated Symptoms: Photophobia: yes Phonophobia: no Nausea: no Vomiting: no Worse with activity: no Number of migraine headache days/month: 0 Number of NON-migraine headache days/month: 30 Non-migraine headache severity: 7 Total Number of headache days/month: 30 Number of headache free days/month: 0 Current preventive treatment: none Current abortive treatment: APAP--improves Triggers: none Onset of headache to peak: gradual Relieving factors: caffeine Positional changes: yes - Pulsatile tinnitus when laying down. Most common time of day for headache to begin: evening Prodrome: none Aura: blurred vision Red flags: positional component Allodynia: no Days missed from work or school in the last month: 0 days Pt reports that she has an appointment in December 2023 with ophthalmology (retinal specialist). Last eye exam was over a year ago. Reports episodic blurred vision. Lost weight on Ozempic, but insurance didn't cover. She has regained the weight in the interim. Discussed weight loss--she [facility]. PAST MEDICAL HISTORY Diagnosis Date IIH (idiopathic intracranial hypertension) PAST SURGICAL HISTORY Procedure Laterality Date LAPAROSCOPIC CHOLECYSTECTOMY 09/19/2023 LAPAROSCOPY-MARKOS 12/10/2012 LIGATE FALLOPIAN TUBE Bilateral 02/05/2012 REMOVAL OF OVARY/TUBE(S) Bilateral 12/10/2012 TOTAL ABDOM HYSTERECTOMY 12/10/2012 Current Outpatient Medications Medication Sig melatonin/thean/lemon/hanane/lav (SLEEP CALM ORAL) Take by mouth. THC oral gummies. Cetirizine 10 mg cap mv,calcium,min/iron/folic/vitK (MULTI FOR HER ORAL) PREMARIN 0.45 mg tablet montelukast (SINGULAIR) 10 mg tablet Montelukast Active 10 MG PO Daily May 15, 2021 12:00am hydrOXYzine HCl (ATARAX) 25 mg tablet Current Facility-Administered Medications Medication Dose Route Frequency perflutren lipid microspheres 1.3 mL in NaCl (PF) 0.9% 10 mL injection (DEFINITY) INTRAVENOUS DIRECTED PRN sodium chloride 0.9 % (flush) 10 mL (BD POSIFLUSH) 10 mL INTRAVENOUS DIRECTED PRN ALLERGIES Allergen Reactions Latex Rash Nickel Rash Oxycodone Rash Silk Other: See Comments Silk tape Sulfadiazine Rash No family history on file. Social History Tobacco Use Smoking status: Every Day Packs/day: .5 Types: Cigarettes Smokeless tobacco: Never Tobacco comments: 1 pack every 2 days Substance Use Topics Alcohol use: Not Currently Drug use: Not Currently PHYSICAL EXAMINATION: No vitals for VV General appearance: Well appearing, alert, in no acute distress, well-hydrated, well nourished. Head: NC/AT Eyes: EOMI grossly on video visit Neuro: Negative findings: speech normal, mental status intact, no focal deficits. CN VII intact to facial symmetry, CN VIII intact to hearing. Miriam was seen today for daily headache. Diagnoses and all orders for this visit: IIH (idiopathic intracranial hypertension) - acetaZOLAMIDE (DIAMOX) 250 mg tablet; Take 1 tablet by mouth two times a day. - CONSULT TO OPHTHALMOLOGY; Future - CONSULT [facility]; Future - PROVIDER ORDERED FOLLOW UP; Future Class 1 obesity due to excess calories with serious comorbidity and body mass index (BMI) of 32.0 to 32.9 in adult - CONSULT [facility]; Future - PROVIDER ORDERED FOLLOW UP; Future Pt is 38 year old female with IIH, recent weight gain, daily STOREY's--off Diamox. I have restarted the Diamox today, and she has an ophthalmology appt with retinal specialists in 2-3 weeks. I am referring her to neuro-ophthalmology, but she will continue to see her retinal specialist in the interim. Restarting Diamox 250 mg po bid today--urged adherence to prevent visual loss. I have asked her to get me copies of her MRI, MRV, and LP's. I have also asked for copies of prior ophthalmology notes that apparently did confirm papilledema. Return 3 months. She may have an element of migraine, but reluctant to diagnose this until we get her ICP managed. (more content not included)...[facility]05-31-2024 History of Present illness Narrative* Hamilton Rodriguez MD - 11/30/2023 8:00 AM EDT HEADACHE MEDICINE NEW EVALUATION November 30, 2023 8:00 AM I have communicated my name and active licensure. The patient's identity and physical location wereverified at the time of this visit. Either the patient or their legal packaging sales representative has been informed of the risks and benefits of -- and alternatives to -- treatment through a remote evaluation andconsents to proceed with the evaluation remotely. Headache 1 Onset: - Pt was diagnosed in 2021 with IIH following right eye vision. MRI/MRV were done that showed signs of IIH. LP OP was ~30. Placed on Diamox, but not adherent--no neuro care in ~ 1 year. Dose of Diamox was 250 mg BID. ++ pulsatile tinnitus with laying down. Location: holcephalic Quality/Description: pressure Associated Symptoms: Photophobia: yes Phonophobia: no Nausea: no Vomiting: no Worse with activity: no Number of migraine headache days/month: 0 Number of NON-migraine headache days/month: 30 Non-migraine headache severity: 7 Total Number of headache days/month: 30 Number of headache free days/month: 0 Current preventive treatment: none Current abortive treatment: APAP--improves Triggers: none Onset of headache to peak: gradual Relieving factors: caffeine Positional changes: yes - Pulsatile tinnitus when laying down. Most common time of day for headache to begin: evening Prodrome: none Aura: blurred vision Red flags: positional component Allodynia: no Days missed from work or school in the last month: 0 days Pt reports that she has an appointment in December 2023 with ophthalmology (retinal specialist). Last eye exam was over a year ago. Reports episodic blurred vision. Lost weight on Ozempic, but insurance didn't cover. She has regained the weight in the interim. Discussed weight loss--she is [facility] see [facility] options. PAST MEDICAL HISTORY Diagnosis Date IIH (idiopathic intracranial hypertension) PAST SURGICAL HISTORY Procedure Laterality Date LAPAROSCOPIC CHOLECYSTECTOMY 09/19/2023 LAPAROSCOPY-MARKOS 12/10/2012 LIGATE FALLOPIAN TUBE Bilateral 02/05/2012 REMOVAL OF OVARY/TUBE(S) Bilateral 12/10/2012 TOTAL ABDOM HYSTERECTOMY 12/10/2012 Current Outpatient Medications Medication Sig melatonin/thean/lemon/hanane/lav (SLEEP CALM ORAL) Take by mouth. THC oral gummies. Cetirizine 10 mg cap mv,calcium,min/iron/folic/vitK (MULTI FOR HER ORAL) PREMARIN 0.45 mg tablet montelukast (SINGULAIR) 10 mg tablet Montelukast Active 10 MG PO Daily May 15, 2021 12:00am hydrOXYzine HCl (ATARAX) 25 mg tablet Current Facility-Administered Medications Medication Dose Route Frequency perflutren lipid microspheres 1.3 mL in NaCl (PF) 0.9% 10 mL injection (DEFINITY) INTRAVENOUS DIRECTED PRN sodium chloride 0.9 % (flush) 10 mL (BD POSIFLUSH) 10 mL INTRAVENOUS DIRECTED PRN ALLERGIES Allergen Reactions Latex Rash Nickel Rash Oxycodone Rash Silk Other: See Comments Silk tape Sulfadiazine Rash No family history on file. Social History Tobacco Use Smoking status: Every Day Packs/day: .5 Types: Cigarettes Smokeless tobacco: Never Tobacco comments: 1 pack every 2 days Substance Use Topics Alcohol use: Not Currently Drug use: Not Currently PHYSICAL EXAMINATION: No vitals for VV General appearance: Well appearing, alert, in no acute distress, well-hydrated, well nourished. Head: NC/AT Eyes: EOMI grossly on video visit Neuro: Negative findings: speech normal, mental status intact, no focal deficits. CN VII intact to facial symmetry, CN VIII intact to hearing. Miriam was seen today for daily headache. Diagnoses and all orders for this visit: IIH (idiopathic intracranial hypertension) - acetaZOLAMIDE (DIAMOX) 250 mg tablet; Take 1 tablet by mouth two times a day. - CONSULT TO OPHTHALMOLOGY; Future - CONSULT [facility]AT[facility]IC/[facility]; Future - PROVIDER ORDERED FOLLOW UP; Future Class 1 obesity due to excess calories with serious comorbidity and body mass index (BMI) of 32.0 to 32.9 in adult - CONSULT [facility]; Future - PROVIDER ORDERED FOLLOW UP; Future Pt is 38 year old female with IIH, recent weight gain, daily STOREY's--off Diamox. I have restarted theDiamox today, and she has an ophthalmology appt with retinal specialists in 2-3 weeks. I am referring her to neuro-ophthalmology, but she will continue to see her retinal specialist in the interim. Restarting Diamox 250 mg po bid today--urged adherence to prevent visual loss. I have asked her to get me copies of her MRI, MRV, and LP's. I have also asked for copies of prior ophthalmology notes that apparently did confirm papilledema. Return 3 months. She may have an element of migraine, but reluctant to diagnose this until we get her ICP managed. Hamilton Rodriguez MD November 30, 2023 8:32 AM documented in this [facility] History and physical note * Devonte Thrasher DO - 11/29/2023 2:20 PM EDT SERVICE DATE: 11/29/2023 SERVICE TIME: 2:20 PM SERVICE: General Surgery REFERRAL PHYSICIAN: No referring provider defined for this encounter. Miriam Edwards is here today at the request of No referring provider defined for this encounter. for my 2nd opinion regarding surgical clip in RLQ and RLQ pain. My final recommendation will be communicated back to the requesting physician by way of shared medical record or letter. Assessment ASSESSMENT: RLQ pain, unclear source; s/p lap kaelyn at [facility] No evidence of Rt inguinal hernia on CT Surgical clip present (from recent lap kaelyn) in the RLQ posterior to the cecum PLAN: Informed patient I do not explore abdomen or to remove migrated surgical clip(s) from cholecystectomy. In fact, I am not aware anyone does. Patient should follow-up with her original surgeon for further evaluation and care Advise patient to call [facility] referral line if she seeks 3rd opinion. HPI: 38 year old y/o female who is s/p lap kaelyn 09/19/[address] Montano. Per chart review she had pain in the right groin that started 2-3 weeks after surgery. PT is concerned that a migrating clip causing this discomfort. The plan was for an US w/valsalva to r/o inguinal hernia. This is not done yet. Pt presents to clinic today for a second opinion. She made this appt herself. The pain has been present since about 2 weeks post op. She states it has been sharp/stabbing pain especially with sitting/bending. It is not down into the groin. There is no bulge in the groin. Pain is localized in the RLQ. Admits to severe allergic reaction to something few weeks ago, had to get steroid. Known history ofsevere reaction with nickel. She is not sure what surgical clips are made of. No past medical history on file. PAST SURGICAL HISTORY Procedure Laterality Date LAPAROSCOPIC CHOLECYSTECTOMY 09/19/2023 LAPAROSCOPY-MARKOS 12/10/2012 LIGATE FALLOPIAN TUBE Bilateral 02/05/2012 REMOVAL OF OVARY/TUBE(S) Bilateral 12/10/2012 TOTAL ABDOM HYSTERECTOMY 12/10/2012 MEDICATIONS: Current Outpatient Medications: Cetirizine 10 mg cap, , Disp: , Rfl: mv,calcium,min/iron/folic/vitK (MULTI FOR HER ORAL), , Disp: , Rfl: PREMARIN 0.45 mg tablet, , Disp: , Rfl: montelukast (SINGULAIR) 10 mg tablet, Montelukast Active 10 MG PO Daily May 15, 2021 12:00am, Disp: , Rfl: melatonin/thean/lemon/hanane/lav (SLEEP CALM ORAL), Take by mouth. THC oral gummies., Disp: , Rfl: hydrOXYzine HCl (ATARAX) 25 mg tablet, , Disp: , Rfl: Current Facility-Administered Medications: perflutren lipid microspheres 1.3 mL in NaCl (PF) 0.9% 10 mL injection (DEFINITY), , INTRAVENOUS, DIRECTED PRN, Theron Gastelum MD sodium chloride 0.9 % (flush) 10 mL (BD POSIFLUSH), 10 mL, INTRAVENOUS, DIRECTED Nirav FERNANDEZ Avraham, MD ALLERGIES Allergen Reactions Latex Rash Nickel Rash Oxycodone Rash Silk Other: See Comments Silk tape Sulfadiazine Rash No family history on file. Social History Tobacco Use Smoking status: Every Day Packs/day: .5 Types: Cigarettes Smokeless tobacco: Never Tobacco comments: 1 pack every 2 days Substance Use Topics Alcohol use: Not Currently Drug use: Not Currently REVIEW OF SYSTEMS: GENERAL: No weight loss, malaise or fevers HEENT: Negative for frequent or significant headaches, No changes in hearing or vision, no nose bleeds or other nasal problems NECK: Negative for lumps, goiter, pain and significant neck swelling RESPIRATORY: Negative for cough, hemoptysis, wheezing, COPD, dyspnea or shortness of breath, +asthma CARDIOVASCULAR: +bl le swelling GI: No nausea, vomiting, or diarrhea and +abdominal pain : No history of dysuria, frequency or incontinence MUSCULOSKELETAL: Negative for joint pain or swelling, back pain or muscle pain SKIN: Negative for lesions, rash, and itching PSYCH: Negative for sleep disturbance, mood disorder and recent psychosocial stressors HEMATOLOGY/LYMPHOLOGY: Negative for prolonged bleeding, bruising easily or swollen nodes ENDOCRINE: Negative for cold or heat intolerance, polyuria, polydipsia and goiter NEURO: Migraine headaches PHYSICAL EXAM: BP 127/91 Pulse 93 Ht 157.5 cm (5' 2 ) Wt 80.5 kg (177 lb 7.5 oz) SpO2 99% BMI 32.46 kg/m Body mass index is 32.46 kg/m . GENERAL: Healthy, alert, no distress, cooperative SKIN: Skin color, texture, turgor normal. No rashes or lesions. HEAD/SINUSES: No significant findings EYES: EOMI NECK: Supple ABDOMEN: soft, mild TTP RLQ without rebound or guarding. EXTREMITIES: No ulcers NEURO: Grossly normal cognition, motor function Diagnostic tests reviewed for today's visit: Most recent imaging outside records from [facility] reviewed, including recent CT and XR. Records scanned into her chart. Office visit note from Dr. Montano 11/27/23 also reviewed. SIGNATURE: Kirsty Valenzuela RN PATIENT NAME: Miriam Edwards DATE: November 29, 2023 TIME: 2:20 PM ROXANA Thrasher DO [facility] History and physical note* Devonte Thrasher DO - 11/29/2023 2:20 PM EDT SERVICE DATE: 11/29/2023 SERVICE TIME: 2:20 PM SERVICE: General Surgery REFERRAL PHYSICIAN: No referring provider defined for this encounter. Miriam Edwards is here today at the request of No referring provider defined for this encounter. for my 2nd opinion regarding surgical clip in RLQ and RLQ pain. My final recommendation will be communicated back to the requesting physician by way of shared medical record or letter. Assessment ASSESSMENT: RLQ pain, unclear source; s/p lap kaelyn at O[facility] No evidence of Rt inguinal hernia on CT Surgical clip present (from recent lap kaelyn) in the RLQ posterior to the cecum PLAN: Informed patient I do not explore abdomen or to remove migrated surgical clip(s) from cholecystectomy. In fact, I am not aware anyone does. Patient should follow-up with her original surgeon for further evaluation and care Advise patient to call [facility] referral line if she seeks 3rd opinion. HPI: 38 year old y/o female who is s/p lap kaelyn 09/19/[address] Montano. Per chart review she had pain in the right groin that started 2-3 weeks after surgery. PT is concerned that a migrating clip causing this discomfort. The plan was for an US w/valsalva to r/o inguinal hernia. This is not done yet. Pt presents to clinic today for a second opinion. She made this appt herself. The pain has been present since about 2 weeks post op. She states it has been sharp/stabbing pain especially with sitting/bending. It is not down into the groin. There is no bulge in the groin. Pain is localized in the RLQ. Admits to severe allergic reaction to something few weeks ago, had to get steroid. Known history ofsevere reaction with nickel. She is not sure what surgical clips are made of. No past medical history on file. PAST SURGICAL HISTORY Procedure Laterality Date LAPAROSCOPIC CHOLECYSTECTOMY 09/19/2023 LAPAROSCOPY-MARKOS 12/10/2012 LIGATE FALLOPIAN TUBE Bilateral 02/05/2012 REMOVAL OF OVARY/TUBE(S) Bilateral 12/10/2012 TOTAL ABDOM HYSTERECTOMY 12/10/2012 MEDICATIONS: Current Outpatient Medications: Cetirizine 10 mg cap, , Disp: , Rfl: mv,calcium,min/iron/folic/vitK (MULTI FOR HER ORAL), , Disp: , Rfl: PREMARIN 0.45 mg tablet, , Disp: , Rfl: montelukast (SINGULAIR) 10 mg tablet, Montelukast Active 10 MG PO Daily May 15, 2021 12:00am, Disp: , Rfl: melatonin/thean/lemon/hanane/lav (SLEEP CALM ORAL), Take by mouth. THC oral gummies., Disp: , Rfl: hydrOXYzine HCl (ATARAX) 25 mg tablet, , Disp: , Rfl: Current Facility-Administered Medications: perflutren lipid microspheres 1.3 mL in NaCl (PF) 0.9% 10 mL injection (DEFINITY), , INTRAVENOUS, DIRECTED PRN, Theron Gastelum MD sodium chloride 0.9 % (flush) 10 mL (BD POSIFLUSH), 10 mL, INTRAVENOUS, DIRECTED PRN, Theron Gastelum MD ALLERGIES Allergen Reactions Latex Rash Nickel Rash Oxycodone Rash Silk Other: See Comments Silk tape Sulfadiazine Rash No family history on file. Social History Tobacco Use Smoking status: Every Day Packs/day: .5 Types: Cigarettes Smokeless tobacco: Never Tobacco comments: 1 pack every 2 days Substance Use Topics Alcohol use: Not Currently Drug use: Not Currently REVIEW OF SYSTEMS: GENERAL: No weight loss, malaise or fevers HEENT: Negative for frequent or significant headaches, No changes in hearing or vision, no nose bleeds or other nasal problems NECK: Negative for lumps, goiter, pain and significant neck swelling RESPIRATORY: Negative for cough, hemoptysis, wheezing, COPD, dyspnea or shortness of breath, +asthma CARDIOVASCULAR: +bl le swelling GI: No nausea, vomiting, or diarrhea and +abdominal pain : No history of dysuria, frequency or incontinence MUSCULOSKELETAL: Negative for joint pain or swelling, back pain or muscle pain SKIN: Negative for lesions, rash, and itching PSYCH: Negative for sleep disturbance, mood disorder and recent psychosocial stressors HEMATOLOGY/LYMPHOLOGY: Negative for prolonged bleeding, bruising easily or swollen nodes ENDOCRINE: Negative for cold or heat intolerance, polyuria, polydipsia and goiter NEURO: Migraine headaches PHYSICAL EXAM: BP 127/91 Pulse 93 Ht 157.5 cm (5' 2 ) Wt 80.5 kg (177 lb 7.5 oz) SpO2 99% BMI 32.46 kg/m Body mass index is 32.46 kg/m . GENERAL: Healthy, alert, no distress, cooperative SKIN: Skin color, texture, turgor normal. No rashes or lesions. HEAD/SINUSES: No significant findings EYES: EOMI NECK: Supple ABDOMEN: soft, mild TTP RLQ without rebound or guarding. EXTREMITIES: No ulcers NEURO: Grossly normal cognition, motor function Diagnostic tests reviewed for today's visit: Most recent imaging outside records from [facility] reviewed, including recent CT and XR. Records scanned into her chart. Office visit note from Dr. Montano 11/27/23 also reviewed. SIGNATURE: Kirsty Valenzuela RN PATIENT NAME: Miriam Edwards DATE: November 29, 2023 TIME: 2:20 PM ROXANA Thrasher DO documented [facility] NoteHNO ID: [id number] Author: LEORA WORTHINGTON RT(Regina) Service: ? Author Type: Technologist Type: Progress Notes Filed: 11/20/2023 12:07 Note Text: Radiology Service Progress Note PATIENT NAME: Miriam Edwards DATE OF SERVICE: November 20, 2023 TIME: 12:05 PM PATIENT IDENTITY VERIFICATION COMPLETED USING TWO (2) IDENTIFIERS: Name and Date of confirmed by patient verbally. FALL SCREENING: Has the patient had 2 falls in the last year or 1 fall with injury or currently using an Ambulatory Assistive Device (Walker, Cane, Wheelchair, Crutches, etc.)? No PATIENT GENDER DATA: Female. status: : No status: NO. PATIENT RELEVANT IMPLANT DATA REVIEWED: Yes PATIENT PRESENTS WITH AN IMPLANTABLE OR ATTACHED RADIO SURVEY WORKER: No RADIOLOGY DEPARTMENT: General X-ray: Exam(s) Completed: Pelvis X-Ray: sacroiliac joints PERIPHERAL IV DATA: Not applicable SIGNED BY: MIKEY Franklin) November 20, 2023 12:05 [facility]05-21-2024 History of Present illness Narrative* Leora Worthington RT(R) - 11/20/2023 12:05 PM EDT Radiology Service Progress Note PATIENT NAME: Miriam Edwards DATE OF SERVICE: November 20, 2023 TIME: 12:05 PM PATIENT IDENTITY VERIFICATION COMPLETED USING TWO (2) IDENTIFIERS: Name and Date of confirmedby patient verbally. FALL SCREENING: Has the patient had 2 falls in the last year or 1 fall with injury or currently using an Ambulatory Assistive Device (Walker, Cane, Wheelchair, Crutches, etc.)? No PATIENT GENDER DATA: Female. status: : No status: NO. PATIENT RELEVANT IMPLANT DATA REVIEWED: Yes PATIENT PRESENTS WITH AN IMPLANTABLE OR ATTACHED RADIO SURVEY WORKER: No RADIOLOGY DEPARTMENT: General X-ray: Exam(s) Completed: Pelvis X-Ray: sacroiliac joints PERIPHERAL IV DATA: Not applicable SIGNED BY: RT Noemi(Regina) November 20, 2023 12:05 PM documented in this [facility]05-21-[facility]24 History of Present illness Narrative* Zoe Srinivasan MD - 11/20/2023 11:00 AM EDT Images from the original note were not included. Rheumatology Outpatient Clinic Date of Service: 11/20/2023 Patient: Miriam Edwards Medical Record: [id number] Primary Care Physician: No primary care provider on file. Referring Provider: SELF Last [facility] Chief complaint: New Patient (Joint swelling, couple years. 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 Throat swelling and blisters in her mouth. Body weakness. Pt said since jun she was sick 4 times. Had covid, strep, some stomach bug. Prednisone is the only thing that ever works for her. Pt was at ER for neck stifffness. Pt has hand swelling sometimes. Had hard time grabbing things. Pt had blood work done, CRP and Sed rate was high. Pt's mom has RA and fibromyalgia. Grandma had autoimmune. Liver was enlarged. Patient does not know) Self Consultation requested for an opinion regarding joint pain, swelling, fever. 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 Throat swelling and blisters in her mouth. Body weakness. Pt said since jun she was sick 4 times. Had covid, strep, some stomach bug. Prednisone is the only thing that ever works for her. Pt was at ER for neck stifffness. Pt has hand swelling sometimes. Had hard time grabbing things. Pt had blood work done, CRP and Sed rate was high. Pt's mom has RA and fibromyalgia. Grandma had autoimmune. Liver was enlarged. Patient does not know). Miriam is RF negative - 9 (11/20/2023). HISTORY OF PRESENT ILLNESS Patient reports multiple joint pain including bilateral hips, knees, hands, neck, low back for manyyears, did PT, told to have degenerative arthritis and chronic pain. Physical therapy does not help with the pain She also reports that her skin is tender to touch, even massage hurts Pain is worse in am and worse with activities She reports mild swelling in her whole hands which is constant with intermittent worsening of swelling along with whole body swelling and whole body pain on and off, almost once every 6 months. 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 She reports that optic neuritis was ruled out, denies any history of uveitis or iritis She had MRI, LP, ruled out MS, Diamox has been recommended for intracranial hypertension She reports being sick 4 times since jun 2023- had coivd, strep, stomach flu Mid October 2023-she had whole body pain associated with fever, had Blisters in the mouth, she went to ER, had infectious workup done including blood culture which was negative, she was discharged home Later she also started having neck stiffness, she went back to ER, had lumbar puncture and meningitis was ruled out. She was given prednisone for 5 days that helped with her whole body swelling but not with the pain. 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 Previous workups reviewed in patient's phone 10/2023 Sed rate 30 CRP 7.6 CSF cell count 2, protein 44 CT C spine- mild degenerative changes CXR- unremarkable XR bilateral hands 12/2022- unremarkable CT facial bone 08/2023- 1. No acute facial fracture. 2. Mild paranasal sinus disease with small left mastoid effusion. Patient-Entered Data PAIN EVALUATION 11/18/20232046 Pain Level: 6 Pain Location: Other: See Comment Description: Aching;Spasm;Stiffness;Tingling Duration Amount of Time: 7 Duration Units: Days Frequency: Continuous Intervention/Comfort measure: Reposition;Positioning Comments: I normally have chronic pain it hurts to be rubbed or massaged. When i have flate ups of whatever is hoing on with me my whole body hurts PROMIS Assessments 11/18/2023 PROMIS Assessments Physical Health Percentile 10 Mental Health Percentile 34 Pain Score 3 Pain Interference Percentile 21 Fatigue Percentile 18 Physical Function Percentile 16 RAPID 3 Paul Activities of Daily Living 11/18/2023 8:52 PM Dress self? Without ANY difficulty Get in and out of bed? Without ANY difficulty Walk outdoors? Without ANY difficulty Wash and dry body? Without ANY difficulty Get in and out of car? Without ANY difficulty RAPID 3 Disease Activity Weighed Score Levels: 0 - 1: Near Remission 1.3 - 2.0: Low Severity 2.3 - 4.0: Moderate Severity 4.3 - 10.0: High Severity 11/18/2023 RAPID-3 Weighed Score RAPID 3 Weighed Score 4.67 (High severity ) Review of Systems Review of Systems CONSTITUTION: Negative for: Fever and Recent weight change HEENT: Positive for: Mouth sores and Trouble swallowing Negative for: Nosebleeds and Dry mouth RESPIRATORY: Negative for: Cough, Shortness of breath and Pain with breathing GASTROINTESTINAL: Negative for: Melena, Diarrhea, Heartburn and Abdominal pain MUSCULOSKELETAL: Positive for: Arthralgias, Myalgias, Muscle weakness, Joint swelling and Morning Joint Stiffness NEUROLOGICAL: Positive for: Numbness and Memory loss Negative for: Headaches SKIN: Negative for: Rash, Skin changes, Hair loss and Nail changes EYES: Positive for: Visual disturbance Negative for: Eye pain, Eye redness and Eye dryness CARDIOVASCULAR: Positive for: Leg swelling Negative for: Chest pain GENITOURINARY: Negative for: Dysuria and Hematuria HEMATOLOGIC/LYMPHATIC: Positive for: Swollen glands Palpable cervical only during the flares Raynaud's: Denies Sicca: Dry eyes sometimes Past Medical History No past medical history on file. Past Surgical History No past surgical history on file. Allergy ALLERGIES Allergen Reactions Latex Rash Nickel Rash Oxycodone Rash Silk Other: See Comments Silk tape Sulfadiazine Rash Family History Aunt being worked up for SLE, grandmother had SLE, mother- RA/fibromyalgia, sister has RA The patient denies family history of Sarcoidosis, Scleroderma, IBD or Psoriasis. No family history on file. Social History Social History Tobacco Use Smoking status: Every Day Packs/day: .5 Types: Cigarettes Tobacco comments: 1 pack every 2 days Substance Use Topics Alcohol use: Not Currently Drug use: Not Currently Current Medications Current Outpatient Medications Medication Sig melatonin/thean/lemon/hanane/lav (SLEEP CALM ORAL) Take by mouth. THC oral gummies. Cetirizine 10 mg cap mv,calcium,min/iron/folic/vitK (MULTI FOR HER ORAL) PREMARIN 0.45 mg tablet montelukast (SINGULAIR) 10 mg tablet Montelukast Active 10 MG PO Daily May 15, 2021 12:00am hydrOXYzine HCl (ATARAX) 25 mg tablet Current Facility-Administered Medications Medication Dose Route Frequency perflutren lipid microspheres 1.3 mL in NaCl (PF) 0.9% 10 mL injection (DEFINITY) INTRAVENOUS DIRECTED PRN sodium chloride 0.9 % (flush) 10 mL (BD POSIFLUSH) 10 mL INTRAVENOUS DIRECTED PRN Labs Latest Ref Rng & Units 11/20/2023 CBC WBC 3.70 - 11.00 k/uL 7.43 Hemoglobin 11.5 - 15.5 g/dL 13.4 Hematocrit 36.0 - 46.0 % 38.4 Platelet Count 150 - 400 k/uL 316 Abs Neut (ANC) 1.45 - 7.50 k/uL 3.74 Abs Lymph 1.00 - 4.00 k/uL 3.08 Latest Ref Rng & Units 11/20/2023 CMP Sodium 136 - 144 mmol/L 140 Potassium 3.7 - 5.1 mmol/L 4.0 Chloride 97 - 105 mmol/L 104 CO2 22 - 30 mmol/L 24 Glucose 74 - 99 mg/dL 94 BUN 7 - 21 mg/dL 12 Creatinine 0.58 - 0.96 mg/dL 0.91 Calcium 8.5 - 10.2 mg/dL 9.6 AST 13 - 35 U/L 31 ALT 7 - 38 U/L 22 Alkaline Phosphatase 34 - 123 U/L 65 Latest Ref Rng & Units 11/20/2023 ESR, WSR WSR 0 - 20 mm/hr 9 Latest Ref Rng & Units 11/20/2023 CRP CRP <0.9 mg/dL <0.3 Latest Ref Rng & Units 11/20/2023 C3, C4 C3 86 - 166 mg/dL 137 C4 13 - 46 mg/dL 23 Latest Ref Rng & Units 11/20/2023 CK CK 42 - 196 U/L 116 Latest Ref Rng & Units 11/20/2023 RF and CCP Rheumatoid Factor <16 IU/mL <10 Latest Ref Rng & Units 11/20/2023 Antibodies PT Sec 9.7 - 13.0 sec 11.1 PT INR 0.9 - 1.3 1.0 APTT 23.0 - 32.4 sec 28.2 Latest Ref Rng & Units 11/20/2023 Urinalysis Protein, Urine Negative Negative RBC, Urine 0-2 /HPF 0-2 /HPF Protein/Creat Ratio <0.15 mg/mg 0.18 Imaging Last XR Hand/Finger - Impression Only No resulted procedures found. Last MRI Hand - Impression Only No resulted procedures found. Last XR Chest - Impression Only No resulted procedures found. Last XR Cervical Spine - Impression Only No resulted procedures found. Health Maintenance Current Immunizations Never Reviewed No immunizations on file. Physical Exam VITAL SIGNS: BP 121/77 Pulse 82 Wt 178 lb 5.6 oz (80.9kg) GENERAL APPEARANCE: Well groomed. In no distress. SKIN: No rash, thickening, nodules, calcifications, discoloration. EYES: PERRL, EOMI HENT: Normal external examination of the ears and nose, lips, oropharynx and tongue. No oropharyngeal lesions, exudate, or sores. NECK: No mass or asymmetry, no lymphadenopathy. RESPIRATORY: Normal respiratory effort. Clear to auscultation, no wheeze. CARDIOVASCULAR: regular, normal rate, normal heart sounds, no murmur or rub ABDOMEN: BS normal. No bruits, No tenderness, NEUROLOGIC: Alert and oriented x 3. Motor exam: Normal muscle strength grossly. Normal bulk and tone. MUSCULOSKELETAL EXAMINATION: Soft tissue tender points: bilateral scapular blades, neck, arms, forearms Upper extremities: Shoulders: Full ROM in all directions, no tenderness to palpation. No swelling or effusion. Elbows: Full ROM in flexion and extension. No swelling or effusion. No tenderness to palpation to the joint line, olecranon, medial or lateral epicondyles. Wrists: Full ROM in all hoffman. No swelling or synovitis. tenderness to palpation Hands: Full ROM in flexion and extension. No swelling or synovitis along the MCPs, PIPs, and DIPs. tenderness along the MCPs, Lower extremities: Knees: No swelling or effusion. No tenderness to palpation. Ankles: Full ROM in all hoffman. No swelling or effusion. No tenderness to palpation Feet: No tenderness to palpation. No evidence of MTP swelling. Diagnoses: (M25.50) Polyarthralgia (primary encounter diagnosis) (R79.82) Elevated C-reactive protein (CRP) Impression and Plan 1. Polyarthralgia Patient with multiple joint pains episodic whole-body pain with whole body swelling along with fatigue, brain fog No synovitis on exam however has multiple soft tissue and joint tenderness Noted mildly elevated sed rate and CRP in the setting of fever She does report that her whole body swelling went down with prednisone for 5 days did not help muchwith the pain Noted unremarkable radiograph of bilateral hands in 12/2022 To further evaluate for inflammatory arthritis I will repeat sed rate, CRP. Obtain CBC, CMP, MARCIAL, anti-FARA, dsDNA, RF, CCP, CK, Due to history of 3 early miscarriages and idiopathic intracranial hypertension, I will obtain antiphospholipid antibodies Obtain radiograph SI joint to evaluate for spondyloarthritis Fever with cervical lymphadenopathy, oral ulcers, polyarthralgia does raise concern for PFAPA, however these episodes with fever and oral ulcers has happened only once, also PFAPA would be unusual atthis age Other differentials include palindromic rheumatism with intermittent joint pain and swelling Widespread joint and muscle pain with widespread tenderness and family history of chronic pain syndrome does raise concern for chronic pain syndrome, if above tests unremarkable, recommend referral to chronic pain specialist 2. Healthcare maintenance/Malignancy screening Defer to PCP Orders this visit: Office Visit on 11/20/23 XR SACROILIAC JOINTS 2V AP PELVIS/FERGUESON CCP ANTIBODY IGG RHEUMATOID FACTOR COMPLETE BLOOD COUNT AND DIFFERENTIAL C3 COMPLEMENT C4 COMPLEMENT CREATINE KINASE/CK COMPREHENSIVE METABOLIC PANEL C-REACTIVE PROTEIN SEDIMENTATION RATE, WESTERGREN URINALYSIS, WITH MICROSCOPIC MARCIAL BY IFA SCREEN ANTI FARA ID DNA AB DS + CONF BLD LUPUS ANTICOAG PL PROTEIN ELECTROPHORESIS SERUM W/INTERP PROTEIN / CREATININE RATIO melatonin/thean/lemon/hanane/lav (SLEEP CALM ORAL) Return in about 13 days (around 12/03/2023) for virtual. I spent a total of 60 minutes on the date of the service which included preparing to see the patient, [id number] patient care, completing clinical documentation, obtaining and/or reviewing separately obtained history, performing a medically appropriate examination, counseling and educating the pat ient/family/caregiver, and ordering medications, tests, or procedures. This note was partially generated with the assistance of [employer] voice recognition software. An attempt was made to correct any dictation errors however there may be some incorrect words, spellings, and punctuation. Zoe Srinivasan MD, [facility] Rheumatology documented in this [facility] NoteHNO ID: [id number] Author: ZOE SRINIVASAN MD Service: ? Author Type: Physician Type: Progress Notes Filed: 11/20/2023 21:52 Note Text: Rheumatology Outpatient Clinic Date of Service: 11/20/2023 Patient: Miriam Edwards Medical Record: [id number] Primary Care Physician: No primary care provider on file. Referring Provider: SELF Last [facility] visit[facility] Chief complaint: New Patient (Joint swelling, couple years. 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 Throat swelling and blisters in her mouth. Body weakness. Pt said since jun she was sick 4 times. Had covid, strep, some stomach bug. Prednisone is the only thing that ever works for her. Pt was at ER for neck stifffness. Pt has hand swelling sometimes. Had hard time grabbing things. Pt had blood work done, CRP and Sed rate was high. Pt's mom has RA and fibromyalgia. Grandma had autoimmune. Liver was enlarged. Patient does not know) Self Consultation requested for an opinion regarding joint pain, swelling, fever. 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 Throat swelling and blisters in her mouth. Body weakness. Pt said since jun she was sick 4 times. Had covid, strep, some stomach bug. Prednisone is the only thing that ever works for her. Pt was at ER for neck stifffness. Pt has hand swelling sometimes. Had hard time grabbing things. Pt had blood work done, CRP and Sed rate was high. Pt's mom has RA and fibromyalgia. Grandma had autoimmune. Liver was enlarged. Patient does not know). Miriam is RF negative - 9 (11/20/2023). HISTORY OF PRESENT ILLNESS Patient reports multiple joint pain including bilateral hips, knees, hands, neck, low back for many years, did PT, told to have degenerative arthritis and chronic pain. Physical therapy does not help with the pain She also reports that her skin is tender to touch, even massage hurts Pain is worse in am and worse with activities She reports mild swelling in her whole hands which is constant with intermittent worsening of swelling along with whole body swelling and whole body pain on and off, almost once every 6 months. 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 She reports that optic neuritis was ruled out, denies any history of uveitis or iritis She had MRI, LP, ruled out MS, Diamox has been recommended for intracranial hypertension She reports being sick 4 times since jun 2023- had coivd, strep, stomach flu Mid October 2023-she had whole body pain associated with fever, had Blisters in the mouth, she went to ER, had infectious workup done including blood culture which was negative, she was discharged home Later she also started having neck stiffness, she went back to ER, had lumbar puncture and meningitis was ruled out. She was given prednisone for 5 days that helped with her whole body swelling but not with the pain. 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 Previous workups reviewed in patient's phone 10/2023 Sed rate 30 CRP 7.6 CSF cell count 2, protein 44 CT C spine- mild degenerative changes CXR- unremarkable XR bilateral hands 12/2022- unremarkable CT facial bone 08/2023- 1. No acute facial fracture. 2. Mild paranasal sinus disease with small left mastoid effusion. Patient-Entered Data PAIN EVALUATION 11/18/20232046 Pain Level: 6 Pain Location: Other: See Comment Description: Aching;Spasm;Stiffness;Tingling Duration Amount of Time: 7 Duration Units: Days Frequency: Continuous Intervention/Comfort measure: Reposition;Positioning Comments: I normally have chronic pain it hurts to be rubbed or massaged. When i have flate ups of whatever is hoing on with me my whole body hurts PROMIS Assessments 11/18/2023 PROMIS Assessments Physical Health Percentile 10 Mental Health Percentile 34 Pain Score 3 Pain Interference Percentile 21 Fatigue Percentile 18 Physical Function Percentile 16 RAPID 3 Paul Activities of Daily Living 11/18/2023 8:52 PM Dress self? Without ANY difficulty Get in and out of bed? Without ANY difficulty Walk outdoors? Without ANY difficulty Wash and dry body? Without (more content not included)...[facility]04-16-2024 Miscellaneous Notes* Telephone Encounter - Delia Langston RN - 10/16/2023 8:02 AM EDT Reason for call: multiple symptoms; new symptom is neck swelling Outcome: patient will call her PCP locally for an appointment today. In addition, she would like tosee a exhibitor sales at [facility]. Conferenced to the Appointment Center for scheduling. Reason for Disposition [1] Single large node AND [2] size > 1 inch (2.5 cm) AND [3] no fever Answer Assessment - Initial Assessment Questions 1. LOCATION: entire neck is swollen, looks like she has a double chin 2. SIZE: large, but patient is unable to determine size 3. ONSET: yesterday 4. NECK NODES: tender; some discomfort when swallowing 6. FEVER: no fever today. She had a fever up to 103 F over the weekend, was seen at local ER 7. CAUSE: patient is concerned about an autoimmune issue, since she has been having unusual symptoms for the past 3 years 8. OTHER SYMPTOMS: include transient limb weakness, loss of vision in one eye, tingling down legs, intermittent swelling in different areas, fevers. Protocols used: Lymph Nodes - [id number] [facility] Discharge instructions* Discharge Instructions* Derrek Holguin MD - 08/30/2023 6:46 PM EST Headache Instructions: Return to the ED if your headache worsens, you develop weakness or numbness on one side of the body or the other, you develop blurred vision or difficulty with speech Procedures done during this visit: None * Attachments The following attachments cannot be sent through Care Everywhere. * Managing acute pain at home (Dominican) documented in this encounterTHE [employer] SYSTEM Work Phone: [phone] 150-843302-29-2024 NotePhysician Triage Note The patient was seen by me in intake for a brief history and physical obtained for triage reasons only. My exam is intended to be an initial medical screening exam for disposition within our ED with limited initial orders placed, when appropriate, to expedite care by the treating team. HIPAA: Verbal permission granted from patient to discuss case, including protected health information, in front of family / friends in room at the time of the evaluation. Patient complains of sent from dental for CT of jaw. Focused Exam: NAD The patient is deemed appropriate for west. Initial orders: piv bmp. The remainder of testing, treatment, and diagnostic plan will be assumed by the next clinician who will be seeing the patient as a primary patient, creating a plan and impression, and final disposition of the patient from the ED. I had a limited role in this case. PLEASE SEE OTHER ATTENDING/RESIDENT/PHYSICIAN/OPEN PIT QUARRY SUPERVISOR/PA NOTATION HARVE[facility]* Encounter Date Diagnosis Assessment Notes Treatment Notes Treatment Clinical Notes Jul, Bronchitis (ICD-10 - J40) Abx and steroid as directed with food. Pt is to use inhaler and nebulizer as previously prescribed prn for cough and wheeze. Supportive care as directed. Push fluids and rest. Pt denied work note today. Pt is to take otc antipyretic prn for fever and aches. Pt is to take rx cough suppressant prn for cough. Pt is to be re-evaluated after tx if sx worsen or don't improve by pcp or UC. Discussed sx of resp distress - wheeze, sob, difficulty breathing and swallowing, chest tightness, or chest pain. Pt is to f/u immediately in ER if these sx present. Pt is to call the office with any questions or concerns regarding dx and tx. Pt understood and agreed to tx plan. [email or web address] Other 08-04-2023 Evaluation note* Encounter Date Diagnosis Assessment Notes Treatment Notes Treatment Clinical Notes Jan, Abnormality of left breast on screening mammogram (ICD-10 - R92.8) [email or web address] Other 07-20-2023 Evaluation note* Encounter Date Diagnosis Assessment Notes Treatment Notes Treatment Clinical Notes Dec, High C-reactive protein (ICD-10 - R79.82) Dec, High serum sodium (ICD-10 - R79.89) Dec, Polyarthralgia (ICD-10 - M25.50) [facility] Other 05-02-2023 Evaluation note* Encounter Date Diagnosis Assessment Notes Treatment Notes Treatment Clinical Notes October, Mild intermittent asthma without complication (ICD-10 - J45.20) [email or web address] Other 03-29-2023 Evaluation note* Encounter Date Diagnosis Assessment Notes Treatment Notes Treatment Clinical Notes Aug, Acute cystitis with hematuria (ICD-10 - N30.01) No UTI symptoms. Feels completely resolved. Urine dip in the office continues to show trace blood. She does have history of kidney stones when she was younger. No longer has periods due to hysterectomy. Since she is feeling good, she would like to hold off on any further work up regarding trace hematuria in urine dip today. She will notify the office should she change her mind with this. Aug, Electrocardiogram showing T wave abnormalities (ICD-10 - R94.31) She will continue to follow with cardiology. Specialty notes reviewed as received. [email or web address] Other 03-10-2023 Evaluation note* Encounter Date Diagnosis Assessment Notes Treatment Notes Treatment Clinical Notes Aug, Dysuria (ICD-10 - R30.0) [email or web address] Other 03-10-2023 History of Present illness Narrative* Theron Gastelum MD - 09/08/2022 11:01 AM EST Images from the original note were not included. [facility] [place] [facility] Department of Cardiovascular Medicine SECTION OF REGIONAL CARDIOLOGY OUTPATIENT VISIT DATE September 08, 2022 OUTPATIENT VISIT TYPE NEW CONSULTATION CHIEF COMPLAINT: Chest pain HISTORY OF PRESENT ILLNESS: Ms. Kunz is a pleasant 36 year old female here for cardiovascular evaluation. She is a recovered alcohol and drug user. In August she had an episode of severe chest pain. Prior to this she had some pain over her left breast and she was sent for a Mammo which was negative. On Aug 17 she got really short of breath and some chest pain that radiated down the left arm. She went to her PCP and she had an EKG done and she was sent to the ED. They ruled out an MT and they discharged her home. Sheunderwent a what sounds like a exercise only stress which she was told was unremarkable. But she was told to see us here. She had an episode of chest pain a couple of days. She finds that when she takes a deep breath in it goes away. Maternal GF with CAD and PAD and some other distant relatives with heart disease. The following portions of the patient's history were reviewed and updated as appropriate, allergies, current medications, past medical, social, surgical, and family history and problem list. No past medical history on file. No past surgical history on file. No family history on file. ALLERGIES Not on File CURRENT MEDICATIONS: No prescriptions on file. I have personally interviewed, confirmed and edited the above information if obtained by others. Physical Exam Gen: alert, no acute distress HEENT: normocephalic, atraumatic, no rinorrhea, no congestion, normal hearing, EOMI, no eye discharge Heart: no murmurs, S1/S2+, regular rate and rhythm Lungs: no wheezing, no rales, symmetric expansion, nonlabored Abdomen: soft, nontender, nondistended Musculoskeletal: no edema, nontender Neurological: no focal deficits, alert, oriented Psychatric: cooperative, appropriate Pertinent Diagnostics/Labs/Data reviewed (ECGs and echo listed personally reviewed today or prior) and include: Assessment & Plan Atypical Chest Pain Impression: This is a 36 yo female with a PMHx of previous alcohol and drug use and no other cardiac Hx. She has been having some chest pain and pressure. She is presenting to the clinic for a second opinion. EKG showed NSR with RsR' and some TWI in the anteroseptal leads. Plan: - Vitals: BP 110/78 and a HR of 70. - Awaiting results of the EKG stress test from [facility] - spoke about all the stress in her life currently - Will be trying to reduce some of that for now - Will order an echocardiogram for now. - Will order a lipid panel to be done prior to her next visit. No current outpatient medications on file prior to visit. No current facility-administered medications on file prior to visit. Return in 3 months with communication in between if symptoms or changes occur. Thank you, CONTACT INFORMATION: Theron Gastelum MD Cardiovascular Medicine Staff Moises Aceves [facility] [id number] [place] [address]. [place] [address] documented in [facility]03[facility] Evaluation note* Encounter Date Diagnosis Assessment Notes Treatment Notes Treatment Clinical Notes Aug, Mixed hyperlipidemia (ICD-10 - E78.2) Aug, Obesity (BMI 30.0-34.9) (ICD-10 - E66.9) Aug, Impaired fasting glucose (ICD-10 - R73.01) Aug, Fatty liver (ICD-10 - K76.0) Aug, Asthma (ICD-10 - J45.909) Aug, Anxiety (ICD-10 - F41.9) Aug, ADHD (ICD-10 - F90.9) Aug, Low back pain (ICD-1 0 - M54.5) Aug, Metabolic syndrome X (ICD-10 - E88.81) [email or web address] Other 02-28-2023 Evaluation note* Encounter Date Diagnosis Assessment Notes Treatment Notes Treatment Clinical Notes Aug, Acute cystitis with hematuria (ICD-10 - N30.01) [email or web address] Other 02-27-2023 Evaluation note* Encounter Date Diagnosis Assessment Notes Treatment Notes Treatment Clinical Notes Aug, Dysuria (ICD-10 - R30.0) [email or web address] Other 02-20-2023 Evaluation note* Encounter Date Diagnosis Assessment Notes Treatment Notes Treatment Clinical Notes Aug, Nonspecific ST-T wav e electrocardiographic changes (ICD-10 - R94.31) [email or web address] Other 02-16-2023 Evaluation note* Encounter Date Diagnosis Assessment Notes Treatment Notes Treatment Clinical Notes Aug, Chest pain, unspecif ied type (ICD-10 - R07.9) Patient presents today for an urgent visit with our office. She presents with severe chest pain for the last hour-hour and a half. Radiates into left neck and down left arm. Arm feels tight like a squeezing. These episodes have been coming and going for awhile. EKG in the office does show ST-T wave changes possibly due to myocardial ischemia. 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 Due to EKG changes and patient chest pain, she is referred to the ER. She declines squad and called a friend to take her right over. She is put in a wheelchair and wheeled out to her friend's vehicle. She will take her immediately to the ER. Copies of EKGs done in the office are sent with her today. Report called to [facility] [place]. Dilshad Burdick. Will have patient follow back in the office after ER/hospital visit. Aug, ST segment changes o n electrocardiogram (ICD-10 - R94.31) See above treatment plan. [email or web address] Other 01-30-2023 Evaluation note* Encounter Date Diagnosis Assessment Notes Treatment Notes Treatment Clinical Notes Jul, Breast pain, left (ICD-10 - N64.4) Bilateral breast exam normal. She has been having intermittent shooting pains to her left breast that come and go. No other associated symptoms. No chest pain. No shortness of breath. Will obtain diagnostic mammogram with US to further evaluate. Further treatment pending results of testing. [email or web address] Other 01-09-2023 Evaluation note* Encounter Date Diagnosis Assessment Notes Treatment Notes Treatment Clinical Notes Jul, Mixed hyperlipidemia (ICD-10 - E78.2) Jul, Obesity (BMI 30.0-34.9) (ICD-10 - E66.9) Jul, Impaired fasting glucose (ICD-10 - R73.01) Jul, Fatty liver (ICD-10 - K76.0) Jul, Asthma (ICD-10 - J45.909) Jul, Anxiety (ICD-10 - F41.9) Jul, ADHD (ICD-10 - F90.9) Jul, Low back pain (ICD-1 0 - M54.5) Jul, Metabolic syndrome X (ICD-10 - E88.81) [email or web address] Other 12-19-2022 Evaluation note* Encounter Date Diagnosis Assessment Notes Treatment Notes Treatment Clinical Notes Jun, Sore throat (ICD-10 - J02.9) Strep throat negative. Influenza A/B negative, COVID negative. See above treatment plan. Jun, Viral illness (ICD-10 - B34.9) Strep throat negative. Influenza A/B negative, COVID negative. Discussed diagnosis with patient. Discussed with patient that symptoms are most likely viral at this time. No ATB needed at this time. OTC Ibuprofen/Tylenol PRN fever or general discomfort. OTC sore throat sprays or throat lozenges PRN. Notify office should symptoms persist and not improve. Discussed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 Colin Yusuf Referring Provider First Name Sruthi Referring Provider Last Name Bud Referring Provider Specialty Nurse Pracerwin mcnamara Referred Organization [facility] Referred Address [address] ,[place], [place],[address] Referred Provider Specialty Cardiology Referral Priority Routine Referral Appointment Date 2022-09-08 General Notes Aylin Cueva 09:33:36 AM > referral received and faxed to [facility] Aylin Cueva Joon 08/22/2022 01:31:17 PM >NO called and does not take pt insurance. informed pt, she states she would like to go to [facility]. Referral faxes to [facility] Aylin Cueva 08/28/2022 02:00:35 PM >received fax, appt scheduled with Shantel Estevez 08/28/2022 03:13:02 PM >pt called [facility]. they stated they did not receive a referral and the pt herself called and made the appt. fax: [phone] Reason 03/09/22 @ Refer t o neurology for intracranial hypotension Diagnosis 1 Intracranial hypoten haseeb (G96.810) Referral Organization [facility] Family Colin Yusuf Referring Provider First Name Sruthi Referring Provider Last Name Bud Referring Provider Specialty Nurse Pract itpioneerr Referred Organization [facility] Referred Provider Angela Peace Referred Address [address] [place] [address], [place], [place],[address] Referred Provider Specialty Neurology Referral Priority Routine Referral Appointment Date 2022-03-09 General Notes Roxy Shantel 01/2022 09:02:58 AM >pt has appt today 03/09/22 at 1:15 pm in [place] at [facility]. pt aware. [facility] has copy of mri report Aylin Cueva Joon 03/09/2022 09:44:26 AM >Referral received and sent p2p successful per log Additional Source Comments INFORMATION SOURCE (unrecogn ized section and content) DATE CREATED AUTHOR 12/25/2017 [facility] DATE CREATED AUTHOR AUTHOR'S ORGANIZ ATION 12/26/2017 [facility] DATE CREATED AUTHOR AUTHOR'S ORGANIZ ATION 08/21/2022 [facility] DATE CREATED AUTHOR AUTHOR'S ORGANIZ ATION 10/03/2022 [facility] DATE CREATED AUTHOR AUTHOR'S ORGANIZ ATION 09/05/2023 [facility] DATE CREATED AUTHOR AUTHOR'S ORGANIZ ATION 11/28/[address] [facility] DATE CREATED AUTHOR AUTHOR'S ORGANIZ ATION 04/01/2024 [facility] DATE CREATED AUTHOR AUTHOR'S ORGANIZ ATION 05/29/2024 [facility] REASON FOR VISIT (unrecogniz ed section and content) Reason Comments CARD New Patient Consult Reason Comments Swollen Glands Reason Comments Radiology XR Reason Comments New Patient Joint swelling, coup le years. 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 Throat swelling and blisters in her mouth. Body weakness. Pt said since jun she was sick 4 times. Had covid, strep, some stomach bug. Prednisone is the only thing that ever works for her. Pt was at ER for neck stifffness. Pt has hand swelling sometimes. Had hard time grabbing things. Pt had blood work done, CRP and Sed rate was high. Pt's mom has RA and fibromyalgia. Grandma had autoimmune. Liver was enlarged. Patient does not know Reason Comments New Patient Reason Comments Daily Headache Reason Comments Joint Pain Reason Comments IIH Specialty Diagnoses / Procedures Referred By Contac t Referred To Contact Ophthalmology Diagnoses IIH (idiopathic intracranial hypertension) Procedures CONSULT TO OPHTHALMOLOGY OFFICE/OUTPATIENT [facility] 60 [place] [address] [place] [address] Referral ID Status Reason Start Date Expiration Date V isits Requested Visits Authorized [id number] Closed PCP Requested Referral 11/30/2023 11/29/2024 1 1 Reason Comments Headache Specialty Diagnoses / Procedures Referred By Contac t Referred To Contact Diagnoses IIH (idiopathic intracranial hypertension) BMI 32.0-32.9,adult Class 1 obesity due to excess calories with serious comorbidity and body mass index (BMI) of 32.0 to 32.9 in adult Procedures PROVIDER ORDERED FOLLOW UP OFFICE/OUTPATIENT [facility] [address] [place] [address] [place] [address] Referral ID Status Reason Start Date Expiration Date V isits Requested Visits Authorized [id number] Closed PCP Requested Referral 03/01/2024 11/29/2024 1 1 Reason Comments Chronic Pain Specialty Diagnoses / Procedures Referred By Contac t Referred To Contact [facility] Diagnoses Chronic pain syndrome Procedures CONSULT TO [facility] (CHRONIC PAIN) OFFICE/OUTPATIENT [facility] 60 MINUTES Zoe Srinivasan MD [address] [place] [address] Referral ID Status Reason Start Date Expiration Date Visits Requested Visits Authorized [id number] Pending Review PCP Requested Referral 12/03/2023 12/02/2024 1 1 Reason Comments Jaw symptoms/complaints Has L jaw fx, wa s referred here to get CT scan. C/o jaw locking, and tenderness. Reason Comments Headache Specialty Diagnoses / Procedures Referred By Contac t Referred To Contact Diagnoses IIH (idiopathic intracranial hypertension) Procedures PROVIDER ORDERED FOLLOW UP OFFICE/OUTPATIENT [facility] 60 MINUTES Bhakti Coronel, DELIVERY ASSISTANT.[employer] SUPERVISOR [address] [place] [address] Referral ID Status Reason Start Date Expiration Date V isits Requested Visits Authorized [id number] Closed PCP Requested Referral 05/24/2024 02/21/2025 1 1 Care Teams (unrecognized sec tion and content) Team Status: Active Member Role Status Dates PHYSICIAN NO FAMILY Primary Care Provider Active Team Status: Inactive Member Role Status Dates Sruthi Farrell DNP Primary Care Provid er, Attending Provider Active Start: March 21, 2024 End: March 21, 2024 Team Status: Inactive Member Role Status Dates NARDA Rowe Emergency Provider Active Start: March 31, 2024 End: March 31, 2024 PHYSICIAN NO FAMILY Primary Care Provider Active Start: March 31, 2024 End: March 31, 2024 Team Status: Inactive Member Role Status Dates PHYSICIAN NO FAMILY Primary Care Provider Active Start: May 10, 2024 End: May 10, 2024 Marlo Salazar PA-C Attending Provider Active St art: May 10, 2024 End: May 10, 2024 Team Status: Active Member Role Status Dates Sruthi Farrell DNP Primary Care Provider Active Start: January 07, 2024 Jaylyn Moss RN Attending Provider Active Start: January 07, 2024 Team Status: Inactive Member Role Status Dates Sruthi Farrell DNP Primary Care Provider Active Start: February 13, 2024 End: February 13, 2024 Colleen Mckeon MD Emergency Provider Active Start: February 13, 2024 End: February 13, 2024 Team Status: Active Member Role Status Dates Sruthi Farrell DNP Primary Care Provider Active Start: February 14, 2024 Lucia Figueroa Attending Provider Active Start: February 14, 2024 Team Status: Active Member Role Status Dates Sruthi Farrell DNP Primary Care Provider Active Team Status: Active Member Role Status Dates Sruthi Farrell DNP Primary Care Provider Active Start: November 19, 2023 Shantel Ramsey LPN Attending Provider Active S tart: November 19, 2023 Team Status: Inactive Member Role Status Dates Sruthi Farrell DNP Primary Care Provider Active Start: November 25, 2023 End: November 25, 2023 Mary Hicks APRN Emergency Provider Active Start: November 25, 2023 End: November 25, 2023 Team Status: Active Member Role Status Dates Sruthi Farrell DNP Primary Care Provider Active Start: November 27, 2023 Radha Velazquez LPN Attending Provider Active Sta rt: November 27, 2023 Team Status: Inactive Member Role Status Dates Sruthi Farrell DNP Primary Care Provider Active Emeka Gastelum MD Attending Provider Active Team Status: Active Member Role Status Dates Sruthi Farrell DNP Primary Care Provider, Attending Provider Active Team Status: Inactive Member Role Status Dates Sruthi Farrell DNP Primary Care Provider Active Angela Peace DO Attending Provider Active Team Status: Inactive Member Role Status Dates Sruthi Farrell DNP Primary Care Provider Active Ken Castorena DO Emergency Provider Active Team Status: Inactive Member Role Status Dates Sruthi Farrell DNP Primary Care Provider, Attending Provider Active Vadim Sandra MD Other Provider Active Team Status: Inactive Member Role Status Dates Sruthi Farrell DNP Primary Care Provider, Attending Provider Active Team Status: Inactive Member Role Status Dates Sruthi Farrell DNP Primary Care Provider Active Torrey Louis MD Emergency Provider Active Team Status: Inactive Member Role Status Dates Sruthi Farrell DNP Primary Care Provider, Attending Provider Active Sunny Ignacio MD Referring Provider Active Team Status: Inactive Member Role Status Dates Sruthi Farrell DNP Attending Provider Active S tart: June 11, 2023 End: June 11, 2023 Team Status: Inactive Member Role Status Dates Sruthi Farrell DNP Primary Care Provider Active Start: June 27, 2023 End: June 27, 2023 Mary Hicks APRN Emergency Provider Active Start: June 27, 2023 End: June 27, 2023 Team Status: Inactive Member Role Status Dates Marlo Salazar PA-C Attending Provider Active St art: July 05, 2023 End: July 05, 2023 Team Status: Inactive Member Role Status Dates Sruthi Farrell DNP Primary Care Provider Active Start: July 31, 2023 End: August 01, 2023 Ken Castorena DO Emergency Provider Active St art: July 31, 2023 End: August 01, 2023 Team Status: Inactive Member Role Status Dates Sruthi Farrell DNP Primary Care Provider Active Start: September 10, 2023 End: September 10, 2023 Miguel Ángel Montano DO Attending Provider Active Start : September 10, 2023 End: September 10, 2023 Team Status: Inactive Member Role Status Dates Sruthi Farrell DNP Primary Care Provider Active Start: September 19, 2023 End: September 19, 2023 Miguel Ángel Montano DO Attending Provider Active Start : September 19, 2023 End: September 19, 2023 Team Status: Inactive Member Role Status Dates Sruthi Farrell DNP Primary Care Provider Active Start: October 14, 2023 End: October 14, 2023 Dilshad Burdick DO Emergency Provider Active Sta rt: October 14, 2023 End: October 14, 2023 Team Status: Inactive Member Role Status Gayathri Farrell DNP Primary Care Provid er, Attending Provider Active Start: October 16, 2023 End: October 16, 2023 Team Status: Inactive Member Role Status Dates Sruthi Farrell DNP Primary Care Provider Active Start: October 16, 2023 End: October 16, 2023 CECI Rowe- Emergency Provider Active Start: October 16, 2023 End: October 16, 2023 Team Status: Active Member Role Status Dates Sruthi Farrell DNP Primary Care Provider Active Start: October 16, 2023 Radha Velazquez LPN Attending Provider Active Sta rt: October 16, 2023 Goals (unrecognized section and content) Goals may be documented in a n alternate section Source Comments (unrecognize d section and content) In the event this informatio n is protected by the Federal Confidentiality of Alcohol and Drug Abuse Patient Records regulations: The Federal rules restrict any use of the information to criminally investigate or prosecute any alcohol or drug abuse patient.[facility] the event this information is protected by the Federal Confidentiality of Alcohol and Drug Abuse Patient Records regulations: The Federal rules restrict any use of the information to criminally investigate or prosecute any alcohol or drug abuse patient.[facility] the event this information is protected by the Federal Confidentiality of Alcohol and Drug Abuse Patient Records regulations: The Federal rules restrict any use of the information to criminally investigate or prosecute any alcohol or drug abuse patient.[facility] the event this information is protected by the Federal Confidentiality of Alcohol and Drug Abuse Patient Records regulations: The Federal rules restrict any use of the information to criminally investigate or prosecute any alcohol or drug abuse patient.[facility] the event this information is protected by the Federal Confidentiality of Alcohol and Drug Abuse Patient Records regulations: The Federal rules restrict any use of the information to criminally investigate or prosecute any alcohol or drug abuse patient.[facility] the event this information is protected by the Federal Confidentiality of Alcohol and Drug Abuse Patient Records regulations: The Federal rules restrict any use of the information to criminally investigate or prosecute any alcohol or drug abuse patient.[facility] the event this information is protected by the Federal Confidentiality of Alcohol and Drug Abuse Patient Records regulations: The Federal rules restrict any use of the information to criminally investigate or prosecute any alcohol or drug abuse patient.[facility] the event this information is protected by the Federal Confidentiality of Alcohol and Drug Abuse Patient Records regulations: The Federal rules restrict any use of the information to criminally investigate or prosecute any alcohol or drug abuse patient.[facility] the event this information is protected by the Federal Confidentiality of Alcohol and Drug Abuse Patient Records regulations: The Federal rules restrict any use of the information to criminally investigate or prosecute any alcohol or drug abuse patient.[facility] the event this information is protected by the Federal Confidentiality of Alcohol and Drug Abuse Patient Records regulations: The Federal rules restrict any use of the information to criminally investigate or prosecute any alcohol or drug abuse patient.[facility] the event this information is protected by the Federal Confidentiality of Alcohol and Drug Abuse Patient Records regulations: The Federal rules restrict any use of the information to criminally investigate or prosecute any alcohol or drug abuse patient.[facility] the event this information is protected by the Federal Confidentiality of Alcohol and Drug Abuse Patient Records regulations: The Federal rules restrict any use of the information to criminally investigate or prosecute any alcohol or drug abuse patient.[facility]In the event this information is protected by the Federal Confidentiality of Alcohol and Drug Abuse Patient Records regulations: The Federal rules restrict any use of the information to criminally investigate or prosecute any alcohol or drug abuse patient.[facility]In the event this information is protected by the Federal Confidentiality of Alcohol and Drug Abuse Patient Records regulations: The Federal rules restrict any use of the information to criminally investigate or prosecute any alcohol or drug abuse patient.[facility]In the event this information is protected by the Federal Confidentiality of Alcohol and Drug Abuse Patient Records regulations: The Federal rules restrict any use of the information to criminally investigate or prosecute any alcohol or drug abuse patient.[facility] Scheduled Active and Recently Administ ered Medications (unrecognized section and content) Medication Order 08/28/2023 08/29/2023 08/30/2023 iohexol (OMNIPAQUE) 350 MG/ML injection (COMPLETED) 75 mL, Intravenous Push, Once at Radiology exam, 1 dose, Starting on Dianne 08/30/23 at 1822, Until Dianne 08/30/23 at 1818, Imaging Protocol Orders [id number] (Bolus given - Provider: Sofia Colunga) FOR RECORDS PERTAINING TO PATIENTS WHO ARE OR HAVE BEEN ENROLLED IN A CHEMICAL DEPENDENCY/SUBSTANCEABUSE PROGRAM, SOME INFORMATION MAY BE OMITTED. This clinical summary was aggregated from multiple sources. Caution should be exercised in using it in the provision of clinical care. This summary normalizes information from multiple sources, and as a consequence, information in this document may materially change the coding, format and clinical context of patient data. In addition, data may be omitted in some cases. CLINICAL DECISIONS SHOULD BE BASED ON THE PRIMARY CLINICAL RECORDS. [facility] [employer] [facility]. provides no warranty or guarantee of the accuracy or completeness of information in this document.
[2024-06-12 18:58] LABS: Alanine Aminotransferase 28 U/L (14-59); Albumin Globulin Ratio 1.2; Albumin Level 3.7 g/dL (3.4-5.0); Alkaline Phosphatase 65 U/L (46-116); Anion Gap 15.5; Aspartate Amino Transferase 24 U/L (15-37); BUN Creatinine Ratio 11.5; Bilirubin Total 0.5 mg/dL (0.2-1.0); Calcium 8.9 mg/dL (8.5-10.1); Carbon Dioxide 19.8 mmol/L (21.0-32.0); Chloride 109 mmol/L (98-107); Estimated GFR (African America >60 (>=60 mL/min/1.73m^2); Estimated GFR (Non-African Ame 54 (>=60 mL/min/1.73m^2); Globulin 3.1 g/dL; Glucose 91 mg/dL (74-106); Potassium 3.3 mmol/L (3.5-5.1); Sodium 141 mmol/L (136-145); Total Protein 6.8 g/dL (6.4-8.2)
[2024-06-12 19:02] VITALS: BP 118/88; PULSE 82; O2SAT 97
--- NOTE | 2024-06-12 19:05 | PC.NURSE ---
i walked into this patient's room to find this patient awake and alert sitting upright on the bed talking to her friend. this patient has been updated that we are waiting on 1 more blood test results. this patient voices no concerns and shows no signs of distress
--- NOTE | 2024-06-12 19:37 | PC.NURSE ---
i gave this patient verbal and paper discharge orders and this patient voices yes to understanding these. at time of discharge this patient voices no concerns and shows no signs of distress
== END 2024-06-12 19:39 | disposition home or self-care (01) ==
PROVIDERS: Emergency Medicine; Emergency Provider Emergency Medicine; PCP Family Medicine
DX: K64.9 Unspecified hemorrhoids (principal); K62.5 Hemorrhage of anus and rectum; Z90.710 Acquired absence of both cervix and uterus
CPT/HCPCS: 36415; 80053; 84703; 85025; 86850; 86900; 86901; 99284